=== PATIENT | female | born 1955 | race Caucasian/White ===

== ENCOUNTER → 2020-01-13 11:12 | Outpatient (BNVA) | payer SELFPAY | PROVIDERS: Visit Provider Nurse Practitioner Family | DX: R10.2 Pelvic and perineal pain (principal); N39.0 Urinary tract infection, site not specified | CPT/HCPCS: 80053; 81000; 87077; 87086; 87186 ==

== ENCOUNTER 2020-02-21 13:56 | Outpatient (CLI) | payer SELFPAY ==
--- NOTE | 2020-02-21 14:03 | XR_ITS ---
WS: [id number] CERVICAL SPINE 3 VIEWS HISTORY: neck pain COMPARISON: None available. Straightening and reversal the normal cervical lordosis. C5 retrolisthesis by 2 mm. Small osteophytes extend anterior and posterior from C4, C5 and C6. Lateral masses of C1 and C2 are aligned odontoid i s intact. Disc spaces and vertebral body heights are well-maintained. Soft tissues are normal. XR/XR cervical spine 3V* [id number] IMPRESSION: 1. Reversal the normal cervical lordosis at C5-6. 2. C5 retrolisthesis by 2 mm.
== END 2020-02-21 13:57 | disposition home or self-care (01) ==
LOC: RAD 14:02
PROVIDERS: PCP Registered Nurse; Visit Provider Nurse Practitioner Family
DX: M54.2 Cervicalgia (principal)
CPT/HCPCS: 72040

== ENCOUNTER 2020-03-05 15:45 | Outpatient (CLI) | payer SELFPAY ==
--- NOTE | 2020-03-05 15:52 | MR_ITS ---
WS: [id number] MRI CERVICAL SPINE NONCONTRAST TECHNIQUE: Sagittal T1, T2 and STIR imaging. Axial T2, gradient, and fiesta imaging. CLINICAL INFORMATION: neck pain FINDINGS: Straightening of the normal cervical lordosis. Slight retrolisthesis C5 on C6 and C6 on C7 with mild disc osteophyte complexes. Mild to moderate central canal stenosis at these levels. Cord signal appears normal. C2-C3: Normal. C3-C4: Mild disc bulging with slight effacement of ventral thecal sac. Slight contact of the cervical cord. Mild facet arthropathy. Tiny annular fissure. Mild left and no significant right foraminal terry rowing. Mild facet arthropathy. C4-C5: Mild disc bulging and osteophytic ridging. Tiny central protrusion with slight contact of the ventral thecal sac. Mild left greater than right foraminal narrowing. Mild facet arthropathy. C5-C6: Disc osteophyte complex with endplate ridging. Slight retrolisthesis. Moderate central canal s tenosis and slight indentation on cervical cord. Severe left and moderate right bony foraminal narrow ing. Mild facet arthropathy. C6-C7: Disc osteophyte complex with a central disc osteophyte protrusion. Slight contact of the cervi darío cord with mild to moderate central canal stenosis. Moderate to severe left bony foraminal narrowi ng. Mild facet arthropathy. C7-T1: Moderate right and no significant left bony foraminal narrowing. Spinal canal is patent. Visualized brain stem structures: Normal. Prevertebral soft tissues: Normal. MR/MR cervical spin wo con* [id number] IMPRESSION: 1. Straightening of the normal cervical lordosis with slight retrolisthesis C5 on C6 and C6 on C7. 2. Moderate central canal stenosis C5-C6 and mild to moderate central canal st enosis C6-7 due to central disc osteophyte protrusion with slight contact of th e cervical cord. Slight retrolisthesis C5 on C6 and C6 on C7. 3. Severe left C5-C6 and moderate to severe left C6-C7 bony foraminal narrowin g. 4. Moderate right C7-T1 bony foraminal narrowing.
== END 2020-03-05 15:46 | disposition home or self-care (01) ==
LOC: RADWPI 15:50
PROVIDERS: PCP Registered Nurse; Visit Provider Nurse Practitioner Family
DX: M54.2 Cervicalgia (principal); M48.02 Spinal stenosis, cervical region
CPT/HCPCS: 72141

== ENCOUNTER 2020-05-02 06:00 | Outpatient (RCR) | payer SELFPAY | END 2020-05-25 23:59 | disposition home or self-care (01) | LOC: APT 06:00 | PROVIDERS: PCP Registered Nurse; Referring Provider Nurse Practitioner Family; Visit Provider Nurse Practitioner Family | DX: M48.02 Spinal stenosis, cervical region (principal) | CPT/HCPCS: 97110; 97140; 97162 ==

== ENCOUNTER → 2020-09-03 10:59 | Outpatient (BNVA) | payer SELFPAY | PROVIDERS: PCP Registered Nurse; Visit Provider Registered Nurse | DX: R10.9 Unspecified abdominal pain (principal); Z12.11 Encounter for screening for malignant neoplasm of colon; Z01.419 Encounter for gynecological examination (general) (routine) without abnormal findings; Z78.0 Asymptomatic menopausal state | CPT/HCPCS: 81000; 87070; 87205; 88175 ==

== ENCOUNTER 2020-10-31 12:22 | Outpatient (CLI) | payer SELFPAY ==
[2020-10-31 13:40] LABS: Blood Urea Nitrogen 10 mg/dL (8-23); Glomerular Filtration Rate 55.8 mL/min (90-130)
[2020-10-31] MEDS: iohexol 300 mg/mL 50 mL Btl IV (13:53)
--- NOTE | 2020-10-31 14:00 | CT_ITS ---
WS: [id number] CT ABDOMEN AND PELVIS WITH CONTRAST HISTORY: R10.9 - Unspecified abdominal pain TECHNIQUE: Imaging performed of the abdomen and pelvis with IV contrast. Single phase imaging of the abdomen. Coronal and sagittal reformats are submitted. All CT scans at [facility] use at least one of these dose optimization techniques: automated exposure control; mA and/or kV adjustment per patient size (includes targeted exams where dose is matched to clinical indication); or iterativ e reconstruction. IV CONTRAST: Visipaque 320; 95 mL IV. Oral contrast: Yes. DLP: 1253.62 mGy.cm COMPARISON: None available. Lower thorax: Lung bases are clear. Heart is normal size. Small hiatal hernia. Liver/biliary system: Normal size liver. There are several low-attenuation masses which are most cons istent with cysts. The largest in the RIGHT lobe measures 2.1 cm. Gallbladder: Cholelithiasis without acute cholecystitis. Pancreas: Normal. Spleen: Normal. Adrenal glands: Normal RIGHT adrenal gland. 6 mm nodule with associated calcification in the LEFT adr enal gland is too small to characterize. Right kidney: Normal. Left kidney: Cortical cyst measures 5 mm Aorta: Normal. Lymphadenopathy: None. Free fluid: None. GI tract: The appendix is normal. There are numerous diverticula throughout the colon. No acute infla mmation. No free fluid or adenopathy. Abdominal wall: Ventral abdominal wall hernia contains fat only. Pelvis: Well-distended urinary bladder. No free fluid in the pelvis. Uterus is anteverted and contain s calcified fibroids. Bones: No osteoblastic or osteolytic bone disease. CT/CT abdomen pelvis w con* [id number] IMPRESSION: 1. Extensive diverticular disease throughout the colon. No evidence for acute diverticulitis. No free fluid or abscess. 2. Cholelithiasis without acute cholecystitis. 3. Normal appendix. 4. Hepatic and LEFT renal cysts. 5. Fibroid uterus.
[2020-10-31] MEDS: iodixanol 320 mg/mL 100mL Btl IV (14:34)
== END 2020-10-31 12:23 | disposition home or self-care (01) ==
PROVIDERS: PCP Registered Nurse; Visit Provider Surgery
DX: R10.9 Unspecified abdominal pain (principal); D25.9 Leiomyoma of uterus, unspecified; Q61.02 Congenital multiple renal cysts; K76.89 Other specified diseases of liver; K80.20 Calculus of gallbladder without cholecystitis without obstruction
CPT/HCPCS: 36415; 74177; 82565; 84520

== ENCOUNTER → 2020-11-23 09:12 | Outpatient (BNVA) | payer OTHER, SELFPAY | PROVIDERS: PCP Registered Nurse; Visit Provider Surgery | DX: Z20.822 Contact with and (suspected) exposure to COVID-19 (principal) | CPT/HCPCS: 87635 ==

== ENCOUNTER 2020-11-28 06:33 | Day surgery (SDC) | payer SELFPAY ==
[2020-11-28 06:54] VITALS: BP 121/72; PULSE 68; RESP 18; TEMP 36.8; O2SAT 97
[2020-11-28 06:56] VITALS: BMI 30.7
[2020-11-28] MEDS: sodium chloride 0.9% 1,000 ML 30 ML IV (07:05)
--- NOTE | 2020-11-28 07:10 | ANES.PREANE2 ---
Pre-Anesthetic Assessment Pre-Anesthetic Assessment: Height/Weight: Height 1.68 m Weight 86.183 kg Temp Pulse Resp BP Pulse Ox 98.2 F 68 18 121/72 97 11/28/20 06:54 11/28/20 06:54 11/28/20 06:54 11/28/20 06:54 11/28/20 06:54 Preop Diagnosis: History of diverticulitis Proposed Procedure: Operation Date: 11/28/20 07:45 Proposed Procedures p Colonoscopy 33812 R10.9(Not Applicable) - John Wren MD Familial anesthetic complications: None Was Beta Murphy taken within 24 hours: N/A Last intake: Intake Last Liquid Date 11/27/20 Last Liquid Time 23:00 Last Solid Date 11/26/20 Last Solid Time 20:00 Social: Social History: No alcohol and No tobacco Exam: Pre-Anes Outpt Exam: alert, oriented x 3, clear to auscultation bilaterally and regular rate & rhythm Airway: Cervical ROM: WNL MP: 3 Dentition: Other (missing teeth) CV/HEM: CV/HEM: DVT Comments: on rivaroxaban (thrombophlebitis) Anesthetic Plan: ASA status: 2 Anesthesia: MAC Risk of > 500 ml blood loss (7ml/kg in children): No Meds/Allergies Current Medications: Current Medications Generic Name Dose Route Start Last Admin Trade Name Freq PRN Reason Stop Dose Admin Sodium Chloride 1,000 mls @ 30 ml s/hr 11/28/20 06:45 11/28/20 07:05 Sodium Chloride 0.9% IV 11/29/20 06:44 30 mls/hr .Q24H NATALIA Administration PFSH Anesthesia PFSH: Medical History Diverticulitis Endometriosis Spinal stenosis of cervical region Family History Denies family history of Anesthesia complication Bleeding disorder Social History Smoking and tobacco status: former smoker Data Anesthesia Cardiac Studies: No Data to Display
--- NOTE | 2020-11-28 07:21 | W.PM.OPSUD ---
Surgery/Procedure H&P Update DATE OF PROCEDURE: November 28, 2020 DATE H&P PERFORMED: 11/07/20 H&P UPDATE INFORMATION: I have reviewed H&P completed within last 30 days, I have examined patient prior to procedure and No changes to prior documentation PREOP DIAGNOSIS: History of diverticulitis PRIMARY INDICATION FOR PROCEDURE: The same PLANNED PROCEDURE: Operation Date: 11/28/20 07:45 Proposed Procedures p Colonoscopy 52210 R10.9(Not Applicable) - John Wren MD
[2020-11-28 08:02] VITALS: BP 97/66; PULSE 58; RESP 16; TEMP 36.6; O2SAT 95
--- NOTE | 2020-11-28 08:08 | ANE.PACU2 ---
Inpatient post-anesthesia follow up: Airway intact: Yes Vital signs: Temperature 97.9 F Pulse Rate 58 Respiratory Rate 16 Blood Pressure 97/66 Pulse Oximetry 95 Oxygen Delivery Me thod Room Air Oxygen Flow Rate Fraction of Inspir ed Oxygen Hydration adequate: Yes Nausea and vomiting: No Pain level: 1 Mental status: Baseline
[2020-11-28 08:15] VITALS: BP 120/74; PULSE 52; RESP 16; O2SAT 99
== END 2020-11-28 08:25 | disposition home or self-care (01) ==
PROVIDERS: PCP Registered Nurse; Visit Provider Surgery
PROC: 0DJD8ZZ Inspection of Lower Intestinal Tract, Via Natural or Artificial Opening Endoscopic (ICD-10-PCS; CPT 45378; principal; 2020-11-28 07:45)
DX: Z87.19 Personal history of other diseases of the digestive system (principal); K57.30 Diverticulosis of large intestine without perforation or abscess without bleeding; Z86.718 Personal history of other venous thrombosis and embolism; Z87.891 Personal history of nicotine dependence
CPT/HCPCS: 12345; 45378; J2704; J7030

== ENCOUNTER 2021-01-23 06:00 | Outpatient (RCR) | payer SELFPAY | END 2021-01-23 23:59 | disposition home or self-care (01) | LOC: APT 06:00 | PROVIDERS: PCP Registered Nurse; Referring Provider Registered Nurse; Visit Provider Registered Nurse | DX: M67.912 Unspecified disorder of synovium and tendon, left shoulder (principal) | CPT/HCPCS: 97110; 97161 ==

== ENCOUNTER 2021-01-24 06:00 | Outpatient (RCR) | payer SELFPAY | END 2021-02-22 23:59 | disposition home or self-care (01) | LOC: APT 06:00 | PROVIDERS: PCP Registered Nurse; Referring Provider Registered Nurse; Visit Provider Registered Nurse | DX: M67.912 Unspecified disorder of synovium and tendon, left shoulder (principal) | CPT/HCPCS: 97110; 97112; 97140 ==

== ENCOUNTER 2021-02-23 06:00 | Outpatient (RCR) | payer MEDICAID, SELFPAY | END 2021-03-25 23:59 | disposition home or self-care (01) | LOC: APT 06:00 | PROVIDERS: PCP Registered Nurse; Referring Provider Registered Nurse; Visit Provider Registered Nurse | DX: M67.912 Unspecified disorder of synovium and tendon, left shoulder (principal) | CPT/HCPCS: 97110; 97112 ==

== ENCOUNTER → 2021-05-10 16:12 | Outpatient (BNVA) | payer OTHER, SELFPAY | PROVIDERS: PCP Registered Nurse; Visit Provider Emergency Medicine | DX: Z20.822 Contact with and (suspected) exposure to COVID-19 (principal) | CPT/HCPCS: 87635 ==

== ENCOUNTER 2021-05-18 13:48 | Inpatient (IN) | payer MEDICAID, SELFPAY ==
[2021-05-18] VITALS (7 sets, daily range): BP systolic 97–117; BP diastolic 65–77; PULSE 73–94; RESP 18–24; TEMP 36.4–37.4; O2SAT 82–97; BMI 28.2
--- NOTE | 2021-05-18 14:29 | ECG_ITS ---
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 Measurements Intervals [place] Rate: 83 P: 44 IA: 155 QRS: -29 QRSD: 76 T: -12 QT: 331 QTc: 390 Interpretive Statements SINUS RHYTHM BORDERLINE LEFT AXIS DEVIATION [QRS AXIS < -20] VOLTAGE CRITERIA FOR LVH [MEETS CRITERIA IN ONE OF: R(aVL), S(V1), R(V5), R(V5/V6)+S(V1)] MODERATE T-WAVE ABNORMALITY, CONSIDER ANTERIOR ISCHEMIA [-0.1+ mV T WAVE IN V3/V4] No previous ECG available for comparison Electronically Signed On 05-19-2021 18:22:14 CDT by Eloisa Villatoro M.D. [email or web address]
--- NOTE | 2021-05-18 14:29 | XRR_ITS ---
PROCEDURE INFORMATION: Exam: XR Chest Exam date and time: 05/18/2021 2:29 PM Age: 65 years old Clinical indication: Cough and dyspnea; Additional info: Dyspnea/cough TECHNIQUE: Imaging protocol: XR of the chest. Views: 1 view. COMPARISON: CT abdomen pelvis w con* [id number] 10/31/2020 2:15 PM FINDINGS: Lungs: There is bilateral airspace opacities, consistent with multifocal pneumonia. Pleural spaces: Unremarkable. No pleural effusion. No pneumothorax. Heart/Mediastinum: Unremarkable. No cardiomegaly. Bones/joints: Unremarkable. XR/XR chest 1V portable [id number] IMPRESSION: Multifocal pneumonia.
--- NOTE | 2021-05-18 14:47 | ED_ITS ---
HPI - COVID General: Chief Complaint: COVID symptoms Stated Complaint: LAST DAY QUARANTINE:SOB, FATIGUE, WEAK Time Seen by Provider: 05/18/21 14:29 Triage information: Has fever, cough or shortness of breath . No known COVID + exposure last 14 days History of Present Illness: HPI Narrative: 65 old female who is at day 10 since onset of symptoms and day 8 since she tested positive for COVID-19 virus. She seemed to have been doing pretty well and then yesterday she began getting increasing shortness of breath. Somewhat alarmed her daughter so her daughter came in to see her this this afternoon and found her to be profoundly short of breath. On arrival here she has a low-grade fever and an oxygen sat of 82% on room air. It corrects to the mid 90s with 15 L by nonrebreather. She has had a nonproductive cough with severe myalgias. Early on she had diarrhea but that has resolved. She denies any chest pain. complaint: known COVID positive Prior testing date: 05/10/21 COVID 19 common symptoms: positive fever(s), chills, cough, non-productive cough, dyspnea, fatigue, body aches, headache(s), loss of sense of smell and/or taste, throat pain, nasal congestion, nausea and diarrhea (Mostly resolved) COVID 19 other sytmptoms: positive requiring oxygen; negative chest pain Onset (ago): hour(s) Severity: severe Treatment prior to arrival: none COVID Results: SARS-CoV-2 RNA (RT-PCR) Detected (NOT DETECTED) A 05/10/21 16:12 05/10/21 Nasal/Oral Coronavirus 2019 PCR Not detected 11/23/20 09:12 11/23/20 Review of Systems Const: Reports: fever(s), chills, body aches and fatigue ENMT: Reports: throat pain and nasal congestion Card: Denies: chest pain, edema, dyspnea on exertion or orthopnea Resp: Reports: dyspnea and non-productive cough GI: Reports: nausea and diarrhea (Mostly resolved) : Denies: flank pain, difficulty voiding, dysuria, urinary frequency or urinary urgency Skin/Breast: Denies: rash or pruritus Neuro: Reports: headache(s) PFSH ED PFSH: Medical History Abdominal pain Benign mole Diverticulitis Diverticulosis Endometriosis History of blood clots Seborrheic keratosis Spinal stenosis of cervical region Tendinopathy of left shoulder Surgical History History of colonoscopy Family History Denies family history of Anesthesia complication Bleeding disorder Social History (Updated 05/18/21 @ 16:54 by Cheo Marquez MD) Smoking and tobacco status: former smoker Alcohol intake: never Substance/Drug Use: never Household members: spouse Housing: House History of recent travel: No Physical Exam Const: COMMON NORMALS: no acute distress GENERAL APPEARANCE: cooperative and comfortable ORIENTATION/CONSCIOUSNESS: Yes awake, Yes oriented to person, Yes oriented to place and Yes oriented to time HENMT: COMMON NORMALS: normocephalic, atraumatic and hearing grossly normal bilaterally HEAD & SCALP: normocephalic and atraumatic Neck/C-Spine: COMMON NORMALS: no JVD Resp: EFFORT & INSPECTION: Yes abnormal respiratory pattern, Yes tachypneic, Yes respiratory distress, Yes labored and Yes uses accessory muscles AUSCULTATION: crackles, wheezes and diminished lung sounds Cardio: COMMON NORMALS: no JVD, regular rate, regular rhythm and No murmurs present (Cardio) RATE: regular rate RHYTHM: regular rhythm GI: COMMON NORMALS: Soft to palpation and No hepatosplenomegaly present AUSCULTATION: Yes normoactive bowel sounds PALPATION: Yes Soft to palpation, No Tenderness to palpation present (GI), No Guarding due to palpation present (GI) and Yes No hepatosplenomegaly present Extremity: COMMON NORMALS: normal to inspection, capillary refill normal, no clubbing, cyanosis or edema, no calf tenderness and no pedal edema Neuro: SENSORIUM/ORIENTATION: Yes oriented to person, Yes oriented to place and Yes oriented to time Skin: COMMON NORMALS: no rashes or lesions noted GENERAL SKIN EXAM: no rashes or lesions noted Course Vital Signs: Vital signs: Vital Signs Temperature 98.3 F 05/20/21 00:00 Pulse Rate 63 05/20/21 00:00 Respiratory Rate 21 H 05/20/21 00:00 Blood Pressure 108/71 05/20/21 00:00 Pulse Oximetry 91 05/20/21 00:00 MDM - COVID MDM Narrative: Medical decision making narrative: Clinically patient has C OVID-19 although the antigen is negative rest of strongly suspect in the PCR will be positive will admit for pneumonia and suspected COVID-19 discussed with hospitalist orders written Lab Data: Labs: Lab Results 05/18/21 05/18/21 05/18/21 Range/Units 14:45 14:45 14:45 WBC 6.8 (4.0-10.0) 10^3/ uL RBC 4.87 (4.1-5.3) 10^6/u L Hgb 14.3 (11.5-15.3) g/dL Hct 42.9 (37.0-47.0) % MCV 88.1 (81-99) fL MCH 29.4 (28.0-34.0) pg MCHC 33.3 (30.0-36.0) g/dL RDW 13.3 (12.1-15.1) % Plt Count 274 (130-400) 10^3/c mm MPV 8.9 (7.4-10.4) fL Neut % (Auto) 74.0 % Lymph % (Auto) 15.8 % [place] % (Auto) 9.7 % Eos % (Auto) 0.0 % Baso % (Auto) 0.1 % Neut # (Auto) 5.02 (1.8-7.7) 10^3/u L Lymph # (Auto) 1.1 (0.8-4.8) 10^3/u L [place] # (Auto) 0.7 (0.2-0.9) 10^3/u L Eos # (Auto) 0.0 (0.0-0.8) 10^3/u L Baso # (Auto) 0.0 (0.0-0.1) 10^3/u L Nucleated RBC % (a uto) 0 % Nucleated RBCs # 0.0 /100WBC D-Dimer 2.73 H (0-0.59) ug/mIFE U Specimen Type Sample Site ABG pH (7.35-7.45) ABG pCO2 (35-45) mmHg ABG pO2 (80.0-100.0) mmH g ABG HCO3 (22-26) mmol/L ABG O2 Saturation ABG Base Excess (-2.0-2.0) mmol/ L Glen Test A-a O2 Gradient (5-10) mmHg Hematocrit (37-47) % Hgb O2 Saturation (95-100) % Carboxyhemoglobin (0.4-20.1) %THgb Methemoglobin (0.4-1.5) % Total Hemoglobin (12-16) g/dL Ionized Calcium (1.1-1.4) mmol/L O2 Delivery Device FiO2 % Gas [employer] Oil Servicer ID Sodium 134 L (136-145) mmol/L Potassium 4.1 (3.5-5.1) mmol/L Chloride 99 (98-107) mmol/L Carbon Dioxide 21 L (22-29) mmol/L Anion Gap 18.1 (5-19) BUN 24 H (8-23) mg/dL Creatinine 0.9 (0.5-0.9) mg/dL GFR Calculation 63.0 L (90-130) mL/min Glucose 119 H (65-115) mg/dL Calculated Osmolal ity 283 L (285-295) mOsm/k g Calcium 8.1 L (8.5-10.5) mg/dL Total Bilirubin 0.4 (0.15-1.2) mg/dL AST 51 H (0-32) U/L ALT 38 H (0-33) U/L Alkaline Phosphata se 61 (35-105) IU/L C-Reactive Protein 42.7 H (0.0-4.9) mg/L Total Protein 6.5 L (6.6-8.7) g/dL Albumin 3.7 (3.5-5.2) g/dL Globulin 2.8 (1.3-4.6) g/dL Procalcitonin (0-0.5) ng/mL Urine Color (Yellow) Urine Appearance (CLEAR) Urine pH (5-7) Ur Specific Gravit y (1.005-1.030) Urine Protein (Negative) Urine Glucose (UA) (Normal) Urine Ketones (Negative) Urine Blood (Negative) Urine Nitrate (Negative) Urine Bilirubin (Negative) Urine Urobilinogen (Negative) mg/dL Ur Leukocyte Darlene ase (Negative) Urine RBC (0-2) /hpf Urine WBC (0-5) /hpf Ur Squamous Epith Cells (0-5) /hpf Amorphous Sediment /hpf Urine Bacteria (NONE) /hpf Coarse Granular Ca sts /lpf 05/18/21 05/18/21 05/18/21 Range/Units 14:45 15:41 16:52 WBC (4.0-10.0) 10^3/ uL RBC (4.1-5.3) 10^6/u L Hgb (11.5-15.3) g/dL Hct (37.0-47.0) % MCV (81-99) fL MCH (28.0-34.0) pg MCHC (30.0-36.0) g/dL RDW (12.1-15.1) % Plt Count (130-400) 10^3/c mm MPV (7.4-10.4) fL Neut % (Auto) % Lymph % (Auto) % [place] % (Auto) % Eos % (Auto) % Baso % (Auto) % Neut # (Auto) (1.8-7.7) 10^3/u L Lymph # (Auto) (0.8-4.8) 10^3/u L [place] # (Auto) (0.2-0.9) 10^3/u L Eos # (Auto) (0.0-0.8) 10^3/u L Baso # (Auto) (0.0-0.1) 10^3/u L Nucleated RBC % (a uto) % Nucleated RBCs # /100WBC D-Dimer (0-0.59) ug/mIFE U Specimen Type Arterial Sample Site Brachial, left ABG pH 7.43 (7.35-7.45) ABG pCO2 36.9 (35-45) mmHg ABG pO2 73.9 L (80.0-100.0) mmH g ABG HCO3 24.2 (22-26) mmol/L ABG O2 Saturation 95.4 ABG Base Excess 0.1 (-2.0-2.0) mmol/ L Glen Test N/a A-a O2 Gradient 76.7 H (5-10) mmHg Hematocrit 44.7 (37-47) % Hgb O2 Saturation 94.4 L (95-100) % Carboxyhemoglobin 0.5 (0.4-20.1) %THgb Methemoglobin 0.6 (0.4-1.5) % Total Hemoglobin 14.6 (12-16) g/dL Ionized Calcium 1.2 (1.1-1.4) mmol/L O2 Delivery Device Nrb FiO2 100.0 % Gas And Oil Servicer ID Amh Sodium 134.0 (136-145) mmol/L Potassium 3.9 (3.5-5.1) mmol/L Chloride (98-107) mmol/L Carbon Dioxide (22-29) mmol/L Anion Gap (5-19) BUN (8-23) mg/dL Creatinine (0.5-0.9) mg/dL GFR Calculation (90-130) mL/min Glucose 117.0 H (65-115) mg/dL Calculated Osmolal ity (285-295) mOsm/k g Calcium (8.5-10.5) mg/dL Total Bilirubin (0.15-1.2) mg/dL AST (0-32) U/L ALT (0-33) U/L Alkaline Phosphata se (35-105) IU/L C-Reactive Protein (0.0-4.9) mg/L Total Protein (6.6-8.7) g/dL Albumin (3.5-5.2) g/dL Globulin (1.3-4.6) g/dL Procalcitonin 0.15 (0-0.5) ng/mL Urine Color Yellow (Yellow) Urine Appearance Clear (CLEAR) Urine pH 5 (5-7) Ur Specific Gravit y 1.020 (1.005-1.030) Urine Protein Trace (Negative) Urine Glucose (UA) Norm (Normal) Urine Ketones 1+ H (Negative) Urine Blood 2+ H (Negative) Urine Nitrate Negative (Negative) Urine Bilirubin 1+ H (Negative) Urine Urobilinogen 1 H (Negative) mg/dL Ur Leukocyte Darlene ase Negative (Negative) Urine RBC 0-4 H (0-2) /hpf Urine WBC 5-10 H (0-5) /hpf Ur Squamous Epith Cells 5-10 H (0-5) /hpf Amorphous Sediment 1+ /hpf Urine Bacteria 1+ H (NONE) /hpf Coarse Granular Ca sts 15-25 H /lpf COVID Results: SARS-CoV-2 RNA (RT-PCR) Detected (NOT DETECTED) A 05/10/21 16:12 05/10/21 Nasal/Oral Coronavirus 2019 PCR Not detected 11/23/20 09:12 11/23/20 Discharge Plan Discharge Patient Disposition: Admitted As Inpatient Admit Provider: Cheo Marquez Clinical Impression: COVID-19 determined by clinical diagnostic criteria, Hypoxia, Pneumonia Condition: Stable Coding Level of Care Code ED Clerical Support Specialist for Chg Fwd Exam Comprehensive
[2021-05-18 14:58] LABS: Basophils % 0.1 %; Hematocrit 42.9 % (37.0-47.0); Hemoglobin 14.3 g/dL (11.5-15.3); Lymphocytes # 1.1 10^3/uL (0.8-4.8); Lymphocytes % 15.8 %; Mean Corpuscular HGB Conc 33.3 g/dL (30.0-36.0); Mean Corpuscular Hemoglobin 29.4 pg (28.0-34.0); Mean Corpuscular Volume 88.1 fL (81-99); Mean Platelet Volume 8.9 fL (7.4-10.4); Monocytes # 0.7 10^3/uL (0.2-0.9); Monocytes % 9.7 %; Neutrophils # 5.02 10^3/uL (1.8-7.7); Nucleated Red Blood Cells % 0 %; Platelet Count 274 10^3/cmm (130-400); Red Blood Count 4.87 10^6/uL (4.1-5.3); Red Cell Distribution Width 13.3 % (12.1-15.1); White Blood Count 6.8 10^3/uL (4.0-10.0)
[2021-05-18 15:33] LABS: Alanine Aminotransferase 38 U/L (0-33); Albumin Level 3.7 g/dL (3.5-5.2); Alkaline Phosphatase 61 IU/L (35-105); Anion Gap 18.1 (5-19); Aspartate Amino Transferase 51 U/L (0-32); Blood Urea Nitrogen 24 mg/dL (8-23); C Reactive Protein 42.7 mg/L (0.0-4.9); Calcium 8.1 mg/dL (8.5-10.5); Carbon Dioxide 21 mmol/L (22-29); Chloride 99 mmol/L (98-107); Globulin 2.8 g/dL (1.3-4.6); Glucose 119 mg/dL (65-115); Osmolality Calculated 283 mOsm/kg (285-295); Potassium 4.1 mmol/L (3.5-5.1); Sodium 134 mmol/L (136-145); Total Bilirubin 0.4 mg/dL (0.15-1.2); Total Protein 6.5 g/dL (6.6-8.7)
[2021-05-18 15:38] LABS: D Dimer 2.73 ug/mIFEU (0-0.59)
[2021-05-18 15:57] LABS: Add Urine Microscopic? YES; Bilirubin Urine 1+ (Negative); Blood Urine 2+ (Negative); Glucose Urine UA Norm (Normal); Ketones Urine 1+ (Negative); Leukocyte Esterase Urine Negative (Negative); Nitrate Urine Negative (Negative); Protein Urine Trace (Negative); Urine Appearance Clear (CLEAR); Urine Color Yellow (Yellow); Urobilinogen Urine 1 mg/dL (Negative); pH Urine 5 (5-7)
[2021-05-18 15:59] LABS: Amorphous Sediment Urine 1+ /hpf; Bacteria Urine 1+ /hpf; Coarse Granular Casts Urine 15-25 /lpf; RBC Urine 0-4 /hpf (0-2)
[2021-05-18 16:00] LABS: Add Urine Culture? No
--- NOTE | 2021-05-18 16:12 | CTR_ITS ---
PROCEDURE INFORMATION: Exam: CTA Chest With Contrast Exam date and time: 05/18/2021 4:12 PM Age: 65 years old Clinical indication: Shortness of breath; Additional info: Covdi TECHNIQUE: Imaging protocol: Computed tomographic angiography of the chest with contrast. 3D rendering (Not supervised by radiologist): MIP and/or 3D reconstructed images were created by the technologist. Radiation optimization: All CT scans at this facility use at least one of these dose optimization techniques: automated exposure control; mA and/or kV adjustment per patient size (includes targeted exams where dose is matched to clinical indication); or iterative reconstruction. Contrast material: VISI 320; Contrast volume: 79 ml; Contrast route: INTRAVENOUS (IV); COMPARISON: CR (CHEST, ) 05/18/2021 2:39 PM RADIATION DOSE METRICS: Total DLP (mGy-cm): 478.47 FINDINGS: Pulmonary arteries: Normal. No pulmonary emboli. Aorta: Unremarkable. No aortic aneurysm. No aortic dissection. Lungs: There is patchy ground-glass opacities scattered throughout both lungs, in a predominantly peripheral distribution. Pleural spaces: Unremarkable. No pneumothorax. No pleural effusion. Heart: Unremarkable. No cardiomegaly. No pericardial effusion. Mediastinal space: A small hiatal hernia is present. Lymph nodes: Unremarkable. No enlarged lymph nodes. Liver: Small hepatic cysts noted, the largest measuring 2.1 cm in the right hepatic lobe. Liver is otherwise unremarkable. Stomach and bowel: There is diverticulosis without evidence of diverticulitis. Bones/joints: Unremarkable. No acute fracture. Soft tissues: Unremarkable. CT/CT angio chest PE protcl [id number] IMPRESSION: 1. No pulmonary embolus. 2. Commonly reported imaging features of (COVID-19) pneumonia are present. Other processes such as influenza pneumonia and organizing pneumonia, as can be seen with drug toxicity and connective tissue disease, can cause a similar imaging pattern. Radiation Dose CTDIVOL = (mGy): DLP = 478.47 (mGy-cm)
--- NOTE | 2021-05-18 16:28 | PM.HP ---
Providers/Chief Complaint Primary Care Provider: RASTA Cutler Chief Complaint: LAST DAY QUARANTINE:SOB, FATIGUE, WEAK History of Present Illness Vandana Villalobos is a 65 year old female who presented with COVID-19 symptoms. Patient is stating that her symptoms started about 10 days ago when her got sick. She was tested positive on 05/10, she has been doing well until yesterday when started experiencing worsening of shortness of breath. Today when daughter checked on her she called ambulance because of her worsening respiratory distress. She was saturating 80% on room air when EMS arrived she was put on 15 L nonrebreather mask which seemed to improve her saturation. She is also endorsing diarrhea fatigue lethargy and fever of 103. Nonproductive cough. Diagnostics in the ER revealed normal CBC, BMP revealed mildly abnormal transaminases CRP 42 I have requested procalcitonin level ABG is pending chest x-ray showed bilateral lower lobe groundglass opacities she is requiring 10 L nonrebreather mask Review of Systems Const: Reports: fever(s), chills, body aches and fatigue Eyes: Denies: change in vision ENMT: Denies: throat pain Card: Denies: chest pain Resp: Reports: dyspnea and non-productive cough GI: Reports: diarrhea : Denies: flank pain Musc: Denies: neck pain Skin/Breast: Reports: lesions Neuro: Denies: headache(s) Psych: Denies: anxiety Endo: Denies: polyuria William/Lymph: Denies: easy bruising All/Imm: Denies: urticaria Medications/Allergies Home Medications Medication Instructions Recorded Confirmed Last Taken Type rivaroxaban [Xarelto] 20 mg PO DAILY 05/18/21 05/18/21 05/17/21 History Allergies Allergy/AdvReac Type Severity Reaction Status Date / Time iodine Allergy ALGY-Hives Verified 05/18/21 14:30 povidone-iodine Allergy Unknown Verified 05/18/21 14:30 [From Betadine] shellfish derived Allergy ALGY-Hives Verified 05/18/21 14:30 soap [From Betadine] Allergy Unknown Verified 05/18/21 14:30 PFSH Acute PFSH: Medical History Abdominal pain Benign mole Diverticulitis Diverticulosis Endometriosis History of blood clots Seborrheic keratosis Spinal stenosis of cervical region Tendinopathy of left shoulder Surgical History History of colonoscopy Family History Denies family history of Anesthesia complication Bleeding disorder Social History (Updated 05/18/21 @ 16:54 by Cheo Marquez MD) Smoking and tobacco status: former smoker Alcohol intake: never Substance/Drug Use: never Household members: spouse Housing: House History of recent travel: No Vitals/I&O/Wt Last Vital Signs Temp 99.3 F 05/18/21 14:30 Pulse 73 05/18/21 16:09 Resp 20 H 05/18/21 14:50 BP 107/73 05/18/21 16:09 Pulse Ox 93 05/18/21 16:09 Weight last 48 hrs Weight 79.379 kg Physical Exam Narrative: EXAM NARRATIVE: Middle-age female who is currently saturating well on 10 L nonrebreather mask No active chest pain, S1, S2 no murmur appreciated Awake alert oriented x3 GCS 15 Signs of CHF Bilateral breath sounds with rhonchi at the bases bilaterally Abdomen soft nontender bowel sounds present No extremity no edema Multiple skin rashes noted actinic keratosis, EOMI, PERRLA No joint swelling Appropriate mood and affect Hoarseness of voice Data : 05/18/21 14:45 05/18/21 14:45 A&P Assessment and plan (1) Hypoxia: Status: Acute (2) COVID-19 determined by clinical diagnostic criteria: Status: Acute Additional A&P Information Acute hypoxic respiratory failure secondary to COVID-19 Currently requiring 10 L nonrebreather mask High D-dimer, will request CTA rule out PE Start Decadron and remdesivir CRP less than 75 hold off on interleukin-6 inhibitor We will place her with her who is admitted with COVID-19 symptoms as well Cardiac diet DVT prophylaxis continue rivaroxaban Full code Check inflammatory markers every 48 hours Judicious use of fluids Tessalon and Robitussin for cough Attestations Medical Necessity Statement*: Anticipating stay in the hospital because more than 2 midnights for COVID-19 hypoxia Time Spent in Patient Care: 30mins Coding Level of Care Code Acute Thermal Cutting Tracer Machine Operator for [facility] Fwd Diagnoses Hypoxia R09.02 COVID-19 determined by clinical diagnostic criteria U07.1
[2021-05-18 17:04] LABS: ABG PCO2 36.9 mmHg (35-45); ABG PH Result 7.43 (7.35-7.45); Alveolar-Arterial Oxygen Gradi 76.7 mmHg (5-10); Arterial Blood Gas Hematocrit 44.7 % (37-47); Base Excess ABG 0.1 mmol/L (-2.0-2.0); Blood Gas Operator Identificat AMH; Blood Gas Sample Site Brachial, left; Blood Gas Sample Type Arterial; Carboxyhemoglobin 0.5 %THgb (0.4-20.1); HCO3 ABG 24.2 mmol/L (22-26); HGB O2 Sat 94.4 % (95-100); Ionized Calcium Level - ABG 1.2 mmol/L (1.1-1.4); Methemoglobin 0.6 % (0.4-1.5); Oxygen Device NRB; Oxygen Saturation ABG 95.4; PO2 ABG 73.9 mmHg (80.0-100.0); Potassium Level - ABG 3.9 mmol/L (3.5-5.0); Total Hemoglobin 14.6 g/dL (12-16)
[2021-05-18 17:09] LABS: Procalcitonin 0.15 ng/mL (0-0.5)
[2021-05-18] MEDS: iodixanol 320 mg/mL 100mL Btl IV (17:13)
[2021-05-18] MEDS: remdesivir 200 MG in sodium chloride 0.9% (100 ml) 100 ML 100 MG IV (18:36)
[2021-05-18 18:45] LABS: Glucose Point of Care 121 mg/dL (70-110)
--- NOTE | 2021-05-18 18:53 | ECG_ITS ---
[facility] Test Date: 2021-05-18 Pat Name: Vandana Villalobos Department: Room: 276 Gender: Female Media Sales Consultant: : [id number] Requested By: Joseph Pichardo Order Number: [id number] Adriana MD: Eloisa Villatoro M.D. Measurements Intervals [place] Rate: 83 P: 44 ND: 155 QRS: -29 QRSD: 76 T: -12 QT: 331 QTc: 390 Interpretive Statements SINUS RHYTHM BORDERLINE LEFT AXIS DEVIATION [QRS AXIS < -20] VOLTAGE CRITERIA FOR LVH [MEETS CRITERIA IN ONE OF: R(aVL), S(V1), R(V5), R(V5/V6)+S(V1)] MODERATE T-WAVE ABNORMALITY, CONSIDER ANTERIOR ISCHEMIA [-0.1+ mV T WAVE IN V3/V4] No previous ECG available for comparison Electronically Signed On 05-19-2021 18:39:07 CDT by Eloisa Villatoro M.D. [id number]
[2021-05-18 21:06] LABS: Glucose Point of Care 166 mg/dL (70-110)
[2021-05-19] VITALS (11 sets, daily range): BP systolic 95–129; BP diastolic 55–76; PULSE 64–91; RESP 17–26; TEMP 36.7–37.7; O2SAT 90–96
[2021-05-19 06:18] LABS: Basophils % 0.1 %; Hematocrit 40.5 % (37.0-47.0); Hemoglobin 13.6 g/dL (11.5-15.3); Lymphocytes # 1.2 10^3/uL (0.8-4.8); Mean Corpuscular HGB Conc 33.6 g/dL (30.0-36.0); Mean Corpuscular Hemoglobin 29.9 pg (28.0-34.0); Mean Platelet Volume 9.1 fL (7.4-10.4); Monocytes # 0.6 10^3/uL (0.2-0.9); Monocytes % 7.2 %; Neutrophils # 6.36 10^3/uL (1.8-7.7); Neutrophils % 77.1 %; Nucleated Red Blood Cells % 0 %; Platelet Count 267 10^3/cmm (130-400); Red Blood Count 4.55 10^6/uL (4.1-5.3); Red Cell Distribution Width 13.5 % (12.1-15.1); White Blood Count 8.3 10^3/uL (4.0-10.0)
[2021-05-19 06:45] LABS: Lactate Dehydrogenase 569 U/L (135-214)
[2021-05-19 06:49] LABS: Anion Gap 14.7 (5-19); Blood Urea Nitrogen 27 mg/dL (8-23); C Reactive Protein 50.3 mg/L (0.0-4.9); Calcium 8.2 mg/dL (8.5-10.5); Carbon Dioxide 24 mmol/L (22-29); Chloride 99 mmol/L (98-107); Glucose 108 mg/dL (65-115); Osmolality Calculated 284 mOsm/kg (285-295); Potassium 3.7 mmol/L (3.5-5.1); Sodium 134 mmol/L (136-145)
[2021-05-19 06:52] LABS: Glucose Point of Care 104 mg/dL (70-110)
[2021-05-19 07:14] LABS: Ferritin 1999 ng/mL (15-150)
[2021-05-19] MEDS: dexamethasone 4 mg Tablet 6 MG PO (10:02)
[2021-05-19] MEDS: rivaroxaban 10 mg Tablet 20 MG PO (10:03)
[2021-05-19 10:45] LABS: Glucose Point of Care 123 mg/dL (70-110)
--- NOTE | 2021-05-19 14:23 | PM.PN ---
Subjective Subjective: Interval history: Patient was seen and examined this morning at bedside during Yang humidified high flow 70% 30 L Feeling very lethargic complaining of anorexia No active chest pain or shortness of breath Vitals/I&O/Wt Last Vital Signs Temp 98.3 F 05/19/21 11:49 Pulse 81 05/19/21 12:52 Resp 20 H 05/19/21 12:52 BP 111/75 05/19/21 11:49 Pulse Ox 90 05/19/21 12:52 05/18/21 05/19/21 05/19/21 22:59 06:59 14:59 Intake Total 460 / 460 120 / 580 Output Total 400 / 400 200 / 600 Balance 60 / 60 -80 / -20 Weight last 48 hrs Weight 79.379 kg Physical Exam Narrative: EXAM NARRATIVE: She was laying in right lateral position bradycardic Saturating well on humidified high flow 30 L 70% S1, S2 Bilateral breath sounds are adventitious rhonchi or crackles No new neurological deficits No leg edema Abdomen soft EOMI, PERRLA Data : 05/19/21 05:26 05/19/21 05:26 A&P Assessment and plan (1) Hypoxia: Status: Acute (2) COVID-19 determined by clinical diagnostic criteria: Status: Acute Additional A&P Information Acute hypoxia secondary to COVID-19 pneumonia Continue remdesivir and Decadron regimen CRP 50 if her oxygen equipment keeps increasing I may add interleukin-6 inhibitor dosage currently on 30 L 70% pain no active chest pain or shortness of breath She does endorse anorexia and fatigue Procalcitonin unremarkable She has stayed afebrile Complaining of 1 extremely loose stool Cardiac diet Full code DVT prophylaxis continue Xarelto 20 mg patient does have history of multiple venous clots in the past Attestations Medical Necessity Statement*: Continue medical management for hypoxia for COVID-19 currently on humidified high flow Time Spent in Patient Care: 16 - 35 minutes Coding Level of Care Code Acute Demographic Analyst for Kathrin Carreon Diagnoses Hypoxia R09.02 COVID-19 determined by clinical diagnostic criteria U07.1
[2021-05-19 17:04] LABS: Glucose Point of Care 166 mg/dL (70-110)
[2021-05-19] MEDS: remdesivir 100 MG in sodium chloride 0.9% (100 ml) 100 ML IV (17:45)
[2021-05-19 20:55] LABS: Glucose Point of Care 156 mg/dL (70-110)
[2021-05-20] VITALS (13 sets, daily range): BP systolic 108–122; BP diastolic 61–79; PULSE 63–77; RESP 16–22; TEMP 36.6–37.3; O2SAT 89–94
[2021-05-20 02:38] LABS: Hematocrit 38.7 % (37.0-47.0); Hemoglobin 12.8 g/dL (11.5-15.3); Lymphocytes % 19.5 %; Mean Corpuscular HGB Conc 33.1 g/dL (30.0-36.0); Mean Corpuscular Hemoglobin 29.3 pg (28.0-34.0); Mean Corpuscular Volume 88.6 fL (81-99); Mean Platelet Volume 9.3 fL (7.4-10.4); Monocytes # 0.4 10^3/uL (0.2-0.9); Monocytes % 8.1 %; Neutrophils # 3.73 10^3/uL (1.8-7.7); Neutrophils % 71.8 %; Nucleated Red Blood Cells % 0 %; Platelet Count 242 10^3/cmm (130-400); Red Blood Count 4.37 10^6/uL (4.1-5.3); Red Cell Distribution Width 13.4 % (12.1-15.1); White Blood Count 5.2 10^3/uL (4.0-10.0)
[2021-05-20 03:18] LABS: Blood Urea Nitrogen 28 mg/dL (8-23); C Reactive Protein 53.7 mg/L (0.0-4.9); Calcium 8.4 mg/dL (8.5-10.5); Carbon Dioxide 24 mmol/L (22-29); Chloride 101 mmol/L (98-107); Glucose 133 mg/dL (65-115); Osmolality Calculated 291 mOsm/kg (285-295); Sodium 137 mmol/L (136-145)
[2021-05-20 06:40] LABS: Glucose Point of Care 125 mg/dL (70-110)
[2021-05-20] MEDS: rivaroxaban 10 mg Tablet 20 MG PO (08:56)
[2021-05-20] MEDS: dexamethasone 4 mg Tablet 6 MG PO (08:56)
--- NOTE | 2021-05-20 09:39 | PC.NUTR ---
Nutrition assessment triggered d/t MST score of 2. Will add Glucerna BID for additional kcal/protein. Recommend to encourage po intakes of meals and provide preferences as appropriate. Recommend to monitor weight given questionable admit weight and report of wt loss. See full RD assessment for further details.
[2021-05-20 11:27] LABS: Glucose Point of Care 153 mg/dL (70-110)
--- NOTE | 2021-05-20 16:14 | PM.PN ---
Subjective Subjective: Interval history: Patient seen and examined this morning, patient was requiring 30 L on 65% FiO2, ask physical therapy to work with her, she has not been able to get out of her bed, endorsing anorexia, poor appetite with change of her oral taste Vitals/I&O/Wt Last Vital Signs Temp 98.2 F 05/20/21 11:59 Pulse 75 05/20/21 15:11 Resp 17 05/20/21 15:11 BP 116/74 05/20/21 11:59 Pulse Ox 90 05/20/21 15:11 05/20/21 05/20/21 05/20/21 06:59 14:59 22:59 Intake Total 0 / 570 240 / 240 Output Total 550 / 950 450 / 450 Balance -550 / -380 -210 / -210 Physical Exam Narrative: EXAM NARRATIVE: Patient was laying in left lateral position saturating well on 30 L 65% FiO2 humidified S1-S2 no murmur or abdominal rhythm Abdomen soft bowel sounds present Lower symmetry no edema Appears very lethargic and fatigued EOMI, PERRLA No neurological deficit Data : 05/20/21 02:08 05/20/21 02:08 A&P Assessment and plan (1) Pneumonia: Status: Acute (2) Hypoxia: Status: Acute Additional A&P Information Hypoxia respiratory failure with COVID-19 Wean off FiO2, work with physical therapy Finished remdesivir Decadron regimen Ventolin Incentive spirometry Encourage proning Patient endorsing anorexia weakness and lethargic, Cardiac diet DVT prophylaxis Xarelto because of history of previous venous thrombophlebitis Diarrhea improved Full code Attestations Medical Necessity Statement*: Continue medical management for acute hypoxia secondary to COVID-19 Time Spent in Patient Care: 16 - 35 minutes Coding Level of Care Code Acute 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
[2021-05-20 17:11] LABS: Glucose Point of Care 145 mg/dL (70-110)
[2021-05-20] MEDS: remdesivir 100 MG in sodium chloride 0.9% (100 ml) 100 ML IV (17:26)
[2021-05-20 21:48] LABS: Glucose Point of Care 215 mg/dL (70-110)
[2021-05-21] VITALS (12 sets, daily range): BP systolic 109–122; BP diastolic 70–77; PULSE 60–88; RESP 16–20; TEMP 36.4–37; O2SAT 88–95
[2021-05-21 06:15] LABS: Glucose Point of Care 130 mg/dL (70-110)
[2021-05-21 06:28] LABS: Lactate Dehydrogenase 508 U/L (135-214)
[2021-05-21] MEDS: rivaroxaban 10 mg Tablet 20 MG PO (08:08)
[2021-05-21] MEDS: dexamethasone 4 mg Tablet 6 MG PO (08:09)
[2021-05-21 12:05] LABS: Glucose Point of Care 128 mg/dL (70-110)
--- NOTE | 2021-05-21 16:42 | P.PN_ITS ---
Subjective Subjective: Interval history: Patient examined, no overnight events diarrhea resolved patient energy slightly better than yesterday, she has not gotten out of bed, requested PT evaluation Her O2 saturation would drop below 89 when I turned her oxygen below 55% Vitals/I&O/Wt Last Vital Signs Temp 98.3 F 05/21/21 15:22 Pulse 75 05/21/21 16:10 Resp 18 05/21/21 16:10 BP 113/70 05/21/21 15:22 Pulse Ox 93 05/21/21 16:10 05/21/21 05/21/21 05/21/21 06:59 14:59 22:59 Intake Total 360 / 360 Output Total 350 / 1200 Balance -350 / -740 360 / 360 Physical Exam Narrative: EXAM NARRATIVE: Patient was saturating 89 to 90% on humidified high flow 65% 45L Endorsing feeling better however has diminished bilateral airflow S1, S2 sinus rhythm Abdomen soft Lower symmetry no edema EOMI, PERRLA Patient was laying supine in her bed Was endorsing anorexia Data : 05/20/21 02:08 05/20/21 02:08 A&P Assessment and plan (1) Pneumonia: Status: Acute (2) Hypoxia: Status: Acute (3) COVID-19 determined by clinical diagnostic criteria: Status: Acute Additional A&P Information Acute hypoxic restaurant failure secondary to COVID-19 Wean off oxygen requirement currently requiring humidified high flow 45 L, 65% Her O2 requirement increases on ambulation, however CRP is trending down, she has stayed afebrile To work with physical therapy I would not add mirtazapine for her anorexia encouraged her to ambulate that would also increase her appetite Discussed proning Cardiac diet DVT prophylaxis continue Xarelto Full code Attestations Medical Necessity Statement*: Need hospitalization for hypoxia currently hu midified high flow Time Spent in Patient Care: less than 15 minutes Coding Level of Care Code Acute It Architecture Consultant for g Fwd Diagnoses Pneumonia J18.9 Hypoxia R09.02 COVID-19 determined by clinical diagnostic criteria U07.1
[2021-05-21 17:37] LABS: Glucose Point of Care 167 mg/dL (70-110)
[2021-05-21] MEDS: remdesivir 100 MG in sodium chloride 0.9% (100 ml) 100 ML IV (17:48)
[2021-05-21 21:43] LABS: Glucose Point of Care 168 mg/dL (70-110)
[2021-05-22] VITALS (11 sets, daily range): BP systolic 108–140; BP diastolic 64–79; PULSE 61–93; RESP 15–22; TEMP 36.4–37.1; O2SAT 88–95
[2021-05-22 06:42] LABS: Glucose Point of Care 104 mg/dL (70-110)
[2021-05-22] MEDS: rivaroxaban 10 mg Tablet 20 MG PO (10:34)
[2021-05-22] MEDS: dexamethasone 4 mg Tablet 6 MG PO (10:34)
[2021-05-22 10:57] LABS: Glucose Point of Care 123 mg/dL (70-110)
--- NOTE | 2021-05-22 14:07 | PM.PN ---
Subjective Subjective: Interval history: Patient was seen and examined, she has not gotten out of bed, has not worked with physical therapy yet, Encourage proning, today she saturating well on 45 L 60% Vitals/I&O/Wt Last Vital Signs Temp 98.7 F 05/22/21 11:59 Pulse 84 05/22/21 11:59 Resp 16 05/22/21 11:59 BP 124/79 05/22/21 11:59 Pulse Ox 90 05/22/21 11:59 05/21/21 05/22/21 05/22/21 22:59 06:59 14:59 Intake Total 340 / 700 470 / 470 Output Total 0 / 0 400 / 400 300 / 300 Balance 340 / 700 -400 / 300 170 / 170 Physical Exam Narrative: EXAM NARRATIVE: Was laying supine without any active discomfort Humidified high flow 45 L 60% Her O2 saturation drops with ambulation, S1, S2 Clinically dehydrated Abdomen soft Lower extremity no edema No acute respiratory distress Awake alert oriented x3 Data : 05/20/21 02:08 05/20/21 02:08 A&P Assessment and plan (1) Pneumonia: Status: Acute (2) Hypoxia: Status: Acute Additional A&P Information COVID-19 hypoxic respiratory failure Currently requiring humidified high flow 45 L, 60%, she has not been able to get out of the bed for last 3 days, I have reinforced proning and physical therapy today, Afebrile We will request CRP tomorrow Once she starts working with physical therapy plan is to send her home with home health service For anorexia added mirtazapine Afebrile Diarrhea improved Full code Cardiac diet Attestations Medical Necessity Statement*: Encourage proning and PT evaluation continue medical management needing hospitalization for humidified high flow for hypoxia Time Spent in Patient Care: less than 15 minutes Coding Level of Care Code Acute Telecom Engineer for [facility] Fwd Diagnoses Pneumonia J18.9 Hypoxia R09.02
[2021-05-22] MEDS: remdesivir 100 MG in sodium chloride 0.9% (100 ml) 100 ML IV (18:46)
[2021-05-23] VITALS (13 sets, daily range): BP systolic 112–136; BP diastolic 72–81; PULSE 65–91; RESP 16–22; TEMP 36.6–37.1; O2SAT 88–97
[2021-05-23 07:29] LABS: Basophils # 0.1 10^3/uL (0.0-0.1); Basophils % 0.4 %; Eosinophils # 0.1 10^3/uL (0.0-0.8); Eosinophils % 0.4 %; Hematocrit 40.7 % (37.0-47.0); Hemoglobin 13.5 g/dL (11.5-15.3); Lymphocytes # 1.6 10^3/uL (0.8-4.8); Lymphocytes % 13.4 %; Mean Corpuscular HGB Conc 33.2 g/dL (30.0-36.0); Mean Corpuscular Hemoglobin 29.5 pg (28.0-34.0); Mean Corpuscular Volume 88.9 fL (81-99); Mean Platelet Volume 9.1 fL (7.4-10.4); Monocytes # 0.7 10^3/uL (0.2-0.9); Monocytes % 6.1 %; Neutrophils # 8.68 10^3/uL (1.8-7.7); Neutrophils % 75.2 %; Nucleated Red Blood Cells % 0 %; Platelet Count 221 10^3/cmm (130-400); Red Blood Count 4.58 10^6/uL (4.1-5.3); Red Cell Distribution Width 13.2 % (12.1-15.1); White Blood Count 11.6 10^3/uL (4.0-10.0)
[2021-05-23 07:58] LABS: Anion Gap 14.3 (5-19); Blood Urea Nitrogen 25 mg/dL (8-23); C Reactive Protein 25.3 mg/L (0.0-4.9); Calcium 8.5 mg/dL (8.5-10.5); Carbon Dioxide 27 mmol/L (22-29); Chloride 104 mmol/L (98-107); Glomerular Filtration Rate 100.6 mL/min (90-130); Glucose 95 mg/dL (65-115); Osmolality Calculated 296 mOsm/kg (285-295); Potassium 4.3 mmol/L (3.5-5.1); Sodium 141 mmol/L (136-145)
[2021-05-23 08:00] LABS: Glucose Point of Care 103 mg/dL (70-110)
[2021-05-23 08:00] LABS: Glucose Point of Care 156 mg/dL (70-110)
[2021-05-23 08:00] LABS: Glucose Point of Care 251 mg/dL (70-110)
[2021-05-23] MEDS: rivaroxaban 10 mg Tablet 20 MG PO (10:28)
[2021-05-23] MEDS: dexamethasone 4 mg Tablet 6 MG PO (10:28)
[2021-05-23 11:41] LABS: Glucose Point of Care 134 mg/dL (70-110)
--- NOTE | 2021-05-23 14:17 | P.PN_ITS ---
Subjective Subjective: Interval history: Patient did not do well with physical therapy today,Still requiring 45% 30 L of heated high flow, patient endorsing slight improvement in anorexia Able to pass flatus No diarrhea or chest pain or headache Vitals/I&O/Wt Last Vital Signs Temp 98.1 F 05/23/21 11:49 Pulse 87 05/23/21 11:59 Resp 18 05/23/21 11:59 BP 112/72 05/23/21 11:49 Pulse Ox 90 05/23/21 11:59 05/22/21 05/23/21 05/23/21 22:59 06:59 14:59 Intake Total 100 / 570 50 / 620 360 / 360 Balance 100 / 270 50 / 320 360 / 360 Physical Exam Narrative: EXAM NARRATIVE: Home was saturating well on heated high flow Does get hypoxic on change in position and feel dizzy No active signs of stroke Appears dehydrated Skin flushed S1, S2 sinus rhythm Abdomen soft Lower extremity no edema No joint swelling Lethargic and fatigued Data : 05/23/21 06:30 05/23/21 06:30 A&P Assessment and plan (1) Pneumonia: Status: Acute (2) Hypoxia: Status: Acute (3) COVID-19 determined by clinical diagnostic criteria: Status: Acute Additional A&P Information Hypoxia related to COVID-19 pneumonia Patient has not been able to work with physical therapy because of her fatigue and lethargy Her anorexia has slightly improved We will request ABG and inflammatory markers tomorrow Mirtazapine for anorexia Full code Cardiac diet, able to eat small portion of meals DVT prophylaxis: Xarelto Attestations Medical Necessity Statement*: Hypoxia related to COVID-19 continue medical management Time Spent in Patient Care: less than 15 minutes Coding Level of Care Code Acute Telephone Information Clerk for [facility] Fwd Diagnoses Pneumonia J18.9 Hypoxia R09.02 COVID-19 determined by clinical diagnostic criteria U07.1
[2021-05-23 17:03] LABS: Glucose Point of Care 177 mg/dL (70-110)
--- NOTE | 2021-05-23 17:22 | PC.NUTR ---
Nutrition reassessment: PO intakes improved since initial assessment, averaging 56% X 8 recent meals. If po intakes not improved over 75% within 1-2 days, recommend liberalizing diet to Regular to further promote po intakes. Also noted remeron mentioned in MD notes r/t anorexia, but not ordered. Clarified with nurse who stated not noted in MAR either. See full RD assessment for further details.
[2021-05-23 21:12] LABS: Glucose Point of Care 163 mg/dL (70-110)
--- NOTE | 2021-05-23 23:00 | PC.NURSE ---
Patient O2 stats started dropping. Respiratory notified and put patient back on Heated High Flow @ 30 L.
--- NOTE | 2021-05-23 23:50 | PC.NURSE ---
Shift report received from Renata ECHEVERRIA. Patient is resting in bed watching TV, A & O, voices no C/O of pain or other needs at this time.
[2021-05-24] VITALS (8 sets, daily range): BP systolic 124–163; BP diastolic 62–80; PULSE 64–96; RESP 16–26; TEMP 32.3–36.8; O2SAT 87–97
[2021-05-24 06:37] LABS: Glucose Point of Care 98 mg/dL (70-110)
[2021-05-24 08:41] LABS: Basophils % 0.3 %; Eosinophils % 0.3 %; Hematocrit 38.7 % (37.0-47.0); Hemoglobin 12.8 g/dL (11.5-15.3); Lymphocytes # 1.6 10^3/uL (0.8-4.8); Lymphocytes % 12.5 %; Mean Corpuscular HGB Conc 33.1 g/dL (30.0-36.0); Mean Corpuscular Hemoglobin 29.4 pg (28.0-34.0); Mean Corpuscular Volume 88.8 fL (81-99); Mean Platelet Volume 9.3 fL (7.4-10.4); Monocytes # 0.7 10^3/uL (0.2-0.9); Monocytes % 5.6 %; Neutrophils # 9.81 10^3/uL (1.8-7.7); Neutrophils % 76.7 %; Nucleated Red Blood Cells % 0 %; Platelet Count 228 10^3/cmm (130-400); Red Blood Count 4.36 10^6/uL (4.1-5.3); Red Cell Distribution Width 13.2 % (12.1-15.1); White Blood Count 12.8 10^3/uL (4.0-10.0)
[2021-05-24 09:04] LABS: C Reactive Protein 16.3 mg/L (0.0-4.9)
[2021-05-24] MEDS: dexamethasone 4 mg Tablet 6 MG PO (11:00)
[2021-05-24] MEDS: rivaroxaban 10 mg Tablet 20 MG PO (11:00)
--- NOTE | 2021-05-24 12:34 | P.PN_ITS ---
Subjective Subjective: Interval history: Patient was seen in the Covid unit last night she was put on 8 L but became hypoxic and was put on 30 L humidified high flow treatment She is complaining of nasal congestion for which I prescribed Flonase and Mucinex, aspiratory therapist to wean her oxygen down, while I was present in the room we tried 15 L nonrebreather mask which kept her O2 saturation between 88 to 89% Vitals/I&O/Wt Last Vital Signs Temp 98.2 F 05/24/21 11:33 Pulse 96 05/24/21 11:33 Resp 16 05/24/21 11:33 BP 126/80 05/24/21 11:33 Pulse Ox 91 05/24/21 11:33 05/23/21 05/24/21 05/24/21 22:59 06:59 14:59 Intake Total 300 / 300 Output Total 500 / 500 150 / 650 Balance -500 / -140 -150 / -290 300 / 300 Physical Exam Narrative: EXAM NARRATIVE: Patient was in her bed on 15 L nonrebreather mask saturating 89% She was feeling better today her mood and energy improved She had 1 bowel movement today able to initiate meals S1, S2 No acute respite distress No strokelike symptoms Known focal exam No signs of peritonitis Data : 05/24/21 06:12 05/23/21 06:30 A&P Assessment and plan (1) Pneumonia: Status: Acute (2) Hypoxia: Status: Acute (3) COVID-19 determined by clinical diagnostic criteria: Status: Acute Additional A&P Information Hypoxia secondary to COVID-19 pneumonia Clinically she is making slight improvement, her persistent hypoxia oxygen requirement is decreasing, I have asked respiratory therapist to put her on 15 L humidified high flow we will try nonrebreather mask and have her walk in the room and engage more physical activity Patient had 1 bowel movement today her appetite is getting better She has stayed afebrile Inflammatory markers trending down, CRP 16 Inhaled nitric oxide for flow waning would be a temporary improvement in her oxygenation but would not be a long-term reliable treatment which I would avoid for now DVT prophylaxis Xarelto Full code Cardiac diet Attestations Medical Necessity Statement*: Wean off O2 and work more with PT continue medical manage in Covid unit Time Spent in Patient Care: 16 - 35 minutes Coding Level of Care Code Acute 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
[2021-05-24 13:17] LABS: Glucose Point of Care 145 mg/dL (70-110)
[2021-05-24 17:19] LABS: Glucose Point of Care 146 mg/dL (70-110)
[2021-05-24] MEDS: fluticasone nasal spray 16gm Btl 1 SPRAY NASAL (17:45)
[2021-05-24] MEDS: guaiFENesin 600 mg Tablet PO (17:45)
[2021-05-25] VITALS (22 sets, daily range): BP systolic 110–136; BP diastolic 67–76; PULSE 56–100; RESP 13–31; TEMP 36.4–37.2; O2SAT 82–97
[2021-05-25] MEDS: guaiFENesin 600 mg Tablet PO ×2 (09:35→17:13)
[2021-05-25] MEDS: fluticasone nasal spray 16gm Btl 1 SPRAY NASAL ×2 (09:35→17:22)
[2021-05-25] MEDS: dexamethasone 4 mg Tablet 6 MG PO (09:35)
[2021-05-25] MEDS: rivaroxaban 10 mg Tablet 20 MG PO (09:36)
--- NOTE | 2021-05-25 12:23 | PM.PN ---
Subjective Subjective: Interval history: Patient was seen and examined this morning, she is feeling much better, she was saturating well on 12 L nasal cannula able to walk and maintain her O2 sats above 90% has been off heated high flow since yesterday She is concerned about her who is not doing well, I have talked with the provider who is taking care of her to include her in discussion as well today. Vitals/I&O/Wt Last Vital Signs Temp 98.4 F 05/25/21 08:00 Pulse 98 05/25/21 08:14 Resp 18 05/25/21 08:14 BP 122/67 05/25/21 08:00 Pulse Ox 90 05/25/21 08:14 05/24/21 05/25/21 05/25/21 22:59 06:59 14:59 Intake Total 450 / 750 200 / 950 240 / 240 Output Total 375 / 375 350 / 725 Balance 75 / 375 -150 / 225 240 / 240 Physical Exam Narrative: EXAM NARRATIVE: Patient was laying comfortably in her bed Saturating well on 12 L humidified high flow nasal cannula No active chest pain No acute respiratory distress No signs of cellulitis Patient endorsing feeling better No signs of neurological deficits EOMI, PERRLA Awake alert oriented x3 No joint swelling Data : 05/24/21 06:12 05/23/21 06:30 A&P Assessment and plan (1) Pneumonia: Status: Acute (2) Hypoxia: Status: Acute (3) COVID-19 determined by clinical diagnostic criteria: Status: Acute Additional A&P Information Hypoxia related to COVID-19 pneumonia O2 requirement has been weaned down to 12 L humidified high flow nasal cannula she is able to maintain her saturation 89 to 90%, Further titrate down her O2 and plan her discharge home if she is on 4 to 5 L, will get home O2 evaluation on the day of discharge Her appetite has improved No active diarrhea She has stayed afebrile Very concerned and emotional because of her who is not doing well with COVID-19 infection, today palliative care/comfort care has been recommended by the provider taking care of her DVT prophylaxis Xarelto Regular diet Full code Attestations Medical Necessity Statement*: Wean off oxygen continue medical management for Time Spent in Patient Care: less than 15 minutes Coding Level of Care Code Acute Pari Mutual Ticket Checker for g Fwd Diagnoses Pneumonia J18.9 Hypoxia R09.02 COVID-19 determined by clinical diagnostic criteria U07.1
[2021-05-26] VITALS (7 sets, daily range): BP systolic 103–137; BP diastolic 62–79; PULSE 67–105; RESP 14–23; TEMP 36.4–37.3; O2SAT 88–94
[2021-05-26 07:02] LABS: Hematocrit 41.5 % (37.0-47.0); Hemoglobin 13.4 g/dL (11.5-15.3); Mean Corpuscular HGB Conc 32.3 g/dL (30.0-36.0); Mean Corpuscular Hemoglobin 29.8 pg (28.0-34.0); Mean Corpuscular Volume 92.4 fL (81-99); Mean Platelet Volume 8.9 fL (7.4-10.4); Platelet Count 326 10^3/cmm (130-400); Red Blood Count 4.49 10^6/uL (4.1-5.3); Red Cell Distribution Width 13.2 % (12.1-15.1)
[2021-05-26 07:35] LABS: Anion Gap 12.7 (5-19); Blood Urea Nitrogen 21 mg/dL (8-23); C Reactive Protein 5.3 mg/L (0.0-4.9); Calcium 8.7 mg/dL (8.5-10.5); Carbon Dioxide 27 mmol/L (22-29); Chloride 99 mmol/L (98-107); Glomerular Filtration Rate 100.6 mL/min (90-130); Glucose 78 mg/dL (65-115); Osmolality Calculated 280 mOsm/kg (285-295); Potassium 4.7 mmol/L (3.5-5.1); Sodium 134 mmol/L (136-145)
--- NOTE | 2021-05-26 09:58 | PM.PN ---
Subjective Subjective: Interval history: Patient was seen and examined this morning, patient was endorsing feeling better, her anorexia has improved she is able to eat properly, she has had 2 bowel movements in the last 12 hours, her O2 requirement has been weaned down from 12 L to 10 L nasal cannula high flow she has been off heated high flow for last 48 hours and able to maintain her O2 saturation above 89 on ambulation as well Her in her room as well currently on palliative care Vitals/I&O/Wt Last Vital Signs Temp 97.6 F 05/26/21 08:00 Pulse 84 05/26/21 08:45 Resp 18 05/26/21 08:45 BP 108/72 05/26/21 08:00 Pulse Ox 91 05/26/21 08:45 05/25/21 05/26/21 05/26/21 22:59 06:59 14:59 Intake Total 340 / 700 Output Total 200 / 200 Balance 140 / 500 Physical Exam Narrative: EXAM NARRATIVE: Patient was laying in recumbent position was saturating well on 10 L nasal cannula high flow humidified No active complaints No chest pain, S1, S2 Abdomen soft no signs of peritonitis Lower extremity no edema No neurological deficit No joint swelling or signs of cellulitis Clinically looks euvolemic Appropriate mood and affect Data : 05/24/21 06:12 05/26/21 05:45 A&P Assessment and plan (1) Pneumonia: Status: Acute (2) Hypoxia: Status: Acute (3) COVID-19 determined by clinical diagnostic criteria: Status: Acute Additional A&P Information Ms. Villalobos is a 65-year female who has history of DVT chronic anticoagulation with Xarelto presented to the hospital with worsening symptoms of COVID-19 pneumonia, since day 1 she was put on heated high flow her O2 requirement was pretty high which has been gradually weaned down to 10 L on 05/26, she is status post remdesivir, Decadron, her CRP has been trending down, her appetite has improved and she is able to work with physical therapy and eager to go home once her O2 requirement is between 4-5 L with nasal cannula, of note, her who is in her room as well is currently on palliative/comfort care secondary to debilitating hypoxia with COVID-19 Hypoxic respiratory failure with COVID-19 pneumonia Inflammatory markers trending down, her O2 requirement has been weaned down to 10 L with high flow nasal cannula Her appetite has improved she is able to finish her meals, 2 bowel movements in last 12 hours Able to maintain her O2 sats on ambulation as well Goal to discharge her home once her O2 requirement is between 4 to 5 L nasal cannula Home O2 evaluation at the time of discharge Status post remdesivir and Decadron regimen Gradual but remarkable recovery Cardiac diet Xarelto DVT prophylaxis Full code Attestations Medical Necessity Statement*: Anticipating discharge once her O2 requirement is between 4-5 nasal cannula liters Time Spent in Patient Care: less than 15 minutes Coding Level of Care Code Acute Software Licensing Analyst for g Fwd Diagnoses Pneumonia J18.9 Hypoxia R09.02 COVID-19 determined by clinical diagnostic criteria U07.1
[2021-05-26 10:01] LABS: Slide Review Slide Review Perform
[2021-05-26 10:05] LABS: Absolute Eosinophils 0.1 10^3/cmm (0.0-0.7); Absolute Segmented Neutrophil 12.2 10/cmm (1.6-7.1); Band Neutrophils Absolute 0.2 10^3/cmm (0.0-1.2); Eosinophils 1 %; Lymphocytes 10 %; Monocytes Absolute 0.6 10^3/cmm (0.1-0.6); Segmented Neutrophils 81 %; Total Cells Counted 100 (0-100)
[2021-05-26 10:06] LABS: Absolute Neutrophil 12.3 10^3/cmm (1.4-6.5); Lymphocytes Absolute 1.5 10^3/cmm (1.2-3.4); Platelet Estimate Normal (Normal); Smudge Cells 2+
[2021-05-26] MEDS: rivaroxaban 10 mg Tablet 20 MG PO (11:23)
[2021-05-26] MEDS: guaiFENesin 600 mg Tablet PO ×2 (11:23→17:53)
[2021-05-26] MEDS: LORazepam 0.5 mg Tablet PO (11:24)
[2021-05-26 15:23] LABS: Glucose Point of Care 166 mg/dL (70-110)
[2021-05-26 15:23] LABS: Glucose Point of Care 261 mg/dL (70-110)
[2021-05-26 15:23] LABS: Glucose Point of Care 87 mg/dL (70-110)
[2021-05-26 15:23] LABS: Glucose Point of Care 92 mg/dL (70-110)
[2021-05-26 16:26] LABS: Glucose Point of Care 102 mg/dL (70-110)
[2021-05-26] MEDS: fluticasone nasal spray 16gm Btl 1 SPRAY NASAL (17:53)
[2021-05-27] VITALS (57 sets, daily range): BP systolic 102–121; BP diastolic 62–80; PULSE 78–124; RESP 19–37; TEMP 36.7–37.2; O2SAT 85–97
[2021-05-27 06:16] LABS: Basophils # 0.1 10^3/uL (0.0-0.1); Basophils % 0.4 %; Eosinophils # 0.2 10^3/uL (0.0-0.8); Hematocrit 41.3 % (37.0-47.0); Hemoglobin 13.3 g/dL (11.5-15.3); Lymphocytes # 1.7 10^3/uL (0.8-4.8); Lymphocytes % 10.6 %; Mean Corpuscular HGB Conc 32.2 g/dL (30.0-36.0); Mean Corpuscular Hemoglobin 29.5 pg (28.0-34.0); Mean Corpuscular Volume 91.6 fL (81-99); Mean Platelet Volume 8.9 fL (7.4-10.4); Monocytes # 0.8 10^3/uL (0.2-0.9); Neutrophils # 12.75 10^3/uL (1.8-7.7); Nucleated Red Blood Cells % 0 %; Platelet Count 270 10^3/cmm (130-400); Red Blood Count 4.51 10^6/uL (4.1-5.3); Red Cell Distribution Width 13.5 % (12.1-15.1); White Blood Count 16.4 10^3/uL (4.0-10.0)
[2021-05-27 06:46] LABS: C Reactive Protein 29.2 mg/L (0.0-4.9)
[2021-05-27] MEDS: guaiFENesin 600 mg Tablet PO ×2 (09:25→17:57)
[2021-05-27] MEDS: rivaroxaban 10 mg Tablet 20 MG PO (09:25)
[2021-05-27] MEDS: fluticasone nasal spray 16gm Btl 1 SPRAY NASAL ×2 (09:26→17:57)
[2021-05-27 09:29] LABS: Glucose Point of Care 80 mg/dL (70-110)
[2021-05-27 09:29] LABS: Glucose Point of Care 114 mg/dL (70-110)
[2021-05-27 09:29] LABS: Glucose Point of Care 136 mg/dL (70-110)
[2021-05-27 09:29] LABS: Glucose Point of Care 153 mg/dL (70-110)
[2021-05-27 09:29] LABS: Glucose Point of Care 91 mg/dL (70-110)
[2021-05-27 12:28] LABS: Glucose Point of Care 93 mg/dL (70-110)
--- NOTE | 2021-05-27 12:32 | P.PN_ITS ---
Subjective Subjective: Interval history: Patient was seen and examined this morning, overall she has improved , currently she is requiring 10 Ls - 15Ls supplemental oxygen, appetite is improving. Vitals/I&O/Wt Last Vital Signs Temp 98.3 F 05/27/21 08:00 Pulse 105 H 05/27/21 08:23 Resp 20 H 05/27/21 08:23 BP 116/71 05/27/21 08:00 Pulse Ox 87 L 05/27/21 08:23 05/26/21 05/27/21 05/27/21 22:59 06:59 14:59 Intake Total 120 / 120 Output Total 1100 / 1100 Balance -1100 / -620 120 / 120 Physical Exam Const: COMMON NORMALS: patient oriented x3 HENMT: COMMON NORMALS: normocephalic and atraumatic HEAD & SCALP: normocephalic and atraumatic Resp: COMMON NORMALS: clear to auscultation bilaterally AUSCULTATION: clear to auscultation bilaterally Cardio: COMMON NORMALS: regular rate, regular rhythm, S1 normal heart sound present, S2 normal heart sound present, No gallops present (Cardio), No murmurs present (Cardio), No rub (Cardio) and Peripheral pulses 2+ throughout RATE: regular rate RHYTHM: regular rhythm HEART SOUNDS: S1 normal heart sound present and S2 normal heart sound present PERIPHERAL PULSES: Peripheral pulses 2+ throughout GI: COMMON NORMALS: Normal to inspection, nondistended, normoactive bowel sounds present, Soft to palpation, non-tender, No hepatosplenomegaly present and no masses AUSCULTATION: Yes normoactive bowel sounds PALPATION: Yes Soft to palpation and Yes No hepatosplenomegaly present RECTAL EXAM: deferred Extremity: COMMON NORMALS: no clubbing, cyanosis or edema and no pedal edema Neuro: COMMON NORMALS: patient oriented x3 Data : 05/27/21 04:35 05/26/21 05:45 A&P Assessment and plan (1) Pneumonia: Status: Acute (2) Hypoxia: Status: Acute (3) COVID-19 determined by clinical diagnostic criteria: Status: Acute Additional A&P Information Ms. Villalobos is a 65-year female who has history of DVT chronic anticoagulation with Xarelto presented to the hospital with worsening symptoms of COVID-19 pneumonia, since day 1 she was put on heated high flow her O2 requirement was pretty high which has been gradually weaned down to 10 L on 05/26, she is status post remdesivir, Decadron, her CRP has been trending down, her appetite has improved and she is able to work with physical therapy and eager to go home once her O2 requirement is between 4-5 L with nasal cannula, of note, her who is in her room as well recently . Hypoxic respiratory failure with COVID-19 pneumonia Inflammatory markers trending down, her O2 requirement has been weaned down to 10 L with high flow nasal cannula Her appetite has improved she is able to finish her meals, 2 bowel movements in last 12 hours Able to maintain her O2 sats on ambulation as well Goal to discharge her home once her O2 requirement is between 4 to 5 L nasal cannula Home O2 evaluation at the time of discharge Status post remdesivir and Decadron regimen Gradual but remarkable recovery Cardiac diet Xarelto DVT prophylaxis Full code Attestations Medical Necessity Statement*: Patient needs to be in the hospital for the management of COVID PNA. Coding Level of Care Code Acute Photocomposition Keyboard Operator for Kathrin Carreon Diagnoses Pneumonia J18.9 Hypoxia R09.02 COVID-19 determined by clinical diagnostic criteria U07.1
[2021-05-27 18:06] LABS: Glucose Point of Care 141 mg/dL (70-110)
[2021-05-28] VITALS (94 sets, daily range): BP systolic 98–126; BP diastolic 62–77; PULSE 76–112; RESP 19–42; TEMP 36.4–37.1; O2SAT 85–99
[2021-05-28 07:16] LABS: Basophils # 0.1 10^3/uL (0.0-0.1); Basophils % 0.3 %; Eosinophils # 0.1 10^3/uL (0.0-0.8); Eosinophils % 0.6 %; Hematocrit 39.8 % (37.0-47.0); Hemoglobin 12.9 g/dL (11.5-15.3); Lymphocytes # 1.6 10^3/uL (0.8-4.8); Lymphocytes % 8.9 %; Mean Corpuscular HGB Conc 32.4 g/dL (30.0-36.0); Mean Corpuscular Hemoglobin 30.1 pg (28.0-34.0); Mean Platelet Volume 8.9 fL (7.4-10.4); Monocytes % 5.5 %; Neutrophils # 14.73 10^3/uL (1.8-7.7); Neutrophils % 81.3 %; Nucleated Red Blood Cells % 0 %; Platelet Count 233 10^3/cmm (130-400); Red Blood Count 4.28 10^6/uL (4.1-5.3); Red Cell Distribution Width 13.5 % (12.1-15.1); White Blood Count 18.1 10^3/uL (4.0-10.0)
[2021-05-28 07:38] LABS: Alanine Aminotransferase 16 U/L (0-33); Albumin Level 2.6 g/dL (3.5-5.2); Alkaline Phosphatase 65 IU/L (35-105); Anion Gap 13.3 (5-19); Aspartate Amino Transferase 20 U/L (0-32); Blood Urea Nitrogen 16 mg/dL (8-23); Calcium 8.4 mg/dL (8.5-10.5); Carbon Dioxide 26 mmol/L (22-29); Chloride 104 mmol/L (98-107); Globulin 3.3 g/dL (1.3-4.6); Glomerular Filtration Rate 84.2 mL/min (90-130); Glucose 78 mg/dL (65-115); Osmolality Calculated 288 mOsm/kg (285-295); Potassium 4.3 mmol/L (3.5-5.1); Sodium 139 mmol/L (136-145); Total Bilirubin 0.5 mg/dL (0.15-1.2); Total Protein 5.9 g/dL (6.6-8.7)
[2021-05-28 08:00] LABS: Glucose Point of Care 110 mg/dL (70-110)
[2021-05-28 08:00] LABS: Glucose Point of Care 107 mg/dL (70-110)
[2021-05-28 08:00] LABS: Glucose Point of Care 92 mg/dL (70-110)
[2021-05-28] MEDS: guaiFENesin 600 mg Tablet PO ×2 (08:44→17:37)
[2021-05-28] MEDS: rivaroxaban 10 mg Tablet 20 MG PO (08:44)
[2021-05-28] MEDS: fluticasone nasal spray 16gm Btl 1 SPRAY NASAL ×2 (08:45→17:37)
--- NOTE | 2021-05-28 09:06 | XR_ITS ---
WS: [id number] Portable AP upright chest, 05/28/2021 Clinical Data: PNA Comparison: Portable chest, 05/18/2021 Findings: The bilateral patchy opacities have increased slightly throughout both lungs. The heart is at the upper limits of normal. Monitor leads are on the chest wall. XR/XR chest 1V portable [id number] Impression: 1. Slight increase in bilateral pulmonary opacities. 2. Cardiomegaly.
--- NOTE | 2021-05-28 09:40 | PM.PN ---
Subjective Subjective: Interval history: Patient was seen and examined this morning, overall she has improved. Supplemental oxygen requirement is slowly going down. Medications: Reviewed: Yes Vitals/I&O/Wt Last Vital Signs Temp 98.7 F 05/28/21 03:34 Pulse 100 05/28/21 09:00 Resp 27 H 05/28/21 09:00 BP 114/73 05/28/21 09:00 Pulse Ox 95 05/28/21 09:00 05/27/21 05/28/21 05/28/21 22:59 06:59 14:59 Intake Total 240 / 600 100 / 700 240 / 240 Output Total 300 / 800 Balance -60 / -200 100 / -100 240 / 240 Physical Exam Const: COMMON NORMALS: patient oriented x3 HENMT: COMMON NORMALS: normocephalic and atraumatic HEAD & SCALP: normocephalic and atraumatic Resp: COMMON NORMALS: clear to auscultation bilaterally AUSCULTATION: clear to auscultation bilaterally Cardio: COMMON NORMALS: regular rate, regular rhythm, S1 normal heart sound present, S2 normal heart sound present, No gallops present (Cardio), No murmurs present (Cardio), No rub (Cardio) and Peripheral pulses 2+ throughout RATE: regular rate RHYTHM: regular rhythm HEART SOUNDS: S1 normal heart sound present and S2 normal heart sound present PERIPHERAL PULSES: Peripheral pulses 2+ throughout GI: COMMON NORMALS: Normal to inspection, nondistended, normoactive bowel sounds present, Soft to palpation, non-tender, No hepatosplenomegaly present and no masses AUSCULTATION: Yes normoactive bowel sounds PALPATION: Yes Soft to palpation and Yes No hepatosplenomegaly present RECTAL EXAM: deferred Extremity: COMMON NORMALS: no clubbing, cyanosis or edema and no pedal edema Neuro: COMMON NORMALS: patient oriented x3 Data : 05/28/21 06:07 05/28/21 06:07 A&P Assessment and plan (1) Pneumonia: Status: Acute (2) Hypoxia: Status: Acute (3) COVID-19 determined by clinical diagnostic criteria: Status: Acute Additional A&P Information Ms. Villalobos is a 65-year female who has history of DVT chronic anticoagulation with Xarelto presented to the hospital with worsening symptoms of COVID-19 pneumonia, since day 1 she was put on heated high flow her O2 requirement was pretty high which has been gradually weaned down to 10 L on 05/26, she is status post remdesivir, Decadron, her CRP has been trending down, her appetite has improved and she is able to work with physical therapy and eager to go home once her O2 requirement is between 4-5 L with nasal cannula, of note, her who is in her room as well recently . Hypoxic respiratory failure with COVID-19 pneumonia Inflammatory markers trending down, her O2 requirement has been weaned down to 10 L with high flow nasal cannula Her appetite has improved she is able to finish her meals, 2 bowel movements in last 12 hours Able to maintain her O2 sats on ambulation as well Goal to discharge her home once her O2 requirement is between 4 to 5 L nasal cannula Home O2 evaluation at the time of discharge Status post remdesivir and Decadron regimen Gradual but remarkable recovery Cardiac diet Xarelto DVT prophylaxis Full code Attestations Medical Necessity Statement*: Patient needs to be in the hospital for management of Covid pneumonia. Coding Level of Care Code Acute Injection Molding Machine Operator for Kathrin Carreon Diagnoses Pneumonia J18.9 Hypoxia R09.02 COVID-19 determined by clinical diagnostic criteria U07.1
--- NOTE | 2021-05-28 09:46 | PC.CHAP ---
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 epidemiology internship visit [] Patient/Family/Request visit [] Outpatient visit [] Follow-up visit [] Physician referral [] Code/Alert [x] Routine visit [] Staff referral [] Actively dying [] Patient sleeping [] Family support [] [] Out of room [] Palliative care [] [] Receiving care in room [] Pre-surgical visit [] Trauma [] Long length of stay [] ICU visit [x] Other: covid Relational/Emotional Strength [] Patient feels connected with others/family/visitors/staff [] Distress [] Loneliness/isolation [] Abandonment Spirituality of Patient [] Person of Caro [] Attends Yazidism of their Caro [] Believes in Prayer [] Reads Bible or Spiritism materials [] There are Spiritual issues to be addressed Fiber Optics Technician Interventions [x] Prayer [] Active listening [] Non-anxious presence [] Spiritual/emotional support [] Crisis/trauma care [] Spiritual counseling [] Bereavement support [] Provided bereavement packet [] Provided Bible/devotional materials [] Provided toy/stuffed animal, coloring book to patient or family member [] Provided Communion [] Anointing/[place] [] Salvation [x] Completed spiritual assessment [] Other: Impact on Illness or Injury [] Angry [] Fearful [] Anxious [] Often cries [] Exhaustion [] Unable to work [] Unable to attend scientologist [] Unable to walk/stand [] Unable to read [] Unable to drive [] Unable to eat/drink [] Unable to sleep [] Unable to be with family [] Patient intubated [] Other: Summary Time spent with patient
[2021-05-28 10:41] LABS: C Reactive Protein 58.1 mg/L (0.0-4.9)
[2021-05-28 10:49] LABS: Procalcitonin 0.09 ng/mL (0-0.5)
[2021-05-28] MEDS: azithromycin 500 MG in sodium chloride 0.9% 250 ML 250 MG IV (10:53)
[2021-05-28] MEDS: FUROsemide 10 mg/mL SDV 4mL 40 MG IVP (10:53)
[2021-05-28] MEDS: cefTRIAXone 1,000 MG in sodium chloride 0.9% (plus) 50 ML 100 MG IV (12:08)
[2021-05-28 12:22] LABS: Erythrocyte Sedimentation Rate 36 mm/hr (0-15)
[2021-05-28 13:47] LABS: Glucose Point of Care 97 mg/dL (70-110)
--- NOTE | 2021-05-28 17:02 | PC.NUTR ---
Nutrition reassessment: PO intakes have declined, averaging 32% X past 13 meals. Recommend liberalizing to Regular diet and changing supplement to Ensure Plus to promote kcal/protein intakes. Recommend monitor glucose given increase in CHO with these changes--no DM dx noted, however glucose previously elevated. See full RD assessments for further details.
[2021-05-28 17:30] LABS: Glucose Point of Care 111 mg/dL (70-110)
--- NOTE | 2021-05-28 21:11 | PC.NURSE ---
Patient was recieved in bed semi fowlers position on 6LPM O2 via Nasal cannula, SPO2 89-94%. Nil distress noted. DON to Rt. hand saline locked. Call jay in close reach. Comode at bedside. BS@ 2100 153mg/dL. Observation ongoing.
[2021-05-28 21:45] LABS: Glucose Point of Care 153 mg/dL (70-110)
[2021-05-29] VITALS (20 sets, daily range): BP systolic 91–120; BP diastolic 64–75; PULSE 83–113; RESP 20–33; TEMP 36.4–37.2; O2SAT 89–97
[2021-05-29 07:13] LABS: Glucose Point of Care 103 mg/dL (70-110)
--- NOTE | 2021-05-29 07:19 | PC.NURSE ---
Patient remains on 6L Oxygen via nasal cannula. Desats with activity. V/S stable. Up adlib to comode. Remains stable. Observation ongoing.
[2021-05-29 07:40] LABS: Basophils # 0.1 10^3/uL (0.0-0.1); Basophils % 0.4 %; Eosinophils # 0.1 10^3/uL (0.0-0.8); Eosinophils % 0.7 %; Hematocrit 40.8 % (37.0-47.0); Hemoglobin 13.2 g/dL (11.5-15.3); Lymphocytes # 1.7 10^3/uL (0.8-4.8); Lymphocytes % 9.9 %; Mean Corpuscular HGB Conc 32.4 g/dL (30.0-36.0); Mean Corpuscular Hemoglobin 29.7 pg (28.0-34.0); Mean Corpuscular Volume 91.7 fL (81-99); Monocytes % 5.8 %; Neutrophils # 13.69 10^3/uL (1.8-7.7); Neutrophils % 80.7 %; Nucleated Red Blood Cells % 0 %; Platelet Count 257 10^3/cmm (130-400); Red Blood Count 4.45 10^6/uL (4.1-5.3); Red Cell Distribution Width 13.3 % (12.1-15.1)
[2021-05-29 08:22] LABS: Alanine Aminotransferase 21 U/L (0-33); Albumin Level 2.7 g/dL (3.5-5.2); Alkaline Phosphatase 72 IU/L (35-105); Anion Gap 12.9 (5-19); Aspartate Amino Transferase 21 U/L (0-32); Blood Urea Nitrogen 19 mg/dL (8-23); Calcium 8.6 mg/dL (8.5-10.5); Carbon Dioxide 27 mmol/L (22-29); Chloride 101 mmol/L (98-107); Globulin 3.6 g/dL (1.3-4.6); Glomerular Filtration Rate 100.6 mL/min (90-130); Glucose 95 mg/dL (65-115); NT Pro B Type Natriuretic Pept 178 pg/mL (0-125); Osmolality Calculated 286 mOsm/kg (285-295); Potassium 3.9 mmol/L (3.5-5.1); Sodium 137 mmol/L (136-145); Total Bilirubin 0.5 mg/dL (0.15-1.2); Total Protein 6.3 g/dL (6.6-8.7)
[2021-05-29] MEDS: fluticasone nasal spray 16gm Btl 1 SPRAY NASAL ×2 (08:52→17:42)
[2021-05-29] MEDS: rivaroxaban 10 mg Tablet 20 MG PO (08:52)
[2021-05-29] MEDS: guaiFENesin 600 mg Tablet PO ×2 (08:52→17:42)
--- NOTE | 2021-05-29 09:56 | PC.CHAP ---
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 switchboard clerk visit [] Patient/Family/Request visit [] Outpatient visit [] Follow-up visit [] Physician referral [] Code/Alert [x] Routine visit [] Staff referral [] Actively dying [] Patient sleeping [] Family support [] [] Out of room [] Palliative care [] [] Receiving care in room [] Pre-surgical visit [] Trauma [] Long length of stay [] ICU visit [x] Other:covid Relational/Emotional Strength [] Patient feels connected with others/family/visitors/staff [] Distress [] Loneliness/isolation [] Abandonment Spirituality of Patient [] Person of Caro [] Attends Uatsdin of their Caro [] Believes in Prayer [] Reads Bible or Christianity materials [] There are Spiritual issues to be addressed Railroad Yard Worker Interventions [x] Prayer [] Active listening [] Non-anxious presence [] Spiritual/emotional support [] Crisis/trauma care [] Spiritual counseling [] Bereavement support [] Provided bereavement packet [] Provided Bible/devotional materials [] Provided toy/stuffed animal, coloring book to patient or family member [] Provided Communion [] Anointing/[place] [] Salvation [x] Completed spiritual assessment [] Other: Impact on Illness or Injury [] Angry [] Fearful [] Anxious [] Often cries [] Exhaustion [] Unable to work [] Unable to attend christianity [] Unable to walk/stand [] Unable to read [] Unable to drive [] Unable to eat/drink [] Unable to sleep [] Unable to be with family [] Patient intubated [] Other: Summary Time spent with patient
[2021-05-29] MEDS: azithromycin 500 MG in sodium chloride 0.9% 250 ML 250 MG IV (10:48)
[2021-05-29 12:08] LABS: Glucose Point of Care 101 mg/dL (70-110)
--- NOTE | 2021-05-29 12:25 | PM.PN ---
Subjective Subjective: Interval history: Patient was seen and examined this morning, overall she has improved. Supplemental oxygen requirement is slowly going down. Medications: Reviewed: Yes Vitals/I&O/Wt Last Vital Signs Temp 98.2 F 05/29/21 08:00 Pulse 113 H 05/29/21 08:00 Resp 24 H 05/29/21 08:00 BP 106/73 05/29/21 08:00 Pulse Ox 89 L 05/29/21 08:00 05/28/21 05/29/21 05/29/21 22:59 06:59 14:59 Intake Total 360 / 900 250 / 1150 250 / 250 Output Total 480 / 480 Balance 360 / 900 -230 / 670 250 / 250 Physical Exam Const: COMMON NORMALS: patient oriented x3 HENMT: COMMON NORMALS: normocephalic and atraumatic HEAD & SCALP: normocephalic and atraumatic Resp: COMMON NORMALS: clear to auscultation bilaterally AUSCULTATION: clear to auscultation bilaterally Cardio: COMMON NORMALS: regular rate, regular rhythm, S1 normal heart sound present, S2 normal heart sound present, No gallops present (Cardio), No murmurs present (Cardio), No rub (Cardio) and Peripheral pulses 2+ throughout RATE: regular rate RHYTHM: regular rhythm HEART SOUNDS: S1 normal heart sound present and S2 normal heart sound present PERIPHERAL PULSES: Peripheral pulses 2+ throughout GI: COMMON NORMALS: Normal to inspection, nondistended, normoactive bowel sounds present, Soft to palpation, non-tender, No hepatosplenomegaly present and no masses AUSCULTATION: Yes normoactive bowel sounds PALPATION: Yes Soft to palpation and Yes No hepatosplenomegaly present RECTAL EXAM: deferred Extremity: COMMON NORMALS: no clubbing, cyanosis or edema and no pedal edema Neuro: COMMON NORMALS: patient oriented x3 Data : 05/29/21 07:10 05/29/21 07:10 Micro: Microbiology 05/28/21 11:10 Blood Culture - Preliminary Blood NEGATIVE TO DATE 05/28/21 11:07 Blood Culture - Preliminary Blood NEGATIVE TO DATE A&P Assessment and plan (1) Pneumonia: Status: Acute (2) Hypoxia: Status: Acute (3) COVID-19 determined by clinical diagnostic criteria: Status: Acute Additional A&P Information Ms. Villalobos is a 65-year female who has history of DVT chronic anticoagulation with Xarelto presented to the hospital with worsening symptoms of COVID-19 pneumonia, since day 1 she was put on heated high flow her O2 requirement was pretty high which has been gradually weaned down to 10 L on 05/26, she is status post remdesivir, Decadron, her CRP has been trending down, her appetite has improved and she is able to work with physical therapy and eager to go home once her O2 requirement is between 4-5 L with nasal cannula, of note, her who is in her room as well recently . Hypoxic respiratory failure with COVID-19 pneumonia Inflammatory markers trending down, her O2 requirement has been weaned down to 10 L with high flow nasal cannula Her appetite has improved she is able to finish her meals, 2 bowel movements in last 12 hours Able to maintain her O2 sats on ambulation as well Goal to discharge her home once her O2 requirement is between 4 to 5 L nasal cannula Home O2 evaluation at the time of discharge Status post remdesivir and Decadron regimen Gradual but remarkable recovery Cardiac diet Xarelto DVT prophylaxis Full code Attestations Medical Necessity Statement*: Patient needs to be in hospital for the management of COVID PNA Coding Level of Care Code Acute Patient Support Specialist for [facility] Fwd Exam Detailed Diagnoses Pneumonia J18.9 Hypoxia R09.02 COVID-19 determined by clinical diagnostic criteria U07.1
[2021-05-29] MEDS: cefTRIAXone 1,000 MG in sodium chloride 0.9% (plus) 50 ML 100 MG IV (12:32)
[2021-05-29 17:24] LABS: Glucose Point of Care 101 mg/dL (70-110)
--- NOTE | 2021-05-29 18:46 | PC.NURSE ---
Pt saturating well on 3 L NC. Pt has been transferring self to BSC and tolerating well.
[2021-05-29 20:35] LABS: Glucose Point of Care 146 mg/dL (70-110)
[2021-05-30] VITALS (12 sets, daily range): BP systolic 100–119; BP diastolic 57–77; PULSE 96–113; RESP 17–33; TEMP 36.5–37.1; O2SAT 88–92
[2021-05-30 07:19] LABS: Basophils # 0.1 10^3/uL (0.0-0.1); Basophils % 0.3 %; Eosinophils # 0.1 10^3/uL (0.0-0.8); Eosinophils % 0.4 %; Hematocrit 38.3 % (37.0-47.0); Hemoglobin 12.2 g/dL (11.5-15.3); Lymphocytes # 1.2 10^3/uL (0.8-4.8); Lymphocytes % 6.1 %; Mean Corpuscular HGB Conc 31.9 g/dL (30.0-36.0); Mean Corpuscular Hemoglobin 29.5 pg (28.0-34.0); Mean Corpuscular Volume 92.7 fL (81-99); Mean Platelet Volume 8.9 fL (7.4-10.4); Monocytes % 5.5 %; Neutrophils # 16.39 10^3/uL (1.8-7.7); Neutrophils % 86.6 %; Nucleated Red Blood Cells % 0 %; Platelet Count 269 10^3/cmm (130-400); Red Blood Count 4.13 10^6/uL (4.1-5.3); Red Cell Distribution Width 13.4 % (12.1-15.1); White Blood Count 18.9 10^3/uL (4.0-10.0)
[2021-05-30 07:54] LABS: Alanine Aminotransferase 22 U/L (0-33); Albumin Level 2.6 g/dL (3.5-5.2); Alkaline Phosphatase 64 IU/L (35-105); Aspartate Amino Transferase 21 U/L (0-32); Blood Urea Nitrogen 16 mg/dL (8-23); Calcium 8.1 mg/dL (8.5-10.5); Carbon Dioxide 28 mmol/L (22-29); Chloride 99 mmol/L (98-107); Globulin 3.5 g/dL (1.3-4.6); Glomerular Filtration Rate 84.2 mL/min (90-130); Glucose 85 mg/dL (65-115); Osmolality Calculated 280 mOsm/kg (285-295); Sodium 135 mmol/L (136-145); Total Bilirubin 0.5 mg/dL (0.15-1.2); Total Protein 6.1 g/dL (6.6-8.7)
[2021-05-30] MEDS: rivaroxaban 10 mg Tablet 20 MG PO (08:25)
[2021-05-30] MEDS: guaiFENesin 600 mg Tablet PO ×2 (08:25→18:32)
[2021-05-30] MEDS: fluticasone nasal spray 16gm Btl 1 SPRAY NASAL ×2 (08:25→18:32)
--- NOTE | 2021-05-30 09:51 | PC.CHAP ---
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 guideman visit [] Patient/Family/Request visit [] Outpatient visit [] Follow-up visit [] Physician referral [] Code/Alert [x] Routine visit [] Staff referral [] Actively dying [] Patient sleeping [] Family support [] [] Out of room [] Palliative care [] [] Receiving care in room [] Pre-surgical visit [] Trauma [] Long length of stay [] ICU visit [x] Other: covid Relational/Emotional Strength [] Patient feels connected with others/family/visitors/staff [] Distress [] Loneliness/isolation [] Abandonment Spirituality of Patient [] Person of Caro [] Attends Jainism of their Caro [] Believes in Prayer [] Reads Bible or Adventist materials [] There are Spiritual issues to be addressed Bid Analyst Interventions [x] Prayer [] Active listening [] Non-anxious presence [] Spiritual/emotional support [] Crisis/trauma care [] Spiritual counseling [] Bereavement support [] Provided bereavement packet [] Provided Bible/devotional materials [] Provided toy/stuffed animal, coloring book to patient or family member [] Provided Communion [] Anointing/[place] [] Salvation [x] Completed spiritual assessment [] Other: Impact on Illness or Injury [] Angry [] Fearful [] Anxious [] Often cries [] Exhaustion [] Unable to work [] Unable to attend congregational [] Unable to walk/stand [] Unable to read [] Unable to drive [] Unable to eat/drink [] Unable to sleep [] Unable to be with family [] Patient intubated [] Other: Summary Time spent with patient
[2021-05-30] MEDS: azithromycin 500 MG in sodium chloride 0.9% 250 ML 250 MG IV (10:25)
[2021-05-30 11:00] LABS: Glucose Point of Care 109 mg/dL (70-110)
[2021-05-30] MEDS: cefTRIAXone 1,000 MG in sodium chloride 0.9% (plus) 50 ML 100 MG IV (11:43)
[2021-05-30] MEDS: albuterol 8 gm MDI 1 PUFF INHALATION ×2 (15:15→20:18)
[2021-05-30] MEDS: dexamethasone 10 mg/mL INJ 6 MG IVP (16:03)
[2021-05-30] MEDS: FUROsemide 20 mg Tablet PO (16:04)
--- NOTE | 2021-05-30 19:38 | P.PN_ITS ---
Subjective Subjective: Interval history: Patient was seen and examined this morning, overall she has improved.Supplemental oxygen requirement is slowly going down.She still has significant desaturation with exertion. Medications: Reviewed: Yes Vitals/I&O/Wt Last Vital Signs Temp 98.2 F 05/30/21 16:00 Pulse 108 H 05/30/21 16:00 Resp 33 H 05/30/21 16:00 BP 113/75 05/30/21 16:00 Pulse Ox 89 L 05/30/21 16:00 05/30/21 05/30/21 05/30/21 06:59 14:59 22:59 Intake Total 120 / 660 420 / 420 120 / 540 Output Total 675 / 675 Balance -555 / -15 420 / 420 120 / 540 Physical Exam Const: COMMON NORMALS: patient oriented x3 HENMT: COMMON NORMALS: normocephalic and atraumatic HEAD & SCALP: normocephalic and atraumatic Resp: COMMON NORMALS: clear to auscultation bilaterally AUSCULTATION: clear to auscultation bilaterally Cardio: COMMON NORMALS: regular rate, regular rhythm, S1 normal heart sound present, S2 normal heart sound present, No gallops present (Cardio), No murmurs present (Cardio), No rub (Cardio) and Peripheral pulses 2+ throughout RATE: r egular rate RHYTHM: regular rhythm HEART SOUNDS: S1 normal heart sound present and S2 normal heart sound present PERIPHERAL PULSES: Peripheral pulses 2+ throughout GI: COMMON NORMALS: Normal to inspection, nondistended, normoactive bowel sounds present, Soft to palpation, non-tender, No hepatosplenomegaly present and no masses AUSCULTATION: Yes normoactive bowel sounds PALPATION: Yes Soft to palpation and Yes No hepatosplenomegaly present RECTAL EXAM: deferred Extremity: COMMON NORMALS: no clubbing, cyanosis or edema and no pedal edema Neuro: COMMON NORMALS: patient oriented x3 Data : 05/30/21 06:15 05/30/21 06:15 Micro: Microbiology 05/28/21 11:07 Blood Culture - Preliminary Blood Coagulase negativ staphylococc 05/30/21 09:05 Legionella Urinary Antigen - Final Urine,Clean Catch Bacterial Antigens - Final A&P Assessment and plan (1) Pneumonia: Status: Acute (2) Hypoxia: Status: Acute (3) COVID-19 determined by clinical diagnostic criteria: Status: Acute Additional A&P Information Ms. Villalobos is a 65-year female who has history of DVT chronic anticoagulation with Xarelto presented to the hospital with worsening symptoms of COVID-19 pneumonia, since day 1 she was put on heated high flow her O2 requirement was pretty high which has been gradually weaned down to 10 L on 05/26, she is status post remdesivir, Decadron, her CRP has been trending down, her appetite has improved and she is able to work with physical therapy and eager to go home once her O2 requirement is between 4-5 L with nasal cannula, of note, her who is in her room as well recently . Hypoxic respiratory failure with COVID-19 pneumonia Inflammatory markers trending down, her O2 requirement has been weaned down to 10 L with high flow nasal cannula Her appetite has improved she is able to finish her meals, 2 bowel movements in last 12 hours Able to maintain her O2 sats on ambulation as well Goal to discharge her home once her O2 requirement is between 4 to 5 L nasal cannula Home O2 evaluation at the time of discharge Status post remdesivir and Decadron regimen Gradual but remarkable recovery Cardiac diet Xarelto DVT prophylaxis Full code Attestations Medical Necessity Statement*: Patient needs to be in hospital for management of Covid pneumonia. Coding Level of Care Code Acute Cytotechnologist/Histotechnologist for Kathrin Carreon Diagnoses Pneumonia J18.9 Hypoxia R09.02 COVID-19 determined by clinical diagnostic criteria U07.1
[2021-05-31] VITALS (62 sets, daily range): BP systolic 106–138; BP diastolic 65–78; PULSE 79–117; RESP 17–54; TEMP 36.6–36.8; O2SAT 76–99
[2021-05-31] MEDS: albuterol 8 gm MDI 1 PUFF INHALATION ×5 (03:28→20:57)
--- NOTE | 2021-05-31 06:00 | XRR_ITS ---
PROCEDURE INFORMATION: Exam: XR Chest Exam date and time: 05/31/2021 6:00 AM Age: 65 years old Clinical indication: Condition or disease; Lung condition and disease; Pneumonia; Patient HX: Covid follow up; Additional info: Pna TECHNIQUE: Imaging protocol: XR of the chest. Views: 1 view. COMPARISON: CR XR chest 1V portable [id number] 05/28/2021 9:19 AM FINDINGS: Lungs: Low lung volumes. Persistent bilateral airspace opacities. No large pleural effusion or pneumothorax. Pleural spaces: See Lungs finding. Heart/Mediastinum: Stable cardiomediastinal silhouette. Bones/joints: No acute osseous injury identified. XR/XR chest 1V portable [id number] IMPRESSION: Persistent bilateral airspace opacities.
[2021-05-31 06:28] LABS: Basophils % 0.1 %; Eosinophils % 0.1 %; Hematocrit 38.4 % (37.0-47.0); Hemoglobin 12.1 g/dL (11.5-15.3); Lymphocytes # 0.9 10^3/uL (0.8-4.8); Lymphocytes % 5.7 %; Mean Corpuscular HGB Conc 31.5 g/dL (30.0-36.0); Mean Corpuscular Hemoglobin 29.5 pg (28.0-34.0); Mean Corpuscular Volume 93.7 fL (81-99); Mean Platelet Volume 9.3 fL (7.4-10.4); Monocytes # 0.6 10^3/uL (0.2-0.9); Monocytes % 3.4 %; Neutrophils # 14.37 10^3/uL (1.8-7.7); Neutrophils % 89.6 %; Nucleated Red Blood Cells % 0 %; Platelet Count 278 10^3/cmm (130-400); Red Cell Distribution Width 13.3 % (12.1-15.1)
[2021-05-31 06:52] LABS: Glucose Point of Care 155 mg/dL (70-110)
--- NOTE | 2021-05-31 06:57 | PC.NURSE ---
Shift Summary Patient has rested well throughout the shift. No complaints of pain. Patient is taking self to bedside commode, does desaturate into the low 80s with transfer but recovers quickly. Patient desaturated during sleep, RT has turned O2 up to 10L/NC. No other complaints this shift.
[2021-05-31 06:59] LABS: Alanine Aminotransferase 21 U/L (0-33); Albumin Level 2.7 g/dL (3.5-5.2); Alkaline Phosphatase 93 IU/L (35-105); Anion Gap 14.3 (5-19); Aspartate Amino Transferase 20 U/L (0-32); Blood Urea Nitrogen 14 mg/dL (8-23); C Reactive Protein 40.6 mg/L (0.0-4.9); Calcium 8.5 mg/dL (8.5-10.5); Carbon Dioxide 26 mmol/L (22-29); Chloride 102 mmol/L (98-107); Globulin 3.6 g/dL (1.3-4.6); Glomerular Filtration Rate 84.2 mL/min (90-130); Glucose 116 mg/dL (65-115); Osmolality Calculated 287 mOsm/kg (285-295); Potassium 4.3 mmol/L (3.5-5.1); Sodium 138 mmol/L (136-145); Total Bilirubin 0.4 mg/dL (0.15-1.2); Total Protein 6.3 g/dL (6.6-8.7)
[2021-05-31 07:02] LABS: D Dimer 9.92 ug/mIFEU (0-0.59)
[2021-05-31 07:54] LABS: Erythrocyte Sedimentation Rate 88 mm/hr (0-15)
[2021-05-31 08:07] LABS: Ferritin 1528 ng/mL (15-150)
[2021-05-31] MEDS: azithromycin 500 MG in sodium chloride 0.9% 250 ML 250 MG IV (09:24)
[2021-05-31] MEDS: guaiFENesin 600 mg Tablet PO ×2 (09:24→18:01)
[2021-05-31] MEDS: rivaroxaban 10 mg Tablet 20 MG PO (09:25)
[2021-05-31] MEDS: FUROsemide 20 mg Tablet PO ×2 (09:26→17:12)
[2021-05-31] MEDS: fluticasone nasal spray 16gm Btl 1 SPRAY NASAL ×2 (12:13→18:00)
[2021-05-31] MEDS: cefTRIAXone 1,000 MG in sodium chloride 0.9% (plus) 50 ML 100 MG IV (12:47)
--- NOTE | 2021-05-31 14:15 | ECG_ITS ---
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 Measurements Intervals [place] Rate: 101 P: 50 AR: 155 QRS: -39 QRSD: 91 T: 11 QT: 333 QTc: 432 Interpretive Statements SINUS TACHYCARDIA LEFT AXIS DEVIATION [QRS AXIS < -30] PATTERN CONSISTENT WITH PULMONARY DISEASE VOLTAGE CRITERIA FOR LVH [MEETS CRITERIA IN ONE OF: R(aVL), S(V1), R(V5), R(V5/V6)+S(V1)] MODERATE T-WAVE ABNORMALITY, CONSIDER ANTERIOR ISCHEMIA [-0.1+ mV T WAVE IN V3/V4] Compared to ECG 05/18/2021 14:44:36 Sinus rhythm no longer present T-wave abnormality still present Possible ischemia still present Electronically Signed On 05-31-2021 16:44:58 CDT by Eloisa Villatoro M.D. [email or web address]
--- NOTE | 2021-05-31 14:38 | P.PN_ITS ---
Subjective Subjective: Interval history: Patient was seen and examined this morning,unfortunately her hospital course has been protracted due to slow improvement, she continue to desaturate with minimal exertion, supplemental oxygen requirement is fluctuating, still requiring close to 10Ls. Xray chest done in am has shown worsening of PNA. Medications: Reviewed: Yes Vitals/I&O/Wt Last Vital Signs Temp 98.0 F 05/31/21 12:00 Pulse 102 H 05/31/21 12:00 Resp 18 05/31/21 12:00 BP 119/69 05/31/21 12:00 Pulse Ox 94 05/31/21 12:00 05/30/21 05/31/21 05/31/21 22:59 06:59 14:59 Intake Total 120 / 540 240 / 780 300 / 300 Output Total 500 / 500 Balance 120 / 540 -260 / 280 300 / 300 Physical Exam Const: COMMON NORMALS: patient oriented x3 HENMT: COMMON NORMALS: normocephalic and atraumatic HEAD & SCALP: norm ocephalic and atraumatic Resp: OTHER: B/L Crackles Present in both lungs reyes. Cardio: COMMON NORMALS: regular rate, regular rhythm, S1 normal heart sound present, S2 normal heart sound present, No gallops present (Cardio), No murmurs present (Cardio), No rub (Cardio) and Peripheral pulses 2+ throughout RATE: regular rate RHYTHM: regular rhythm HEART SOUNDS: S1 normal heart sound present and S2 normal heart sound present PERIPHERAL PULSES: Peripheral puls es 2+ throughout GI: COMMON NORMALS: Normal to inspection, nondistended, normoactive bowel sounds present, Soft to palpation, non-tender, No hepatosplenomegaly present and no masses AUSCULTATION: Yes normoactive bowel sounds PALPATION: Yes Soft to palpation and Yes No hepatosplenomegaly present RECTAL EXAM: deferred Extremity: COMMON NORMALS: no clubbing, cyanosis or edema and no pedal edema Neuro: COMMON NORMALS: patient oriented x3 Data : 05/31/21 04:38 05/31/21 04:38 Micro: Microbiology 05/28/21 11:07 Blood Culture - Preliminary Blood Coagulase negativ staphylococc 05/30/21 09:05 Legionella Urinary Antigen - Final Urine,Clean Catch Bacterial Antigens - Final A&P Assessment and plan (1) Pneumonia: Status: Acute (2) Hypoxia: Status: Acute (3) COVID-19 determined by clinical diagnostic criteria: Status: Acute Additional A&P Information Ms. Villalobos is a 65-year female who has history of DVT chronic anticoagulation with Xarelto presented to the hospital with worsening symptoms of COVID-19 pneumonia, since day 1 she was put on heated high flow her O2 requirement was pretty high which has been gradually weaned down to 10 L on 05/26, she is status post remdesivir, Decadron, her CRP has been trending down, her appetite has improved and she is able to work with physical therapy and eager to go home once her O2 requirement is between 4-5 L with nasal cannula, of note, her who is in her room as well recently . Hypoxic respiratory failure with COVID-19 pneumonia Inflammatory markers trending down, her O2 requirement has been weaned down to 10 L with high flow nasal cannula Her appetite has improved she is able to finish her meals, 2 bowel movements in last 12 hours Able to maintain her O2 sats on ambulation as well Goal to discharge her home once her O2 requirement is between 4 to 5 L nasal cannula Home O2 evaluation at the time of discharge Status post remdesivir and Decadron regimen Gradual but remarkable recovery Cardiac diet Xarelto DVT prophylaxis Full code Attestations Medical Necessity Statement*: Patient needs to be in hospital for the manage ment of PNA Coding Level of Care Code Acute Tourist Information Officer for [facility] Diagnoses Pneumonia J18.9 Hypoxia R09.02 COVID-19 determined by clinical diagnostic criteria U07.1
--- NOTE | 2021-05-31 15:17 | PC.NUTR ---
Addendum entered by Juan Chan 05/31/21 15:18: 63% average X 4 meals Original Note: Nutrition follow up: PO intakes unclear at this time--62% average X 4 recorded meals, but 4 other meals missing from EMR. Pt reports the Ensure Plus is too sweet for her--noted 6 or more bottles sitting near window which pt states she plans to give to her mother. Discussed changing supplement to Glucerna which is lower in carb, pt willing to try. Will decrease to BID at this time. No strawberry per pt preference. Also requested nurse to let dietary know if pt does not drink the Glucerna either and will discontinue if appropriate. See full RD assessment for further details.
--- NOTE | 2021-05-31 15:23 | PC.RESP ---
RT Shift Note Frequent safety and respiratory rounds continue. Orders completed as indicated. Patient monitored pre and post treatments throughout shift. Patient [Did.] tolerate treatments appropriately. Condition [DidNotChange]. Patient and/or in home sales representative educated on respiratory treatment and medications. Patient and/or in home sales representative [ResponseToTeaching]. Will continue to monitor patient progress.
[2021-05-31] MEDS: dexamethasone 10 mg/mL INJ 6 MG IVP (17:11)
[2021-05-31 21:17] LABS: Glucose Point of Care 101 mg/dL (70-110)
[2021-05-31 21:17] LABS: Glucose Point of Care 163 mg/dL (70-110)
[2021-05-31 21:17] LABS: Glucose Point of Care 113 mg/dL (70-110)
[2021-05-31 21:17] LABS: Glucose Point of Care 105 mg/dL (70-110)
[2021-05-31 21:17] LABS: Glucose Point of Care 88 mg/dL (70-110)
[2021-05-31 22:02] LABS: Glucose Point of Care 249 mg/dL (70-110)
[2021-06-01] VITALS (12 sets, daily range): BP systolic 106–133; BP diastolic 64–79; PULSE 94–111; RESP 20–33; TEMP 36.5–36.9; O2SAT 87–92
--- NOTE | 2021-06-01 02:38 | PC.RESP ---
RT Shift Note Frequent safety and respiratory rounds continue. Orders completed as indicated. Patient monitored pre and post treatments throughout shift. Patient [Did] tolerate treatments appropriately. Patient and/or retail customer service representative educated on respiratory treatment and medications. Patient and/or retail customer service representative [ResponseToTeaching]. Will continue to monitor patient progress.
--- NOTE | 2021-06-01 06:39 | PC.NURSE ---
Shift Summary Patient has rested well this shift, no complaints of pain. Patient did desaturate into the mid 70s after getting up to commode and was unable to recover sat to 88% or greater. Patient O2 was increased to 14L high flow with sats coming up to 93%. Patient still desaturates quickly with exertion.
[2021-06-01] MEDS: FUROsemide 10 mg/mL SDV 4mL 40 MG IVP (06:47)
[2021-06-01 06:54] LABS: Glucose Point of Care 116 mg/dL (70-110)
[2021-06-01 07:34] LABS: Basophils % 0.1 %; Hematocrit 37.5 % (37.0-47.0); Hemoglobin 11.8 g/dL (11.5-15.3); Lymphocytes # 1.1 10^3/uL (0.8-4.8); Lymphocytes % 5.8 %; Mean Corpuscular HGB Conc 31.5 g/dL (30.0-36.0); Mean Corpuscular Hemoglobin 29.3 pg (28.0-34.0); Mean Corpuscular Volume 93.1 fL (81-99); Mean Platelet Volume 9.2 fL (7.4-10.4); Monocytes # 0.9 10^3/uL (0.2-0.9); Neutrophils # 16.17 10^3/uL (1.8-7.7); Neutrophils % 88.3 %; Nucleated Red Blood Cells % 0 %; Platelet Count 297 10^3/cmm (130-400); Red Blood Count 4.03 10^6/uL (4.1-5.3); Red Cell Distribution Width 13.3 % (12.1-15.1); White Blood Count 18.3 10^3/uL (4.0-10.0)
[2021-06-01 08:06] LABS: D Dimer 6.48 ug/mIFEU (0-0.59)
[2021-06-01 08:13] LABS: Alanine Aminotransferase 25 U/L (0-33); Albumin Level 2.9 g/dL (3.5-5.2); Alkaline Phosphatase 77 IU/L (35-105); Anion Gap 16.2 (5-19); Aspartate Amino Transferase 21 U/L (0-32); Blood Urea Nitrogen 15 mg/dL (8-23); C Reactive Protein 36.3 mg/L (0.0-4.9); Calcium 8.8 mg/dL (8.5-10.5); Carbon Dioxide 28 mmol/L (22-29); Chloride 101 mmol/L (98-107); Globulin 3.6 g/dL (1.3-4.6); Glomerular Filtration Rate 100.6 mL/min (90-130); Glucose 92 mg/dL (65-115); NT Pro B Type Natriuretic Pept 322 pg/mL (0-125); Osmolality Calculated 292 mOsm/kg (285-295); Potassium 4.2 mmol/L (3.5-5.1); Sodium 141 mmol/L (136-145); Total Bilirubin 0.4 mg/dL (0.15-1.2); Total Protein 6.5 g/dL (6.6-8.7)
[2021-06-01] MEDS: albuterol 8 gm MDI 1 PUFF INHALATION ×4 (08:18→20:04)
[2021-06-01 08:27] LABS: Ferritin 1426 ng/mL (15-150)
[2021-06-01 08:30] LABS: Erythrocyte Sedimentation Rate 97 mm/hr (0-15)
[2021-06-01] MEDS: fluticasone nasal spray 16gm Btl 1 SPRAY NASAL ×2 (08:49→17:01)
[2021-06-01] MEDS: rivaroxaban 10 mg Tablet 20 MG PO (08:50)
[2021-06-01] MEDS: azithromycin 500 MG in sodium chloride 0.9% 250 ML 250 MG IV (08:50)
[2021-06-01] MEDS: guaiFENesin 600 mg Tablet PO ×2 (08:50→17:01)
[2021-06-01 11:30] LABS: Glucose Point of Care 103 mg/dL (70-110)
[2021-06-01] MEDS: dexamethasone 10 mg/mL INJ 6 MG IVP (14:53)
[2021-06-01] MEDS: cefTRIAXone 1,000 MG in sodium chloride 0.9% (plus) 50 ML 100 MG IV (14:53)
[2021-06-01 17:22] LABS: Glucose Point of Care 132 mg/dL (70-110)
--- NOTE | 2021-06-01 20:07 | PM.PN ---
Subjective Subjective: Interval history: Patient was seen and examined this morning,supplemental oxygen requirement is fluctuating, still requiring close to 10Ls. Medications: Reviewed: Yes Vitals/I&O/Wt Last Vital Signs Temp 98.4 F 06/01/21 15:44 Pulse 101 H 06/01/21 15:59 Resp 28 H 06/01/21 15:59 BP 132/71 06/01/21 15:44 Pulse Ox 88 L 06/01/21 15:59 06/01/21 06/01/21 06/01/21 06:59 14:59 22:59 Intake Total 360 / 660 250 / 250 410 / 660 Output Total 1800 / 1800 650 / 650 350 / 1000 Balance -1440 / -1140 -400 / -400 60 / -340 Physical Exam Const: COMMON NORMALS: patient oriented x3 HENMT: COMMON NORMALS: normocephalic and atraumatic HEAD & SCALP: normocephalic and atraumatic Resp: COMMON NORMALS: clear to auscultation bilaterally AUSCULTATION: clear to auscultation bilaterally OTHER: B/L Crackles Present in both lungs reyes. Cardio: COMMON NORMALS: regular rate, regular rhythm, S1 normal heart sound present, S2 normal heart sound present, No gallops present (Cardio), No murmurs present (Cardio), No rub (Cardio) and Peripheral pulses 2+ throughout RATE: regular rate RHYTHM: regular rhythm HEART SOUNDS: S1 normal heart sound present and S2 normal heart sound present PERIPHERAL PULSES: Peripheral pulses 2+ throughout GI: COMMON NORMALS: Normal to inspection, nondistended, normoactive bowel sounds present, Soft to palpation, non-tender, No hepatosplenomegaly present and no masses AUSCULTATION: Yes normoactive bowel sounds PALPATION: Yes Soft to palpation and Yes No hepatosplenomegaly present RECTAL EXAM: deferred Extremity: COMMON NORMALS: no clubbing, cyanosis or edema and no pedal edema Neuro: COMMON NORMALS: patient oriented x3 Data : 06/01/21 05:36 06/01/21 05:36 A&P Assessment and plan (1) Pneumonia: Status: Acute (2) Hypoxia: Status: Acute (3) COVID-19 determined by clinical diagnostic criteria: Status: Acute Additional A&P Information Ms. Villalobos is a 65-year female who has history of DVT chronic anticoagulation with Xarelto presented to the hospital with worsening symptoms of COVID-19 pneumonia, since day 1 she was put on heated high flow her O2 requirement was pretty high which has been gradually weaned down to 10 L on 05/26, she is status post remdesivir, Decadron, her CRP has been trending down, her appetite has improved and she is able to work with physical therapy and eager to go home once her O2 requirement is between 4-5 L with nasal cannula, of note, her who is in her room as well recently . Hypoxic respiratory failure with COVID-19 pneumonia Inflammatory markers trending down, her O2 requirement has been weaned down to 10 L with high flow nasal cannula Her appetite has improved she is able to finish her meals, 2 bowel movements in last 12 hours Able to maintain her O2 sats on ambulation as well Goal to discharge her home once her O2 requirement is between 4 to 5 L nasal cannula Home O2 evaluation at the time of discharge Status post remdesivir and Decadron regimen Gradual but remarkable recovery Cardiac diet Xarelto DVT prophylaxis Full code Attestations Medical Necessity Statement*: Patient needs to be in hospital for the management of PNA Coding Level of Care Code Acute Patent Attorney for [facility] Fwd Diagnoses Pneumonia J18.9 Hypoxia R09.02 COVID-19 determined by clinical diagnostic criteria U07.1
[2021-06-01] MEDS: piperacillin-tazobactam 3.375 GM in sodium chloride 0.9% (plus) 50 ML IV (21:04)
[2021-06-01 22:51] LABS: Glucose Point of Care 159 mg/dL (70-110)
[2021-06-02] VITALS (15 sets, daily range): BP systolic 96–142; BP diastolic 62–74; PULSE 90–114; RESP 8–58; TEMP 36.4–37.2; O2SAT 81–96
[2021-06-02] MEDS: albuterol 8 gm MDI 1 PUFF INHALATION ×3 (00:50→08:42)
[2021-06-02] MEDS: piperacillin-tazobactam 3.375 GM in sodium chloride 0.9% (plus) 50 ML IV ×3 (06:46→22:00)
[2021-06-02] MEDS: fluticasone nasal spray 16gm Btl 1 SPRAY NASAL ×2 (06:49→17:31)
[2021-06-02 06:52] LABS: Glucose Point of Care 89 mg/dL (70-110)
[2021-06-02 08:06] LABS: Basophils % 0.1 %; Eosinophils % 0.1 %; Hematocrit 37.9 % (37.0-47.0); Hemoglobin 11.9 g/dL (11.5-15.3); Lymphocytes # 1.6 10^3/uL (0.8-4.8); Lymphocytes % 7.2 %; Mean Corpuscular HGB Conc 31.4 g/dL (30.0-36.0); Mean Corpuscular Hemoglobin 29.3 pg (28.0-34.0); Mean Corpuscular Volume 93.3 fL (81-99); Mean Platelet Volume 9.3 fL (7.4-10.4); Monocytes # 1.3 10^3/uL (0.2-0.9); Neutrophils # 18.99 10^3/uL (1.8-7.7); Neutrophils % 85.8 %; Nucleated Red Blood Cells % 0 %; Platelet Count 313 10^3/cmm (130-400); Red Blood Count 4.06 10^6/uL (4.1-5.3); Red Cell Distribution Width 13.6 % (12.1-15.1); White Blood Count 22.1 10^3/uL (4.0-10.0)
[2021-06-02 08:28] LABS: D Dimer 7.28 ug/mIFEU (0-0.59)
[2021-06-02 08:29] LABS: Alanine Aminotransferase 27 U/L (0-33); Albumin Level 3.1 g/dL (3.5-5.2); Alkaline Phosphatase 80 IU/L (35-105); Anion Gap 14.8 (5-19); Aspartate Amino Transferase 19 U/L (0-32); Blood Urea Nitrogen 18 mg/dL (8-23); C Reactive Protein 38.8 mg/L (0.0-4.9); Carbon Dioxide 28 mmol/L (22-29); Chloride 100 mmol/L (98-107); Globulin 3.7 g/dL (1.3-4.6); Glomerular Filtration Rate 100.6 mL/min (90-130); Glucose 81 mg/dL (65-115); Osmolality Calculated 289 mOsm/kg (285-295); Potassium 3.8 mmol/L (3.5-5.1); Sodium 139 mmol/L (136-145); Total Bilirubin 0.4 mg/dL (0.15-1.2); Total Protein 6.8 g/dL (6.6-8.7)
[2021-06-02] MEDS: budesonide 0.5 mg/2 mL Neb INHALATION ×2 (08:42→19:58)
[2021-06-02 08:49] LABS: Ferritin 1388 ng/mL (15-150)
--- NOTE | 2021-06-02 10:03 | PC.NURSE ---
Patient noted to have O2 sats in the 30s. Dr. Vumood here at this time with new orders to place patient on Bipap. Dr. Kramer notified at this time via telephone of new orders. Verbalized understanding.
[2021-06-02] MEDS: LORazepam 2 mg/mL INJ 1 mL 0.5 MG IVP (10:10)
[2021-06-02 10:21] LABS: Erythrocyte Sedimentation Rate 48 mm/hr (0-15)
[2021-06-02] MEDS: guaiFENesin 600 mg Tablet PO (10:23)
[2021-06-02] MEDS: rivaroxaban 10 mg Tablet 20 MG PO (10:23)
[2021-06-02 10:26] LABS: ABG PCO2 40.9 mmHg (35-45); ABG PH Result 7.47 (7.35-7.45); Alveolar-Arterial Oxygen Gradi 79.9 mmHg (5-10); Arterial Blood Gas Hematocrit 38.6 % (37-47); Base Excess ABG 5.8 mmol/L (-2.0-2.0); Blood Gas Allen Test Pos; Blood Gas Operator Identificat MONRO; Blood Gas Sample Site Brachial, left; Blood Gas Sample Type Arterial; Carboxyhemoglobin 1.1 %THgb (0.4-20.1); HGB O2 Sat 81.9 % (95-100); Ionized Calcium Level - ABG 1.2 mmol/L (1.1-1.4); Oxygen Device NC; Oxygen Saturation ABG 83.7; PO2 ABG 46.7 mmHg (80.0-100.0); Potassium Level - ABG 3.4 mmol/L (3.5-5.0); Total Hemoglobin 12.6 g/dL (12-16)
--- NOTE | 2021-06-02 11:21 | P.PN_ITS ---
Subjective Subjective: Interval history: Patient was seen and examined this morning supplemental oxygen requirement has gone up.She has been placed on HHFONC and is currently requiring 100 % oxygen at 40ls. Unfortunately she decompensated today in the morning when she dropped her nasal canula while using her bedside commode and was not on oxygen for a short time. Post placement of HHFONC she has covered and is currently saturating well. Medications: Reviewed: Yes Vitals/I&O/Wt Last Vital Signs Temp 98.0 F 06/02/21 07:35 Pulse 111 H 06/02/21 10:34 Resp 38 H 06/02/21 10:34 BP 142/63 06/02/21 07:35 Pulse Ox 88 L 06/02/21 10:34 06/01/21 06/02/21 06/02/21 22:59 06:59 14:59 Intake Total 410 / 660 50 / 710 Output Total 350 / 1000 1200 / 2200 400 / 400 Balance 60 / -340 -1150 / -1490 -400 / -400 Physical Exam Const: COMMON NORMALS: patient oriented x3 HENMT: COMMON NORMALS: normocephalic and atraumatic HEAD & SCALP: normocephalic and atraumatic Resp: COMMON NORMALS: clear to auscultation bilaterally AUSCULTATION: clear to auscultation bilaterally OTHER: B/L Crackles Present in both lungs reyes. Cardio: COMMON NORMALS: regular rate, regular rhythm, S1 normal heart sound present, S2 normal heart sound present, No gallops present (Cardio), No murmurs present (Cardio), No rub (Cardio) and Peripheral pulses 2+ throughout RATE: regular rate RHYTHM: regular rhythm HEART SOUNDS: S1 normal heart sound present and S2 normal heart sound present PERIPHERAL PULSES: Peripheral pulses 2+ throughout GI: COMMON NORMALS: Normal to inspection, nondistended, normoactive bowel sounds present, Soft to palpation, non-tender, No hepatosplenomegaly present and no masses AUSCULTATION: Yes normoactive bowel sounds PALPATION: Yes Soft to palpation and Yes No hepatosplenomegaly present RECTAL EXAM: deferred Extremity: COMMON NORMALS: no clubbing, cyanosis or edema and no pedal edema Neuro: COMMON NORMALS: patient oriented x3 Data : 06/02/21 04:52 06/02/21 04:52 A&P Assessment and plan (1) Pneumonia: Status: Acute (2) Hypoxia: Status: Acute (3) COVID-19 determined by clinical diagnostic criteria: Status: Acute (4) Pneumonia due to COVID-19 virus: Status: Acute Additional A&P Information Acute hypoxic respiratory failure 2/2 COVID PNA. ESR: 48 CRP : 38.8 D DIMER :7.28 Ferritin : 1388 Procalcitonin: 0.09 ABG : Xray chest : Diffuse patulous consolidations throughout both lungs. Pleural spaces. Blood cultures: Coagulase negative staph 10/28 Completed Remdisivir 5 day course. Dexamethasone 6mg IVP daily for 10 days. duoneb q6h, budesonide q12h Intialy was empirically on Cef and azithromycin.Currently switched to zosyn. On Xaralto for her h/o DVT Attestations Medical Necessity Statement*: Patient needs to be in hospital for the management of COVID PNA Coding Level of Care Code Acute Accounting Director for [facility] Fwd Exam Detailed Diagnoses Pneumonia J18.9 Hypoxia R09.02 COVID-19 determined by clinical diagnostic criteria U07.1 Pneumonia due to COVID-19 virus U07.1; J12.82
[2021-06-02] MEDS: ipratropium-albuterol 3 mL Neb INHALATION ×4 (11:56→23:55)
--- NOTE | 2021-06-02 12:41 | XRR_ITS ---
PROCEDURE INFORMATION: Exam: XR Chest Exam date and time: 06/02/2021 12:41 PM Age: 65 years old Clinical indication: Condition or disease; Lung condition and disease; Other: Covid; Additional info: Pna TECHNIQUE: Imaging protocol: XR of the chest. Views: 1 view. COMPARISON: CR XR chest 1V portable [id number] 05/31/2021 6:37 AM FINDINGS: Lungs: Diffuse patulous consolidations throughout both lungs. Pleural spaces: Unremarkable. No pleural effusion. No pneumothorax. Heart/Mediastinum: Unremarkable. No cardiomegaly. Bones/joints: Unremarkable. XR/XR chest 1V portable [id number] IMPRESSION: Patulous consolidations throughout both lungs suggestive of multifocal pneumonia. No significant interval change.
[2021-06-02] MEDS: FUROsemide 10 mg/mL SDV 2mL 20 MG IVP (12:53)
[2021-06-02] MEDS: azithromycin 500 MG in sodium chloride 0.9% 250 ML 250 MG IV (13:10)
[2021-06-02] MEDS: dexamethasone 10 mg/mL INJ 6 MG IVP (17:31)
[2021-06-02 17:33] LABS: Glucose Point of Care 92 mg/dL (70-110)
[2021-06-02 21:14] LABS: Glucose Point of Care 86 mg/dL (70-110)
[2021-06-02 21:48] LABS: Glucose Point of Care 125 mg/dL (70-110)
[2021-06-03] VITALS (15 sets, daily range): BP systolic 110–125; BP diastolic 61–89; PULSE 83–127; RESP 16–32; TEMP 36.3–37; O2SAT 88–98
[2021-06-03] MEDS: ipratropium-albuterol 3 mL Neb INHALATION ×5 (03:50→20:06)
[2021-06-03 05:08] LABS: Basophils % 0.1 %; Eosinophils % 0.1 %; Hematocrit 36.6 % (37.0-47.0); Hemoglobin 11.5 g/dL (11.5-15.3); Lymphocytes # 1.4 10^3/uL (0.8-4.8); Lymphocytes % 7.1 %; Mean Corpuscular HGB Conc 31.4 g/dL (30.0-36.0); Mean Corpuscular Hemoglobin 29.4 pg (28.0-34.0); Mean Corpuscular Volume 93.6 fL (81-99); Monocytes # 0.8 10^3/uL (0.2-0.9); Monocytes % 4.2 %; Neutrophils # 17.01 10^3/uL (1.8-7.7); Neutrophils % 87.6 %; Nucleated Red Blood Cells % 0 %; Platelet Count 299 10^3/cmm (130-400); Red Blood Count 3.91 10^6/uL (4.1-5.3); Red Cell Distribution Width 13.8 % (12.1-15.1); White Blood Count 19.4 10^3/uL (4.0-10.0)
[2021-06-03 05:37] LABS: Blood Urea Nitrogen 20 mg/dL (8-23); Calcium 8.8 mg/dL (8.5-10.5); Carbon Dioxide 28 mmol/L (22-29); Chloride 100 mmol/L (98-107); Glomerular Filtration Rate 84.2 mL/min (90-130); Glucose 101 mg/dL (65-115); Magnesium 2.1 mg/dL (1.7-2.3); Osmolality Calculated 293 mOsm/kg (285-295); Sodium 140 mmol/L (136-145)
[2021-06-03] MEDS: piperacillin-tazobactam 3.375 GM in sodium chloride 0.9% (plus) 50 ML IV (05:49)
[2021-06-03 06:46] LABS: Glucose Point of Care 91 mg/dL (70-110)
[2021-06-03] MEDS: budesonide 0.5 mg/2 mL Neb INHALATION ×2 (08:10→20:06)
[2021-06-03] MEDS: guaiFENesin 600 mg Tablet PO ×2 (09:11→17:28)
[2021-06-03] MEDS: rivaroxaban 10 mg Tablet 20 MG PO (09:11)
[2021-06-03] MEDS: azithromycin 500 MG in sodium chloride 0.9% 250 ML 250 MG IV (09:17)
[2021-06-03] MEDS: fluticasone nasal spray 16gm Btl 1 SPRAY NASAL ×2 (09:43→17:27)
--- NOTE | 2021-06-03 09:46 | PC.CHAP ---
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 sign installer visit [] Patient/Family/Request visit [] Outpatient visit [] Follow-up visit [] Physician referral [] Code/Alert [x] Routine visit [] Staff referral [] Actively dying [] Patient sleeping [] Family support [] [] Out of room [] Palliative care [] [] Receiving care in room [] Pre-surgical visit [] Trauma [] Long length of stay [] ICU visit [x] Other:covid Relational/Emotional Strength [] Patient feels connected with others/family/visitors/staff [] Distress [] Loneliness/isolation [] Abandonment Spirituality of Patient [] Person of Caro [] Attends Advent of their Caro [] Believes in Prayer [] Reads Bible or Druze materials [] There are Spiritual issues to be addressed Chief Of Pediatric Urology Interventions [x] Prayer [] Active listening [] Non-anxious presence [] Spiritual/emotional support [] Crisis/trauma care [] Spiritual counseling [] Bereavement support [] Provided bereavement packet [] Provided Bible/devotional materials [] Provided toy/stuffed animal, coloring book to patient or family member [] Provided Communion [] Anointing/[place] [] Salvation [x] Completed spiritual assessment [] Other: Impact on Illness or Injury [] Angry [] Fearful [] Anxious [] Often cries [] Exhaustion [] Unable to work [] Unable to attend rastafari [] Unable to walk/stand [] Unable to read [] Unable to drive [] Unable to eat/drink [] Unable to sleep [] Unable to be with family [] Patient intubated [] Other: Summary Time spent with patient
--- NOTE | 2021-06-03 11:34 | PC.NURSE ---
PT STATED SHE DID NOT WANT TO BE INTUBATED, BUT SHE IS OKAY WITH CHEST COMPRESSIONS AT THIS TIME. SHE WANTED TO DISCUSS IT WITH HER KIDS.
[2021-06-03 11:47] LABS: Glucose Point of Care 113 mg/dL (70-110)
--- NOTE | 2021-06-03 12:38 | PC.NURSE ---
updated pts daughter, Alaina Sahu, on patient condition.
--- NOTE | 2021-06-03 13:19 | PM.PN ---
Subjective Subjective: Interval history: Patient was seen and examined this morning, she is requiring 100% 40 L heated high flow, yesterday patient is stating that she was not able liter nasal cannula when she started feeling better and try to get out of bed and use the commode but forgot to keep her nasal cannula with her, she quickly desaturated and felt lightheaded No overnight events, she is able to eat her breakfast to some extent, still feels lethargic Vitals/I&O/Wt Last Vital Signs Temp 98.4 F 06/03/21 12:00 Pulse 127 H 06/03/21 12:00 Resp 18 06/03/21 12:00 BP 122/89 06/03/21 12:00 Pulse Ox 98 06/03/21 12:00 06/02/21 06/03/21 06/03/21 22:59 06:59 14:59 Intake Total 50 / 350 50 / 400 300 / 300 Output Total 325 / 725 Balance 50 / -50 -275 / -325 300 / 300 Physical Exam Narrative: EXAM NARRATIVE: Patient was sitting in her bed saturating 88 to 89% on 100% heated high flow 40 L Zosyn running at the bedside Awake alert oriented x3 however appears lethargic and fatigued S1, S2 Sinus tachycardia Facial flushing noted No signs of fluid overload Abdomen soft Bilateral breath sounds, rhonchi, diffuse Urinary Catheter Management^: [place]: Cath Placed During This Visit: yes Reason for Continuing Indwelling Catheter: Accurate Measurement of Urinary Output in Critically Ill Patients Urinary Catheter Date of Insertion: 06/02/21 Data : 06/03/21 04:15 06/03/21 04:15 Micro: Microbiology 05/28/21 11:07 Blood Culture - Final Blood Coagulase negativ staphylococc 05/28/21 11:10 Blood Culture - Final Blood NO GROWTH AFTER 5 DAYS A&P Assessment and plan (1) Pneumonia due to COVID-19 virus: Status: Acute (2) Hypoxia: Status: Acute Additional A&P Information Acute hypoxic restaurant failure secondary to COVID-19 pneumonia Patient is status post remdesivir and Decadron regimen Would avoid continue steroids to avoid superimposed infection She has finished antibiotic regimen and currently getting Zosyn because of diffuse consolidations throughout both lungs Continue inhaled steroids along DuoNeb She is getting Xarelto for her history of DVT Not a candidate of interleukin-6 inhibitor dose CRP 38 Previous CTA rule out PE Procalcitonin unremarkable Plan to discontinue antibiotics by tomorrow PT eval, encourage proning, incentive spirometer Guarded prognosis Goals of care discussed with the patient, she only wants chest compressions but does not want to get intubated, she would like to discuss further with her family and updated, nurse was present by the bedside during this discussion Attestations Medical Necessity Statement*: Continue medical management for acute hypoxia Time Spent in Patient Care: 16 - 35 minutes Coding Level of Care Code Acute 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
[2021-06-03 17:17] LABS: Glucose Point of Care 171 mg/dL (70-110)
--- NOTE | 2021-06-03 17:46 | PC.RESP ---
RT Shift Note Frequent safety and respiratory rounds continue. Orders completed as indicated. Patient monitored pre and post treatments throughout shift. Patient Did tolerate treatments appropriately. Condition Did Not Change. Patient and/or premium service representative educated on respiratory treatment and medications. Patient and/or premium service representative verbalized understanding. Will continue to monitor patient progress.
[2021-06-03 19:52] LABS: Glucose Point of Care 134 mg/dL (70-110)
[2021-06-04] VITALS (17 sets, daily range): BP systolic 114–127; BP diastolic 72–97; PULSE 106–125; RESP 18–38; TEMP 36.6–37.2; O2SAT 84–92
[2021-06-04] MEDS: ipratropium-albuterol 3 mL Neb INHALATION ×6 (00:43→20:16)
--- NOTE | 2021-06-04 05:37 | PC.RESP ---
RT Shift Note Frequent safety and respiratory rounds continue. Orders completed as indicated. Patient monitored pre and post treatments throughout shift. Patient did tolerate treatments appropriately. Condition did not change. Patient educated on respiratory treatment and medications. Patient demonstrated learning. Will continue to monitor patient progress.
[2021-06-04 06:40] LABS: Glucose Point of Care 101 mg/dL (70-110)
[2021-06-04 07:19] LABS: Basophils % 0.2 %; Eosinophils # 0.2 10^3/uL (0.0-0.8); Eosinophils % 0.9 %; Hemoglobin 11.8 g/dL (11.5-15.3); Lymphocytes # 1.2 10^3/uL (0.8-4.8); Lymphocytes % 6.2 %; Mean Corpuscular HGB Conc 31.1 g/dL (30.0-36.0); Mean Corpuscular Hemoglobin 29.8 pg (28.0-34.0); Monocytes # 1.1 10^3/uL (0.2-0.9); Monocytes % 5.5 %; Neutrophils # 16.76 10^3/uL (1.8-7.7); Neutrophils % 86.4 %; Nucleated Red Blood Cells % 0 %; Platelet Count 290 10^3/cmm (130-400); Red Blood Count 3.96 10^6/uL (4.1-5.3); Red Cell Distribution Width 13.9 % (12.1-15.1); White Blood Count 19.4 10^3/uL (4.0-10.0)
[2021-06-04 07:56] LABS: C Reactive Protein 88.9 mg/L (0.0-4.9)
[2021-06-04 08:00] LABS: Procalcitonin 0.15 ng/mL (0-0.5)
[2021-06-04] MEDS: guaiFENesin 600 mg Tablet PO ×2 (08:13→16:58)
[2021-06-04] MEDS: rivaroxaban 10 mg Tablet 20 MG PO (08:13)
[2021-06-04] MEDS: fluticasone nasal spray 16gm Btl 1 SPRAY NASAL ×2 (08:21→17:52)
[2021-06-04] MEDS: budesonide 0.5 mg/2 mL Neb INHALATION ×2 (08:23→20:16)
--- NOTE | 2021-06-04 11:10 | P.PN_ITS ---
Subjective Subjective: Interval history: Patient is feeling tired and lethargic, still on 90%, 45 L heated high flow Has been trying to get out of bed and use bedside commode Asked respiratory therapist to wean down her oxygen She was getting breathing treatment when I evaluated her Afebrile, no improvement in leukocytosis noted Vitals/I&O/Wt Last Vital Signs Temp 97.9 F 06/04/21 08:00 Pulse 122 H 06/04/21 08:27 Resp 24 H 06/04/21 08:27 BP 115/97 06/04/21 08:00 Pulse Ox 87 L 06/04/21 08:27 06/03/21 06/04/21 06/04/21 22:59 06:59 14:59 Intake Total 0 / 300 240 / 240 Output Total 400 / 400 350 / 750 Balance -400 / -100 -350 / -450 240 / 240 Physical Exam Narrative: EXAM NARRATIVE: Patient was saturating well on 90% 45 L heated high flow Was laying supine in her bed Crepitation crackles noted in her lungs bilaterally S1, S2 no murmur appreciated Abdomen soft Lower symmetry no edema EOMI, PERRLA Lethargic and fatigued Urinary Catheter Management^: [place]: Cath Placed During This Visit: yes Reason for Continuing Indwelling Catheter: Acute Urinary Retention or Obstruction Urinary Catheter Date of Insertion: 06/02/21 Data : 06/04/21 06:11 06/03/21 04:15 Micro: Microbiology 06/03/21 09:39 Enteric Pathogens (PCR) - Final Stool Routine Collection Parasite Antigen Panel - Final C.difficile Toxin B Gene (PCR) - Final A&P Assessment and plan (1) Pneumonia due to COVID-19 virus: Status: Acute (2) Hypoxia: Status: Acute Additional A&P Information COVID-19 related hypoxia PE ruled out 90% 45 L heated high flow Status post remdesivir and Decadron regimen Antibiotics were discontinued yesterday Continue inhaled steroids Afebrile, leukocytosis no improvement Tachycardia noted while she was getting DuoNeb treatment, as respirate therapist to use Xopenex, no recent joint swelling or leg arm pain To work with PT Proning incentive spirometry Wean down her oxygen Guarded prognosis Limited resuscitation, only wants chest compressions does not want any intubation Xarelto for DVT Cardiac diet Plan to discharge home with home health services, patient does not want to go to any snf Attestations Medical Necessity Statement*: Anticipating discharge once her O2 requirement is less than 5 L on nasal cannula Time Spent in Patient Care: less than 15 minutes Coding Level of Care Code Acute Laborer [facility] Fwd Diagnoses Pneumonia due to COVID-19 virus U07.1; J12.82 Hypoxia R09.02
[2021-06-04 11:33] LABS: Glucose Point of Care 95 mg/dL (70-110)
--- NOTE | 2021-06-04 14:20 | PC.NURSE ---
updated pts daughter, Alaina, on patients plan of care and progress.
[2021-06-04 16:42] LABS: Glucose Point of Care 104 mg/dL (70-110)
--- NOTE | 2021-06-04 18:11 | PC.RESP ---
RT Shift Note Frequent safety and respiratory rounds continue. Orders completed as indicated. Patient monitored pre and post treatments throughout shift. Patient tolerated treatments appropriately. Condition did not change. Patient and/or correspondence representative educated on respiratory treatment and medications. Patient and/or correspondence representative verbalized understanding. Will continue to monitor patient progress.
--- NOTE | 2021-06-04 19:51 | PC.NURSE ---
pt rounded on at this time. pt tilted on left side to relieve some pressure from her bottom.
[2021-06-04 21:35] LABS: Glucose Point of Care 104 mg/dL (70-110)
[2021-06-05] VITALS (15 sets, daily range): BP systolic 105–134; BP diastolic 68–79; PULSE 109–138; RESP 18–41; TEMP 36.7–37.1; O2SAT 81–94
[2021-06-05] MEDS: ipratropium-albuterol 3 mL Neb INHALATION ×3 (00:01→11:39)
--- NOTE | 2021-06-05 05:30 | PC.RESP ---
RT Shift Note Frequent safety and respiratory rounds continue. Orders completed as indicated. Patient monitored pre and post treatments throughout shift. Patient did tolerate treatments appropriately. Condition did not change. Patient and/or area representative educated on respiratory treatment and medications. Patient and/or area representative verbalized understanding. Will continue to monitor patient progress.
[2021-06-05 07:04] LABS: Glucose Point of Care 162 mg/dL (70-110)
[2021-06-05 07:20] LABS: Basophils % 0.2 %; Eosinophils # 0.2 10^3/uL (0.0-0.8); Eosinophils % 1.1 %; Hematocrit 37.8 % (37.0-47.0); Lymphocytes # 1.4 10^3/uL (0.8-4.8); Lymphocytes % 7.4 %; Mean Corpuscular HGB Conc 31.7 g/dL (30.0-36.0); Mean Corpuscular Hemoglobin 29.6 pg (28.0-34.0); Mean Corpuscular Volume 93.3 fL (81-99); Mean Platelet Volume 9.3 fL (7.4-10.4); Monocytes # 0.8 10^3/uL (0.2-0.9); Monocytes % 4.3 %; Neutrophils # 16.73 10^3/uL (1.8-7.7); Neutrophils % 86.2 %; Nucleated Red Blood Cells % 0 %; Platelet Count 299 10^3/cmm (130-400); Red Blood Count 4.05 10^6/uL (4.1-5.3); Red Cell Distribution Width 13.9 % (12.1-15.1); White Blood Count 19.4 10^3/uL (4.0-10.0)
[2021-06-05] MEDS: guaiFENesin 600 mg Tablet PO ×2 (08:28→17:35)
[2021-06-05] MEDS: rivaroxaban 10 mg Tablet 20 MG PO (08:28)
[2021-06-05] MEDS: sodium chloride 0.9% 1,000 ML 999 ML IV (08:28)
[2021-06-05] MEDS: fluticasone nasal spray 16gm Btl 1 SPRAY NASAL (08:55)
--- NOTE | 2021-06-05 10:53 | PC.CHAP ---
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 manager bilingual visit [] Patient/Family/Request visit [] Outpatient visit [] Follow-up visit [] Physician referral [] Code/Alert [x] Routine visit [] Staff referral [] Actively dying [] Patient sleeping [] Family support [] [] Out of room [] Palliative care [] [] Receiving care in room [] Pre-surgical visit [] Trauma [] Long length of stay [] ICU visit [x] Other: 2A Relational/Emotional Strength [] Patient feels connected with others/family/visitors/staff [] Distress [] Loneliness/isolation [] Abandonment Spirituality of Patient [] Person of Caro [] Attends Faith of their Caro [] Believes in Prayer [] Reads Bible or Baptism materials [] There are Spiritual issues to be addressed Skilled Nursing Case Manager Interventions [x] Prayer [] Active listening [] Non-anxious presence [] Spiritual/emotional support [] Crisis/trauma care [] Spiritual counseling [] Bereavement support [] Provided bereavement packet [] Provided Bible/devotional materials [] Provided toy/stuffed animal, coloring book to patient or family member [] Provided Communion [] Anointing/[place] [] Salvation [x] Completed spiritual assessment [] Other: Impact on Illness or Injury [] Angry [] Fearful [] Anxious [] Often cries [] Exhaustion [] Unable to work [] Unable to attend sikh [] Unable to walk/stand [] Unable to read [] Unable to drive [] Unable to eat/drink [] Unable to sleep [] Unable to be with family [] Patient intubated [] Other: Summary Time spent with patient
--- NOTE | 2021-06-05 11:19 | P.PN_ITS ---
Subjective Subjective: Interval history: Patient was seen and examined this morning she is requiring heated high flow 80% 45 L, she has been able to get up use bedside commode, quickly desaturates on ambulation Goals of care we discussed this morning, patient would like to discuss with her family 1 more time Patient is stating that she has had 6 semisolid stools in last 12 hours, no abdominal pain nausea or vomit Vitals/I&O/Wt Last Vital Signs Temp 98.1 F 06/05/21 08:00 Pulse 126 H 06/05/21 08:00 Resp 21 H 06/05/21 08:00 BP 105/78 06/05/21 08:00 Pulse Ox 91 06/05/21 08:00 06/04/21 06/05/21 06/05/21 22:59 06:59 14:59 Intake Total 120 / 600 1000 / 1000 Output Total 200 / 700 150 / 850 Balance -80 / -100 -150 / -250 1000 / 1000 Physical Exam Narrative: EXAM NARRATIVE: Awake and alert laying supine in her bed Heated high flow 45 L 80% EOMI, PERRLA Fatigued and lethargic S1, S2 sinus tachycardia Clinically looks dehydrated Abdomen soft Lower extremity no edema Urinary Catheter Management^: Piedra: Cath Placed During This Visit: yes Reason for Continuing Indwelling Catheter: Acute Urinary Retention or Obstruction Urinary Catheter Date of Insertion: 06/02/21 Data : 06/05/21 06:06 06/03/21 04:15 A&P Assessment and plan (1) Pneumonia due to COVID-19 virus: Status: Acute (2) Diarrhea: Status: Acute (3) Sinus tachycardia: Status: Acute (4) Hypoxia: Status: Acute Additional A&P Information Acute hypoxic restaurant failure secondary to COVID-19 Currently on heated high flow 45 L 80% Oxygen weaning trials on daily basis Encourage proning and ambulation Discontinued antibiotics status post remdesivir and Decadron regimen, broad-spec trum antibiotics discontinued Sinus tachycardia related to dehydration Would give her fluid bolus Check C. difficile if her stools are loose patient is stating that she has had semisolid stool High risk for C. difficile as she received broad-spectrum antibiotics in hospitalization Change DuoNeb to Xopenex Leukocytosis around 19, she has stayed afebrile Limited resuscitation, Patient does not wish to be intubated in case of cardiac arrest or respiratory failure however would like to rediscuss with her family members Carries guarded prognosis Regular diet DVT prophylaxis Xarelto Attestations Medical Necessity Statement*: Continue medical management for hypoxia Time Spent in Patient Care: less than 15 minutes Coding Level of Care Code Acute Academic Support Coordinator for [facility] Fwd Diagnoses Pneumonia due to COVID-19 virus U07.1; J12.82 Diarrhea R19.7 Sinus tachycardia R00.0 Hypoxia R09.02
[2021-06-05 11:36] LABS: Glucose Point of Care 86 mg/dL (70-110)
[2021-06-05] MEDS: sodium chloride 0.9% 1,000 ML 30 ML IV (11:49)
[2021-06-05 17:17] LABS: Glucose Point of Care 97 mg/dL (70-110)
--- NOTE | 2021-06-05 17:37 | PC.RESP ---
RT Shift Note Frequent safety and respiratory rounds continue. Orders completed as indicated. Patient monitored pre and post treatments throughout shift. Patient tolerated treatments appropriately. Condition did not change. Patient and/or technical services representative educated on respiratory treatment and medications. Patient and/or technical services representative verbalized understanding. Will continue to monitor patient progress.
--- NOTE | 2021-06-05 17:56 | PC.NURSE ---
Shift Note Patients oxygen has been in the low 80's most of this shift, dropping down to the high 70's patient is on 45L at 100% and refuses to go on bipap. Patient is alert and orientated. Frequent safety and comfort rounds continue. Orders and/or nursing care completed as indicated. Patient monitored for response to intervention and treatment(s). Education provided include deep breathing, high flow oxygen, and conserving oxygen. Patient and/or visitor services representative states verbal understanding. Will continue to monitor.
[2021-06-05 20:27] LABS: Glucose Point of Care 120 mg/dL (70-110)
--- NOTE | 2021-06-05 20:46 | PC.RESP ---
also using nrb mask at 100%
[2021-06-05] MEDS: LORazepam 2 mg/mL INJ 1 mL 0.5 MG IVP (23:38)
[2021-06-06] VITALS (22 sets, daily range): BP systolic 116–142; BP diastolic 85–106; PULSE 110–144; RESP 30–50; TEMP 35.8–37.2; O2SAT 86–93
[2021-06-06] MEDS: morphine 4 mg/mL SDV 1 mL 2 MG IVP ×3 (00:08→15:36)
--- NOTE | 2021-06-06 01:29 | PC.NURSE ---
The high probability of a clinically significant, sudden or life threatening deterioration of the patient's [Respiratoru] system(s) required my full and direct attention, intervention and personal management. The critical care time is as shown. This time is in addition to time spent performing any reported procedures but includes the followin sats in the upper 70's and low 80's on HHFNC. PT c/o SOB and breathing at 45-[address] Richardson and received orders for bipap and morphine IVP-see chart for details. Pt currently on Bipap/settings per RT/02 sat = 100%. Resting quietly with eyes closed. Denies pain or discomfort at this time. Will continue to monitor.
[2021-06-06 06:48] LABS: Glucose Point of Care 83 mg/dL (70-110)
[2021-06-06] MEDS: LORazepam 2 mg/mL INJ 1 mL 0.5 MG IVP (07:48)
[2021-06-06] MEDS: guaiFENesin 600 mg Tablet PO ×2 (08:04→18:21)
[2021-06-06] MEDS: rivaroxaban 10 mg Tablet 20 MG PO (08:04)
[2021-06-06] MEDS: sodium chloride 0.9% 1,000 ML 999 ML IV (09:15)
[2021-06-06] MEDS: fluticasone nasal spray 16gm Btl 1 SPRAY NASAL (10:31)
[2021-06-06] MEDS: sodium chloride 0.9% 1,000 ML 30 ML IV (10:35)
--- NOTE | 2021-06-06 11:02 | XR_ITS ---
WS: [id number] Portable AP upright chest, 06/06/2021 Clinical Data: HYpoxia Comparison: Portable chest, 06/02/2021. Findings: Diffuse patchy bilateral pulmonary opacities remain the same. No nodules, masses or effusio ns are seen. The heart is at the upper limits of normal. Monitor leads are on the chest wall. XR/XR chest 1V portable [id number] Impression: No change in diffuse patchy bilateral pulmonary opacities consistent with pneum onia.
--- NOTE | 2021-06-06 11:08 | PM.PN ---
Subjective Subjective: Interval history: Patient was examined and seen in the Covid unit. Overnight her O2 requirement increased, she was transitioned to BiPAP At the time of my evaluation her heart rate was in 130s sinus tachycardia, patient is stating that her loose stools stopped She is not complaining of active chest pain however respiratory rate is in 30s She is currently on BiPAP settings 16/10 FiO2 100% Seems lethargic Today she updated me that after discussion with her family she would like to keep her CODE STATUS as DNR/DNI I updated family regarding today's change in her status Son Yinka was also notified who lives in [place], his phone number is [phone], he is already upset about losing his dad to COVID-19, Vitals/I&O/Wt Last Vital Signs Temp 99.0 F 06/06/21 07:36 Pulse 144 H 06/06/21 08:15 Resp 33 H 06/06/21 08:15 BP 129/85 06/06/21 07:36 Pulse Ox 91 06/06/21 08:15 06/05/21 06/06/21 06/06/21 22:59 06:59 14:59 Intake Total 360 / 2080 120 / 2200 1683 / 1683 Output Total 600 / 600 650 / 1250 Balance -240 / 1480 -530 / 950 1683 / 1683 Physical Exam Narrative: EXAM NARRATIVE: Patient was seen in Covid unit She was on BiPAP 16/10 FiO2 100% Lethargic however awake and able to answer my questions appropriately She was able to tell me that she had discussion with the family and what the final decision regarding goals of care And she asked me to call her son Yinka and gave me his phone number No neurological deficits noted Clinically looks dehydrated Concentrated urine in Piedra catheter Abdomen is soft no signs of peritonitis bowel sounds present Bilateral breath sounds with rhonchi and crepitations, S1, S2 sinus tachycardia I do not appreciate any murmur No joint swelling or cellulitis of lower extremities Urinary Catheter Management^: Piedra: Cath Placed During This Visit: yes Reason for Continuing Indwelling Catheter: Accurate Measurement of Urinary Output in Critically Ill Patients Urinary Catheter Date of Insertion: 06/02/21 Data : 06/05/21 06:06 06/03/21 04:15 A&P Assessment and plan (1) Sinus tachycardia: Status: Acute (2) Diarrhea: Status: Acute (3) Pneumonia due to COVID-19 virus: Status: Acute (4) Pneumonia: Status: Acute (5) Hypoxia: Status: Acute Additional A&P Information Worsening hypoxic respiratory failure secondary to COVID-19 pneumonia Severe ARDS Patient currently requiring BiPAP Initially she showed signs of gradual recovery however we have not been able to wean her off below 80% FiO2 and today she is requiring 100% on BiPAP, she is tachypneic and tachycardic Interleukin-6 inhibitor was given consideration, it is mainly indicated for COVID-19 infection in the earlier phases of inflammation with high CRP and oxygen requirement. At the time of admission she required high oxygen however CRP was not above 75 and her O2 requirement was gradually weaned off. After communicating with Dr. Porter, unfortunately she does not meet criteria to be administered interleukin-6 inhibitor dose now For now I will keep her on IV steroids she has already finished Decadron and remdesivir regimen. She has stayed afebrile, will repeat chest x-ray, ABG, keep her on Levaquin however previous procalcitonin not high Continue vitamin C and vitamin D3 Ivermectin not available Diarrhea: No loose stool since last 24 hours, no signs of peritonitis on clinical exam, will send C. difficile panel in case of recurrence of loose stools, previous stool consistency was semisolid She has received broad-spectrum antibiotics during this hospitalization, will monitor for now Sinus tachycardia with clinical signs of dehydration 1 L normal saline bolus and keep her on normal saline at 30 cc/h She has been on rivaroxaban throughout her hospitalization CTA on admission rule out PE Repeat D-dimer Patient is DNR/DNI Family updated Regular diet Guarded prognosis Attestations Medical Necessity Statement*: Patient is DNR/DNI would not transfer to ICU continue management with BiPAP and supportive care Time Spent in Patient Care: 16 - 35 minutes Coding Level of Care Code Acute Certification Engineer for g Fwd Diagnoses Sinus tachycardia R00.0 Diarrhea R19.7 Pneumonia due to COVID-19 virus U07.1; J12.82 Pneumonia J18.9 Hypoxia R09.02
[2021-06-06 11:36] LABS: Glucose Point of Care 83 mg/dL (70-110)
[2021-06-06] MEDS: dexamethasone 10 mg/mL INJ 6 MG IVP (12:29)
[2021-06-06] MEDS: levofloxacin-dextrose 5 % 750 MG/150 ML PREMIX 100 MG IV (12:29)
[2021-06-06 13:16] LABS: Basophils % 0.2 %; Eosinophils # 0.1 10^3/uL (0.0-0.8); Eosinophils % 0.5 %; Hematocrit 34.7 % (37.0-47.0); Hemoglobin 10.6 g/dL (11.5-15.3); Lymphocytes # 1.2 10^3/uL (0.8-4.8); Lymphocytes % 5.5 %; Mean Corpuscular HGB Conc 30.5 g/dL (30.0-36.0); Mean Corpuscular Hemoglobin 29.6 pg (28.0-34.0); Mean Corpuscular Volume 96.9 fL (81-99); Mean Platelet Volume 9.2 fL (7.4-10.4); Monocytes % 4.3 %; Neutrophils # 19.86 10^3/uL (1.8-7.7); Neutrophils % 88.8 %; Nucleated Red Blood Cells % 0 %; Platelet Count 231 10^3/cmm (130-400); Red Blood Count 3.58 10^6/uL (4.1-5.3); Red Cell Distribution Width 14.1 % (12.1-15.1); White Blood Count 22.3 10^3/uL (4.0-10.0)
[2021-06-06 13:47] LABS: D Dimer >= 20.00 ug/mIFEU (0-0.59)
[2021-06-06 13:58] LABS: Anion Gap 10.9 (5-19); Blood Urea Nitrogen 12 mg/dL (8-23); C Reactive Protein 175.7 mg/L (0.0-4.9); Calcium 8.2 mg/dL (8.5-10.5); Carbon Dioxide 26 mmol/L (22-29); Chloride 103 mmol/L (98-107); Glomerular Filtration Rate 160.7 mL/min (90-130); Glucose 80 mg/dL (65-115); Osmolality Calculated 281 mOsm/kg (285-295); Potassium 3.9 mmol/L (3.5-5.1); Sodium 136 mmol/L (136-145)
[2021-06-06 14:02] LABS: Creatinine Clr Calc Pharmacy 151.0285
[2021-06-06 17:06] LABS: Glucose Point of Care 96 mg/dL (70-110)
[2021-06-06] MEDS: ascorbic acid 500 mg Tablet 1000 MG PO (18:21)
[2021-06-06 21:25] LABS: Glucose Point of Care 212 mg/dL (70-110)
--- NOTE | 2021-06-06 23:53 | PC.NURSE ---
Addendum entered by Mekhi Kay LPN 06/07/21 00:07: TO RELAY THIS TO HER. THE PATIENT CALLED HER SISTER AND EXPRESSED SHE DOES NOT WANT ANY MEASURES TAKEN IF SHE WERE TO EXPERIENCE CARDIAC OR RESPIRATORY DISTRESS, OTHER THAN TO BE MADE AND MAINTAINED COMFORTABLE. THE SISTER STATED SHE WOULD RESPECT THE PATIENT'S WISHES. SHE ALSO STATED SHE WOULD TRANSFER THE PATIENT IF SHE WISHED, TO PATIENT SAID NO. THE CASE MAKER WAS NOTIFIED OF THIS. Original Note: DPOA NOTE: AT APPROXIMATELY 2200 THE PATIENT'S SISTER APPROACHED THE NURSE'S STATION CONCERNING THE DPOA FORM. SHE STATED THAT THE PATIENT EXPRESSED TO HER THAT SHE WANTED EVERY MEASURE POSSIBLE TAKEN TO MAINTAIN LIFE. I READ THE PROGRESS NOTE FROM TODAY TO THE SISTER, TO WHICH IT STATED SHE HAD DECIDED TO BE A DNR/DNI. THIS DECISION WAS CALLED AND RELAYED TO THE PATIENT'S SON STEPHANE BY DR. POST. THIS NURSE READ ALL THIS TO THE SISTER. SHE STATED THAT IS NOT WHAT SHE SAID TO HER. THIS NURSE THEN TOOK THE SISTER TO THE ED TO HAVE THE DPOA FORMS NOTARIZED. UPON RETURNING TO THE FLOOR I ASKED JACKI PERDOMO TO BE PRESENT IN THE ROOM WITH ME TO CONFIRM THE PATIENT'S WISHES. THE PATIENT WAS ASKED IS SHE WAS TO STOP BREATHING ON HER OWN IF SHE WANTED TO BE INTUBATED, SHE ANSWERED NO. I THEN ASKED IF HER HEART WERE TO STOP BEATING IF SHE WANTED CPR PERFORMED, SHE REPLIED NO. I THEN CALLED THE CASE MAKER TO SEE WHAT THE NEXT STEP WOULD BE. I WAS THEN INSTRUCTED TO HAVE THE PATIENT CALLED HER SISTER OT
[2021-06-07] VITALS (17 sets, daily range): BP systolic 90–140; BP diastolic 64–120; PULSE 97–131; RESP 18–60; TEMP 35.6–36.2; O2SAT 89–94
--- NOTE | 2021-06-07 01:07 | PC.NURSE ---
DPOA PAPERWORK PATIENT'S SISTER CAME TO NURSES STATION AT [facility] 2200 CONCERNING DPOA FORM. SHE STATED DURING HER VISIT THE PATIENT HAD VOICED TO HER SHE WANTED EVERY MEASURE TAKEN TO MAINTAIN HER LIFE. UPON LOOKING AT TODAYS PROGRESS NOTE PATIENT HAD DECIDED TO BE AN AND, WHICH SMITH PUENTES LET SISTER KNOW AT THIS TIME. NOTE SHOWS DR. POST CALLED AND RELAYED THIS DECISION TO PATIENTS SON STEPHANE. SISTER PROCEEDED TO VOICE THAT THIS IS NOT WHAT THE PATIENT HAD TOLD HER. AT THIS TIME SMITH RESENDEZ TOOK SISTER TO ED TO HAVE DPOA PAPERWORK NOTARIZED. MAL ASKED THIS NURSE UPON HER RETURN TO BE PRESENT IN PATIENTS ROOM TO CONFIRM PATIENTS WISHES. WHEN ROSIE WAS ASKED IF SHE WERE TO STOP BREATHING ON HER OWN IF SHE WOULD WANT TO BE INTUBATED, SHE SAID NO. WHEN ASKED IF HER HEART WERE TO STOP BEATING WOULD SHE WANT CPR PERFORMED, SHE SAID NO. THIS NURSE WAS ALSO PRESENT WHEN PATIENT CALLED HER SISTER AND EXPRESSED SHE DOES NOT WANT ANY MEASURES TAKEN IF SHE WERE TO EXPERIENCE ANY RESPIRATORY OR CARDIAC DISTRESS, SHE TOLD SISTER SHE WANTS TO BE IN NO PAIN AND KEPT COMFORTABLE. THE SISTER STATED SHE RESPECTS THE PATIENTS WISHES. THE SISTER ALSO STATED THAT SHE WOULD TRANSFER PATINET IF SHE WANTED, TO WHICH THE PATIENT SAID NO. SMITH RESENDEZ NOTIFIED IT PROGRAM MANAGER OF THIS.
[2021-06-07] MEDS: dexmedetomidine 400 MCG in sodium chloride 0.9% (100 ml) 100 ML IV (01:49)
[2021-06-07] MEDS: lanolin oint 7 gm 1 APPLIC TOPICAL (06:24)
[2021-06-07 06:35] LABS: Basophils % 0.2 %; Eosinophils % 0.1 %; Hematocrit 35.4 % (37.0-47.0); Hemoglobin 11.1 g/dL (11.5-15.3); Lymphocytes # 1.1 10^3/uL (0.8-4.8); Lymphocytes % 6.2 %; Mean Corpuscular HGB Conc 31.4 g/dL (30.0-36.0); Mean Corpuscular Hemoglobin 29.8 pg (28.0-34.0); Mean Corpuscular Volume 94.9 fL (81-99); Mean Platelet Volume 9.3 fL (7.4-10.4); Monocytes # 0.7 10^3/uL (0.2-0.9); Monocytes % 3.9 %; Neutrophils # 15.43 10^3/uL (1.8-7.7); Neutrophils % 88.6 %; Nucleated Red Blood Cells % 0 %; Platelet Count 263 10^3/cmm (130-400); Red Blood Count 3.73 10^6/uL (4.1-5.3); Red Cell Distribution Width 13.8 % (12.1-15.1); White Blood Count 17.4 10^3/uL (4.0-10.0)
[2021-06-07 06:39] LABS: Glucose Point of Care 106 mg/dL (70-110)
--- NOTE | 2021-06-07 06:50 | PC.NURSE ---
Shift Note Frequent safety and comfort rounds continue. Orders and/or nursing care completed as indicated. Patient monitored for response to intervention and treatment(s). Education provided includes medications. Patient and/or wire rope sales representative responded well to teaching. Will continue to monitor.
[2021-06-07 06:59] LABS: Blood Urea Nitrogen 16 mg/dL (8-23); C Reactive Protein 166.6 mg/L (0.0-4.9); Calcium 8.7 mg/dL (8.5-10.5); Carbon Dioxide 29 mmol/L (22-29); Chloride 99 mmol/L (98-107); Creatinine Clr Calc Pharmacy 151.0285; Glomerular Filtration Rate 160.7 mL/min (90-130); Glucose 105 mg/dL (65-115); Osmolality Calculated 286 mOsm/kg (285-295); Sodium 137 mmol/L (136-145)
--- NOTE | 2021-06-07 07:26 | CT_ITS ---
WS: [id number] CT CHEST ANGIOGRAPHY WITH REFORMATS HISTORY: hypoxia TECHNIQUE: Contiguous axial images are obtained through the chest during arterial injection of intrav enous contrast. Images are reconstructed to evaluate the pulmonary arteries. MIP imaging also reviewe d. All CT scans at [facility] use at least one of these dose optimization techniques: aut omated exposure control; mA and/or kV adjustment per patient size (includes targeted exams where dose is matched to clinical indication); or iterative reconstruction. CONTRAST: Omnipaque 350; 95 mL IV. DLP: 505.64 mGy.cm COMPARISON: 05/18/2021 Excellent opacification of the pulmonary arteries. No filling defects or pulmonary embolism. Pulmonar y artery is enlarged. Artery has increased in diameter since the prior examination from 2.3 to 2.8 cm . Increasing RIGHT heart strain. Mild enlargement of the heart. No pericardial or pleural effusions. Progressive bilateral groundglass and areas of increasing consolidation throughout all lobes. No pneu mothorax. No pneumomediastinum or pneumopericardium. Normal-sized thoracic aorta. IVC is dilated. Hepatic cysts. No destructive bone lesions. CT/CT angio chest PE protcl [id number] IMPRESSION: 1. No pulmonary embolism. 2. Progressive bilateral groundglass consolidations throughout both lungs. 3. New RIGHT heart strain and dilated pulmonary artery since 05/18/2021.
--- NOTE | 2021-06-07 09:01 | PC.NURSE ---
call house sup regarding orders for a picc line insertion.
[2021-06-07] MEDS: iohexol 350 mg/mL 100 mL Btl IV (10:22)
[2021-06-07] MEDS: guaiFENesin 600 mg Tablet PO (10:29)
[2021-06-07] MEDS: zinc gluconate 50 mg Tablet 100 MG PO (10:29)
[2021-06-07] MEDS: ascorbic acid 500 mg Tablet 1000 MG PO (10:29)
[2021-06-07] MEDS: cholecalciferol (vitamin D3) 5,000 unit Tablet 5000 UNIT PO (10:29)
[2021-06-07] MEDS: rivaroxaban 10 mg Tablet 20 MG PO (10:30)
[2021-06-07 11:15] LABS: Glucose Point of Care 125 mg/dL (70-110)
--- NOTE | 2021-06-07 11:34 | XR_ITS ---
WS: [id number] PORTABLE CHEST HISTORY: picc placement COMPARISON: 06/06/2021 RIGHT PICC line has been inserted. Tip terminates just proximal to the innominate in the RIGHT subcla vian vein. No complications. Lung biopsy decreased with diffuse bilateral interstitial thickening. No pleural effusion or pneumoth orax. Cardiac size: Normal. Mediastinum/Aorta: Normal mediastinum. No osseous abnormality seen. XR/XR chest 1V portable [id number] IMPRESSION: 1. RIGHT PICC line terminates in the RIGHT subclavian vein just proximal to th e innominate vein. 2. Bilateral pulmonary opacifications.
--- NOTE | 2021-06-07 12:03 | PC.NURSE ---
received a call from sister that they want to transfer pt to [facility]. Dr. Marquez and pt notified.
--- NOTE | 2021-06-07 12:10 | USR_ITS ---
PROCEDURE INFORMATION: Exam: US Duplex Lower Extremity Veins, Bilateral Exam date and time: 06/07/2021 12:10 PM Age: 65 years old Clinical indication: Swelling (edema) of limb; Lower extremity, bilateral; Additional info: Dvt TECHNIQUE: Imaging protocol: Real-time duplex ultrasound of the extremities with 2-D laura scale, color Doppler flow and spectral waveform analysis with image documentation. Complete exam focused on the bilateral lower extremity veins. COMPARISON: CT abdomen pelvis w con* [id number] 10/31/2020 2:15 PM FINDINGS: Right deep veins: Partial thrombus in the right common femoral vein. Occlusive thrombus in the right femoral vein. Partial thrombus in the right popliteal vein. Right superficial veins: Saphenofemoral junction is patent without thrombus. Left deep veins: Partial thrombus in the left common femoral vein. Partial thrombus in the left femoral vein. Occlusive thrombus in the left popliteal vein. Left superficial veins: Saphenofemoral junction is patent without thrombus. Soft tissues: Unremarkable. US/CV venous duplex [facility] [id number] IMPRESSION: 1. Bilateral lower extremity deep vein thrombosis.
[2021-06-07 12:15] LABS: ABG PCO2 57.4 mmHg (35-45); ABG PH Result 7.36 (7.35-7.45); Alveolar-Arterial Oxygen Gradi 75.4 mmHg (5-10); Arterial Blood Gas Hematocrit 38.7 % (37-47); Base Excess ABG 5.7 mmol/L (-2.0-2.0); Blood Gas Allen Test Pos; Blood Gas Operator Identificat glc; Blood Gas Sample Site Radial, left; Blood Gas Sample Type Arterial; Carboxyhemoglobin 0.9 %THgb (0.4-20.1); HCO3 ABG 32.6 mmol/L (22-26); HGB O2 Sat 92.5 % (95-100); Ionized Calcium Level - ABG 1.3 mmol/L (1.1-1.4); Methemoglobin 0.3 % (0.4-1.5); Oxygen Device BIPAP; Oxygen Saturation ABG 93.6; PO2 ABG 67.8 mmHg (80.0-100.0); Total Hemoglobin 12.6 g/dL (12-16)
--- NOTE | 2021-06-07 12:19 | PC.NURSE ---
PICC RIGHT arm placed. Primary nurse notified.
[2021-06-07] MEDS: FUROsemide 10 mg/mL SDV 2mL 20 MG IVP (12:25)
[2021-06-07] MEDS: dexamethasone 10 mg/mL INJ 6 MG IVP (12:25)
[2021-06-07] MEDS: levofloxacin-dextrose 5 % 750 MG/150 ML PREMIX 100 MG IV (12:26)
--- NOTE | 2021-06-07 12:42 | PC.NUTR ---
TPN consult: Recommend Clinimix 5/20, starting at 10 ml/hr, increasing by 10 ml/hr q 12 hrs to goal rate of 50 ml/hr. TPN at goal to provide 1056 kcal, 60 g protein, 240 g dextrose. Recommend avoid lipid provision for first 5-7 days. TPN order form completed, signed by MD, and provided to pharmacy. Recommend monitor Na, K, glucose, Phos, Mg, and renal labs. Noted levaquin-D5 also running--if continues as TPN increases, may provide excess CHO. See full RD assessment for further details.
[2021-06-07] MEDS: AA-Dex 5%-20% w/Lytes 1,000 ML with multivitamin inj 10 ML IV (16:02)
[2021-06-07 17:07] LABS: Glucose Point of Care 133 mg/dL (70-110)
--- NOTE | 2021-06-07 17:21 | PM.PN ---
Subjective Subjective: Interval history: Did family meeting twice today In the morning I had a chance to talk with Ms. Villalobos's sister Overnight she made her DPOA, documentation saved in our system Family wanted me to talk with [facility] if she could be transferred for higher level of care I did talk with roving sizer at [facility] who did not accept the transfer because of her BiPAP dependency FiO2 100% and impending respiratory failure with her DNR DNI status, she did not meet criteria for ECMO This morning CTA was requested that did not show PE however showing right heart strain, I have started therapeutic dose of Lovenox, PICC line was placed this morning, TPN initiated at lower rate Diuretics were added Second family meeting took place around 3 PM In this meeting both sons, a sister, her mother and a relative were present, in this meeting we had a detailed discussion regarding her hospitalization, clinical course, current status, medical management, trial medications, role of vitamins, ivermectin etc. prognostication and further plan of care we also went over frontline [employer] protocols. Considering declining status of Ms. Villalobos, family finally agreed that role of vitamins and ivermectin at this point is probably would not be a yanez decision especially with the fact that her urine output may decrease because of her poor nutritional status being unable to eat and hefty doses of these medications might cause more damage than benefit. We would continue her current management with steroids, antibiotics, diuretics, multivitamins lower dosages, therapeutic dose of anticoagulating agent, BiPAP, TPN for now. Depending on her progress in next 24 hours further decision will be made regarding comfort measures. Ms. Villalobos would desaturate quickly as soon as we remove her BiPAP mask even for a sip of water, she is communicating via texting using her phone At this point Ms. Villalobos does not want chest compressions or intubation at all. Family is in agreement. A great deal of time was spent in answering questions of the family. Medical members present in this meeting. Attending physician, Rosalina Wyman Dr. Frase. Vitals/I&O/Wt Last Vital Signs Temp 96.4 F L 06/07/21 16:00 Pulse 112 H 06/07/21 16:00 Resp 23 H 06/07/21 16:00 BP 90/64 06/07/21 16:00 Pulse Ox 92 06/07/21 16:00 06/07/21 06/07/21 06/07/21 06:59 14:59 22:59 Intake Total 172.454 / 172.454 Output Total 1200 / 1600 900 / 900 Balance -1200 / 433 172.454 / 172.454 -900 / -727.546 Physical Exam Narrative: EXAM NARRATIVE: female who is BiPAP dependent saturating 89 to 90% on 100% FiO2 on BiPAP Would quickly desaturate as soon as mass is taken off Bedridden Malnourished Poor urine output Soft abdomen Assisted bilateral diminished breath sounds with crepitations Awake alert oriented x3 GCS 15 No neurological deficit Urinary Catheter Management^: Piedra: Cath Placed During This Visit: yes Reason for Continuing Indwelling Catheter: Accurate Measurement of Urinary Output in Critically Ill Patients Urinary Catheter Date of Insertion: 06/02/21 Data : 06/07/21 05:39 06/07/21 05:39 A&P Assessment and plan (1) Sinus tachycardia: Status: Acute (2) Pneumonia due to COVID-19 virus: Status: Acute (3) Hypoxia: Status: Acute (4) On total parenteral nutrition (TPN): Status: Acute (5) BiPAP (biphasic positive airway pressure) dependence: Status: Acute Additional A&P Information Severe ARDS Secondary to COVID-19 Status post remdesivir and Decadron Currently on steroids, Levaquin, therapeutic dose of Lovenox, multivitamins, zinc CTA did not show PE however showing right heart strain ABG showing persistent hypoxia Family agreed not to pursue administration of ivermectin Goals of care discussed with the patient, family, she does not want chest compressions or intubation Procalcitonin unremarkable, Added diuretics as a trial to see if that would decrease her oxygen requirement at this point I would stop diuretics in case of worsening of creatinine, her heart rate has not improved to fluid boluses, no PE detected Currently getting morphine and Precedex for her tachypnea and anxiety Guarded prognosis Detailed multiple family meetings today Depending on her clinical progress in next 24 hours further decision will be made regarding comfort care TPN She has not eaten in the last 72 hours properly, PICC line placed on 06/06, TPN started at lower rate Diarrhea: Resolved DNR/DNI Family at the bedside with appropriate PPE Guarded prognosis Attestations Medical Necessity Statement*: Continue medical management for worsening hypoxia Time Spent in Patient Care: (>than 50% of time spent in counselling and/or direct pt care on unit). ,90mins Including 2 family meetings, calling [facility] arranging TPN, PICC line, coordination of care Coding Level of Care Code Acute Performance Improvement Consultant for [facility] Fwd Diagnoses Sinus tachycardia R00.0 Pneumonia due to COVID-19 virus U07.1; J12.82 Hypoxia R09.02 On total parenteral nutrition (TPN) Z78.9 BiPAP (biphasic positive airway pressure) dependence Z99.89
[2021-06-07] MEDS: ipratropium-albuterol 3 mL Neb INHALATION ×2 (20:06→23:43)
--- NOTE | 2021-06-07 20:18 | PC.NURSE ---
Shift Note Frequent safety and comfort rounds continue. Orders and/or nursing care completed as indicated. Patient monitored for response to intervention and treatment(s). Family conference was done in the presence of Dr. Marquez, Dr. Porter, Case mgt Rosalina and RN Ciara and multiple family and relatives. Education provided includes BIPAP dependent use, importance of comfort care measures. Patient and/or inbound call center representative verbalizes understanding. Will continue to monitor.
[2021-06-07 21:31] LABS: Glucose Point of Care 152 mg/dL (70-110)
[2021-06-07] MEDS: enoxaparin 80 mg/0.8 mL Syringe SUBCUT (23:30)
[2021-06-08] VITALS (18 sets, daily range): BP systolic 94–120; BP diastolic 60–79; PULSE 74–124; RESP 20–42; TEMP 36.4–36.9; O2SAT 90–98
[2021-06-08] MEDS: ipratropium-albuterol 3 mL Neb INHALATION (04:29)
[2021-06-08 06:31] LABS: Basophils % 0.1 %; Hemoglobin 10.4 g/dL (11.5-15.3); Lymphocytes % 6.4 %; Mean Corpuscular HGB Conc 31.5 g/dL (30.0-36.0); Mean Corpuscular Hemoglobin 29.6 pg (28.0-34.0); Mean Platelet Volume 9.9 fL (7.4-10.4); Monocytes # 0.7 10^3/uL (0.2-0.9); Monocytes % 4.5 %; Neutrophils # 13.43 10^3/uL (1.8-7.7); Neutrophils % 88.1 %; Nucleated Red Blood Cells % 0 %; Platelet Count 290 10^3/cmm (130-400); Red Blood Count 3.51 10^6/uL (4.1-5.3); Red Cell Distribution Width 13.9 % (12.1-15.1); White Blood Count 15.2 10^3/uL (4.0-10.0)
[2021-06-08 06:55] LABS: Glucose Point of Care 137 mg/dL (70-110)
[2021-06-08 06:57] LABS: Blood Urea Nitrogen 20 mg/dL (8-23); Calcium 8.9 mg/dL (8.5-10.5); Carbon Dioxide 33 mmol/L (22-29); Chloride 98 mmol/L (98-107); Creatinine Clr Calc Pharmacy 151.0285; Glomerular Filtration Rate 160.7 mL/min (90-130); Glucose 109 mg/dL (65-115); Osmolality Calculated 289 mOsm/kg (285-295); Sodium 138 mmol/L (136-145)
[2021-06-08] MEDS: levalbuterol 0.63 mg/3 mL Neb INHALATION ×3 (08:05→21:37)
[2021-06-08] MEDS: dexmedetomidine 400 MCG in sodium chloride 0.9% (100 ml) 100 ML IV (08:15)
[2021-06-08] MEDS: fluticasone nasal spray 16gm Btl 1 SPRAY NASAL (08:18)
--- NOTE | 2021-06-08 10:19 | P.PN_ITS ---
Subjective Subjective: Interval history: Ms. Villalobos was in good spirits today, she was able to put amanda vera on her lips to ease her dryness, she is on 08/06 FiO2 100% saturating 92% Precedex at 0.2 TPN running at 10ml/h White count 15.2 Lower extremity bilateral DVTs, anticoagulation started yesterday Hemoglobin stable Creatinine 1.4 Glucose 109 Adequate urine output, negative fluid balance with diuretics Vitals/I&O/Wt Last Vital Signs Temp 97.9 F 06/08/21 04:00 Pulse 108 H 06/08/21 08:17 Resp 40 H 06/08/21 08:15 BP 94/74 06/08/21 04:00 Pulse Ox 92 06/08/21 08:16 06/07/21 06/08/21 06/08/21 22:59 06:59 14:59 Intake Total 69.315 / 241.769 12.231 / 12.231 Output Total 900 / 900 350 / 1250 Balance -900 / -727.546 -280.685 / -1008.231 12.231 / 12.231 Physical Exam Narrative: EXAM NARRATIVE: Seems comfortable with BiPAP at 35% She was able to communicate via typing on her phone TPN and Precedex at bedside Respiratory rate 30s Bilateral assisted breath sounds with rhonchi &crepitations Abdomen soft bowel sounds sluggish Lower extremity without any hyperemia or tenderness, no significant swelling Alert oriented x3 GCS 15 No neurological deficit Clinically looks dry Urinary Catheter Management^: [place]: Cath Placed During This Visit: yes Reason for Continuing Indwelling Catheter: Accurate Measurement of Urinary Output in Critically Ill Patients Urinary Catheter Date of Insertion: 06/02/21 Data : 06/08/21 04:20 06/08/21 04:20 A&P Assessment and plan (1) BiPAP (biphasic positive airway pressure) dependence: Status: Acute (2) On total parenteral nutrition (TPN): Status: Acute (3) Sinus tachycardia: Status: Acute (4) Diarrhea: Status: Acute (5) Pneumonia due to COVID-19 virus: Status: Acute (6) Pneumonia: Status: Acute (7) Hypoxia: Status: Acute (8) COVID-19 determined by clinical diagnostic criteria: Status: Acute Additional A&P Information Severe ARDS related 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 dependent Currently on FiO2 100% saturating 90 to 92% She quickly desaturates as soon as we removed the mask Currently on Precedex at 1.2 TPN running at 10 mL/h Negative fluid balance Creatinine normal Continue diuretics, multivitamins, steroids, Levaquin, supportive management TPN started yesterday, currently at 10 mL/h I am not trying to achieve goal of more than 50 mL/h Target is to keep negative fluid balance while providing artificial nutrition Sinus tachycardia related to DVT Therapeutic dose of Lovenox started yesterday No PE however right heart strain detected No active chest pain, Her blood pressure is ranging between 94 to 110 m mercury No saddle embolism, pulmonary dilation, Does not meet criteria for TPA Diarrhea: Resolved DNR/DNI(continue supportive management, she does not want chest compressions or intubation, concern for impending respiratory failure considering tachypnea and BiPAP dependency, patient is well aware of her current clinical status, guarded prognosis, she had spent a good amount of time with her family yesterday, she is at peace with the decision of DNR/DNI. She might pursue comfort measures if she declines from this point now onwards but for now we will continue her current supportive management) Attestations Medical Necessity Statement*: BiPAP dependent Time Spent in Patient Care: less than 15 minutes Coding Level of Care Code Acute Electric Powerline Examiner for g Fwd Diagnoses BiPAP (biphasic positive airway pressure) dependence Z99.89 On total parenteral nutrition (TPN) Z78.9 Sinus tachycardia R00.0 Diarrhea R19.7 Pneumonia due to COVID-19 virus U07.1; J12.82 Pneumonia J18.9 Hypoxia R09.02 COVID-19 determined by clinical diagnostic criteria U07.1
[2021-06-08] MEDS: dexamethasone 10 mg/mL INJ 6 MG IVP (11:29)
[2021-06-08] MEDS: FUROsemide 10 mg/mL SDV 2mL 20 MG IVP (11:29)
[2021-06-08] MEDS: enoxaparin 80 mg/0.8 mL Syringe SUBCUT (12:44)
[2021-06-08] MEDS: levofloxacin-dextrose 5 % 750 MG/150 ML PREMIX 100 MG IV (12:44)
[2021-06-08 15:32] LABS: Glucose Point of Care 128 mg/dL (70-110)
[2021-06-08 21:44] LABS: Glucose Point of Care 137 mg/dL (70-110)
[2021-06-09] VITALS (17 sets, daily range): BP systolic 102–128; BP diastolic 66–86; PULSE 75–99; RESP 24–38; TEMP 35.9–36.8; O2SAT 82–96
[2021-06-09] MEDS: dexmedetomidine 400 MCG in sodium chloride 0.9% (100 ml) 100 ML IV (02:41)
[2021-06-09] MEDS: enoxaparin 80 mg/0.8 mL Syringe SUBCUT ×3 (02:43→23:47)
[2021-06-09 06:46] LABS: Glucose Point of Care 107 mg/dL (70-110)
--- NOTE | 2021-06-09 07:24 | PC.NURSE ---
PHYSICIAN NOTIFICATION: PATIENT CALLED THIS NURSE TO HER ROOM TO INFORM ME THAT SHE WAS FEELING DIZZY. PHYSICIAN CALLED AND NOTIFIED AND VERBAL ORDER GIVEN TO OBTAIN BLOOD GAS. RT CALLED AND NOTIFIED.
[2021-06-09] MEDS: levalbuterol 0.63 mg/3 mL Neb INHALATION ×2 (08:33→19:58)
[2021-06-09 10:31] LABS: Blood Urea Nitrogen 25 mg/dL (8-23); Carbon Dioxide 34 mmol/L (22-29); Chloride 97 mmol/L (98-107); Creatinine Clr Calc Pharmacy 151.0285; Glomerular Filtration Rate 160.7 mL/min (90-130); Glucose 99 mg/dL (65-115); Osmolality Calculated 292 mOsm/kg (285-295); Sodium 139 mmol/L (136-145)
[2021-06-09] MEDS: dexamethasone 10 mg/mL INJ 6 MG IVP (11:40)
[2021-06-09] MEDS: levofloxacin-dextrose 5 % 750 MG/150 ML PREMIX 100 MG IV (11:41)
[2021-06-09] MEDS: FUROsemide 10 mg/mL SDV 2mL 20 MG IVP (11:41)
[2021-06-09] MEDS: fluticasone nasal spray 16gm Btl 1 SPRAY NASAL (11:42)
--- NOTE | 2021-06-09 12:23 | PM.PN ---
Subjective Subjective: Interval history: Patient is using texting to communicate that she is feeling same as yesterday, she is happy with her decisions and family meetings, she quickly desaturated today when mass was removed to give her medications, TPN running at 10 mL/h Negative fluid balance Good urine output Creatinine 0.4 She does have padding on her nose to prevent pressure ulcers BiPAP settings 18/8 FiO2 100% heart rate fluctuating between 95-100, afebrile Vitals/I&O/Wt Last Vital Signs Temp 97.4 F L 06/09/21 11:47 Pulse 95 06/09/21 12:04 Resp 29 H 06/09/21 11:47 BP 118/81 06/09/21 11:47 Pulse Ox 93 06/09/21 12:04 06/08/21 06/09/21 06/09/21 22:59 06:59 14:59 Intake Total 150 / 162.231 76.13 / 238.361 Output Total 1000 / 1000 200 / 1200 Balance -850 / -837.769 -123.87 / -961.639 Physical Exam Narrative: EXAM NARRATIVE: BiPAP dependent 18/4 FiO2 100% Has nasal padding to prevent pressure ulcers from BiPAP mask TPN running at 10 mL/h Clinically looks euvolemic to dry Precedex at 0.2 She looks calm however tachypneic in 30s S1, S2 no murmur Abdomen soft Bilateral diminished assisted breath sounds with crepitations Lower extremity no sign of cellulitis, mild calf swelling Urinary Catheter Management^: [place]: Cath Placed During This Visit: yes Reason for Continuing Indwelling Catheter: Accurate Measurement of Urinary Output in Critically Ill Patients Urinary Catheter Date of Insertion: 06/02/21 Data : 06/08/21 04:20 06/09/21 09:38 A&P Assessment and plan (1) BiPAP (biphasic positive airway pressure) dependence: Status: Acute (2) On total parenteral nutrition (TPN): Status: Acute (3) Sinus tachycardia: Status: Acute (4) Diarrhea: Status: Acute (5) Pneumonia due to COVID-19 virus: Status: Acute (6) Pneumonia: Status: Acute (7) Hypoxia: Status: Acute (8) COVID-19 determined by clinical diagnostic criteria: Status: Acute Additional A&P Information Severe ARDS hypoxic respiratory failure secondary 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 dependent Currently on setting 18/8 FiO2 100%, she quickly desaturates Her FiO2 requirement has not improved She is tachypneic, chest x-ray showing persistent bilateral groundglass opacities She is making good amount of urine with diuretic regimen she is in negative balance however creatinine is normal For now continuing antibiotics, steroids, multivitamins and diuretic regimen I would like to keep TPN at 10 mL hour per hour for now Bilateral DVTs currently on therapeutic dose of anticoagulating agent no signs of PE, hemodynamically stable Today she typed on her phone that she is okay with her current medical management but at the same time knows in case of worsening or decline in her condition she would pursue comfort measures, status DNR/DNI Attestations Medical Necessity Statement*: Continue medical management for BiPAP dependent hypoxic respiratory failure Time Spent in Patient Care: less than 15 minutes Coding Level of Care Code Acute Metal Wire Technician for [facility] Fwd Diagnoses BiPAP (biphasic positive airway pressure) dependence Z99.89 On total parenteral nutrition (TPN) Z78.9 Sinus tachycardia R00.0 Diarrhea R19.7 Pneumonia due to COVID-19 virus U07.1; J12.82 Pneumonia J18.9 Hypoxia R09.02 COVID-19 determined by clinical diagnostic criteria U07.1
[2021-06-09 13:17] LABS: Glucose Point of Care 100 mg/dL (70-110)
[2021-06-09 17:32] LABS: Glucose Point of Care 136 mg/dL (70-110)
[2021-06-09 20:16] LABS: Glucose Point of Care 149 mg/dL (70-110)
--- NOTE | 2021-06-09 20:21 | PC.RESP ---
RT Shift Note Frequent safety and respiratory rounds continue. Orders completed as indicated. Patient monitored pre and post treatments throughout shift. Patient [Did.] tolerate treatments appropriately. Condition [I.DidNotChange]. Patient and/or sales representative business courses educated on respiratory treatment and medications. Patient and/or sales representative business courses [verbalized understanding]. Will continue to monitor patient progress.
[2021-06-10] VITALS (15 sets, daily range): BP systolic 111–129; BP diastolic 71–80; PULSE 78–106; RESP 17–32; TEMP 36.5–36.8; O2SAT 90–100
[2021-06-10] MEDS: dexmedetomidine 400 MCG in sodium chloride 0.9% (100 ml) 100 ML IV (04:38)
[2021-06-10 07:03] LABS: Basophils % 0.2 %; Eosinophils % 0.2 %; Hematocrit 39.1 % (37.0-47.0); Lymphocytes # 1.2 10^3/uL (0.8-4.8); Lymphocytes % 9.6 %; Mean Corpuscular HGB Conc 30.7 g/dL (30.0-36.0); Mean Corpuscular Hemoglobin 29.3 pg (28.0-34.0); Mean Corpuscular Volume 95.6 fl (81-99); Mean Platelet Volume 9.5 fL (7.4-10.4); Monocytes # 0.8 10^3/uL (0.2-0.9); Monocytes % 6.2 %; Neutrophils # 10.57 10^3/uL (1.8-7.7); Neutrophils % 82.2 %; Nucleated Red Blood Cells % 0 %; Platelet Count 379 10^3/cmm (130-400); Red Blood Count 4.09 10^6/uL (4.1-5.3); White Blood Count 12.9 10^3/uL (4.0-10.0)
[2021-06-10 07:15] LABS: Glucose Point of Care 101 mg/dL (70-110)
[2021-06-10 07:41] LABS: Anion Gap 13.1 (5-19); Blood Urea Nitrogen 30 mg/dL (8-23); Calcium 9.3 mg/dL (8.5-10.5); Carbon Dioxide 35 mmol/L (22-29); Chloride 100 mmol/L (98-107); Glomerular Filtration Rate 160.7 mL/min (90-130); Glucose 102 mg/dL (65-115); Osmolality Calculated 304 mOsm/kg (285-295); Potassium 4.1 mmol/L (3.5-5.1); Sodium 144 mmol/L (136-145)
[2021-06-10 07:44] LABS: Creatinine Clr Calc Pharmacy 151.0285
--- NOTE | 2021-06-10 09:09 | PC.CHAP ---
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 protection mgr visit [] Patient/Family/Request visit [] Outpatient visit [] Follow-up visit [] Physician referral [] Code/Alert [x] Routine visit [] Staff referral [] Actively dying [] Patient sleeping [] Family support [] [] Out of room [] Palliative care [] [] Receiving care in room [] Pre-surgical visit [] Trauma [] Long length of stay [] ICU visit [x] Other: 2a Relational/Emotional Strength [] Patient feels connected with others/family/visitors/staff [] Distress [] Loneliness/isolation [] Abandonment Spirituality of Patient [x] Person of Caro [] Attends Yazdanism of their Caro [] Believes in Prayer [] Reads Bible or Moravian materials [] There are Spiritual issues to be addressed Cloud Physicist Interventions [x] Prayer [] Active listening [] Non-anxious presence [] Spiritual/emotional support [] Crisis/trauma care [] Spiritual counseling [] Bereavement support [] Provided bereavement packet [] Provided Bible/devotional materials [] Provided toy/stuffed animal, coloring book to patient or family member [] Provided Communion [] Anointing/[place] [] Salvation [x] Completed spiritual assessment [] Other: Impact on Illness or Injury [] Angry [] Fearful [] Anxious [] Often cries [] Exhaustion [] Unable to work [] Unable to attend taoist [] Unable to walk/stand [] Unable to read [] Unable to drive [] Unable to eat/drink [] Unable to sleep [] Unable to be with family [] Patient intubated [] Other: Summary patient on vent... have met with her and prayed with her for the past three days.. Time spent with patient 5 min
[2021-06-10] MEDS: ketorolac 30 mg/mL INJ 15 MG IVP (09:10)
[2021-06-10] MEDS: sodium chloride 0.9% 1,000 ML 30 ML IV (10:50)
[2021-06-10] MEDS: levofloxacin-dextrose 5 % 750 MG/150 ML PREMIX 100 MG IV (10:50)
[2021-06-10] MEDS: dexamethasone 10 mg/mL INJ 6 MG IVP (10:51)
[2021-06-10 11:44] LABS: Glucose Point of Care 116 mg/dL (70-110)
--- NOTE | 2021-06-10 12:59 | P.PN_ITS ---
Subjective Subjective: Interval history: Patient was seen and examined in the Covid unit, both sons were present at the bedside No overnight events, patient stated that she started experiencing pleuritic left-sided pain which especially gets worse with deep breathing, it is reproducible, she is denying nausea, vomiting, she is not describing it as pressure-like sensation We will request troponin today Another set of EKG Requested 1 dose of ketorolac 50 mg IV push I am holding her diuretics today and will cover fluids she has been in negative balance for last 72 hours She has been experiencing productive cough but was not able to clear her secretions Patient is stating that she would like to see how she does in the next 72 hours and then decide whether she will opt for comfort measures Vitals/I&O/Wt Last Vital Signs Temp 98.2 F 06/10/21 10:56 Pulse 95 06/10/21 11:43 Resp 27 H 06/10/21 10:56 BP 118/71 06/10/21 10:56 Pulse Ox 98 06/10/21 11:43 06/09/21 06/10/21 06/10/21 22:59 06:59 14:59 Intake Total 164 / 314 150 / 150 Output Total 800 / 800 350 / 1150 Balance -800 / -650 -186 / -836 150 / 150 Physical Exam Narrative: EXAM NARRATIVE: Was laying supine in bed with BiPAP 100% FiO2 BiPAP settings 14/8 Mean arterial pressure 65 Heart rate 100 on telemetry sinus S1, S2 sinus tachycardia Clinically looks dry today Dry mucous membranes Productive cough not able to bring up her sputum Crepitations with crackles bilaterally, assisted bilateral breath sounds Abdomen soft Bilateral lower extremity trace edema Awake alert oriented x3 GCS 15 TPN running at 10 mL/h Precedex at 0.2 Urinary Catheter Management^: [place]: Cath Placed During This Visit: yes Reason for Continuing Indwelling Catheter: Accurate Measurement of Urinary Output in Critically Ill Patients Urinary Catheter Date of Insertion: 06/02/21 Data : 06/10/21 06:33 06/10/21 06:33 A&P Assessment and plan (1) BiPAP (biphasic positive airway pressure) dependence: Status: Acute (2) On total parenteral nutrition (TPN): Status: Acute (3) Sinus tachycardia: Status: Acute (4) Diarrhea: Status: Acute (5) Pneumonia due to COVID-19 virus: Status: Acute (6) Pneumonia: Status: Acute (7) Hypoxia: Status: Acute (8) COVID-19 determined by clinical diagnostic criteria: Status: Acute Additional A&P Information Sepsis related to COVID-19 pneumonia ARDS BiPAP dependent Patient clinically looks dry today we will discontinue diuretics we will keep her on low-dose maintenance IV fluids for next 48 hours Monitor on daily basis correlate with creatinine and urine output Patient does not want to try a full face BiPAP mask Afebrile, leukocytosis improving Continue antibiotics, steroids, multivitamins TPN running at 10 mL/h Precedex to be reduced to 0.1 secondary to mean arterial pressure of 65 mmHg, anticipating slight improvement with fluid maintenance Urine looks concentrated I would continue her Levaquin and multivitamins For left-sided pleuritic chest pain I would give ketorolac one-time dose another dose tomorrow morning and reevaluate we will get another troponin and EKG Procalcitonin unremarkable Patient would like to make her final decision regarding comfort care after 72 hours, both sons were present in the room who are in agreement and at peace with this decision DNR/DNI Continue TPN diet advance her to 15 mL/h tomorrow Bilateral DVT currently on therapeutic Lovenox dose Continue supportive care Attestations Medical Necessity Statement*: BiPAP dependent continue current medical management Time Spent in Patient Care: Greater than 35 minutes Coding Level of Care Code Acute Geophysics Professor for g Fwd Diagnoses BiPAP (biphasic positive airway pressure) dependence Z99.89 On total parenteral nutrition (TPN) Z78.9 Sinus tachycardia R00.0 Diarrhea R19.7 Pneumonia due to COVID-19 virus U07.1; J12.82 Pneumonia J18.9 Hypoxia R09.02 COVID-19 determined by clinical diagnostic criteria U07.1
--- NOTE | 2021-06-10 13:08 | ECG_ITS ---
[facility] Test Date: 2021-06-10 Pat Name: Vandana Villalobos Department: Room: 213 Gender: Female Construction Person: : 1955 Requested By: Cheo Marquez Order Number: [id number] Adriana MD: Olu Cotton M.D. Measurements Intervals [place] Rate: 87 P: 42 [place]: 144 QRS: -26 QRSD: 92 T: -14 QT: 374 QTc: 451 Interpretive Statements SINUS RHYTHM WITH OCCASIONAL SUPRAVENTRICULAR PREMATURE COMPLEXES BORDERLINE LEFT AXIS DEVIATION [QRS AXIS < -20] VOLTAGE CRITERIA FOR LVH [MEETS CRITERIA IN ONE OF: R(aVL), S(V1), R(V5), R(V5/V6)+S(V1)] ST DEVIATION AND MODERATE T-WAVE ABNORMALITY, CONSIDER ANTEROLATERAL ISCHEMIA [-0.1+ mV T WAVE IN V3-V6] Compared to ECG 05/31/2021 15:15:31 Sinus tachycardia no longer present T-wave abnormality still present Possible ischemia still present Electronically Signed On 06-10-2021 23:58:45 CDT by Olu Cotton M.D. [id number]
[2021-06-10] MEDS: enoxaparin 80 mg/0.8 mL Syringe SUBCUT (13:15)
[2021-06-10] MEDS: levalbuterol 0.63 mg/3 mL Neb INHALATION (13:50)
[2021-06-10 14:33] LABS: Troponin T (5th) Once 33 ng/L (0-10)
[2021-06-10 17:24] LABS: Glucose Point of Care 117 mg/dL (70-110)
--- NOTE | 2021-06-10 17:33 | PC.NUTR ---
TPN follow up: Noted TPN running at 10 ml/hr since 06/07/21, providing 211 kcal and 12 g protein per day. Recommend increase TPN provision to goal rate of 50 ml/hr to better meet nutritional needs, if consistent with goals of care. Recommend monitor Na, K, glucose, Phos, Mg, and renal labs. Noted levaquin-D5W also running--if continues as TPN increases, may provide excess CHO. NS at 30 ml/hr running as well, could lead to excess fluid provision as TPN increases. See full RD assessment for further details.
[2021-06-10] MEDS: fluticasone nasal spray 16gm Btl 1 SPRAY NASAL (17:56)
--- NOTE | 2021-06-10 18:53 | PC.PHAR ---
TPN: DOSE DISPENSED 06/07, NO DOSE ADMINISTERED OR RATE CHANGE AFTER 1ST ADMIN. PROVIDER WISHES IT TO CONTINUE AT 15ML/HR. ATTEMPTED TO CHANGE RATE FROM PHA MODULE, ADJUSTED RATE TO BEGINNING OF ORDER.
[2021-06-10] MEDS: AA-Dex 5%-20% w/Lytes 1,000 ML with multivitamin inj 10 ML 15 ML IV (19:38)
[2021-06-10 21:17] LABS: Glucose Point of Care 147 mg/dL (70-110)
[2021-06-11] VITALS (17 sets, daily range): BP systolic 114–130; BP diastolic 66–81; PULSE 79–114; RESP 16–30; TEMP 36.1–37.1; O2SAT 86–98
[2021-06-11] MEDS: enoxaparin 80 mg/0.8 mL Syringe SUBCUT ×3 (00:05→23:39)
[2021-06-11 06:01] LABS: Basophils % 0.3 %; Eosinophils # 0.1 10^3/uL (0.0-0.8); Eosinophils % 0.6 %; Hematocrit 37.5 % (37.0-47.0); Hemoglobin 11.4 g/dL (11.5-15.3); Lymphocytes # 1.1 10^3/uL (0.8-4.8); Lymphocytes % 8.1 %; Mean Corpuscular HGB Conc 30.4 g/dL (30.0-36.0); Mean Corpuscular Hemoglobin 29.1 pg (28.0-34.0); Mean Corpuscular Volume 95.7 fl (81-99); Mean Platelet Volume 9.3 fL (7.4-10.4); Monocytes # 0.8 10^3/uL (0.2-0.9); Monocytes % 5.8 %; Neutrophils # 11.07 10^3/uL (1.8-7.7); Neutrophils % 83.3 %; Nucleated Red Blood Cells % 0 %; Platelet Count 369 10^3/cmm (130-400); Red Blood Count 3.92 10^6/uL (4.1-5.3); Red Cell Distribution Width 13.9 % (12.1-15.1); White Blood Count 13.3 10^3/uL (4.0-10.0)
[2021-06-11 06:34] LABS: Anion Gap 11.3 (5-19); Blood Urea Nitrogen 30 mg/dL (8-23); C Reactive Protein 11.9 mg/L (0.0-4.9); Calcium 9.2 mg/dL (8.5-10.5); Carbon Dioxide 35 mmol/L (22-29); Chloride 99 mmol/L (98-107); Glomerular Filtration Rate 160.7 mL/min (90-130); Glucose 101 mg/dL (65-115); Osmolality Calculated 298 mOsm/kg (285-295); Potassium 4.3 mmol/L (3.5-5.1); Sodium 141 mmol/L (136-145)
[2021-06-11 06:38] LABS: Creatinine Clr Calc Pharmacy 151.0285
[2021-06-11] MEDS: ketorolac 30 mg/mL INJ 15 MG IVP (06:42)
[2021-06-11 07:52] LABS: Glucose Point of Care 104 mg/dL (70-110)
[2021-06-11] MEDS: levalbuterol 0.63 mg/3 mL Neb INHALATION (08:10)
[2021-06-11 08:24] LABS: Magnesium 2.3 mg/dL (1.7-2.3); Phosphorus 2.8 mg/dL (2.5-4.5); Triglycerides 190 mg/dL (0-150)
[2021-06-11] MEDS: zinc gluconate 50 mg Tablet 100 MG PO (09:17)
[2021-06-11] MEDS: guaiFENesin 600 mg Tablet PO (09:17)
[2021-06-11] MEDS: ascorbic acid 500 mg Tablet 1000 MG PO ×2 (09:17→18:17)
[2021-06-11] MEDS: cholecalciferol (vitamin D3) 5,000 unit Tablet 5000 UNIT PO (09:17)
[2021-06-11] MEDS: fluticasone nasal spray 16gm Btl 1 SPRAY NASAL ×2 (09:17→18:21)
--- NOTE | 2021-06-11 09:30 | PC.CHAP ---
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 bin tripper operator visit [] Patient/Family/Request visit [] Outpatient visit [] Follow-up visit [] Physician referral [] Code/Alert [x] Routine visit [] Staff referral [] Actively dying [] Patient sleeping [] Family support [] [] Out of room [] Palliative care [] [] Receiving care in room [] Pre-surgical visit [] Trauma [] Long length of stay [] ICU visit [x] Other: 2a Relational/Emotional Strength [] Patient feels connected with others/family/visitors/staff [] Distress [] Loneliness/isolation [] Abandonment Spirituality of Patient [] Person of Caro [] Attends Catholic of their Caro [] Believes in Prayer [] Reads Bible or Congregation materials [] There are Spiritual issues to be addressed [place] Balance Interventions [x] Prayer [] Active listening [] Non-anxious presence [] Spiritual/emotional support [] Crisis/trauma care [] Spiritual counseling [] Bereavement support [] Provided bereavement packet [] Provided Bible/devotional materials [] Provided toy/stuffed animal, coloring book to patient or family member [] Provided Communion [] Anointing/[place] [] Salvation [x] Completed spiritual assessment [] Other: Impact on Illness or Injury [] Angry [] Fearful [] Anxious [] Often cries [] Exhaustion [] Unable to work [] Unable to attend cheondoism [] Unable to walk/stand [] Unable to read [] Unable to drive [] Unable to eat/drink [] Unable to sleep [] Unable to be with family [] Patient intubated [] Other: Summary Time spent with patient
[2021-06-11 10:58] LABS: Glucose Point of Care 100 mg/dL (70-110)
[2021-06-11] MEDS: dexamethasone 10 mg/mL INJ 6 MG IVP (11:50)
[2021-06-11] MEDS: levofloxacin-dextrose 5 % 750 MG/150 ML PREMIX 100 MG IV (11:50)
--- NOTE | 2021-06-11 12:48 | P.PN_ITS ---
Subjective Subjective: Interval history: Patient was seen and examined this morning, multiple times today Sister, mother and a cousin present in the room Afebrile, leukocytosis 13,000 CRP trending down Troponin from yesterday 33 No active chest pain EKG does show T wave inversion however in comparison to previous EKG on 05/18, T wave change not new Mag phosphorus within normal range, high triglyceride noted This morning she was saturating 94% on 90% FiO2 on BiPAP She was transitioned to heated high flow 45 L 85% she was saturating 90 to 91%, She was very happy with her progress, She does have pressure ulcer on her nose from the BiPAP mask She does not want to try chest physiotherapy for now with concern for aspiration and choking on her food however I explained her this might help relieving her chest congestion and ease her respiratory secretions She is endorsing passing flatus, she had 1 bowel movement 2 days ago Fluids at the bedside discontinued today, TPN to be increased to 20 mL/h Vitals/I&O/Wt Last Vital Signs Temp 98.4 F 06/11/21 12:00 Pulse 79 06/11/21 12:00 Resp 20 H 06/11/21 12:00 BP 121/75 06/11/21 12:00 Pulse Ox 88 L 06/11/21 12:00 06/10/21 06/11/21 06/11/21 22:59 06:59 14:59 Intake Total 240 / 390 209.75 / 209.75 Output Total 200 / 200 450 / 650 Balance -200 / -50 -210 / -260 209.75 / 209.75 Physical Exam Narrative: EXAM NARRATIVE: Transitioned from BiPAP to heated high flow 45L, 85% saturating 89 to 91% Dry mucous membranes, Taking sips of water No acute neurological deficit No lower extremity edema S1, S2 sinus tachycardia Abdomen soft Pressure ulcer of nasal bridge secondary to BiPAP mask use No active signs of cellulitis Urinary Catheter Management^: [place]: Cath Placed During This Visit: yes Reason for Continuing Indwelling Catheter: Accurate Measurement of Urinary Output in Critically Ill Patients Urinary Catheter Date of Insertion: 06/02/21 Data : 06/11/21 05:30 06/11/21 05:30 A&P Assessment and plan (1) Pneumonia due to COVID-19 virus: Status: Acute (2) BiPAP (biphasic positive airway pressure) dependence: Status: Acute (3) On total parenteral nutrition (TPN): Status: Acute (4) Sinus tachycardia: Status: Acute (5) Diarrhea: Status: Acute (6) Pneumonia: Status: Acute (7) Hypoxia: Status: Acute (8) COVID-19 determined by clinical diagnostic criteria: Status: Acute (9) T wave inversion in EKG: Status: Acute (10) DVT (deep venous thrombosis): Status: Acute Additional A&P Information Severe ARDS Hypoxic respiratory failure related to COVID-19, HHF 45 L, 85% she is saturating 89 to 91%, this is her first day in last 10 to 12 days when she has been taken off BiPAP successfully without significant desaturation Patient is happy with her progress, now she is able to take sips of water she also has pressure ulcer of nasal bridge, I have counseled family not to put any moisturizing ointment that would contain petroleum Respiratory therapist present in the room She has been to 24 days in the hospital no need to quarantine at this point she can be transitioned to cardiac stepdown unit Continue steroids, Levaquin(empirical coverage) multivitamins Discontinue fluids today Increase TPN rate to 20 mL/h I would add diuretic low-dose regimen to keep her net fluids in negative balance High risk for deterioration , I did discuss goals of care again with the patient in front of her sister/DPOA, she is stating DNR/DNI adamant with her decision,, she is not interesting in chest physiotherapy however I did try to reiterate importance of chest physiotherapy with productive cough, patient stated that she will think a bout it, TPN: Increased rate to 20 mL/h discontinued fluids today I would slowly increase her TPN to target of 50 mL/h in next few days with goal of net negative fluid balance Magnesium, phosphorus, sodium and potassium within normal rangeNotice moderately abnormal triglyceride Turned off Precedex today as she is on heated high flow and not using BiPAP Bilateral lower extremity DVT currently on therapeutic dose of Lovenox T wave inversions evident on EKG, patient does have reproducible chest pain, troponin 33 I would like to cycle her troponins for today and continue her therapeutic dose of Lovenox Requested echo today I will keep clear liquids on board if she is able to swallow enteral nutrition is superior to TPN, since she is BiPAP dependent I would not transition her to full liquid for now DNR/DNI TPN and encourage clear liquid diet with heated high flow Family at the bedside, updated, respiratory therapist and nurse updated Plan to transfer out of Covid unit to CSU Attestations Medical Necessity Statement*: Medical management for COVID-19 hypoxic respiratory failure Time Spent in Patient Care: Greater than 35 minutes Coding Level of Care Code Acute Battery Charger Tester for [facility] Fwd Diagnoses Pneumonia due to COVID-19 virus U07.1; J12.82 BiPAP (biphasic positive airway pressure) dependence Z99.89 On total parenteral nutrition (TPN) Z78.9 Sinus tachycardia R00.0 Diarrhea R19.7 Pneumonia J18.9 Hypoxia R09.02 COVID-19 determined by clinical diagnostic criteria U07.1 T wave inversion in EKG R94.31 DVT (deep venous thrombosis) I82.409
--- NOTE | 2021-06-11 12:53 | PC.NURSE ---
Attempt to call report to CSU at this time.
--- NOTE | 2021-06-11 12:55 | ECG_ITS ---
[facility] Test Date: 2021-06-11 Pat Name: Vandana Villalobos Department: Room: 213 Gender: Female Emergency Doctor: : 1955 Requested By: Cheo Marquez Order Number: [id number] Adriana MD: Eloisa Villatoro M.D. Measurements Intervals [place] Rate: 116 P: 50 DC: 147 QRS: -37 QRSD: 85 T: -5 QT: 307 QTc: 427 Interpretive Statements SINUS TACHYCARDIA WITH OCCASIONAL SUPRAVENTRICULAR PREMATURE COMPLEXES LEFT AXIS DEVIATION [QRS AXIS < -30] PATTERN CONSISTENT WITH PULMONARY DISEASE VOLTAGE CRITERIA FOR LVH [MEETS CRITERIA IN ONE OF: R(aVL), S(V1), R(V5), R(V5/V6)+S(V1)] MODERATE T-WAVE ABNORMALITY, CONSIDER ANTERIOR ISCHEMIA [-0.1+ mV T WAVE IN V3/V4] Compared to ECG 06/10/2021 14:51:53 Sinus rhythm no longer present T-wave abnormality still present Possible ischemia still present Electronically Signed On 06-11-2021 16:10:35 CDT by Eloisa Villatoro M.D. [id number]
--- NOTE | 2021-06-11 13:51 | PC.NURSE ---
Report to Ted RN at this time.
--- NOTE | 2021-06-11 14:55 | ECG_ITS ---
[facility] Test Date: 2021-06-11 Pat Name: Vandana Villalobos Department: Room: 104 Gender: Female Assistant Director Of Residence Life: : 1955 Requested By: Cheo Marquez Order Number: [id number] Adriana MD: Eloisa Villatoro M.D. Measurements Intervals [place] Rate: 115 P: 48 CT: 146 QRS: -33 QRSD: 88 T: -4 QT: 303 QTc: 420 Interpretive Statements SINUS TACHYCARDIA WITH OCCASIONAL ECTOPIC PREMATURE COMPLEXES LEFT AXIS DEVIATION [QRS AXIS < -30] VOLTAGE CRITERIA FOR LVH [MEETS CRITERIA IN ONE OF: R(aVL), S(V1), R(V5), R(V5/V6)+S(V1)] MODERATE T-WAVE ABNORMALITY, CONSIDER ANTERIOR ISCHEMIA [-0.1+ mV T-WAVE IN V3/V4] Compared to ECG 06/11/2021 13:12:30 No significant changes Electronically Signed On 06-11-2021 16:40:37 CDT by Eloisa Villatoro M.D. [id number]
[2021-06-11 15:04] LABS: Troponin(5th) Baseline 24 ng/L (0-10)
[2021-06-11] MEDS: dexamethasone 4 mg/mL INJ 3 MG IVP (16:18)
[2021-06-11 18:32] LABS: Troponin 5 2HR 23.16 ng/L (0-10)
[2021-06-11 18:33] LABS: Troponin 5 2HR Delta -0.84 ABS# (0-10)
--- NOTE | 2021-06-11 18:55 | ECG_ITS ---
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 Measurements Intervals [place] Rate: 102 P: 41 VT: 146 QRS: -34 QRSD: 89 T: -5 QT: 331 QTc: 431 Interpretive Statements SINUS TACHYCARDIA WITH OCCASIONAL ECTOPIC PREMATURE COMPLEXES LEFT AXIS DEVIATION [QRS AXIS < -30] VOLTAGE CRITERIA FOR LVH MODERATE T-WAVE ABNORMALITY, CONSIDER ANTERIOR ISCHEMIA Compared to ECG 06/11/2021 15:43:05 No significant changes Electronically Signed On 06-12-2021 12:49:48 CDT by Eloisa Villatoro M.D. [id number]
--- NOTE | 2021-06-11 19:37 | PC.NURSE ---
Shift Note Frequent safety and comfort rounds continue. Orders and/or nursing care completed as indicated. Patient monitored for response to intervention and treatment(s). Education provided includes call light use. Patient and/or market survey representative verbalizes understanding. Will continue to monitor.
[2021-06-11 20:53] LABS: Troponin 5 6HR 19.37 ng/L (0-10)
[2021-06-11] MEDS: AA-Dex 5%-20% w/Lytes 1,000 ML with multivitamin inj 10 ML 30 ML IV (20:54)
[2021-06-11 21:00] LABS: Troponin 5 6HR Delta -4.63 ng/L (0-12)
[2021-06-11 21:30] LABS: Glucose Point of Care 176 mg/dL (70-110)
[2021-06-12] VITALS (18 sets, daily range): BP systolic 109–128; BP diastolic 73–93; PULSE 84–116; RESP 21–39; TEMP 36.3–36.9; O2SAT 84–98
--- NOTE | 2021-06-12 04:00 | XR_ITS ---
WS: [id number] Portable AP upright chest, 06/12/2021 Clinical Data: covid Comparison: Portable chest, 06/07/2021. Findings: The right PICC line now enters the superior vena cava. There are bilateral patchy pulmonary opacities unchanged. Monitor leads on the chest wall. The heart size is slightly increased. XR/XR chest 1V portable [id number] Impression: No change in bilateral patchy pulmonary opacities.
[2021-06-12 04:56] LABS: Basophils # 0.1 10^3/uL (0.0-0.1); Basophils % 0.3 %; Eosinophils % 0.3 %; Hemoglobin 11.5 g/dL (11.5-15.3); Lymphocytes # 1.2 10^3/uL (0.8-4.8); Lymphocytes % 7.8 %; Mean Corpuscular HGB Conc 31.1 g/dL (30.0-36.0); Mean Corpuscular Hemoglobin 29.5 pg (28.0-34.0); Mean Corpuscular Volume 94.9 fl (81-99); Mean Platelet Volume 9.2 fL (7.4-10.4); Monocytes # 0.8 10^3/uL (0.2-0.9); Monocytes % 5.4 %; Neutrophils # 12.96 10^3/uL (1.8-7.7); Neutrophils % 84.1 %; Nucleated Red Blood Cells % 0 %; Platelet Count 437 10^3/cmm (130-400); Red Cell Distribution Width 14.1 % (12.1-15.1); White Blood Count 15.4 10^3/uL (4.0-10.0)
--- NOTE | 2021-06-12 05:08 | PC.NURSE ---
Precedex has not been during my shift. Order is on hold.
[2021-06-12 05:27] LABS: Alanine Aminotransferase 20 U/L (0-33); Albumin Level 2.8 g/dL (3.5-5.2); Alkaline Phosphatase 79 IU/L (35-105); Anion Gap 9.7 (5-19); Aspartate Amino Transferase 17 U/L (0-32); Blood Urea Nitrogen 25 mg/dL (8-23); Carbon Dioxide 34 mmol/L (22-29); Chloride 100 mmol/L (98-107); Globulin 3.6 g/dL (1.3-4.6); Glucose 135 mg/dL (65-115); Magnesium 2.2 mg/dL (1.7-2.3); Osmolality Calculated 296 mOsm/kg (285-295); Phosphorus 2.5 mg/dL (2.5-4.5); Potassium 3.7 mmol/L (3.5-5.1); Sodium 140 mmol/L (136-145); Total Bilirubin 0.3 mg/dL (0.15-1.2); Total Protein 6.4 g/dL (6.6-8.7)
--- NOTE | 2021-06-12 06:00 | USCV_ITS ---
Vandana Villalobos Age: 65 Gender: F : 1955 Exam Date: 06/12/2021 09:15 Ordering Phys: Cheo Marquez MD Technologist: [place] [facility] [place]: RT HEART STRAIN BP: 119 / 81 HR: 97 Rhythm: Sinus Technical Quality: Adequate MEASUREMENTS (Male / Female) Normal Values 2D ECHO LV Diastolic Diameter PLAX 3.2 cm 4.2 - 5.9 / 3.9 - 5.3 cm LV Systolic Diameter PLAX 2.6 cm IVS Diastolic Thickness 1.2 cm 0.6 - 1.0 / 0.6 - 0.9 cm IVS Systolic Thickness 1.2 cm LVPW Diastolic Thickness 0.9 cm 0.6 - 1.0 / 0.6 - 0.9 cm LVPW Systolic Thickness 1.1 cm LVOT Diameter 2.0 cm LV Ejection Fraction 2D Teich 28.8 % LV Ejection Fraction MOD 2C 68.5 % LV Ejection Fraction 2C AL 70.0 % LA Diameter 3.8 cm LA Width 3.5 cm LA Height 5.0 cm RA Width 3.9 cm RA Height 5.7 cm Aorta at Sinotubular Diameter 3.3 cm M-MODE Aortic Annulus Diameter 3.7 cm LA Ao Ratio MM 1.1 DOPPLER AV Peak Velocity 105.0 cm/s LVOT Peak Velocity 89.0 cm/s AV Area Cont Eq vti 2.6 cm squared AV Area Cont Eq pk 2.7 cm squared MV Area PHT 5.0 cm squared Mitral E to A Ratio 0.6 MV E' Velocity 55.0 cm/s Mitral E to LV E' Septal Ratio 8.7 TR Peak Velocity 118.3 cm/s TR Peak Gradient 5.6 mmHg TV Peak E Velocity 53.0 cm/s Right Atrial Pressure 3.0 mmHg Pulmonary Artery Systolic Pressu 8.6 mmHg PV Peak Velocity 89.0 cm/s FINDINGS Left Ventricle Normal left ventricular size, systolic function and upper normal wall thickness, with no regional wall motion abnormalities. Left ventricular ejection fraction is estimated at 70 %. Grade I diastolic dysfunction (abnormal relaxation filling pattern), normal to mildly elevated filling pressures. Right Ventricle Normal right ventricular size and systolic function. Right ventricular systolic pressure 8.6 mmHg. Right Atrium Right atrium not well visualized. Left Atrium Mildly increased left atrial size. Mitral Valve Mildly thickened mitral valve. No mitral valve stenosis. Trace mitral valve regurgitation. Aortic Valve Structurally normal trileaflet aortic valve. No aortic valve stenosis. Tricuspid Valve Structurally normal tricuspid valve. Mild tricuspid valve regurgitation. Pulmonic Valve Structurally normal pulmonic valve. No pulmonary valve regurgitation. Pericardium No pericardial effusion. Aorta Normal size aortic root and proximal ascending aorta. CONCLUSIONS 1. Normal left ventricular size, systolic function and upper normal wall thickness, with no regional wall motion abnormalities. Left ventricular ejection fraction is estimated at 70 %. Grade I diastolic dysfunction (abnormal relaxation filling pattern), normal to mildly elevated filling pressures. 2. Normal pulmonary artery pressure. 3. No significant valvular abnormality. 4. Normal right ventricle size and systolic function. 5. No prior similar studies to compare. Eloisa Villatoro MD (Electronically Signed) Final Date: 12 June 2021 17:37 S
--- NOTE | 2021-06-12 06:27 | PC.NURSE ---
RT called me into room, stating that the patient has a nose bleed. When I walked into patient's room, there was a very small amount of dried blood below patient's nose. There was no active bleeding. RT took patient off high flow cannula and put patient on nonrebreather. Will monitor.
--- NOTE | 2021-06-12 06:28 | PC.NURSE ---
Shift Note Frequent safety and comfort rounds continue. Orders and/or nursing care completed as indicated. Patient monitored for response to intervention and treatment(s). Education provided includes oxygen safety. Patient and/or customer account representative verbalized understanding. Will continue to monitor.
[2021-06-12 06:44] LABS: Glucose Point of Care 123 mg/dL (70-110)
[2021-06-12] MEDS: levalbuterol 0.63 mg/3 mL Neb INHALATION ×2 (07:36→23:08)
--- NOTE | 2021-06-12 07:41 | PC.RESP ---
Therapist entered room. sats were low 80s with Heated high flow set on 45L and 100% and a NRB at 15L on top. Patient was asked if she would be willing to wear bipap, patient refused bipap. Treatment of 0.63 xopenex was given. Mucomyst and chest vest was held due to low sats and patient not being up for it. Therapist will talk with and continue to monitor.
[2021-06-12] MEDS: cholecalciferol (vitamin D3) 5,000 unit Tablet 5000 UNIT PO (08:31)
[2021-06-12] MEDS: zinc gluconate 50 mg Tablet 100 MG PO (08:31)
[2021-06-12] MEDS: guaiFENesin 600 mg Tablet PO (08:31)
[2021-06-12] MEDS: ascorbic acid 500 mg Tablet 1000 MG PO (08:31)
[2021-06-12] MEDS: fluticasone nasal spray 16gm Btl 1 SPRAY NASAL (08:32)
--- NOTE | 2021-06-12 10:59 | PC.RESP ---
Dr. Marquez came in room with RT and asked patient if she wanted bipap! Patient stated only for emergency. Pt will wear Bipap for emergency purpose.
[2021-06-12 11:34] LABS: Glucose Point of Care 132 mg/dL (70-110)
[2021-06-12] MEDS: enoxaparin 80 mg/0.8 mL Syringe SUBCUT (11:42)
[2021-06-12] MEDS: levofloxacin-dextrose 5 % 750 MG/150 ML PREMIX 100 MG IV (11:42)
--- NOTE | 2021-06-12 11:59 | P.PN_ITS ---
Subjective Subjective: Interval history: Patient was seen in cardiac stepdown unit, she was saturating 86 to 87% on 15 L nonrebreather mask and 99%. High flow 45 L She is very happy with the progress because she is able to tolerate her clear liquid diet and would like to advance her to full liquid to try milk products She would like to try Glucerna Motivated to get out of bed to chair Does not want to try proning Overnight serial troponin and EKG completed, EKG showing diffuse T wave inver [place] however no active chest pain, echo is pending Hemodynamically stable She has been able to talk with her family members and swallow food which are great victories for her Overnight she told respirate therapist that she is not looking forward to get back on BiPAP however this morning after discussing with her she is agreeable to use BiPAP in case of emergency as last resort and if she gets worse and on heated high flow nonrebreather oxygen supplementation Around 170ml positive net fluid balance, contraction alkalosis, will discontinue diuretics for now Afebrile Leukocytosis around 15,000 Magnesium and phosphorus within normal range TPN increased to 30 mL/h this morning She had 1 bowel movement today after a long time because she was able to initiate enteral nutrition yesterday, clear liquid diet Vitals/I&O/Wt Last Vital Signs Temp 98 F 06/12/21 03:59 Pulse 102 H 06/12/21 10:52 Resp 27 H 06/12/21 10:52 BP 119/81 06/12/21 03:59 Pulse Ox 89 L 06/12/21 10:52 06/11/21 06/12/21 06/12/21 22:59 06:59 14:59 Intake Total 821.667 / 1181.417 100 / 1281.417 Output Total 400 / 400 500 / 900 Balance 421.667 / 781.417 -400 / 381.417 Physical Exam Narrative: EXAM NARRATIVE: female who was saturating 86 to 87% on heated high flow 45 L 99% Hemodynamically stable Her heart rate does stay on the higher side sinus tach but ranges between 95-1 02 S1, S2 Bilateral crepitations noted with rhonchi Facial flushing noticed Clinically looks dry Lower extremity no edema Abdomen is soft bowel sounds present Nontender abdomen Awake alert oriented x3 GCS 15 No joint swelling Urinary Catheter Management^: [place]: Cath Placed During This Visit: yes Reason for Continuing Indwelling Catheter: Other Urinary Catheter Date of Insertion: 06/02/21 Data : 06/12/21 04:32 06/12/21 04:32 A&P Assessment and plan (1) COVID-19 determined by clinical diagnostic criteria: Status: Acute (2) Hypoxia: Status: Acute (3) Pneumonia: Status: Acute (4) Pneumonia due to COVID-19 virus: Status: Acute (5) Diarrhea: Status: Acute (6) Sinus tachycardia: Status: Acute (7) On total parenteral nutrition (TPN): Status: Acute (8) T wave inversion in EKG: Status: Acute (9) BiPAP (biphasic positive airway pressure) dependence: Status: Acute (10) DVT (deep venous thrombosis): Status: Acute (11) Alkalosis, metabolic: Status: Acute Additional A&P Information 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 Currently on heated high flow 45 L 98% with 15 L nonrebreather mask saturating 86 to 87% No bacterial infection She is getting empirical Levaquin antibiotic regimen Started tapering off steroids reduced dexamethasone to 3 mg she has spent 3 weeks on 6 mg of Decadron, will need maintenance therapy of steroids to avoid adrenal crisis Discontinue diuretics due to alkalosis(my goal was to keep her in negative balance with ARDS however due to alkalosis I would discontinue diuretics for now) Continue multivitamins Status post remdesivir regimen Had a lengthy discussion with the family that we are not able to use ivermectin at this point, it was also discussed with medical at the committee and Dr. Porter spoke with the family as well Patient does not want to use chest physiotherapy however I have encouraged her to reconsider it I have changed her Mucomyst to as needed TPN rate increased to 30 mL/h Advance her diet to full liquid today She is happy with the progress and is reluctant to go back on BiPAP however I did clarify that she is agreeable to go back on BiPAP if her respiratory status worsens because her respiratory rate stays between 25-29 there is always a risk of muscle fatigue and worsening of hypoxia She wishes to stay DNR/DNI(she might opt for comfort care if her symptoms worsen, sister her DPOA is respecting her wishes, son Yinka who was involved in family meetings , kept him updated, he has been very emotional and has been struggling to accept guarded prognosis, of note, Ms. Villalobos lost her few weeks ago to COVID-[address] Toure was taking care of him. Family is heartbroken) TPN increased rate to 30 mL/h Advancing her diet to full liquid today patient wants to try milk products especially Glucerna She does not like the taste of Ensure Precedex has been turned off, her respiratory rate is ranging between 25-29, her anxiety is within control I would hold off on adding Precedex for now DVT: Bilateral lower extremity Considering involvement of common femoral veins I do have concerns regarding traveling of clot to iliac and then inferior vena cava CTA did reveal right heart strain however echo is pending EKG showing diffuse T wave inversions Might need to talk with cardiology after echo if it shows significant right heart strain for placement of IVC filter to prevent PE/saddle embolism which can be detrimental in her case, EKG and CT scan does show right heart strain findings Continue therapeutic Lovenox T wave inversion consistent with right heart strain however no PE detected on CTA troponin without significant delta, no active chest pain, echo pending Contraction alkalosis Positive net balance today, discontinue diuretics Advance diet to full liquid DNR/DNI Respiratory therapist updated Attestations Medical Necessity Statement*: Continue medical management for hypoxic respiratory failure related to COVID-19 Time Spent in Patient Care: 16 - 35 minutes Coding Level of Care Code Acute Alteration Workroom Supervisor for [facility] Diagnoses COVID-19 determined by clinical diagnostic criteria U07.1 Hypoxia R09.02 Pneumonia J18.9 Pneumonia due to COVID-19 virus U07.1; J12.82 Diarrhea R19.7 Sinus tachycardia R00.0 On total parenteral nutrition (TPN) Z78.9 T wave inversion in EKG R94.31 BiPAP (biphasic positive airway pressure) dependence Z99.89 DVT (deep venous thrombosis) I82.409 Alkalosis, metabolic E87.3
[2021-06-12] MEDS: FUROsemide 10 mg/mL SDV 2mL 20 MG IVP (12:16)
--- NOTE | 2021-06-12 12:27 | P.CONIM_ITS ---
Providers/Reason For Consult Consulting Physician/Specialty*: Franklin Jim MD/Pulmonary Critical Care Reason for Consult*: Acute hypoxic respiratory failure secondary to ARDS due to COVID-19 Requesting Physician: Navneet Post MD Attending Physician: Navneet Post MD Primary Care Provider: RASTA Cutler History of Present Illness History of Present Illness Vandana Villalobos is a 65 year old female admitted on 05/18/2000 symptoms started 10 days ago when her got sick. She was tested positive on 05/10/2021. She also complained of diarrhea, fatigue, lethargy and fever 103 and was doing well until 05/17/2021 and started experiencing worsening shortness of breath, so called ambulance and came to ER. On arrival she was on 15 L nonrebreather mask which seemed to improve her saturations. During this hospitalization, initially patient has gradually improved with the standard Covid regimen treatments remdesivir, dexamethasone but eventually on day 16 of hospital stay she was placed on high flow nasal cannula requiring 100% FiO2.Patient has been diagnosed with Covid as well and is being treated at some of the hospital and came to know that he is comfort care now-Recently . Family had questions regarding multivitamins and ivermectin and were answered earlier. Also had ethics committee meeting regarding goals of care discussion. Ms. Villalobos does not want chest compressions or intubation at all and family agreed.Patient is also started on Precedex drip for anxiety and intermittent morphine for air hunger. Initial consult was requested on 06/06/2021, As patient was refusing intubation and resuscitation and she was already receiving standard treatment for COVID-19 pneumonia and the primary issue at that point was ethics committee meeting to establish goals of care regarding CODE STATUS and comfort measures, and as there were several critical patients in ICU, I reviewed the chart with the hospitalist and recommended to do bilateral lower extremity Doppler and agreed increase to full dose anticoagulation. Decision was made to cancel the consult at that point of time and reconsult after goals of care have been established. Today patient was seen at bedside Currently on 70 L 100% FiO2 and additional 15 L nonrebreather mask saturating 90% She reported subjective improvement in her dyspnea compared to yesterday She reiterated DO NOT RESUSCITATE and DO NOT INTUBATE if her clinical condition deteriorates Labs and other imaging reviewed Review of Systems General: Reports: 10 or more systems reviewed and unremarkable except in HPI and below Meds/Allergies Home Medications and Allergies Home Medications Medication Instructions Recorded Confirmed Last Taken Type rivaroxaban [Xarelto] 20 mg PO DAILY 05/18/21 05/18/21 05/17/21 History Allergies Allergy/AdvReac Type Severity Reaction Status Date / Time iodine Allergy ALGY-Hives Verified 05/18/21 14:30 povidone-iodine Allergy Unknown Verified 05/18/21 14:30 [From Betadine] shellfish derived Allergy ALGY-Hives Verified 05/18/21 14:30 soap [From Betadine] Allergy Unknown Verified 05/18/21 14:30 Current Medications Current Medications Generic Name Dose Route Start Last Admin Trade Name Freq PRN Reason Stop Dose Admin Acetylcysteine 100 mg 06/10/21 18:00 06/11/21 20:56 Acetylcysteine 200 Mg/Ml Sdv 4 Ml INHALATION Not Given BID NATALIA Ascorbic Acid 1,000 mg 06/06/21 18:00 06/12/21 08:31 Ascorbic Acid 500 Mg Tablet PO 1,000 mg BID NATALIA Administration Dexamethasone 3 mg 06/11/21 15:00 06/11/21 16:18 Dexamethasone 4 Mg/Ml Inj IVP 3 mg Q24H NATALIA Administration Enoxaparin Sodium 80 mg 06/07/21 12:30 06/12/21 11:42 Enoxaparin 80 Mg/0.8 Ml Syringe SUBCUT 80 mg Q12H NATALIA Administration Fluticasone Propionate 1 spray 05/24/21 18:00 06/12/21 08:32 Fluticasone Nasal [place] 16gm Btl NASAL 1 spray BID NATALIA Administration Guaifenesin 600 mg 05/24/21 18:00 06/12/21 08:31 Guaifenesin 600 Mg Tablet PO 600 mg BID NATALIA Administration Levofloxacin/Dextrose 750 mg in 150 mls @ 100 mls/hr 06/06/21 11:15 06/12/21 11:42 Levaquin-D5w IV 100 mls/hr Q24H NATALIA Administration Protocol Dexmedetomidine HCl 400 mcg/ 104 mls @ 0 mls/hr 06/06/21 12:00 06/10/21 04:38 Sodium Chloride IV 0.2 mcg/kg/hr .Q0M NATALIA 4.13 mls/hr Administration Protocol Per Protocol Multivitamins 10 ml/ Amino 1,010 mls @ 15 mls/hr 06/10/21 20:00 06/11/21 20:54 Acids/Electrolytes IV 30 mls/hr .Q24H NATALIA Administration Lanolin 1 applic 06/07/21 05:56 06/07/21 06:24 Lanolin Oint 7 Gm TOPICAL 1 applic PRN PRN Administration DRYNESS Levalbuterol HCl 0.63 mg 06/08/21 08:01 06/12/21 07:36 Levalbuterol 0.63 Mg/3 Ml Neb INHALATION 0.63 mg Q4H.RESPIRATORY PRN Administration SHORTNESS OF BREATH Thiamine HCl 100 mg 06/08/21 09:00 06/12/21 08:45 Thiamine 100 Mg/Ml Sdv IVP 100 mg DAILY NATALIA Administration Vitamin D 5,000 unit 06/07/21 09:00 06/12/21 08:31 Cholecalciferol (Vitamin D3) 5,000 Unit Tablet PO 5,000 unit DAILY NATALIA Administration Zinc Gluconate 100 mg 06/07/21 09:00 06/12/21 08:31 Zinc Gluconate 50 Mg Tablet PO 100 mg DAILY NATALIA Administration PFSH Acute PFSH: Medical History Abdominal pain Benign mole Diverticulitis Diverticulosis Endometriosis History of blood clots Seborrheic keratosis Spinal stenosis of cervical region Tendinopathy of left shoulder Surgical History History of colonoscopy Family History Denies family history of Anesthesia complication Bleeding disorder Social History Smoking and tobacco status: former smoker Alcohol intake: never Substance/Drug Use: never Household members: spouse Housing: House History of recent travel: No Vitals/I&O/Wt Last Vital Signs Temp 98 F 06/12/21 10:00 Pulse 102 H 06/12/21 10:52 Resp 27 H 06/12/21 10:52 BP 119/81 06/12/21 07:00 Pulse Ox 89 L 06/12/21 10:52 06/11/21 06/12/21 06/12/21 22:59 06:59 14:59 Intake Total 821.667 / 1181.417 100 / 1281.417 Output Total 400 / 400 500 / 900 Balance 421.667 / 781.417 -400 / 381.417 Physical Exam Narrative: EXAM NARRATIVE: General: alert, in significant respiratory distress on high flow 70 L 100% and 15 L nonrebreather mask HEENT: conj clear, EOMI, PERRL, mmm, Neck: supple, no meningismus Heme: no cervical LAP Pulmonary: Bilateral diffuse coarse crackles Cardiovascular: rrr, nl s1s2, no mrg Abdomen: soft, nt, nd, no r/g, bs+ Extremities: pulses +, no edema, no c/c : no CVA tenderness Skin: intact, no rash MSK: no back or neck pain Neurologic: grossly intact Urinary Catheter Management^: [place]: Cath Placed During This Visit: yes Reason for Continuing Indwelling Catheter: Other Urinary Catheter Date of Insertion: 06/02/21 Data Labs: Other Labs: Laboratory Results WBC 15.4 10^3/uL (4.0 -10.0) H 06/12/21 04:32 RBC 3.90 10^6/uL (4.1 -5.3) L 06/12/21 04:32 Hgb 11.5 g/dL (11.5-1 5.3) 06/12/21 04:32 Hct 37.0 % (37.0-47.0 ) 06/12/21 04:32 MCV 94.9 fl (81-99) 06/12/21 04:32 MCH 29.5 pg (28.0-34. 0) 06/12/21 04:32 MCHC 31.1 g/dL (30.0-3 6.0) 06/12/21 04:32 RDW 14.1 % (12.1-15.1 ) 06/12/21 04:32 Plt Count 437 10^3/cmm (130 -400) H 06/12/21 04:32 MPV 9.2 fL (7.4-10.4) 06/12/21 04:32 Neut % (Auto) 84.1 % 06/12/21 04:32 Lymph % (Auto) 7.8 % 06/12/21 04:32 [place] % (Auto) 5.4 % 06/12/21 04:32 Eos % (Auto) 0.3 % 06/12/21 04:32 Baso % (Auto) 0.3 % 06/12/21 04:32 Neut # (Auto) 12.96 10^3/uL (1. 8-7.7) H 06/12/21 04:32 Lymph # (Auto) 1.2 10^3/uL (0.8- 4.8) 06/12/21 04:32 [place] # (Auto) 0.8 10^3/uL (0.2- 0.9) 06/12/21 04:32 Eos # (Auto) 0.0 10^3/uL (0.0- 0.8) 06/12/21 04:32 Baso # (Auto) 0.1 10^3/uL (0.0- 0.1) 06/12/21 04:32 Nucleated RBC % (a uto) 0 % 06/12/21 04:32 Total Counted 100 (0-100) 05/26/21 05:45 Atypical Lymphs % 0.0 % (0-5) 05/26/21 05:45 Absolute Neutrophi ls 12.3 10^3/cmm (1. 4-6.5) H 05/26/21 05:45 Segmented Neutroph ils 81 % 05/26/21 05:45 Abs Segm Neuts (Ma n) 12.2 10/cmm (1.6- 7.1) H 05/26/21 05:45 Band Neutrophils 1.0 % 05/26/21 05:45 Abs Band Neuts (Ma n) 0.2 10^3/cmm (0.0 -1.2) 05/26/21 05:45 Absolute Lymphocyt es 1.5 10^3/cmm (1.2 -3.4) 05/26/21 05:45 Lymphocytes (Manua l) 10 % 05/26/21 05:45 Monocytes (Manual) 4.0 % 05/26/21 05:45 Absolute Monocytes 0.6 10^3/cmm (0.1 -0.6) 05/26/21 05:45 Eosinophils (Manua l) 1 % 05/26/21 05:45 Absolute Eosinophi ls 0.1 10^3/cmm (0.0 -0.7) 05/26/21 05:45 Basophils (Manual) 0.0 % 05/26/21 05:45 Absolute Basophils 0.0 10^3/cmm (0.0 -0.2) 05/26/21 05:45 Metamyelocytes 2.0 % 05/26/21 05:45 Myelocytes 1.0 % 05/26/21 05:45 Nucleated RBCs # 0.0 /100WBC 06/12/21 04:32 Smudge Cells 2+ H 05/26/21 05:45 Platelet Estimate Normal (Normal) 05/26/21 05:45 ESR 48 mm/hr (0-15) H 06/02/21 04:52 D-Dimer >= 20.00 ug/mIFEU (0-0.59) H 06/06/21 12:43 Specimen Type Arterial 06/07/21 12:00 Sample Site Radial, left 06/07/21 12:00 ABG pH 7.36 (7.35-7.45) 06/07/21 12:00 ABG pCO2 57.4 mmHg (35-45) H 06/07/21 12:00 ABG pO2 67.8 mmHg (80.0-1 00.0) L 06/07/21 12:00 ABG HCO3 32.6 mmol/L (22-2 6) H 06/07/21 12:00 ABG O2 Saturation 93.6 06/07/21 12:00 ABG Base Excess 5.7 mmol/L (-2.0- 2.0) H 06/07/21 12:00 Glen Test Pos 06/07/21 12:00 A-a O2 Gradient 75.4 mmHg (5-10) H 06/07/21 12:00 Hematocrit 38.7 % (37-47) 06/07/21 12:00 Hgb O2 Saturation 92.5 % (95-100) L 06/07/21 12:00 Carboxyhemoglobin 0.9 %THgb (0.4-20 .1) 06/07/21 12:00 Methemoglobin 0.3 % (0.4-1.5) L 06/07/21 12:00 Total Hemoglobin 12.6 g/dL (12-16) 06/07/21 12:00 Sodium 137.0 mmol/L (131 -143) 06/07/21 12:00 Potassium 4.0 mmol/L (3.5-5 .0) 06/07/21 12:00 Glucose 119.0 mg/dL (70-1 15) H 06/07/21 12:00 Ionized Calcium 1.3 mmol/L (1.1-1 .4) 06/07/21 12:00 O2 Delivery Device Bipap 06/07/21 12:00 O2 Liters/Min 40.0 % 06/02/21 10:16 FiO2 100.0 % 06/07/21 12:00 Improvement Analyst ID glc 06/07/21 12:00 Sodium 140 mmol/L (136-1 45) 06/12/21 04:32 Potassium 3.7 mmol/L (3.5-5 .1) 06/12/21 04:32 Chloride 100 mmol/L (98-10 7) 06/12/21 04:32 Carbon Dioxide 34 mmol/L (22-29) H 06/12/21 04:32 Anion Gap 9.7 (5-19) 06/12/21 04:32 BUN 25 mg/dL (8-23) H 06/12/21 04:32 Creatinine 0.3 mg/dL (0.5-0. 9) L 06/12/21 04:32 GFR Calculation 224.0 mL/min (90- 130) H 06/12/21 04:32 Glucose 135 mg/dL (65-115 ) H 06/12/21 04:32 POC Glucose 134 mg/dL (70-110 ) H 06/12/21 17:14 Calculated Osmolal ity 296 mOsm/kg (285- 295) H 06/12/21 04:32 Calcium 9.0 mg/dL (8.5-10 .5) 06/12/21 04:32 Phosphorus 2.5 mg/dL (2.5-4. 5) 06/12/21 04:32 Magnesium 2.2 mg/dL (1.7-2. 3) 06/12/21 04:32 Ferritin 1388 ng/mL (15-15 0) H 06/02/21 04:52 Total Bilirubin 0.3 mg/dL (0.15-1 .2) 06/12/21 04:32 AST 17 U/L (0-32) 06/12/21 04:32 ALT 20 U/L (0-33) 06/12/21 04:32 Alkaline Phosphata se 79 IU/L (35-105) 06/12/21 04:32 Lactate Dehydrogen ase 508 U/L (135-214) H 05/21/21 05:43 Troponin T Gen 5 n g/L 33 ng/L (0-10) H 06/10/21 13:54 Troponin T Baselin e 24 ng/L (0-10) H 06/11/21 14:17 Troponin T 120 Min ak chin 23.16 ng/L (0-10) H 06/11/21 16:16 Delta Troponin T -0.84 ABS# (0-10) L 06/11/21 16:16 Troponin T Hi Sens 6Hr 19.37 ng/L (0-10) H 06/11/21 20:25 Troponin T Hi Sens 6Hr Delta -4.63 ng/L (0-12) L 06/11/21 20:25 C-Reactive Protein 11.9 mg/L (0.0-4. 9) H 06/11/21 05:30 NT-Pro-B Natriuret Pep 322 pg/mL (0-125) H 06/01/21 05:36 Total Protein 6.4 g/dL (6.6-8.7 ) L 06/12/21 04:32 Albumin 2.8 g/dL (3.5-5.2 ) L 06/12/21 04:32 Globulin 3.6 g/dL (1.3-4.6 ) 06/12/21 04:32 Triglycerides 190 mg/dL (0-150) H 06/11/21 05:30 Procalcitonin 0.15 ng/mL (0-0.5 ) 06/04/21 06:11 Urine Color Yellow (Yellow) 05/18/21 15:41 Urine Appearance Clear (CLEAR) 05/18/21 15:41 Urine pH 5 (5-7) 05/18/21 15:41 Ur Specific Gravit y 1.020 (1.005-1.0 30) 05/18/21 15:41 Urine Protein Trace (Negative) 05/18/21 15:41 Urine Glucose (UA) Norm (Normal) 05/18/21 15:41 Urine Ketones 1+ (Negative) H 05/18/21 15:41 Urine Blood 2+ (Negative) H 05/18/21 15:41 Urine Nitrate Negative (Negati ve) 05/18/21 15:41 Urine Bilirubin 1+ (Negative) H 05/18/21 15:41 Urine Urobilinogen 1 mg/dL (Negative ) H 05/18/21 15:41 Ur Leukocyte Darlene ase Negative (Negati ve) 05/18/21 15:41 Urine RBC 0-4 /hpf (0-2) H 05/18/21 15:41 Urine WBC 5-10 /hpf (0-5) H 05/18/21 15:41 Ur Squamous Epith Cells 5-10 /hpf (0-5) H 05/18/21 15:41 Amorphous Sediment 1+ /hpf 05/18/21 15:41 Urine Bacteria 1+ /hpf (NONE) H 05/18/21 15:41 Coarse Granular Ca sts 15-25 /lpf H 05/18/21 15:41 Impressions Chest CTA 06/07/21 07:26 IMPRESSION: 1. No pulmonary embolism. 2. Progressive bilateral groundglass consolidations throughout both lungs. 3. New RIGHT heart strain and dilated pulmonary artery since 05/18/2021. Venous Duplex 06/07/21 12:10 IMPRESSION: 1. Bilateral lower extremity deep vein thrombosis. ADDENDUM: 06/07/21 182 THIS REPORT CONTAINS FINDINGS THAT MAY BE CRITICAL TO PATIENT CARE. The findings were verbally communicated via telephone conference with NAVNEET POST at 6:24 PM CDT on 06/07/2021. The findings were acknowledged and understood. Chest X-Ray 06/12/21 04:00 Impression: No change in bilateral patchy pulmonary opacities. A&P Assessment and plan (1) Acute respiratory distress syndrome (ARDS) due to 2019 novel coronavirus: Status: Acute (2) Acute respiratory failure with hypoxia: Status: Acute (3) Pneumonia due to COVID-19 virus: Status: Acute (4) DVT (deep venous thrombosis): Status: Acute Qualifiers: DVT location: lower extremity Affected thrombotic vein of extremity: femoral Chronicity: unspecified Laterality: bilateral Qualified Code(s): I82.413 - Acute embolism and thrombosis of femoral vein, bilateral (5) COVID-19 determined by clinical diagnostic criteria: Status: Acute (6) On total parenteral nutrition (TPN): Status: Acute #Acute hypoxic respiratory failure secondary to ARDS due to COVID-19 pneumonia complicated by coexisting bilateral lower extremity DVT -Requiring high flow 70 L 100% and 15 L nonrebreather mask-saturating 90% -Completed 5-day protocol of remdesivir -Received dexamethasone 6 mg for 3 weeks-currently tapered off to dexamethasone 3 mg -Patient refusing intubation, resuscitation, BiPAP, chest physiotherapy -Chest CTA 06/07/21:No pulmonary embolism.Progressive bilateral groundglass consolidations throughout both lungs.ew RIGHT heart strain and dilated pulmonary artery since 05/18/2021.- -Venous Duplex 06/07/21:Bilateral lower extremity deep vein thrombosis. -Currently on therapeutic Lovenox -Afebrile since admission, persistent leukocytosis ranging from 10 K to 15 K, bacterial antigens, Legionella urine antigen - 05/30/2021 -Currently on Levaquin for empiric antibiotic coverage started 06/06/2021 -Precedex drip for anxiety -Currently on TPN 30 mL/h as patient cannot take oral feeds due to continuous high O2 requirements --1 L last 24 hours/-5.9 L since admission-receiving Lasix 20 mg since 06/06/2021-discontinued today; will monitor her input output and keep her net negative to even - #Overall extremely poor prognosis-on maximal supplemental oxygen and if deteriorates patient wishes DO NOT INTUBATE and resuscitate. Of note recently her due to Covid and family are undergoing through immense emotional stress. As per my understanding sister is DPOA and she respects patient's wishes. They had some questions about ivermectin which were cleared through ethics committee meeting previously. Recommendations conveyed to hospitalist taking care of the patient Consult Attestations Medical Necessity Statement: Acute hypoxic respiratory failure secondary to ARDS due to COVID-19 pneumonia and bilateral DVT Time Spent in Patient Care: Greater than 35 minutes (>than 50% of time spent in counselling and/or direct pt care on unit) . Critical Care Time: The high probability of a clinically significant, sudden or life threatening deterioration of the patient's [respiratory, vascular] system(s) required my full and direct attention, intervention and personal management. The critical care time is as shown. This time is in addition to time spent performing any reported procedures but includes the following: [x] Data and vital sign review and interpretation [x] Patient assessment, examination and intervention [x] Documentation [x] Medication orders and management Critical Care Time (min): 45 Coding Level of Care Code New Pt Acute Title Clerk [employer] for Chg Fwd Patient Type New History Comprehensive Exam Comprehensive Medical Decision Making High Complexity Diagnoses Acute respiratory distress syndrome (ARDS) due to 2019 novel coronavirus U07.1; J80 Acute respiratory failure with hypoxia J96.01 Pneumonia due to COVID-19 virus U07.1; J12.82 DVT (deep venous thrombosis) I82.413 DVT location: lower extremity Affected thrombotic vein of extremity: femoral Chronicity: unspecified Laterality: bilateral COVID-19 determined by clinical diagnostic criteria U07.1 On total parenteral nutrition (TPN) Z78.9 Time Spent (min) 45
[2021-06-12] MEDS: dexamethasone 4 mg/mL INJ 3 MG IVP (14:27)
[2021-06-12 17:26] LABS: Glucose Point of Care 134 mg/dL (70-110)
--- NOTE | 2021-06-12 19:59 | PC.NURSE ---
Shift Note Frequent safety and comfort rounds continue. Orders and/or nursing care completed as indicated. Patient monitored for response to intervention and treatment(s). Education provided includes oxygen safety, medications, treatment plan and use of callbell for needs. Patient and/or senior account representative verbalizes understanding. Will continue to monitor. Pt has done well today. Patient was able to maintain oxygen saturation above 90% with heated high flow on today, however, when family came to visit patient had to put non-rebreather mask back over heated high flow due to exertion with speaking.
[2021-06-12] MEDS: AA-Dex 5%-20% w/Lytes 1,000 ML with multivitamin inj 10 ML 40 ML IV (22:38)
[2021-06-13] VITALS (19 sets, daily range): BP systolic 113–131; BP diastolic 68–97; PULSE 87–124; RESP 17–24; TEMP 36.6–37.1; O2SAT 85–94
[2021-06-13 00:42] LABS: Glucose Point of Care 156 mg/dL (70-110)
[2021-06-13] MEDS: enoxaparin 80 mg/0.8 mL Syringe SUBCUT ×2 (00:55→12:10)
[2021-06-13 05:24] LABS: Basophils % 0.2 %; Eosinophils # 0.2 10^3/uL (0.0-0.8); Eosinophils % 1.1 %; Hemoglobin 11.8 g/dL (11.5-15.3); Lymphocytes # 1.5 10^3/uL (0.8-4.8); Lymphocytes % 9.1 %; Mean Corpuscular HGB Conc 31.1 g/dL (30.0-36.0); Mean Corpuscular Hemoglobin 29.4 pg (28.0-34.0); Mean Corpuscular Volume 94.5 fl (81-99); Mean Platelet Volume 9.1 fL (7.4-10.4); Monocytes # 1.1 10^3/uL (0.2-0.9); Monocytes % 6.8 %; Neutrophils # 13.16 10^3/uL (1.8-7.7); Neutrophils % 80.6 %; Nucleated Red Blood Cells % 0 %; Platelet Count 475 10^3/cmm (130-400); Red Blood Count 4.02 10^6/uL (4.1-5.3); Red Cell Distribution Width 14.2 % (12.1-15.1); White Blood Count 16.3 10^3/uL (4.0-10.0)
[2021-06-13 05:42] LABS: Alanine Aminotransferase 28 U/L (0-33); Albumin Level 2.8 g/dL (3.5-5.2); Alkaline Phosphatase 77 IU/L (35-105); Anion Gap 8.8 (5-19); Aspartate Amino Transferase 25 U/L (0-32); Blood Urea Nitrogen 24 mg/dL (8-23); C Reactive Protein 3.9 mg/L (0.0-4.9); Calcium 8.7 mg/dL (8.5-10.5); Carbon Dioxide 35 mmol/L (22-29); Chloride 99 mmol/L (98-107); Globulin 3.3 g/dL (1.3-4.6); Glomerular Filtration Rate 160.7 mL/min (90-130); Glucose 127 mg/dL (65-115); Lactate Dehydrogenase 402 U/L (135-214); Magnesium 2.1 mg/dL (1.7-2.3); Osmolality Calculated 294 mOsm/kg (285-295); Phosphorus 2.7 mg/dL (2.5-4.5); Potassium 3.8 mmol/L (3.5-5.1); Sodium 139 mmol/L (136-145); Total Bilirubin 0.3 mg/dL (0.15-1.2); Total Protein 6.1 g/dL (6.6-8.7)
[2021-06-13 05:46] LABS: Creatinine Clr Calc Pharmacy 151.0285
--- NOTE | 2021-06-13 06:43 | PC.NURSE ---
Shift Note Frequent safety and comfort rounds continue. Orders and/or nursing care completed as indicated. Patient monitored for response to intervention and treatments. Education provided includes activity assist, reportable signs and symptoms, prescribed medications. Patient and/or hr representative verbalized understanding of all teaching.
[2021-06-13 06:49] LABS: Glucose Point of Care 131 mg/dL (70-110)
[2021-06-13] MEDS: levalbuterol 0.63 mg/3 mL Neb INHALATION (07:37)
[2021-06-13] MEDS: nystatin 100,000 unit/mL UDC 5 mL 100000 UNIT PO ×4 (09:17→20:17)
[2021-06-13 11:23] LABS: Glucose Point of Care 144 mg/dL (70-110)
[2021-06-13] MEDS: levofloxacin-dextrose 5 % 750 MG/150 ML PREMIX 100 MG IV (12:11)
--- NOTE | 2021-06-13 14:11 | P.PN_ITS ---
Subjective Subjective: Interval history: Patient was seen this morning, she is on heated high flow, denies any fevers, no chills, has a cough, continues to have a poor appetite, but tells me that she is improving a little, she tells me that she has sores in her mouth that hurt whenever she eats, Vitals/I&O/Wt Last Vital Signs Temp 98.4 F 06/13/21 11:26 Pulse 90 06/13/21 12:10 Resp 20 H 06/13/21 12:10 BP 120/81 06/13/21 11:26 Pulse Ox 92 06/13/21 12:10 06/12/21 06/13/21 06/13/21 22:59 06:59 14:59 Intake Total 772.833 / 922.833 Output Total 1999 250 / 2250 Balance -1227.167 / -1077.167 -250 / -1327.167 Physical Exam Const: COMMON NORMALS: no acute distress and patient oriented x3 GENERAL APPEARANCE: frail appearing Resp: COMMON NORMALS: normal respiratory effort, No retractions and No use of accessory muscles AUSCULTATION: diminished lung sounds diffuse Cardio: COMMON NORMALS: regular rate, regular rhythm, S1 normal heart sound present and S2 normal heart sound present RATE: regular rate RHYTHM: regular rhythm HEART SOUNDS: S1 normal heart sound present and S2 normal heart sound present GI: COMMON NORMALS: Normal to inspection, nondistended, normoactive bowel sounds present, Soft to palpation, non-tender and No hepatosplenomegaly present PALPATION: Yes Soft to palpation and Yes No hepatosplenomegaly present Extremity: COMMON NORMALS: no pedal edema Neuro: COMMON NORMALS: patient oriented x3 Psych: COMMON NORMALS: mental status grossly normal Urinary Catheter Management^: P[place]: Cath Placed During This Visit: yes Reason for Continuing Indwelling Catheter: Acute Urinary Retention or Obstruction Urinary Catheter Date of Insertion: 06/02/21 Data : 06/13/21 04:40 06/13/21 04:40 A&P Assessment and plan (1) COVID-19 determined by clinical diagnostic criteria: Status: Acute (2) Hypoxia: Status: Acute (3) Pneumonia: Status: Acute (4) Pneumonia due to COVID-19 virus: Status: Acute (5) Diarrhea: Status: Acute (6) Sinus tachycardia: Status: Acute (7) On total parenteral nutrition (TPN): Status: Acute (8) T wave inversion in EKG: Status: Acute (9) BiPAP (biphasic positive airway pressure) dependence: Status: Acute (10) DVT (deep venous thrombosis): Status: Acute Qualifiers: DVT location: lower extremity Affected thrombotic vein of extremity: femoral Chronicity: unspecified Laterality: bilateral Qualified Code(s): I82.413 - Acute embolism and thrombosis of femoral vein, bilateral (11) Alkalosis, metabolic: Status: Acute Additional A&P Information 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 Currently on heated high flow 44 L, 100% FiO2, oxygen saturations are greater than 90, when speaking, oxygen saturations do drop into the low 80s Given her evidence of bilateral lower extremity DVT, cardiac echo normal EF and normal right ventricular size and function, recent CTA did show radiographic evidence of right heart strain recent, given earlier worsening of respiratory status.given findings, high clinical suspicion for new pulmonary emboli and/or micropulmonary emboli, with hypercoagulable state of COVID-19, nonetheless is on therapeutic Lovenox No clinical signs of active bacterial infection She is getting empirical Levaquin antibiotic regimen -6 L Started tapering off steroids reduced dexamethasone to 3 mg she has spent 3 weeks on 6 mg of Decadron, will need maintenance therapy of steroids to avoid adrenal crisis Discontinue diuretics due to alkalosis(my goal was to keep her in negative bal ance with ARDS however due to alkalosis I would discontinue diuretics for now) Continue multivitamins Status post remdesivir regimen Had a lengthy discussion with the family that we are not able to use ivermectin at this point, it was also discussed with medical at the committee and Dr. Porter spoke with the family as well Patient does not want to use chest physiotherapy however I have encouraged her to reconsider it I have changed her Mucomyst to as needed TPN rate increased to 30 mL/h, consult dietary Currently on full liquid diet She is happy with the progress and is reluctant to go back on BiPAP however I did clarify that she is agreeable to go back on BiPAP if her respiratory status worsens because her respiratory rate stays between 25-29 there is always a risk of muscle fatigue and worsening of hypoxia She wishes to stay DNR/DNI(she might opt for comfort care if her symptoms worsen, sister her DPOA is respecting her wishes, son Yinka who was involved in family meetings , kept him updated, he has been very emotional and has been struggling to accept guarded prognosis, of note, Ms. Villalobos lost her few weeks ago to COVID-[address] Toure was taking care of him. Pulmonary team has been consulted TPN increased rate to 30 mL/h on full liquid today patient wants to try milk products especially Glucerna She does not like the taste of Ensure Monitor blood sugars, monitor liver function, monitor for bloodstream infection order A1c Precedex has been turned off, her respiratory rate is ranging between 25-29, her anxiety is within control I would hold off on adding Precedex for now DVT: Bilateral lower extremity Considering involvement of common femoral veins I do have concerns regarding traveling of clot to iliac and then inferior vena cava CTA on 06/07/2020 did not show any pulmonary emboli but did show increasing right heart rate EKG showing diffuse T wave inversions Cardiac echocardiogram showed normal left ventricular size, systolic function, upper normal wall thickness, no regional wall motion abnormalities, ejection fraction 70%, diastolic dysfunction grade 1,, normal right ventricle size and function, left atrium mildly increased left atrial size Continue therapeutic Lovenox T wave inversion consistent with right heart strain however no PE detected on CTA troponin without significant delta, no active chest pain, however given worsening respiratory status, highly suspicious of pulmonary emboli, possible micropulmonary emboli Contraction alkalosis -6 L, hold diuretics for now Currently on clears, TPN DNR/DNI Respiratory therapist updated Plan for today, continue antibiotics, continue steroids, continue Lovenox, monitor respiratory status, continue TPN, encourage oral intake Attestations Medical Necessity Statement*: Patient requires hospitalization, for acute respiratory failure, acute respiratory distress secondary to COVID-19 infection Coding Level of Care Code 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
--- NOTE | 2021-06-13 14:31 | PC.NUTR ---
TPN follow up: TPN at 50 ml/hr providing 1056 kcal, 60 g protein, 240 g dextrose. Additional 408 kcal, 120 g dextrose from levaquin-D5W. Will add no milk to diet information per pt request, as well as no strawberry for Glucerna flavors. Prefers chocolate. 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 Limited PO intakes documented since diet advanced. When pt able to consistently consume oral diet, suggest begin to taper down TPN rate. Finally, recommend obtain current wt as most recent weight in chart is from 05/18/21. See full RD assessment for further details.
[2021-06-13] MEDS: dexamethasone 4 mg/mL INJ 3 MG IVP (15:37)
[2021-06-13 17:23] LABS: Glucose Point of Care 144 mg/dL (70-110)
--- NOTE | 2021-06-13 19:00 | PC.NURSE ---
Bedside report received from Evy ECHEVERRIA. Patient is resting in bed watching TV. A & O, no C/O of pain or other needs at this time. Nurse to continue to monitor.
[2021-06-13] MEDS: AA-Dex 5%-20% w/Lytes 1,000 ML with multivitamin inj 10 ML 50 ML IV (20:17)
[2021-06-13] MEDS: acetylcysteine 200 mg/mL SDV 4 mL 100 MG INHALATION (21:01)
[2021-06-13 21:05] LABS: Glucose Point of Care 153 mg/dL (70-110)
[2021-06-13 22:05] LABS: Estmated Average Glucose 117; Hemoglobin A1C 5.7 % (4.0-6.0)
[2021-06-14] VITALS (17 sets, daily range): BP systolic 107–125; BP diastolic 57–87; PULSE 77–124; RESP 18–28; TEMP 36.9–37.3; O2SAT 86–92
[2021-06-14] MEDS: enoxaparin 80 mg/0.8 mL Syringe SUBCUT ×3 (01:18→23:12)
[2021-06-14 06:18] LABS: Basophils # 0.1 10^3/uL (0.0-0.1); Basophils % 0.3 %; Eosinophils # 0.2 10^3/uL (0.0-0.8); Eosinophils % 1.4 %; Hematocrit 36.8 % (37.0-47.0); Hemoglobin 11.3 g/dL (11.5-15.3); Lymphocytes # 1.5 10^3/uL (0.8-4.8); Lymphocytes % 8.9 %; Mean Corpuscular HGB Conc 30.7 g/dL (30.0-36.0); Mean Corpuscular Volume 94.6 fl (81-99); Mean Platelet Volume 8.9 fL (7.4-10.4); Monocytes % 5.7 %; Neutrophils # 13.71 10^3/uL (1.8-7.7); Neutrophils % 81.5 %; Nucleated Red Blood Cells % 0 %; Platelet Count 411 10^3/cmm (130-400); Red Blood Count 3.89 10^6/uL (4.1-5.3); Red Cell Distribution Width 14.5 % (12.1-15.1); White Blood Count 16.8 10^3/uL (4.0-10.0)
[2021-06-14 06:48] LABS: Alanine Aminotransferase 34 U/L (0-33); Albumin Level 2.9 g/dL (3.5-5.2); Alkaline Phosphatase 80 IU/L (35-105); Anion Gap 8.9 (5-19); Aspartate Amino Transferase 24 U/L (0-32); Blood Urea Nitrogen 22 mg/dL (8-23); Carbon Dioxide 34 mmol/L (22-29); Chloride 100 mmol/L (98-107); Creatinine Clr Calc Pharmacy 151.0285; Globulin 3.4 g/dL (1.3-4.6); Glomerular Filtration Rate 160.7 mL/min (90-130); Glucose 125 mg/dL (65-115); Magnesium 2.1 mg/dL (1.7-2.3); Osmolality Calculated 293 mOsm/kg (285-295); Phosphorus 2.7 mg/dL (2.5-4.5); Potassium 3.9 mmol/L (3.5-5.1); Sodium 139 mmol/L (136-145); Total Bilirubin 0.3 mg/dL (0.15-1.2); Total Protein 6.3 g/dL (6.6-8.7)
--- NOTE | 2021-06-14 07:15 | PC.NURSE ---
Shift Rounds: Patient awake and alert. Requested bedpan. Patient currently on high flow oxygen.
[2021-06-14] MEDS: levalbuterol 0.63 mg/3 mL Neb INHALATION (07:32)
[2021-06-14 07:37] LABS: Glucose Point of Care 127 mg/dL (70-110)
[2021-06-14] MEDS: nystatin 100,000 unit/mL UDC 5 mL 100000 UNIT PO ×3 (10:01→20:05)
--- NOTE | 2021-06-14 10:47 | PC.OT ---
OT TREATMENT ATTEMPTED THIS A.M. PATIENT REPORTS THAT SHE HAS BEEN DOING HER ARM AND LEG EXERCISES; EVEN DURING THE NIGHT WHEN SHE COULDN'T SLEEP. STATES SHE IS TOO TIRED NOW TO PERFORM O.T. TREATMENT. AGREEABLE TO P.M. ATTEMPT.
[2021-06-14] MEDS: levofloxacin-dextrose 5 % 750 MG/150 ML PREMIX 100 MG IV (11:09)
--- NOTE | 2021-06-14 11:20 | PM.PN ---
Subjective Subjective: Interval history: Patient was seen this morning, she is on high flow, 100% FiO2, 45 L, she tells me that her appetite is slightly better compared to yesterday, no nausea, no vomiting, no abdominal pain, she was able to sit in to a chair yesterday for a significant portion of the day, Vitals/I&O/Wt Last Vital Signs Temp 98.4 F 06/14/21 08:00 Pulse 84 06/14/21 08:00 Resp 26 H 06/14/21 08:00 BP 107/87 06/14/21 08:00 Pulse Ox 91 06/14/21 08:00 06/13/21 06/14/21 06/14/21 22:59 06:59 14:59 Intake Total 866 / 1016 50 / 1066 Output Total 450 / 450 Balance 866 / 1016 -400 / 616 Physical Exam Const: COMMON NORMALS: no acute distress GENERAL APPEARANCE: frail appearing Resp: COMMON NORMALS: normal respiratory effort, No retractions and No use of accessory muscles AUSCULTATION: diminished lung sounds diffuse Cardio: COMMON NORMALS: regular rate, regular rhythm, S1 normal heart sound present and S2 normal heart sound present RATE: regular rate RHYTHM: regular rhythm HEART SOUNDS: S1 normal heart sound present and S2 normal heart sound present GI: COMMON NORMALS: Normal to inspection, nondistended, normoactive bowel sounds present, Soft to palpation and non-tender PALPATION: Yes Soft to palpation Extremity: COMMON NORMALS: no pedal edema Psych: COMMON NORMALS: mental status grossly normal Urinary Catheter Management^: [place]: Cath Placed During This Visit: yes Reason for Continuing Indwelling Catheter: Acute Urinary Retention or Obstruction Urinary Catheter Date of Insertion: 06/02/21 Data : 06/14/21 05:55 06/14/21 05:55 A&P Assessment and plan (1) COVID-19 determined by clinical diagnostic criteria: Status: Acute (2) Hypoxia: Status: Acute (3) Pneumonia: Status: Acute (4) Pneumonia due to COVID-19 virus: Status: Acute (5) Diarrhea: Status: Acute (6) Sinus tachycardia: Status: Acute (7) On total parenteral nutrition (TPN): Status: Acute (8) T wave inversion in EKG: Status: Acute (9) BiPAP (biphasic positive airway pressure) dependence: Status: Acute (10) DVT (deep venous thrombosis): Status: Acute Qualifiers: DVT location: lower extremity Affected thrombotic vein of extremity: femoral Chronicity: unspecified Laterality: bilateral Qualified Code(s): I82.413 - Acute embolism and thrombosis of femoral vein, bilateral (11) Alkalosis, metabolic: Status: Acute Additional A&P Information 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 Currently on heated high flow 44 L, 100% FiO2, oxygen saturations are greater than 90, when speaking, oxygen saturations do drop into the low 80s White blood cell count 16.8, neutrophilic, afebrile overnight Given her evidence of bilateral lower extremity DVT, failed anticoagulation on Xarelto, cardiac echo normal EF and normal right ventricular size and function, recent CTA did show radiographic evidence of right heart strain recent, given earlier worsening of respiratory status.given findings, high clinical suspicion for new pulmonary emboli and/or micropulmonary emboli, with hypercoagulable state of COVID-19, nonetheless is on therapeutic Lovenox No clinical signs of active bacterial infection She is getting empirical Levaquin antibiotic regimen -5.5 L Started tapering off steroids reduced dexamethasone to 3 mg she has spent 3 weeks on 6 mg of Decadron, will need maintenance therapy of steroids to avoid adrenal crisis Discontinue diuretics due to alkalosis(my goal was to keep her in negative balance with ARDS however due to alkalosis I would discontinue diuretics for now) Continue multivitamins Status post remdesivir regimen Had a lengthy discussion with the family that we are not able to use ivermectin at this point, it was also discussed with medical at the committee and Dr. Porter spoke with the family as well Patient does not want to use chest physiotherapy however I have encouraged her to reconsider it I have changed her Mucomyst to as needed TPN rate increased to 50 mL/h, A1c 5.7, monitor blood sugars, consult dietary Currently on full liquid diet She is happy with the progress and is reluctant to go back on BiPAP however I did clarify that she is agreeable to go back on BiPAP if her respiratory status worsens because her respiratory rate stays between 25-29 there is always a risk of muscle fatigue and worsening of hypoxia She wishes to stay DNR/DNI(she might opt for comfort care if her symptoms worsen, sister her DPOA is respecting her wishes, son Yinka who was involved in family meetings , kept him updated, he has been very emotional and has been struggling to accept guarded prognosis, of note, Ms. Villalobos lost her few weeks ago to COVID-[address] Toure was taking care of him. Pulmonary team has been consulted TPN increased rate to 50 mL/h on full liquid today patient wants to try milk products especially Glucerna She does not like the taste of Ensure Monitor blood sugars, monitor liver function, monitor for bloodstream infection Precedex has been turned off, her anxiety is within control I would hold off on adding Precedex for now DVT: Bilateral lower extremity Developed bilateral extremity DVTs on Xarelto currently on therapeutic Lovenox Considering involvement of common femoral veins I do have concerns regarding traveling of clot to iliac and then inferior vena cava CTA on 06/07/2020 did not show any pulmonary emboli but did show increasing right heart rate EKG showing diffuse T wave inversions Cardiac echocardiogram showed normal left ventricular size, systolic function, upper normal wall thickness, no regional wall motion abnormalities, ejection fraction 70%, diastolic dysfunction grade 1,, normal right ventricle size and function, left atrium mildly increased left atrial size Continue therapeutic Lovenox T wave inversion consistent with right heart strain however no PE detected on CTA troponin without significant delta, no active chest pain, however given worsening respiratory status, highly suspicious of pulmonary emboli, possible micropulmonary emboli Contraction alkalosis -5.5 L, hold diuretics for now Currently on clears, TPN DNR/DNI Respiratory therapist updated Plan for today, continue antibiotics, continue steroids, continue Lovenox, monitor respiratory status, continue TPN, encourage oral intake, PT OT, WARP TESTER select is not a reasonable option Attestations Medical Necessity Statement*: Patient requires hospitalization for acute respiratory distress secondary to COVID-19, acute hypoxic respiratory failure, TPN dependent Coding Level of Care Code 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 Diagnoses COVID-19 determined by clinical diagnostic criteria U07.1 Hypoxia R09.02 Pneumonia J18.9 Pneumonia due to COVID-19 virus U07.1; J12.82 Diarrhea R19.7 Sinus tachycardia R00.0 On total parenteral nutrition (TPN) Z78.9 T wave inversion in EKG R94.31 BiPAP (biphasic positive airway pressure) dependence Z99.89 DVT (deep venous thrombosis) I82.413 DVT location: lower extremity Affected thrombotic vein of extremity: femoral Chronicity: unspecified Laterality: bilateral Alkalosis, metabolic E87.3
[2021-06-14] MEDS: CLONazepam 0.5 mg Tablet 0.25 MG PO ×2 (12:50→21:01)
--- NOTE | 2021-06-14 15:26 | PC.OT ---
OT TREATMENT ATTEMPTED AGAIN THIS P.M. PATIENT DECLINES TREATMENT AT THIS TIME. STATES, I'M NOT GIVING UP BUT I JUST CAN'T TODAY. WILL ATTEMPT AGAIN IN A.M.
[2021-06-14] MEDS: dexamethasone 4 mg/mL INJ 3 MG IVP (16:55)
[2021-06-14 17:02] LABS: Glucose Point of Care 127 mg/dL (70-110)
[2021-06-14] MEDS: AA-Dex 5%-20% w/Lytes 1,000 ML with multivitamin inj 10 ML 50 ML IV (18:05)
[2021-06-14] MEDS: acetylcysteine 200 mg/mL SDV 4 mL 100 MG INHALATION (19:23)
[2021-06-14 20:48] LABS: Glucose Point of Care 160 mg/dL (70-110)
[2021-06-15] VITALS (11 sets, daily range): BP systolic 109–135; BP diastolic 71–94; PULSE 85–117; RESP 18–28; TEMP 36.6–37.1; O2SAT 81–95
--- NOTE | 2021-06-15 05:49 | PC.NURSE ---
Shift Note Frequent safety and comfort rounds continue. Orders and/or nursing care completed as indicated. Patient monitored for response to intervention and treatment(s). Education provided includes oxygen. Patient and/or business development representative verbalized understanding. Will continue to monitor.
[2021-06-15 07:21] LABS: Glucose Point of Care 127 mg/dL (70-110)
[2021-06-15 08:01] LABS: Basophils # 0.1 10^3/uL (0.0-0.1); Basophils % 0.4 %; Eosinophils # 0.2 10^3/uL (0.0-0.8); Eosinophils % 1.7 %; Hematocrit 38.9 % (37.0-47.0); Hemoglobin 11.8 g/dL (11.5-15.3); Lymphocytes # 1.4 10^3/uL (0.8-4.8); Lymphocytes % 10.4 %; Mean Corpuscular HGB Conc 30.3 g/dL (30.0-36.0); Mean Corpuscular Hemoglobin 29.4 pg (28.0-34.0); Monocytes # 0.9 10^3/uL (0.2-0.9); Monocytes % 6.2 %; Neutrophils # 10.88 10^3/uL (1.8-7.7); Neutrophils % 78.5 %; Nucleated Red Blood Cells % 0 %; Platelet Count 400 10^3/cmm (130-400); Red Blood Count 4.01 10^6/uL (4.1-5.3); Red Cell Distribution Width 14.6 % (12.1-15.1); White Blood Count 13.9 10^3/uL (4.0-10.0)
[2021-06-15] MEDS: nystatin 100,000 unit/mL UDC 5 mL 100000 UNIT PO ×4 (08:18→19:25)
[2021-06-15 08:43] LABS: Alanine Aminotransferase 50 U/L (0-33); Albumin Level 2.8 g/dL (3.5-5.2); Alkaline Phosphatase 83 IU/L (35-105); Blood Urea Nitrogen 17 mg/dL (8-23); Calcium 8.9 mg/dL (8.5-10.5); Carbon Dioxide 32 mmol/L (22-29); Chloride 99 mmol/L (98-107); Globulin 3.6 g/dL (1.3-4.6); Glucose 113 mg/dL (65-115); Magnesium 2.1 mg/dL (1.7-2.3); Osmolality Calculated 288 mOsm/kg (285-295); Phosphorus 2.9 mg/dL (2.5-4.5); Sodium 138 mmol/L (136-145); Total Bilirubin 0.3 mg/dL (0.15-1.2); Total Protein 6.4 g/dL (6.6-8.7)
[2021-06-15] MEDS: CLONazepam 0.5 mg Tablet PO (08:43)
[2021-06-15 08:51] LABS: Anion Gap 11.3 (5-19); Aspartate Amino Transferase 34 U/L (0-32); Potassium 4.3 mmol/L (3.5-5.1)
[2021-06-15 10:38] LABS: Glucose Point of Care 140 mg/dL (70-110)
[2021-06-15] MEDS: enoxaparin 80 mg/0.8 mL Syringe SUBCUT ×2 (11:36→23:30)
--- NOTE | 2021-06-15 13:02 | PM.PN ---
Subjective Subjective: Interval history: Patient was seen this morning, she remains 100% FiO2, her only complaint is is that she continues to have these ulcers in her mouth, specifically on the tongue, that are precluding her from trying any solid foods, denies any difficulty swallowing, but does has lesions on her tongue that are bothering her and are quite sore. She is just frustrated yesterday that she could not get her heart rate down, she was a bit short of breath, they could not get her oxygen levels down Vitals/I&O/Wt Last Vital Signs Temp 98.1 F 06/15/21 11:54 Pulse 117 H 06/15/21 11:54 Resp 25 H 06/15/21 11:54 BP 114/79 06/15/21 11:54 Pulse Ox 91 06/15/21 11:54 06/14/21 06/15/21 06/15/21 22:59 06:59 14:59 Intake Total 1010 / 1160 300 / 1460 120 / 120 Output Total 640 / 640 500 / 1140 Balance 370 / 520 -200 / 320 120 / 120 Physical Exam Const: COMMON NORMALS: no acute distress GENERAL APPEARANCE: frail appearing ORIENTATION/CONSCIOUSNESS: Yes awake, Yes oriented to person, Yes oriented to place and Yes oriented to time Chest: COMMONS NORMALS: normal inspection of the chest Resp: COMMON NORMALS: normal respiratory effort, No retractions and No use of accessory muscles AUSCULTATION: crackles Cardio: COMMON NORMALS: regular rate, regular rhythm, S1 normal heart sound present and S2 normal heart sound present RATE: regular rate RHYTHM: regular rhythm HEART SOUNDS: S1 normal heart sound present and S2 normal heart sound present GI: COMMON NORMALS: Normal to inspection, nondistended, normoactive bowel sounds present, Soft to palpation and non-tender PALPATION: Yes Soft to palpation : COMMON NORMALS: Yes no CVA tenderness BLADDER/KIDNEY EXAM: Yes no CVA tenderness Back/Pelvis: COMMON NORMALS: no CVA tenderness Extremity: COMMON NORMALS: normal to inspection Neuro: SENSORIUM/ORIENTATION: Yes oriented to person, Yes oriented to place and Yes oriented to time Urinary Catheter Management^: [place]: Cath Placed During This Visit: yes Reason for Continuing Indwelling Catheter: Accurate Measurement of Urinary Output in Critically Ill Patients Urinary Catheter Date of Insertion: 06/02/21 Data : 06/15/21 06:45 06/15/21 06:45 A&P Assessment and plan (1) COVID-19 determined by clinical diagnostic criteria: Status: Acute (2) Hypoxia: Status: Acute (3) Pneumonia: Status: Acute (4) Pneumonia due to COVID-19 virus: Status: Acute (5) Diarrhea: Status: Acute (6) Sinus tachycardia: Status: Acute (7) On total parenteral nutrition (TPN): Status: Acute (8) T wave inversion in EKG: Status: Acute (9) BiPAP (biphasic positive airway pressure) dependence: Status: Acute (10) DVT (deep venous thrombosis): Status: Acute Qualifiers: DVT location: lower extremity Affected thrombotic vein of extremity: femoral Chronicity: unspecified Laterality: bilateral Qualified Code(s): I82.413 - Acute embolism and thrombosis of femoral vein, bilateral (11) Alkalosis, metabolic: Status: Acute Additional A&P Information 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 Currently on heated high flow 44 L, 100% FiO2, oxygen saturations are greater than 90, when speaking, oxygen saturations do drop into the low 80s White blood cell count 13.9, neutrophilic, afebrile overnight Given her evidence of bilateral lower extremity DVT, failed anticoagulation on Xarelto, cardiac echo normal EF and normal right ventricular size and function, recent CTA did show radiographic evidence of right heart strain recent, given earlier worsening of respiratory status.given findings, high clinical suspicion for new pulmonary emboli and/or micropulmonary emboli, with hypercoagulable state of COVID-19, nonetheless is on therapeutic Lovenox No clinical signs of active bacterial infection Stop Levaquin -5.0 L Started tapering off steroids reduced dexamethasone to 3 mg she has spent 3 weeks on 6 mg of Decadron, will need maintenance therapy of steroids to avoid adrenal crisis Discontinue diuretics due to alkalosis(my goal was to keep her in negative balance with ARDS however due to alkalosis I would discontinue diuretics for now) Continue multivitamins Status post remdesivir regimen Had a lengthy discussion with the family that we are not able to use ivermectin at this point, it was also discussed with medical at the committee and Dr. Porter spoke with the family as well Patient does not want to use chest physiotherapy however I have encouraged her to reconsider it I have changed her Mucomyst to as needed TPN rate increased to 50 mL/h, A1c 5.7, monitor blood sugars, consult dietary Currently on full liquid diet Cool ice cream pops, for soothing of tongue lesions She is happy with the progress and is reluctant to go back on BiPAP however I did clarify that she is agreeable to go back on BiPAP if her respiratory status worsens because her respiratory rate stays between 25-29 there is always a risk of muscle fatigue and worsening of hypoxia She wishes to stay DNR/DNI(she might opt for comfort care if her symptoms worsen, sister her DPOA is respecting her wishes, son Yinka who was involved in family meetings , kept him updated, he has been very emotional and has been struggling to accept guarded prognosis, of note, Ms. Villalobos lost her few weeks ago to COVID-[address] Toure was taking care of him. Pulmonary team has been consulted Aphthous ulcers, try oral Decadron swish and swallow Anxiety, increase alprazolam 2.5 twice daily TPN increased rate to 50 mL/h on full liquid today patient wants to try milk products especially Glucerna Try cool ice cream pops She does not like the taste of Ensure Monitor blood sugars, monitor liver function, monitor for bloodstream infection DVT: Bilateral lower extremity Developed bilateral extremity DVTs on Xarelto currently on therapeutic Lovenox Considering involvement of common femoral veins I do have concerns regarding traveling of clot to iliac and then inferior vena cava CTA on 06/07/2020 did not show any pulmonary emboli but did show increasing right heart rate EKG showing diffuse T wave inversions Cardiac echocardiogram showed normal left ventricular size, systolic function, upper normal wall thickness, no regional wall motion abnormalities, ejection fraction 70%, diastolic dysfunction grade 1,, normal right ventricle size and function, left atrium mildly increased left atrial size Continue therapeutic Lovenox T wave inversion consistent with right heart strain however no PE detected on CTA troponin without significant delta, no active chest pain, however given worsening respiratory status, highly suspicious of pulmonary emboli, possible micropulmonary emboli Contraction alkalosis -5.0 L, hold diuretics for now Currently on clears, TPN DNR/DNI Respiratory therapist updated Plan for today, try oral steroids for oral lesions, continue Lovenox, monitor respiratory status, continue TPN Attestations Medical Necessity Statement*: Patient requires hospitalization for acute respiratory failure secondary COVID-19 Coding Level of Care Code 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
[2021-06-15] MEDS: dexamethasone 4 mg/mL INJ 3 MG IVP (14:17)
[2021-06-15] MEDS: lanolin oint 7 gm 1 APPLIC TOPICAL (14:34)
[2021-06-15] MEDS: AA-Dex 5%-20% w/Lytes 1,000 ML with multivitamin inj 10 ML 50 ML IV (14:46)
[2021-06-15 16:34] LABS: Glucose Point of Care 148 mg/dL (70-110)
--- NOTE | 2021-06-15 17:19 | PC.NUTR ---
TPN follow up: Pt has only consumed 25% X 1 full liquid meal since last review. Per nurse, pt unable to eat or drink anything other than popsicles at this time d/t mouth pain. Oral decadron swish & swallow ordered, anticipate improvement in po. If po not improving within 1-3 days, recommend increase in TPN rate to 83 ml/hr, to provide 1760 kcal, 100 g protein, 400 g dextrose. However, po intake preferred, with gradual decrease in TPN as po improves. Also continue to recommend obtaining current weight. See full RD assessment for further details.
--- NOTE | 2021-06-15 19:42 | PC.NURSE ---
Patient had optifoam below nose and above upper lip due to skin breakdown. This was replaced. Patient has no complaints at this time and says that she feels better today than she did yesterday
[2021-06-15 20:36] LABS: Glucose Point of Care 165 mg/dL (70-110)
[2021-06-16] VITALS (12 sets, daily range): BP systolic 101–126; BP diastolic 63–77; PULSE 98–113; RESP 18–30; TEMP 36.6–37; O2SAT 89–96
--- NOTE | 2021-06-16 04:09 | PC.NURSE ---
Shift Note Frequent safety and comfort rounds continue. Orders and/or nursing care completed as indicated. Patient monitored for response to intervention and treatment(s). Education provided includes oxygen safety and shelter monitor. Patient and/or sales representative consultant verbalized understanding. Will continue to monitor.
[2021-06-16 05:23] LABS: Basophils # 0.1 10^3/uL (0.0-0.1); Basophils % 0.4 %; Eosinophils # 0.1 10^3/uL (0.0-0.8); Hematocrit 37.6 % (37.0-47.0); Hemoglobin 11.5 g/dL (11.5-15.3); Lymphocytes # 1.6 10^3/uL (0.8-4.8); Mean Corpuscular HGB Conc 30.6 g/dL (30.0-36.0); Mean Corpuscular Hemoglobin 29.3 pg (28.0-34.0); Mean Corpuscular Volume 95.7 fl (81-99); Mean Platelet Volume 8.8 fL (7.4-10.4); Monocytes # 0.9 10^3/uL (0.2-0.9); Monocytes % 6.7 %; Neutrophils # 10.48 10^3/uL (1.8-7.7); Neutrophils % 76.8 %; Nucleated Red Blood Cells % 0 %; Platelet Count 384 10^3/cmm (130-400); Red Blood Count 3.93 10^6/uL (4.1-5.3); Red Cell Distribution Width 14.6 % (12.1-15.1); White Blood Count 13.6 10^3/uL (4.0-10.0)
[2021-06-16 05:41] LABS: Alanine Aminotransferase 58 U/L (0-33); Albumin Level 2.8 g/dL (3.5-5.2); Alkaline Phosphatase 73 IU/L (35-105); Anion Gap 8.2 (5-19); Aspartate Amino Transferase 33 U/L (0-32); Blood Urea Nitrogen 17 mg/dL (8-23); Calcium 8.5 mg/dL (8.5-10.5); Carbon Dioxide 38 mmol/L (22-29); Chloride 98 mmol/L (98-107); Globulin 3.2 g/dL (1.3-4.6); Glucose 109 mg/dL (65-115); Magnesium 2.2 mg/dL (1.7-2.3); Osmolality Calculated 292 mOsm/kg (285-295); Phosphorus 2.9 mg/dL (2.5-4.5); Potassium 4.2 mmol/L (3.5-5.1); Sodium 140 mmol/L (136-145); Total Bilirubin 0.2 mg/dL (0.15-1.2)
[2021-06-16 06:43] LABS: Glucose Point of Care 116 mg/dL (70-110)
[2021-06-16] MEDS: nystatin 100,000 unit/mL UDC 5 mL 100000 UNIT PO ×4 (10:00→19:54)
[2021-06-16] MEDS: levalbuterol 0.63 mg/3 mL Neb INHALATION ×2 (10:04→20:11)
--- NOTE | 2021-06-16 10:59 | PC.CHAP ---
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 cloth grader visit [] Patient/Family/Request visit [] Outpatient visit [] Follow-up visit [] Physician referral [] Code/Alert [x] Routine visit [] Staff referral [] Actively dying [] Patient sleeping [] Family support [] [] Out of room [] Palliative care [] [] Receiving care in room [] Pre-surgical visit [] Trauma [] Long length of stay [] ICU visit [] Other: Relational/Emotional Strength [] Patient feels connected with others/family/visitors/staff [] Distress [] Loneliness/isolation [] Abandonment Spirituality of Patient [x] Person of Caro [] Attends Yazidi of their Caro [x] Believes in Prayer [] Reads Bible or Orthodox materials [] There are Spiritual issues to be addressed Office Equipment Mechanic Interventions [x] Prayer [x] Active listening [x] Non-anxious presence [] Spiritual/emotional support [] Crisis/trauma care [] Spiritual counseling [] Bereavement support [] Provided bereavement packet [] Provided Bible/devotional materials [] Provided toy/stuffed animal, coloring book to patient or family member [] Provided Communion [] Anointing/[place] [] Salvation [x] Completed spiritual assessment [] Other: Impact on Illness or Injury [] Angry [] Fearful [] Anxious [] Often cries [] Exhaustion [] Unable to work [] Unable to attend orthodoxy [] Unable to walk/stand [] Unable to read [] Unable to drive [] Unable to eat/drink [] Unable to sleep [] Unable to be with family [] Patient intubated [] Other: Summary Office Equipment Mechanic prayed with patient. Time spent with patient 10 minutes.
--- NOTE | 2021-06-16 11:30 | P.PN_ITS ---
Subjective Subjective: Interval history: Patient was seen this morning, she tells me that her oral lesions with the steroids have improved, she is able to swallow more, she feels that her breathing has also improved, afebrile overnight, no chest pain, was able to sit in a chair yesterday Vitals/I&O/Wt Last Vital Signs Temp 97.8 F 06/16/21 03:49 Pulse 110 H 06/16/21 10:05 Resp 24 H 06/16/21 10:05 BP 101/77 06/16/21 03:49 Pulse Ox 91 06/16/21 10:05 06/15/21 06/16/21 06/16/21 22:59 06:59 14:59 Intake Total 100 / 1330 300 / 1630 Output Total 400 / 400 Balance 100 / 1330 -100 / 1230 Physical Exam Const: COMMON NORMALS: no acute distress GENERAL APPEARANCE: ill appearing ORIENTATION/CONSCIOUSNESS: Yes awake, Yes oriented to person, Yes oriented to place and Yes oriented to time Resp: COMMON NORMALS: normal respiratory effort and No retractions AUSCULTATION: diminished lung sounds diffuse Cardio: COMMON NORMALS: regular rate, regular rhythm, S1 normal heart sound present and S2 normal heart sound present RATE: regular rate RHYTHM: regular rhythm HEART SOUNDS: S1 normal heart sound present and S2 normal heart sound present GI: COMMON NORMALS: Normal to inspection, nondistended, normoactive bowel sounds present, Soft to palpation and non-tender PALPATION: Yes Soft to palpation Extremity: COMMON NORMALS: no pedal edema Neuro: SENSORIUM/ORIENTATION: Yes oriented to person, Yes oriented to place and Yes oriented to time Urinary Catheter Management^: [place]: Cath Placed During This Visit: yes Reason for Continuing Indwelling Catheter: Accurate Measurement of Urinary Output in Critically Ill Patients Urinary Catheter Date of Insertion: 06/02/21 Data : 06/16/21 04:50 06/16/21 04:50 A&P Assessment and plan (1) COVID-19 determined by clinical diagnostic criteria: Status: Acute (2) Hypoxia: Status: Acute (3) Pneumonia: Status: Acute (4) Pneumonia due to COVID-19 virus: Status: Acute (5) Diarrhea: Status: Acute (6) Sinus tachycardia: Status: Acute (7) On total parenteral nutrition (TPN): Status: Acute (8) T wave inversion in EKG: Status: Acute (9) BiPAP (biphasic positive airway pressure) dependence: Status: Acute (10) DVT (deep venous thrombosis): Status: Acute Qualifiers: DVT location: lower extremity Affected thrombotic vein of extremity: femoral Chronicity: unspecified Laterality: bilateral Qualified Code(s): I82.413 - Acute embolism and thrombosis of femoral vein, bilateral (11) Alkalosis, metabolic: Status: Acute Additional A&P Information 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 Currently on heated high flow 45 L, 90% FiO2, oxygen saturations are greater than 90, when speaking, oxygen saturations do drop into the low 80s White blood cell count 13.6, neutrophilic, afebrile overnight Given her evidence of bilateral lower extremity DVT, failed anticoagulation on Xarelto, cardiac echo normal EF and normal right ventricular size and function, recent CTA did show radiographic evidence of right heart strain recent, given earlier worsening of respiratory status.given findings, high clinical suspicion for new pulmonary emboli and/or micropulmonary emboli, with hypercoagulable state of COVID-19, nonetheless is on therapeutic Lovenox No clinical signs of active bacterial infection -2.8 L Started tapering off steroids reduced dexamethasone to 3 mg she has spent 3 weeks on 6 mg of Decadron, will need maintenance therapy of steroids to avoid adrenal crisis Discontinue diuretics due to alkalosis(my goal was to keep her in negative balance with ARDS however due to alkalosis I would discontinue diuretics for now) Continue multivitamins Status post remdesivir regimen Had a lengthy discussion with the family that we are not able to use ivermectin at this point, it was also discussed with medical at the committee and Dr. Porter spoke with the family as well Patient does not want to use chest physiotherapy however I have encouraged her to reconsider it I have changed her Mucomyst to as needed TPN rate increased to 50 mL/h, A1c 5.7, monitor blood sugars, consult dietary Currently on full liquid diet Cool ice cream pops, for soothing of tongue lesions She is happy with the progress and is reluctant to go back on BiPAP however I did clarify that she is agreeable to go back on BiPAP if her respiratory status worsens because her respiratory rate stays between 25-29 there is always a risk of muscle fatigue and worsening of hypoxia She wishes to stay DNR/DNI(she might opt for comfort care if her symptoms worsen, sister her DPOA is respecting her wishes, son Yinka who was involved in family meetings , kept him updated, he has been very emotional and has been struggling to accept guarded prognosis, of note, Ms. Villalobos lost her few weeks ago to COVID-[address] Toure was taking care of him. Pulmonary team has been consulted Aphthous ulcers, try oral Decadron swish and swallow Anxiety, increase alprazolam 0.5 twice daily TPN increased rate to 50 mL/h on full liquid today patient wants to try milk products especially Glucerna Try cool ice cream pops She does not like the taste of Ensure Monitor blood sugars, monitor liver function, monitor for bloodstream infection DVT: Bilateral lower extremity Developed bilateral extremity DVTs on Xarelto currently on therapeutic Lovenox Considering involvement of common femoral veins I do have concerns regarding tr aveling of clot to iliac and then inferior vena cava CTA on 06/07/2020 did not show any pulmonary emboli but did show increasing right heart rate EKG showing diffuse T wave inversions Cardiac echocardiogram showed normal left ventricular size, systolic function, upper normal wall thickness, no regional wall motion abnormalities, ejection fraction 70%, diastolic dysfunction grade 1,, normal right ventricle size and function, left atrium mildly increased left atrial size Continue therapeutic Lovenox T wave inversion consistent with right heart strain however no PE detected on CTA troponin without significant delta, no active chest pain, however given worsening respiratory status, highly suspicious of pulmonary emboli, possible micropulmonary emboli Contraction alkalosis -2.8 L, hold diuretics for now Currently on clears, TPN DNR/DNI Respiratory therapist updated Plan for today, continue to encourage oral intake, wean oxygen as tolerated, plan on weaning TPN in the next 24 hours if her oral intake continues to improve Attestations Medical Necessity Statement*: Requires hospitalization and due to acute respiratory failure sec to COVID-19 Coding Level of Care Code Acute Food And Beverage Associate for [facility] Diagnoses COVID-19 determined by clinical diagnostic criteria U07.1 Hypoxia R09.02 Pneumonia J18.9 Pneumonia due to COVID-19 virus U07.1; J12.82 Diarrhea R19.7 Sinus tachycardia R00.0 On total parenteral nutrition (TPN) Z78.9 T wave inversion in EKG R94.31 BiPAP (biphasic positive airway pressure) dependence Z99.89 DVT (deep venous thrombosis) I82.413 DVT location: lower extremity Affected thrombotic vein of extremity: femoral Chronicity: unspecified Laterality: bilateral Alkalosis, metabolic E87.3
[2021-06-16 11:59] LABS: Glucose Point of Care 144 mg/dL (70-110)
[2021-06-16] MEDS: AA-Dex 5%-20% w/Lytes 1,000 ML with multivitamin inj 10 ML 50 ML IV (13:29)
[2021-06-16] MEDS: enoxaparin 80 mg/0.8 mL Syringe SUBCUT ×2 (13:38→23:29)
[2021-06-16] MEDS: dexamethasone 4 mg/mL INJ 3 MG IVP (15:53)
--- NOTE | 2021-06-16 19:39 | PC.NURSE ---
Shift Note Frequent safety and comfort rounds continue. Orders and/or nursing care completed as indicated. Patient monitored for response to intervention and treatment(s). Education provided includes treatment plan, medications. Patient and/or medical device sales representative verbalizes and demonstrates understanding. Will continue to monitor.
--- NOTE | 2021-06-16 20:42 | PC.NURSE ---
Patient was given sponge bath and turned onto her left side with pillows placed. Patient's sacrum and buttocks had non-blanchable redness. Patient's oxygen saturation drops with turning. Patient quickly recovers to normal oxygen saturation. Will turn patient as/when patient is able to tolerate it.
[2021-06-16 22:42] LABS: Glucose Point of Care 158 mg/dL (70-110)
[2021-06-17] VITALS (18 sets, daily range): BP systolic 117–136; BP diastolic 65–84; PULSE 91–126; RESP 18–34; TEMP 36.5–37.1; O2SAT 85–98
--- NOTE | 2021-06-17 03:14 | PC.NURSE ---
Shift Note Frequent safety and comfort rounds continue. Orders and/or nursing care completed as indicated. Patient monitored for response to intervention and treatment(s). Education provided includes turn and reposition schedule. Patient and/or field marketing representative verbalized understanding. Will continue to monitor.
[2021-06-17] MEDS: levalbuterol 0.63 mg/3 mL Neb INHALATION ×3 (04:32→13:40)
[2021-06-17 06:30] LABS: Glucose Point of Care 122 mg/dL (70-110)
[2021-06-17 07:19] LABS: Basophils # 0.1 10^3/uL (0.0-0.1); Basophils % 0.3 %; Eosinophils # 0.2 10^3/uL (0.0-0.8); Eosinophils % 1.4 %; Hematocrit 38.1 % (37.0-47.0); Hemoglobin 11.7 g/dL (11.5-15.3); Lymphocytes # 1.5 10^3/uL (0.8-4.8); Lymphocytes % 10.4 %; Mean Corpuscular HGB Conc 30.7 g/dL (30.0-36.0); Mean Corpuscular Hemoglobin 29.8 pg (28.0-34.0); Mean Corpuscular Volume 96.9 fl (81-99); Monocytes # 1.1 10^3/uL (0.2-0.9); Monocytes % 7.5 %; Neutrophils # 11.17 10^3/uL (1.8-7.7); Neutrophils % 77.9 %; Nucleated Red Blood Cells % 0 %; Platelet Count 387 10^3/cmm (130-400); Red Blood Count 3.93 10^6/uL (4.1-5.3); Red Cell Distribution Width 14.6 % (12.1-15.1); White Blood Count 14.4 10^3/uL (4.0-10.0)
[2021-06-17 07:47] LABS: Alanine Aminotransferase 84 U/L (0-33); Alkaline Phosphatase 80 IU/L (35-105); Anion Gap 9.1 (5-19); Aspartate Amino Transferase 45 U/L (0-32); Blood Urea Nitrogen 18 mg/dL (8-23); Calcium 8.8 mg/dL (8.5-10.5); Carbon Dioxide 38 mmol/L (22-29); Chloride 98 mmol/L (98-107); Globulin 3.3 g/dL (1.3-4.6); Glucose 117 mg/dL (65-115); Magnesium 2.2 mg/dL (1.7-2.3); Osmolality Calculated 295 mOsm/kg (285-295); Phosphorus 2.7 mg/dL (2.5-4.5); Potassium 4.1 mmol/L (3.5-5.1); Sodium 141 mmol/L (136-145); Total Bilirubin 0.3 mg/dL (0.15-1.2); Total Protein 6.3 g/dL (6.6-8.7)
--- NOTE | 2021-06-17 08:57 | PC.CHAP ---
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 biomass technician visit [] Patient/Family/Request visit [] Outpatient visit [] Follow-up visit [] Physician referral [] Code/Alert [x] Routine visit [] Staff referral [] Actively dying [] Patient sleeping [] Family support [] [] Out of room [] Palliative care [] [] Receiving care in room [] Pre-surgical visit [] Trauma [] Long length of stay [] ICU visit [] Other: Relational/Emotional Strength [] Patient feels connected with others/family/visitors/staff [] Distress [] Loneliness/isolation [] Abandonment Spirituality of Patient [x] Person of Caro [] Attends Voodoo of their Caro [] Believes in Prayer [] Reads Bible or Spiritism materials [] There are Spiritual issues to be addressed Circular [employer] Interventions [x] Prayer [x] Active listening [x] Non-anxious presence [x] Spiritual/emotional support [] Crisis/trauma care [] Spiritual counseling [] Bereavement support [] Provided bereavement packet [] Provided Bible/devotional materials [] Provided toy/stuffed animal, coloring book to patient or family member [] Provided Communion [] Anointing/[place] [] Salvation [x] Completed spiritual assessment [] Other: Impact on Illness or Injury [] Angry [] Fearful [] Anxious [] Often cries [] Exhaustion [] Unable to work [] Unable to attend mosque [] Unable to walk/stand [] Unable to read [] Unable to drive [] Unable to eat/drink [] Unable to sleep [] Unable to be with family [] Patient intubated [] Other: Summary transfer from ... patient continues to improve... oxygen needed but has begun to eat.. praying so hard for healing of her breathing Time spent with patient
[2021-06-17] MEDS: nystatin 100,000 unit/mL UDC 5 mL 100000 UNIT PO ×4 (09:31→21:21)
[2021-06-17] MEDS: AA-Dex 5%-20% w/Lytes 1,000 ML with multivitamin inj 10 ML 50 ML IV (11:22)
[2021-06-17 11:27] LABS: Glucose Point of Care 146 mg/dL (70-110)
[2021-06-17] MEDS: enoxaparin 80 mg/0.8 mL Syringe SUBCUT ×2 (13:08→23:52)
--- NOTE | 2021-06-17 14:22 | PC.OT ---
OT TREATMENT ATTEMPTED. PATIENT STATES THAT SHE HAS WORKED WITH P.T. AND S.T. ALREADY TODAY AND IS TIRED. IS AGREEABLE TO ATTEMPT AGAIN AT A LATER TIME.
[2021-06-17] MEDS: dexamethasone 4 mg/mL INJ 3 MG IVP (15:17)
--- NOTE | 2021-06-17 16:40 | P.PN_ITS ---
Subjective Subjective: Interval history: Patient was seen this morning, she tells me that her appetite has improved, no fevers overnight, no cough, she is down to 85 L, 45% Vitals/I&O/Wt Last Vital Signs Temp 98.4 F 06/17/21 12:00 Pulse 126 H 06/17/21 14:00 Resp 24 H 06/17/21 13:43 BP 122/65 06/17/21 12:00 Pulse Ox 95 06/17/21 13:43 06/17/21 06/17/21 06/17/21 06:59 14:59 22:59 Intake Total 300 / 1546 1015 / 1015 Output Total 275 / 925 Balance 25 / 621 1015 / 1015 Physical Exam Const: COMMON NORMALS: no acute distress GENERAL APPEARANCE: ill appearing and frail appearing Resp: COMMON NORMALS: normal respiratory effort, No retractions, No use of accessory muscles and clear to auscultation bilaterally AUSCULTATION: clear to auscultation bilaterally Cardio: COMMON NORMALS: regular rate, regular rhythm, S1 normal heart sound present and S2 normal heart sound present RATE: regular rate RHYTHM: regular rhythm HEART SOUNDS: S1 normal heart sound present and S2 normal heart sound present GI: COMMON NORMALS: Normal to inspection, nondistended, normoactive bowel sounds present, Soft to palpation and non-tender PALPATION: Yes Soft to palpation Extremity: COMMON NORMALS: no pedal edema Urinary Catheter Management^: [place]: Cath Placed During This Visit: yes Reason for Continuing Indwelling Catheter: Other Urinary Catheter Date of Insertion: 06/02/21 Data : 06/17/21 06:40 06/17/21 06:40 A&P Assessment and plan (1) COVID-19 determined by clinical diagnostic criteria: Status: Acute (2) Hypoxia: Status: Acute (3) Pneumonia: Status: Acute (4) Pneumonia due to COVID-19 virus: Status: Acute (5) Diarrhea: Status: Acute (6) Sinus tachycardia: Status: Acute (7) On total parenteral nutrition (TPN): Status: Acute (8) T wave inversion in EKG: Status: Acute (9) BiPAP (biphasic positive airway pressure) dependence: Status: Acute (10) DVT (deep venous thrombosis): Status: Acute Qualifiers: DVT location: lower extremity Affected thrombotic vein of extremity: femoral Chronicity: unspecified Laterality: bilateral Qualified Code(s): I82.413 - Acute embolism and thrombosis of femoral vein, bilateral (11) Alkalosis, metabolic: Status: Acute Additional A&P Information 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 Currently on heated high flow 45 L, 80% FiO2, oxygen saturations are greater than 90, when speaking, oxygen saturations do drop into the low 80s White blood cell count 14.4, neutrophilic, afebrile overnight Given her evidence of bilateral lower extremity DVT, failed anticoagulation on Xarelto, cardiac echo normal EF and normal right ventricular size and function, recent CTA did show radiographic evidence of right heart strain recent, given earlier worsening of respiratory status.given findings, high clinical suspicion for new pulmonary emboli and/or micropulmonary emboli, with hypercoagulable state of COVID-19, nonetheless is on therapeutic Lovenox No clinical signs of active bacterial infection -1.2L Started tapering off steroids reduced dexamethasone to 3 mg she has spent 3 weeks on 6 mg of Decadron, will need maintenance therapy of steroids to avoid adrenal crisis Discontinue diuretics due to alkalosis(my goal was to keep her in negative yulissa nce with ARDS however due to alkalosis I would discontinue diuretics for now) Continue multivitamins Status post remdesivir regimen Had a lengthy discussion with the family that we are not able to use ivermectin at this point, it was also discussed with medical at the committee and Dr. Porter spoke with the family as well Patient does not want to use chest physiotherapy however I have encouraged her to reconsider it I have changed her Mucomyst to as needed TPN rate increased to 50 mL/h, A1c 5.7, monitor blood sugars, consult dietary Currently on full liquid diet Cool ice cream pops, for soothing of tongue lesions She is happy with the progress and is reluctant to go back on BiPAP however I di d clarify that she is agreeable to go back on BiPAP if her respiratory status worsens because her respiratory rate stays between 25-29 there is always a risk of muscle fatigue and worsening of hypoxia She wishes to stay DNR/DNI(she might opt for comfort care if her symptoms worsen, sister her DPOA is respecting her wishes, son Yinka who was involved in family meetings , kept him updated, he has been very emotional and has been struggling to accept guarded prognosis, of note, Ms. Villalobos lost her few weeks ago to COVID-[address] Toure was taking care of him. Pulmonary team has been consulted Aphthous ulcers, try oral Decadron swish and swallow Anxiety, increase alprazolam 0.5 twice daily TPN decreased to 30 cc an hour, plan on weaning over the next few days on full liquid today patient wants to try milk products especially Glucerna Try cool ice cream pops She does not like the taste of Ensure Monitor blood sugars, monitor liver function, monitor for bloodstream infection DVT: Bilateral lower extremity Developed bilateral extremity DVTs on Xarelto currently on therapeutic Lovenox Considering involvement of common femoral veins I do have concerns regarding traveling of clot to iliac and then inferior vena cava CTA on 06/07/2020 did not show any pulmonary emboli but did show increasing right heart rate EKG showing diffuse T wave inversions Cardiac echocardiogram showed normal left ventricular size, systolic function, upper normal wall thickness, no regional wall motion abnormalities, ejection fraction 70%, diastolic dysfunction grade 1,, normal right ventricle size and function, left atrium mildly increased left atrial size Continue therapeutic Lovenox T wave inversion consistent with right heart strain however no PE detected on CTA troponin without significant delta, no active chest pain, however given worsening respiratory status, highly suspicious of pulmonary emboli, possible micropulmonary emboli Contraction alkalosis -2.8 L, hold diuretics for now Currently on clears, TPN DNR/DNI Respiratory therapist updated Plan for today, continue to encourage oral intake, wean oxygen as tolerated, plan on weaning TPN in the next 24 hours if her oral intake continues to improve Attestations Medical Necessity Statement*: Patient requires hospitalization for acute respiratory failure secondary COVID-19 Coding Level of Care Code Acute Plant Reliability Engineer for [facility] Diagnoses COVID-19 determined by clinical diagnostic criteria U07.1 Hypoxia R09.02 Pneumonia J18.9 Pneumonia due to COVID-19 virus U07.1; J12.82 Diarrhea R19.7 Sinus tachycardia R00.0 On total parenteral nutrition (TPN) Z78.9 T wave inversion in EKG R94.31 BiPAP (biphasic positive airway pressure) dependence Z99.89 DVT (deep venous thrombosis) I82.413 DVT location: lower extremity Affected thrombotic vein of extremity: femoral Chronicity: unspecified Laterality: bilateral Alkalosis, metabolic E87.3
[2021-06-17 16:57] LABS: Glucose Point of Care 141 mg/dL (70-110)
[2021-06-17] MEDS: nystatin cream 30 gm 1 APPLIC TOPICAL (18:23)
--- NOTE | 2021-06-17 19:21 | PC.NURSE ---
Shift Note Frequent safety and comfort rounds continue. Orders and/or nursing care completed as indicated. Patient monitored for response to intervention and treatment(s). Education provided includes nystatin cream for buttocks. Patient and/or guest relations representative verb understanding]. Will continue to monitor.
[2021-06-17 21:39] LABS: Glucose Point of Care 142 mg/dL (70-110)
[2021-06-18] VITALS (12 sets, daily range): BP systolic 116–129; BP diastolic 70–80; PULSE 89–117; RESP 18–34; TEMP 36.5–36.8; O2SAT 89–97
[2021-06-18 04:59] LABS: Basophils % 0.2 %; Eosinophils # 0.1 10^3/uL (0.0-0.8); Eosinophils % 0.7 %; Hematocrit 36.2 % (37.0-47.0); Hemoglobin 11.3 g/dL (11.5-15.3); Lymphocytes # 2.2 10^3/uL (0.8-4.8); Lymphocytes % 13.3 %; Mean Corpuscular HGB Conc 31.2 g/dL (30.0-36.0); Mean Corpuscular Hemoglobin 30.1 pg (28.0-34.0); Mean Corpuscular Volume 96.3 fl (81-99); Mean Platelet Volume 9.1 fL (7.4-10.4); Monocytes % 6.4 %; Neutrophils # 12.45 10^3/uL (1.8-7.7); Neutrophils % 76.7 %; Nucleated Red Blood Cells % 0 %; Platelet Count 382 10^3/cmm (130-400); Red Blood Count 3.76 10^6/uL (4.1-5.3); Red Cell Distribution Width 14.8 % (12.1-15.1); White Blood Count 16.2 10^3/uL (4.0-10.0)
[2021-06-18 05:20] LABS: Alanine Aminotransferase 97 U/L (0-33); Albumin Level 3.1 g/dL (3.5-5.2); Alkaline Phosphatase 84 IU/L (35-105); Anion Gap 6.9 (5-19); Aspartate Amino Transferase 44 U/L (0-32); Blood Urea Nitrogen 20 mg/dL (8-23); Calcium 8.9 mg/dL (8.5-10.5); Carbon Dioxide 38 mmol/L (22-29); Chloride 98 mmol/L (98-107); Globulin 3.2 g/dL (1.3-4.6); Glucose 111 mg/dL (65-115); Magnesium 2.3 mg/dL (1.7-2.3); Osmolality Calculated 291 mOsm/kg (285-295); Phosphorus 3.2 mg/dL (2.5-4.5); Potassium 3.9 mmol/L (3.5-5.1); Sodium 139 mmol/L (136-145); Total Bilirubin 0.3 mg/dL (0.15-1.2); Total Protein 6.3 g/dL (6.6-8.7)
--- NOTE | 2021-06-18 06:02 | PC.NURSE ---
Shift Note Frequent safety and comfort rounds continue. Orders and/or nursing care completed as indicated. Patient monitored for response to intervention and treatments. Education provided includes catheter care and oxygen safety. Patient and/or mechanical service representative verbalized understanding of all teaching.
[2021-06-18 06:37] LABS: Glucose Point of Care 113 mg/dL (70-110)
--- NOTE | 2021-06-18 08:34 | PC.CHAP ---
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 improvement analyst visit [] Patient/Family/Request visit [] Outpatient visit [] Follow-up visit [] Physician referral [] Code/Alert [x] Routine visit [] Staff referral [] Actively dying [] Patient sleeping [] Family support [] [] Out of room [] Palliative care [] [] Receiving care in room [] Pre-surgical visit [] Trauma [] Long length of stay [] ICU visit [] Other: Relational/Emotional Strength [] Patient feels connected with others/family/visitors/staff [] Distress [] Loneliness/isolation [] Abandonment Spirituality of Patient [x] Person of Caro [] Attends Bahai of their Caro [] Believes in Prayer [] Reads Bible or Sabianism materials [] There are Spiritual issues to be addressed Casing Cooker Interventions [x] Prayer [x] Active listening [x] Non-anxious presence [x] Spiritual/emotional support [] Crisis/trauma care [] Spiritual counseling [] Bereavement support [] Provided bereavement packet [] Provided Bible/devotional materials [] Provided toy/stuffed animal, coloring book to patient or family member [] Provided Communion [] Anointing/[place] [] Salvation [x] Completed spiritual assessment [] Other: Impact on Illness or Injury [] Angry [] Fearful [] Anxious [] Often cries [] Exhaustion [] Unable to work [] Unable to attend methodist [] Unable to walk/stand [] Unable to read [] Unable to drive [] Unable to eat/drink [] Unable to sleep [] Unable to be with family [] Patient intubated [] Other: Summary visited with patient.. didnt sleep well, so will to nap during the day... delivered small doll Time spent with patient 10 min
[2021-06-18] MEDS: potassium chloride ER 20 mEq Tablet 40 MEQ PO (09:21)
[2021-06-18] MEDS: cholecalciferol (vitamin D3) 5,000 unit Tablet 5000 UNIT PO (09:22)
[2021-06-18] MEDS: zinc gluconate 50 mg Tablet 100 MG PO (09:22)
[2021-06-18] MEDS: CLONazepam 0.5 mg Tablet PO (09:22)
[2021-06-18] MEDS: FUROsemide 10 mg/mL SDV 4mL 40 MG IVP (09:23)
[2021-06-18] MEDS: nystatin 100,000 unit/mL UDC 5 mL 100000 UNIT PO ×2 (09:23→13:17)
--- NOTE | 2021-06-18 11:05 | PC.NUTR ---
TPN follow up: TPN being weaned, currently at 15 mls/h. Diet advanced to GI soft diet for lunch today. If unable to consume, recommend increasing TPN rate to 50 mls/h again, to provide 1,056 kcals and 60g PRO. Recommend increasing chocolate glucerna to QID, as nurse states Pt uses for meds as well. See full RD assessment for further details.
--- NOTE | 2021-06-18 11:08 | PM.PN ---
Subjective Subjective: Interval history: Patient was seen this morning, she tells me that her appetite has improved, her TPN has been decreased to 15cc an hour, continue slow wean Vitals/I&O/Wt Last Vital Signs Temp 97.7 F 06/18/21 08:00 Pulse 102 H 06/18/21 08:45 Resp 20 H 06/18/21 08:45 BP 129/70 06/18/21 08:00 Pulse Ox 91 06/18/21 08:45 06/17/21 06/18/21 06/18/21 22:59 06:59 14:59 Intake Total 241.333 / 1256.333 200 / 1456.333 Output Total 500 / 500 700 / 1200 Balance -258.667 / 756.333 -500 / 256.333 Weight last 48 hrs Weight 79.968 kg Physical Exam Const: COMMON NORMALS: no acute distress and patient oriented x3 GENERAL APPEARANCE: ill appearing and frail appearing Resp: COMMON NORMALS: normal respiratory effort, No retractions, No use of accessory muscles and clear to auscultation bilaterally AUSCULTATION: clear to auscultation bilaterally Cardio: COMMON NORMALS: regular rate, regular rhythm, S1 normal heart sound present and S2 normal heart sound present RATE: regular rate RHYTHM: regular rhythm HEART SOUNDS: S1 normal heart sound present and S2 normal heart sound present GI: COMMON NORMALS: Normal to inspection, nondistended, normoactive bowel sounds present, Soft to palpation and non-tender PALPATION: Yes Soft to palpation Extremity: COMMON NORMALS: no pedal edema Neuro: COMMON NORMALS: patient oriented x3 Psych: COMMON NORMALS: mental status grossly normal Urinary Catheter Management^: [place]: Cath Placed During This Visit: yes Reason for Continuing Indwelling Catheter: Acute Urinary Retention or Obstruction Urinary Catheter Date of Insertion: 06/02/21 Data : 06/18/21 03:32 06/18/21 03:32 A&P Assessment and plan (1) COVID-19 determined by clinical diagnostic criteria: Status: Acute (2) Hypoxia: Status: Acute (3) Pneumonia: Status: Acute (4) Pneumonia due to COVID-19 virus: Status: Acute (5) Diarrhea: Status: Acute (6) Sinus tachycardia: Status: Acute (7) On total parenteral nutrition (TPN): Status: Acute (8) T wave inversion in EKG: Status: Acute (9) BiPAP (biphasic positive airway pressure) dependence: Status: Acute (10) DVT (deep venous thrombosis): Status: Acute Qualifiers: DVT location: lower extremity Affected thrombotic vein of extremity: femoral Chronicity: unspecified Laterality: bilateral Qualified Code(s): I82.413 - Acute embolism and thrombosis of femoral vein, bilateral (11) Alkalosis, metabolic: Status: Acute Additional A&P Information 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 Currently on heated high flow 45 L, 80% FiO2, oxygen saturations are greater than 90, when speaking, oxygen saturations do drop into the low 80s White blood cell count 16.2, neutrophilic, afebrile overnight Given her evidence of bilateral lower extremity DVT, failed anticoagulation on Xarelto, cardiac echo normal EF and normal right ventricular size and function, recent CTA did show radiographic evidence of right heart strain recent, given earlier worsening of respiratory status.given findings, high clinical suspicion for new pulmonary emboli and/or micropulmonary emboli, with hypercoagulable state of COVID-19, nonetheless is on therapeutic Lovenox No clinical signs of active bacterial infection - 2 L, will give her a dose of Lasix Started tapering off steroids reduced dexamethasone to 3 mg she has spent 3 weeks on 6 mg of Decadron, will need maintenance therapy of steroids to avoid adrenal crisis Discontinue diuretics due to alkalosis(my goal was to keep her in negative balance with ARDS however due to alkalosis I would discontinue diuretics for now) Continue multivitamins Status post remdesivir regimen Had a lengthy discussion with the family that we are not able to use ivermectin at this point, it was also discussed with medical at the committee and Dr. Porter spoke with the family as well Patient does not want to use chest physiotherapy however I have encouraged her to reconsider it I have changed her Mucomyst to as needed TPN rate i decreased to 15 mL/h, A1c 5.7, monitor blood sugars, consult dietary Transition to GI soft Cool ice cream pops, for soothing of tongue lesions She is happy with the progress and is reluctant to go back on BiPAP however I did clarify that she is agreeable to go back on BiPAP if her respiratory status worsens because her respiratory rate stays between 25-29 there is always a risk of muscle fatigue and worsening of hypoxia She wishes to stay DNR/DNI(she might opt for comfort care if her symptoms worsen, sister her DPOA is respecting her wishes, son Yinka who was involved in family meetings , kept him updated, he has been very emotional and has been struggling to accept guarded prognosis, of note, Ms. Villalobos lost her few weeks ago to COVID-[address] Toure was taking care of him. Pulmonary team has been consulted Aphthous ulcers, try oral Decadron swish and swallow Anxiety, increase alprazolam 0.5 twice daily TPN decreased to 30 cc an hour, plan on weaning over the next few days on full liquid today patient wants to try milk products especially Glucerna Try cool ice cream pops She does not like the taste of Ensure Monitor blood sugars, monitor liver function, monitor for bloodstream infection DVT: Bilateral lower extremity Developed bilateral extremity DVTs on Xarelto currently on therapeutic Lovenox Considering involvement of common femoral veins I do have concerns regarding traveling of clot to iliac and then inferior vena cava CTA on 06/07/2020 did not show any pulmonary emboli but did show increasing right heart rate EKG showing diffuse T wave inversions Cardiac echocardiogram showed normal left ventricular size, systolic function, upper normal wall thickness, no regional wall motion abnormalities, ejection fraction 70%, diastolic dysfunction grade 1,, normal right ventricle size and function, left atrium mildly increased left atrial size Continue therapeutic Lovenox T wave inversion consistent with right heart strain however no PE detected on CTA troponin without significant delta, no active chest pain, however given worsening respiratory status, highly suspicious of pulmonary emboli, possible micropulmonary emboli Contraction alkalosis -2 L, 1 dose of Lasix today Currently on GI soft diet, TPN DNR/DNI Respiratory therapist updated Plan for today, continue to encourage oral intake, wean oxygen as tolerated, plan on weaning TPN in the next 24 hours if her oral intake continues to improve Attestations Medical Necessity Statement*: Patient requires hospitalization for acute respiratory distress syndrome secondary COVID-19 Coding Level of Care Code Acute 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
[2021-06-18 12:16] LABS: Glucose Point of Care 117 mg/dL (70-110)
[2021-06-18] MEDS: enoxaparin 80 mg/0.8 mL Syringe SUBCUT ×2 (13:17→23:59)
[2021-06-18] MEDS: docusate sodium 100 mg Capsule PO (13:17)
[2021-06-18 16:48] LABS: Glucose Point of Care 125 mg/dL (70-110)
[2021-06-18] MEDS: dexamethasone 4 mg/mL INJ 3 MG IVP (18:49)
[2021-06-18] MEDS: AA-Dex 5%-20% w/Lytes 1,000 ML with multivitamin inj 10 ML 15 ML IV (19:11)
[2021-06-19] VITALS (15 sets, daily range): BP systolic 112–125; BP diastolic 67–81; PULSE 83–124; RESP 16–42; TEMP 36.3–37; O2SAT 84–99
[2021-06-19 04:44] LABS: Basophils # 0.1 10^3/uL (0.0-0.1); Basophils % 0.4 %; Eosinophils % 0.2 %; Hematocrit 39.9 % (37.0-47.0); Hemoglobin 12.2 g/dL (11.5-15.3); Lymphocytes # 2.1 10^3/uL (0.8-4.8); Lymphocytes % 11.2 %; Mean Corpuscular HGB Conc 30.6 g/dL (30.0-36.0); Mean Corpuscular Volume 98.3 fl (81-99); Monocytes # 0.8 10^3/uL (0.2-0.9); Monocytes % 4.3 %; Neutrophils # 15.14 10^3/uL (1.8-7.7); Nucleated Red Blood Cells % 0.1 %; Platelet Count 388 10^3/cmm (130-400); Red Blood Count 4.06 10^6/uL (4.1-5.3); Red Cell Distribution Width 14.9 % (12.1-15.1); White Blood Count 18.5 10^3/uL (4.0-10.0)
[2021-06-19 05:10] LABS: Alanine Aminotransferase 119 U/L (0-33); Alkaline Phosphatase 85 IU/L (35-105); Anion Gap 11.7 (5-19); Aspartate Amino Transferase 45 U/L (0-32); Blood Urea Nitrogen 23 mg/dL (8-23); Calcium 9.1 mg/dL (8.5-10.5); Carbon Dioxide 35 mmol/L (22-29); Chloride 96 mmol/L (98-107); Globulin 3.4 g/dL (1.3-4.6); Glucose 108 mg/dL (65-115); Magnesium 2.4 mg/dL (1.7-2.3); Osmolality Calculated 290 mOsm/kg (285-295); Phosphorus 3.8 mg/dL (2.5-4.5); Potassium 4.7 mmol/L (3.5-5.1); Sodium 138 mmol/L (136-145); Total Bilirubin 0.3 mg/dL (0.15-1.2); Total Protein 6.4 g/dL (6.6-8.7)
[2021-06-19 05:29] LABS: Glucose Point of Care 139 mg/dL (70-110)
[2021-06-19 06:58] LABS: Glucose Point of Care 105 mg/dL (70-110)
--- NOTE | 2021-06-19 08:22 | XR_ITS ---
WS: [id number] Exam: XR chest 1V portable [id number] Date/Time of Exam: 06/19/2021 8:30 AM Reason For Exam: elevated wbc Comparison 06/12/2021. Diffuse bilateral interstitial infiltrates are noted throughout both lungs. There is little change si nce prior study. Cardiomediastinal structures appear normal. A right-sided PICC line ends in the lowe r one third of the SVC. No pneumothorax or pleural effusion. Regional bony elements are intact. Monit oring leads superimpose the chest. XR/XR chest 1V portable [id number] IMPRESSION: 1. Diffuse bilateral interstitial infiltrates showing little change since prior study.
[2021-06-19] MEDS: dexamethasone 4 mg Tablet 2 MG PO (09:26)
[2021-06-19] MEDS: cholecalciferol (vitamin D3) 5,000 unit Tablet 5000 UNIT PO (09:26)
[2021-06-19] MEDS: zinc gluconate 50 mg Tablet 100 MG PO (09:26)
[2021-06-19] MEDS: nystatin 100,000 unit/mL UDC 5 mL 100000 UNIT PO ×3 (09:27→21:13)
[2021-06-19] MEDS: ascorbic acid 500 mg Tablet 1000 MG PO ×2 (09:30→20:52)
--- NOTE | 2021-06-19 09:49 | PC.CHAP ---
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 reeling operator visit [] Patient/Family/Request visit [] Outpatient visit [] Follow-up visit [] Physician referral [] Code/Alert [x] Routine visit [] Staff referral [] Actively dying [] Patient sleeping [] Family support [] [] Out of room [] Palliative care [] [] Receiving care in room [] Pre-surgical visit [] Trauma [] Long length of stay [] ICU visit [] Other: Relational/Emotional Strength [x] Patient feels connected with others/family/visitors/staff [] Distress [] Loneliness/isolation [] Abandonment Spirituality of Patient [x] Person of Caro [] Attends Protestant of their Caro [x] Believes in Prayer [] Reads Bible or Taoist materials [] There are Spiritual issues to be addressed Rod Drawer Interventions [x] Prayer [x] Active listening [x] Non-anxious presence [x] Spiritual/emotional support [] Crisis/trauma care [] Spiritual counseling [] Bereavement support [] Provided bereavement packet [] Provided Bible/devotional materials [] Provided toy/stuffed animal, coloring book to patient or family member [] Provided Communion [] Anointing/[place] [] Salvation [x] Completed spiritual assessment [] Other: Impact on Illness or Injury [] Angry [] Fearful [] Anxious [] Often cries [] Exhaustion [] Unable to work [] Unable to attend synagogue [] Unable to walk/stand [] Unable to read [] Unable to drive [] Unable to eat/drink [] Unable to sleep [] Unable to be with family [] Patient intubated [] Other: Summary Chaplain Bunch met with the Pt today. She has been keeping in contact with those who are recovering from Covid. The pt is a fighter and still working on her recovery. Time spent with patient 5m
[2021-06-19] MEDS: cefepime 1,000 MG in sodium chloride 0.9% (plus) 100 ML 200 MG IV ×2 (10:33→21:53)
[2021-06-19] MEDS: vancomycin 1,000 MG in sodium chloride 0.9% 250 ML 250 MG IV ×2 (10:35→22:30)
[2021-06-19 10:47] LABS: Procalcitonin 0.12 ng/mL (0-0.5)
[2021-06-19 11:20] LABS: Erythrocyte Sedimentation Rate 64 mm/hr (0-15)
[2021-06-19 12:21] LABS: Glucose Point of Care 153 mg/dL (70-110)
--- NOTE | 2021-06-19 12:44 | P.PN_ITS ---
Subjective Subjective: Interval history: Patient was seen this morning, she tells me that she is doing better, her appetite is a bit improved, continues to have oral lesions, steroids are minimally helping now Vitals/I&O/Wt Last Vital Signs Temp 97.9 F 06/19/21 12:27 Pulse 101 H 06/19/21 12:27 Resp 34 H 06/19/21 12:27 BP 125/79 06/19/21 12:27 Pulse Ox 90 06/19/21 12:27 06/18/21 06/19/21 06/19/21 22:59 06:59 14:59 Intake Total 763.667 / 1123.667 120 / 1243.667 100 / 100 Output Total 100 / 1080 600 / 1680 Balance 663.667 / 43.667 -480 / -436.333 100 / 100 Weight last 48 hrs Weight 79.968 kg Physical Exam Const: COMMON NORMALS: no acute distress and patient oriented x3 GENERAL APPEARANCE: ill appearing and frail appearing HENMT: OTHER: Tongue, multiple vesicular lesions, erosive lesions, some bullous lesions Resp: COMMON NORMALS: normal respiratory effort, No retractions, No use of accessory muscles and clear to auscultation bilaterally AUSCULTATION: clear to auscultation bilaterally Cardio: COMMON NORMALS: regular rate, regular rhythm, S1 normal heart sound present and S2 normal heart sound present RATE: regular rate RHYTHM: regular rhythm HEART SOUNDS: S1 normal heart sound present and S2 normal heart sound present GI: COMMON NORMALS: Normal to inspection, nondistended, normoactive bowel sounds present, Soft to palpation and non-tender PALPATION: Yes Soft to palpation Extremity: COMMON NORMALS: no pedal edema Neuro: COMMON NORMALS: patient oriented x3 Psych: COMMON NORMALS: mental status grossly normal Urinary Catheter Management^: [place]: Cath Placed During This Visit: yes Reason for Continuing Indwelling Catheter: Acute Urinary Retention or Obstruction Urinary Catheter Date of Insertion: 06/02/21 Data : 06/19/21 04:26 06/19/21 04:26 Micro: Microbiology 06/19/21 09:53 Blood Culture - Preliminary Blood SPECIMEN COLLECTED 06/19/21 09:45 Blood Culture - Preliminary Blood SPECIMEN COLLECTED A&P Assessment and plan (1) COVID-19 determined by clinical diagnostic criteria: Status: Acute (2) Hypoxia: Status: Acute (3) Pneumonia: Status: Acute (4) Pneumonia due to COVID-19 virus: Status: Acute (5) Diarrhea: Status: Acute (6) Sinus tachycardia: Status: Acute (7) On total parenteral nutrition (TPN): Status: Acute (8) T wave inversion in EKG: Status: Acute (9) BiPAP (biphasic positive airway pressure) dependence: Status: Acute (10) DVT (deep venous thrombosis): Status: Acute Qualifiers: DVT location: lower extremity Affected thrombotic vein of extremity: fe moral Chronicity: unspecified Laterality: bilateral Qualified Code(s): I82.413 - Acute embolism and thrombosis of femoral vein, bilateral (11) Alkalosis, metabolic: Status: Acute Additional A&P Information 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 Currently on heated high flow 45 L, 75% FiO2, oxygen saturations are greater than 90, when speaking, oxygen saturations do drop into the low 80s White blood cell count up to 18.5, afebrile overnight Given her evidence of bilateral lower extremity DVT, failed anticoagulation on Xarelto, cardiac echo normal EF and normal right ventricular size and function, recent CTA did show radiographic evidence of right heart strain recent, given earlier worsening of respiratory status.given findings, high clinical suspicion for new pulmonary emboli and/or micropulmonary emboli, with hypercoagulable st ate of COVID-19, nonetheless is on therapeutic Lovenox No clinical signs of active bacterial infection - 2 L, will give her a dose of Lasix Started tapering off steroids reduced dexamethasone to 3 mg she has spent 3 weeks on 6 mg of Decadron, will need maintenance therapy of steroids to avoid adrenal crisis Discontinue diuretics due to alkalosis(my goal was to keep her in negative balance with ARDS however due to alkalosis I would discontinue diuretics for now) Continue multivitamins Status post remdesivir regimen Had a lengthy discussion with the family that we are not able to use ivermectin at this point, it was also discussed with medical at the committee and Dr. Porter spoke with the family as well Patient does not want to use chest physiotherapy however I have encouraged her to reconsider it I have changed her Mucomyst to as needed TPN rate i decreased to 15 mL/h, A1c 5.7, monitor blood sugars, consult dietary Continue GI soft diet Cool ice cream pops, for soothing of tongue lesions She is happy with the progress and is reluctant to go back on BiPAP however I did clarify that she is agreeable to go back on BiPAP if her respiratory status worsens because her respiratory rate stays between 25-29 there is always a risk of muscle fatigue and worsening of hypoxia She wishes to stay DNR/DNI(she might opt for comfort care if her symptoms worsen, sister her DPOA is respecting her wishes, son Yinka who was involved in family meetings , kept him updated, he has been very emotional and has been struggling to accept guarded prognosis, of note, Ms. Villalobos lost her few weeks ago to COVID-[address] Toure was taking care of him. Pulmonary team has been consulted Leukocytosis, 18.5, order pro-Chris, CRP, repeat blood cultures, urine cultures, sputum cultures, fungal studies, chest x-ray, start on broad-spectrum antibiotic therapy vancomycin and cefepime Aphthous ulcers, oral Decadron helped for the first 2 days however continues to have significant oral lesions, possible herpes oral lesions, will try acyclovir treatment Anxiety, increase alprazolam 0.5 twice daily TPN decreased to 15 cc an hour, plan on weaning over the next few days on full liquid today patient wants to try milk products especially Glucerna Try cool ice cream pops She does not like the taste of Ensure Monitor blood sugars, monitor liver function, monitor for bloodstream infection DVT: Bilateral lower extremity Developed bilateral extremity DVTs on Xarelto currently on therapeutic Lovenox Considering involvement of common femoral veins I do have concerns regarding traveling of clot to iliac and then inferior vena cava CTA on 06/07/2020 did not show any pulmonary emboli but did show increasing right heart rate EKG showing diffuse T wave inversions Cardiac echocardiogram showed normal left ventricular size, systolic function, upper normal wall thickness, no regional wall motion abnormalities, ejection fraction 70%, diastolic dysfunction grade 1,, normal right ventricle size and f unction, left atrium mildly increased left atrial size Continue therapeutic Lovenox T wave inversion consistent with right heart strain however no PE detected on CTA troponin without significant delta, no active chest pain, however given worsening respiratory status, highly suspicious of pulmonary emboli, possible micropulmonary emboli Contraction alkalosis -2 L, 1 dose of Lasix today Currently on GI soft diet, TPN DNR/DNI Respiratory therapist updated Plan for today, continue to encourage oral intake, wean oxygen as tolerated, start IV antibiotic therapy, start acyclovir, continue to clinically monitor Attestations Medical Necessity Statement*: Patient requires hospitalization due to acute respiratory failure sec to COVID-19, with persistent high oxygen needs, persistent leukocytosis Coding Level of Care Code Acute 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
[2021-06-19] MEDS: enoxaparin 80 mg/0.8 mL Syringe SUBCUT (13:50)
[2021-06-19] MEDS: acyclovir 400 mg Tablet PO ×2 (16:51→21:54)
--- NOTE | 2021-06-19 17:51 | PC.RESP ---
RT Shift Note Frequent safety and respiratory rounds continue. Orders completed as indicated. Patient monitored pre and post treatments throughout shift. Patient tolerated treatments appropriately. Condition did not change. Patient and/or chain sales representative educated on respiratory treatment and medications. Patient and/or chain sales representative verbalized understanding. Will continue to monitor patient progress.
[2021-06-19] MEDS: nystatin cream 30 gm 1 APPLIC TOPICAL (18:37)
[2021-06-19 19:38] LABS: Glucose Point of Care 154 mg/dL (70-110)
--- NOTE | 2021-06-19 19:42 | PC.NURSE ---
i reported low o2 84 to nurse
--- NOTE | 2021-06-19 20:11 | PC.NURSE ---
Shift Note Frequent safety and comfort rounds continue. Orders and/or nursing care completed as indicated. Patient monitored for response to intervention and treatment(s). Education provided includes new meds actions, dosing and timing. Patient and/or equal opportunity representative verbalizes understanding. Will continue to monitor.
[2021-06-19] MEDS: CLONazepam 0.5 mg Tablet PO (20:51)
[2021-06-19] MEDS: AA-Dex 5%-20% w/Lytes 1,000 ML with multivitamin inj 10 ML 15 ML IV (20:52)
[2021-06-19] MEDS: saline nasal spray 44mL Btl 1 SPRAY NASAL (21:52)
--- NOTE | 2021-06-19 23:55 | PC.NURSE ---
i reported low temp 97.4 and high pulse 112 to nurse
[2021-06-20] VITALS (15 sets, daily range): BP systolic 103–129; BP diastolic 61–75; PULSE 65–122; RESP 16–27; TEMP 36.4–36.8; O2SAT 93–100
[2021-06-20] MEDS: enoxaparin 80 mg/0.8 mL Syringe SUBCUT ×2 (01:16→12:53)
[2021-06-20 05:02] LABS: Basophils % 0.2 %; Eosinophils # 0.2 10^3/uL (0.0-0.8); Hematocrit 35.1 % (37.0-47.0); Hemoglobin 10.5 g/dL (11.5-15.3); Lymphocytes # 2.4 10^3/uL (0.8-4.8); Lymphocytes % 14.5 %; Mean Corpuscular HGB Conc 29.9 g/dL (30.0-36.0); Mean Corpuscular Hemoglobin 29.2 pg (28.0-34.0); Mean Corpuscular Volume 97.8 fl (81-99); Mean Platelet Volume 9.1 fL (7.4-10.4); Monocytes % 6.3 %; Neutrophils # 12.36 10^3/uL (1.8-7.7); Neutrophils % 76.3 %; Nucleated Red Blood Cells % 0 %; Platelet Count 359 10^3/cmm (130-400); Red Blood Count 3.59 10^6/uL (4.1-5.3); Red Cell Distribution Width 15.3 % (12.1-15.1); White Blood Count 16.2 10^3/uL (4.0-10.0)
[2021-06-20 05:11] LABS: Alanine Aminotransferase 108 U/L (0-33); Albumin Level 2.9 g/dL (3.5-5.2); Alkaline Phosphatase 77 IU/L (35-105); Anion Gap 7.3 (5-19); Aspartate Amino Transferase 39 U/L (0-32); Blood Urea Nitrogen 22 mg/dL (8-23); C Reactive Protein 0.9 mg/L (0.0-4.9); Calcium 8.6 mg/dL (8.5-10.5); Carbon Dioxide 36 mmol/L (22-29); Chloride 100 mmol/L (98-107); Globulin 2.9 g/dL (1.3-4.6); Glucose 98 mg/dL (65-115); Magnesium 2.4 mg/dL (1.7-2.3); Osmolality Calculated 291 mOsm/kg (285-295); Phosphorus 4.2 mg/dL (2.5-4.5); Potassium 4.3 mmol/L (3.5-5.1); Sodium 139 mmol/L (136-145); Total Bilirubin 0.2 mg/dL (0.15-1.2); Total Protein 5.8 g/dL (6.6-8.7)
[2021-06-20 05:19] LABS: NT Pro B Type Natriuretic Pept 116 pg/mL (0-125); Procalcitonin 0.14 ng/mL (0-0.5)
[2021-06-20 06:28] LABS: Glucose Point of Care 101 mg/dL (70-110)
[2021-06-20] MEDS: levalbuterol 0.63 mg/3 mL Neb INHALATION (09:00)
[2021-06-20] MEDS: ascorbic acid 500 mg Tablet 1000 MG PO ×2 (09:24→18:36)
[2021-06-20] MEDS: zinc gluconate 50 mg Tablet 100 MG PO (09:24)
[2021-06-20] MEDS: cholecalciferol (vitamin D3) 5,000 unit Tablet 5000 UNIT PO (09:24)
[2021-06-20] MEDS: dexamethasone 4 mg Tablet 2 MG PO (09:25)
[2021-06-20] MEDS: acyclovir 400 mg Tablet PO ×3 (09:26→21:01)
[2021-06-20] MEDS: nystatin 100,000 unit/mL UDC 5 mL 100000 UNIT PO ×4 (09:28→21:01)
[2021-06-20 10:15] LABS: Vancomycin Trough 13.2 ug/mL (10-15)
[2021-06-20] MEDS: cefepime 1,000 MG in sodium chloride 0.9% (plus) 100 ML 200 MG IV ×2 (10:50→20:58)
[2021-06-20] MEDS: vancomycin 1,000 MG in sodium chloride 0.9% 250 ML 250 MG IV ×2 (10:51→22:00)
--- NOTE | 2021-06-20 11:30 | PM.PN ---
Subjective Subjective: Interval history: Patient was seen this morning, she tells me that her oral lesions have improved, but she has nosebleeds associated with her high flow oxygen, she tells me that her appetite has improved, she is eating more, would like to try more Vitals/I&O/Wt Last Vital Signs Temp 97.6 F 06/20/21 04:00 Pulse 107 H 06/20/21 09:04 Resp 22 H 06/20/21 09:00 BP 123/74 06/20/21 04:00 Pulse Ox 94 06/20/21 09:00 06/19/21 06/20/21 06/20/21 22:59 06:59 14:59 Intake Total 745.25 / 1815.25 470 / 2285.25 Output Total 450 / 450 450 / 900 Balance 295.25 / 1365.25 20 / 1385.25 Physical Exam Const: COMMON NORMALS: no acute distress and patient oriented x3 GENERAL APPEARANCE: ill appearing and frail appearing HENMT: OTHER: Tongue, multiple vesicular lesions, erosive lesions, some bullous lesions Nasal septum, dried blood Resp: COMMON NORMALS: normal respiratory effort, No retractions, No use of accessory muscles and clear to auscultation bilaterally AUSCULTATION: clear to auscultation bilaterally Cardio: COMMON NORMALS: regular rate, regular rhythm, S1 normal heart sound present and S2 normal heart sound present RATE: regular rate RHYTHM: regular rhythm HEART SOUNDS: S1 normal heart sound present and S2 normal heart sound present GI: COMMON NORMALS: Normal to inspection, nondistended, normoactive bowel sounds present, Soft to palpation and non-tender PALPATION: Yes Soft to palpation Extremity: COMMON NORMALS: no pedal edema Neuro: COMMON NORMALS: patient oriented x3 Psych: COMMON NORMALS: mental status grossly normal Urinary Catheter Management^: P[place]ra: Cath Placed During This Visit: yes Reason for Continuing Indwelling Catheter: Acute Urinary Retention or Obstruction Urinary Catheter Date of Insertion: 06/02/21 Data : 06/20/21 04:22 06/20/21 04:22 Micro: Microbiology 06/19/21 09:53 Blood Culture - Preliminary Blood NEGATIVE TO DATE 06/19/21 09:45 Blood Culture - Preliminary Blood NEGATIVE TO DATE A&P Assessment and plan (1) COVID-19 determined by clinical diagnostic criteria: Status: Acute (2) Hypoxia: Status: Acute (3) Pneumonia: Status: Acute (4) Pneumonia due to COVID-19 virus: Status: Acute (5) Diarrhea: Status: Acute (6) Sinus tachycardia: Status: Acute (7) On total parenteral nutrition (TPN): Status: Acute (8) T wave inversion in EKG: Status: Acute (9) BiPAP (biphasic positive airway pressure) dependence: Status: Acute (10) DVT (deep venous thrombosis): Status: Acute Qualifiers: DVT location: lower extremity Affected thrombotic vein of extremity: femoral Chronicity: unspecified Laterality: bilateral Qualified Code(s): I82.413 - Acute embolism and thrombosis of femoral vein, bilateral (11) Alkalosis, metabolic: Status: Acute Additional A&P Information 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 Currently on heated high flow 45 L, 75% FiO2, oxygen saturations are greater than 90, when speaking, oxygen saturations do drop into the low 80s White blood cell count up to 16.2, afebrile overnight Given her evidence of bilateral lower extremity DVT, failed anticoagulation on Xarelto, cardiac echo normal EF and normal right ventricular size and function, recent CTA did show radiographic evidence of right heart strain recent, given earlier worsening of respiratory status.given findings, high clinical suspicion for new pulmonary emboli and/or micropulmonary emboli, with hypercoagulable state of COVID-19, nonetheless is on therapeutic Lovenox No clinical signs of active bacterial infection - 2 L, will give her a dose of Lasix Started tapering off steroids reduced dexamethasone to 3 mg she has spent 3 weeks on 6 mg of Decadron, will need maintenance therapy of steroids to avoid adrenal crisis Discontinue diuretics due to alkalosis(my goal was to keep her in negative balance with ARDS however due to alkalosis I would discontinue diuretics for now) Continue multivitamins Status post remdesivir regimen Had a lengthy discussion with the family that we are not able to use ivermectin at this point, it was also discussed with medical at the committee and Dr. Porter spoke with the family as well Patient does not want to use chest physiotherapy however I have encouraged her to reconsider it I have changed her Mucomyst to as needed Stop TPN, A1c 5.7, monitor blood sugars, consult dietary Continue GI soft diet Cool ice cream pops, for soothing of tongue lesions She is happy with the progress and is reluctant to go back on BiPAP however I did clarify that she is agreeable to go back on BiPAP if her respiratory status worsens because her respiratory rate stays between 25-29 there is always a risk of muscle fatigue and worsening of hypoxia She wishes to stay DNR/DNI(she might opt for comfort care if her symptoms worsen, sister her DPOA is respecting her wishes, son Yinka who was involved in family meetings , kept him updated, he has been very emotional and has been struggling to accept guarded prognosis, of note, Ms. Villalobos lost her few weeks ago to COVID-[address] Toure was taking care of him. Pulmonary team has been consulted Leukocytosis, 16.2, repeat blood cultures, urine cultures, sputum cultures, fungal studies, on broad-spectrum antibiotic therapy vancomycin and cefepime Aphthous ulcers, oral Decadron helped for the first 2 days however continues to have significant oral lesions, possible herpes oral lesions, will try acyclovir treatment Anxiety, increase alprazolam 0.5 twice daily TPN stop for now on full liquid today patient wants to try milk products especially Glucerna Try cool ice cream pops She does not like the taste of Ensure Monitor blood sugars, monitor liver function, monitor for bloodstream infection DVT: Bilateral lower extremity Developed bilateral extremity DVTs on Xarelto currently on therapeutic Lovenox Considering involvement of common femoral veins I do have concerns regarding traveling of clot to iliac and then inferior vena cava CTA on 06/07/2020 did not show any pulmonary emboli but did show increasing right heart rate EKG showing diffuse T wave inversions Cardiac echocardiogram showed normal left ventricular size, systolic function, upper normal wall thickness, no regional wall motion abnormalities, ejection fraction 70%, diastolic dysfunction grade 1,, normal right ventricle size and function, left atrium mildly increased left atrial size Continue therapeutic Lovenox T wave inversion consistent with right heart strain however no PE detected on CTA troponin without significant delta, no active chest pain, however given worsening respiratory status, highly suspicious of pulmonary emboli, possible micropulmonary emboli Contraction alkalosis -1 L, hold Lasix for today Currently on GI soft diet, DNR/DNI Respiratory therapist updated Plan for today, continue to encourage oral intake, wean oxygen as tolerated, continue IV antibiotics, continue acyclovir, clinically monitor Attestations Medical Necessity Statement*: Patient requires hospitalization for acute respiratory failure secondary COVID-19 Coding Level of Care Code Acute Data Services Developer for [facility] Diagnoses COVID-19 determined by clinical diagnostic criteria U07.1 Hypoxia R09.02 Pneumonia J18.9 Pneumonia due to COVID-19 virus U07.1; J12.82 Diarrhea R19.7 Sinus tachycardia R00.0 On total parenteral nutrition (TPN) Z78.9 T wave inversion in EKG R94.31 BiPAP (biphasic positive airway pressure) dependence Z99.89 DVT (deep venous thrombosis) I82.413 DVT location: lower extremity Affected thrombotic vein of extremity: femoral Chronicity: unspecified Laterality: bilateral Alkalosis, metabolic E87.3
[2021-06-20 12:10] LABS: Glucose Point of Care 112 mg/dL (70-110)
[2021-06-20] MEDS: nystatin cream 30 gm 1 APPLIC TOPICAL ×2 (12:53→18:38)
[2021-06-20 16:21] LABS: Cytomegalovirus Antibody (IGG) >10.00 U/mL; Cytomegalovirus Antibody (IGM) <30.00 AU/mL
--- NOTE | 2021-06-20 18:59 | PC.NURSE ---
Shift Note Frequent safety and comfort rounds continue. Orders and/or nursing care completed as indicated. Patient monitored for response to intervention and treatment(s). Education provided includes[vancomycin]. Patient and/or tax representative verb understanding].appetite is improving.tpn off earlier in shift Will continue to monitor.
[2021-06-20 19:49] LABS: Aspergillus AG,EIA,Serum NOT DETECTED; Aspergillus Galactomannan Inde <0.50
[2021-06-21] VITALS (18 sets, daily range): BP systolic 111–129; BP diastolic 66–82; PULSE 80–110; RESP 18–37; TEMP 36.6–36.8; O2SAT 87–95
[2021-06-21] MEDS: enoxaparin 80 mg/0.8 mL Syringe SUBCUT ×3 (00:14→23:33)
[2021-06-21 05:04] LABS: Basophils # 0.1 10^3/uL (0.0-0.1); Basophils % 0.4 %; Eosinophils # 0.2 10^3/uL (0.0-0.8); Eosinophils % 1.7 %; Hematocrit 34.5 % (37.0-47.0); Hemoglobin 10.3 g/dL (11.5-15.3); Lymphocytes # 1.6 10^3/uL (0.8-4.8); Lymphocytes % 13.5 %; Mean Corpuscular HGB Conc 29.9 g/dL (30.0-36.0); Mean Corpuscular Hemoglobin 29.7 pg (28.0-34.0); Mean Corpuscular Volume 99.4 fl (81-99); Monocytes # 0.8 10^3/uL (0.2-0.9); Monocytes % 6.3 %; Neutrophils # 9.13 10^3/uL (1.8-7.7); Neutrophils % 75.8 %; Nucleated Red Blood Cells % 0 %; Platelet Count 326 10^3/cmm (130-400); Red Blood Count 3.47 10^6/uL (4.1-5.3); Red Cell Distribution Width 15.5 % (12.1-15.1); White Blood Count 12.1 10^3/uL (4.0-10.0)
[2021-06-21 05:35] LABS: NT Pro B Type Natriuretic Pept 236 pg/mL (0-125); Procalcitonin 0.09 ng/mL (0-0.5)
[2021-06-21 05:46] LABS: Alanine Aminotransferase 94 U/L (0-33); Albumin Level 2.9 g/dL (3.5-5.2); Alkaline Phosphatase 79 IU/L (35-105); Anion Gap 9.3 (5-19); Aspartate Amino Transferase 39 U/L (0-32); Blood Urea Nitrogen 17 mg/dL (8-23); C Reactive Protein 1.4 mg/L (0.0-4.9); Calcium 8.5 mg/dL (8.5-10.5); Carbon Dioxide 34 mmol/L (22-29); Chloride 99 mmol/L (98-107); Globulin 2.9 g/dL (1.3-4.6); Glucose 91 mg/dL (65-115); Magnesium 2.1 mg/dL (1.7-2.3); Osmolality Calculated 287 mOsm/kg (285-295); Phosphorus 2.3 mg/dL (2.5-4.5); Potassium 4.3 mmol/L (3.5-5.1); Sodium 138 mmol/L (136-145); Total Bilirubin 0.3 mg/dL (0.15-1.2); Total Protein 5.8 g/dL (6.6-8.7)
[2021-06-21] MEDS: levalbuterol 0.63 mg/3 mL Neb INHALATION ×2 (08:38→21:45)
[2021-06-21] MEDS: FUROsemide 10 mg/mL SDV 4mL 40 MG IVP (09:45)
[2021-06-21] MEDS: cholecalciferol (vitamin D3) 5,000 unit Tablet 5000 UNIT PO (09:46)
[2021-06-21] MEDS: ascorbic acid 500 mg Tablet 1000 MG PO ×2 (09:46→18:50)
[2021-06-21] MEDS: zinc gluconate 50 mg Tablet 100 MG PO (09:46)
[2021-06-21] MEDS: dexamethasone 4 mg Tablet 2 MG PO (09:47)
[2021-06-21] MEDS: nystatin 100,000 unit/mL UDC 5 mL 100000 UNIT PO ×4 (09:47→20:53)
[2021-06-21] MEDS: nystatin cream 30 gm 1 APPLIC TOPICAL ×2 (09:52→18:54)
[2021-06-21] MEDS: acyclovir 400 mg Tablet PO ×3 (09:52→20:53)
[2021-06-21] MEDS: vancomycin 1,000 MG in sodium chloride 0.9% 250 ML 250 MG IV ×2 (11:09→21:41)
[2021-06-21] MEDS: cefepime 1,000 MG in sodium chloride 0.9% (plus) 100 ML 200 MG IV ×2 (11:09→20:54)
[2021-06-21] MEDS: saline nasal spray 44mL Btl 1 SPRAY NASAL (11:10)
[2021-06-21 12:36] LABS: Glucose Point of Care 126 mg/dL (70-110)
--- NOTE | 2021-06-21 13:41 | PC.CHAP ---
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 asphalt tile floor layer visit [] Patient/Family/Request visit [] Outpatient visit [xx] Follow-up visit [] Physician referral [] Code/Alert [xx] Routine visit [] Staff referral [] Actively dying [] Patient sleeping [] Family support [] [] Out of room [] Palliative care [] [] Receiving care in room [] Pre-surgical visit [] Trauma [xx] Long length of stay [] ICU visit [] Other: Relational/Emotional Strength [xx] Patient feels connected with others/family/visitors/staff [] Distress [] Loneliness/isolation [] Abandonment Spirituality of Patient [x] Person of Caro [] Attends Congregation of their Caro [xx] Believes in Prayer [xx] Reads Bible or Judaism materials [] There are Spiritual issues to be addressed [employer] Interventions [xx] Prayer [xx] Active listening [xx] Non-anxious presence [] Spiritual/emotional support [] Crisis/trauma care [] Spiritual counseling [] Bereavement support [] Provided bereavement packet [] Provided Bible/devotional materials [] Provided toy/stuffed animal, coloring book to patient or family member [] Provided Communion [] Anointing/[place] [] Salvation [xx] Completed spiritual assessment [] Other: Impact on Illness or Injury [] Angry [] Fearful [] Anxious [] Often cries [] Exhaustion [xx] Unable to work [] Unable to attend zoroastrianism [] Unable to walk/stand [] Unable to read [] Unable to drive [] Unable to eat/drink [] Unable to sleep [] Unable to be with family [] Patient intubated [] Other: Summary Patient praising God for bringing her through Covid-19 and she is out of quarantine. Patient stated she feels so much better today. She has a lot to be thankful for and plans to write her life story and testimony to share with family and others. She believes it will be several more days before she can go home - when her oxygen levels begin staying high. Time spent with patient 10 minutes
--- NOTE | 2021-06-21 14:13 | PC.NUTR ---
Nutrition follow up: Pt now wants to drink milk per nurse and dietary staff report--will remove no milk from dietary information. Also tired of Glucerna per report--will decrease to once a day and try sending Boost Breeze wild lu flavor. Recommend to encourage po intake and provide preferences as appropriate. See full RD assessment for further details.
[2021-06-21] MEDS: fluconazole 100 mg Tablet 200 MG PO (15:54)
[2021-06-21] MEDS: lactobacillus 1 Tablet 1 TAB PO (15:54)
--- NOTE | 2021-06-21 16:08 | PC.OT ---
Occupational therapy treatment per patient request as she is experiencing diarrhea.
--- NOTE | 2021-06-21 16:42 | P.PN_ITS ---
Subjective Subjective: Interval history: Patient was seen this morning, she is complaining of diarrhea, no fevers, chills, her O2 requirements are decreasing, her appetite is improving, her tongue lesions are improving Vitals/I&O/Wt Last Vital Signs Temp 97.8 F 06/21/21 13:48 Pulse 105 H 06/21/21 15:34 Resp 24 H 06/21/21 15:34 BP 119/67 06/21/21 13:48 Pulse Ox 94 06/21/21 15:34 06/21/21 06/21/21 06/21/21 06:59 14:59 22:59 Intake Total 350 / 1540 822 / 822 Output Total 450 / 1600 1000 / 1000 Balance -100 / -60 -178 / -178 Physical Exam Const: COMMON NORMALS: no acute distress and patient oriented x3 Resp: COMMON NORMALS: normal respiratory effort, No retractions, No use of accessory muscles and clear to auscultation bilaterally AUSCULTATION: clear to auscultation bilaterally Cardio: COMMON NORMALS: regular rate, regular rhythm, S1 normal heart sound present and S2 normal heart sound present RATE: regular rate RHYTHM: regular rhythm HEART SOUNDS: S1 normal heart sound present and S2 normal heart sound present GI: COMMON NORMALS: Normal to inspection, nondistended, normoactive bowel sounds present, Soft to palpation and non-tender PALPATION: Yes Soft to palpation Extremity: COMMON NORMALS: no pedal edema Neuro: COMMON NORMALS: patient oriented x3 Psych: COMMON NORMALS: mental status grossly normal Urinary Catheter Management^: [place]: Cath Placed During This Visit: yes Reason for Continuing Indwelling Catheter: Accurate Measurement of Urinary Output in Critically Ill Patients Urinary Catheter Date of Insertion: 06/02/21 Data : 06/21/21 04:28 06/21/21 04:28 Micro: Microbiology 06/21/21 11:50 Stool Lactoferrin - Final Stool Enteric Pathogens (PCR) - Final C.difficile Toxin B Gene (PCR) - Final Occult Blood (FIT) - Final 06/18/21 18:50 Urine Culture - Preliminary Urine Catheterized Yeast 06/20/21 09:50 MRSA Culture - Final Nose A&P Assessment and plan (1) COVID-19 determined by clinical diagnostic criteria: Status: Acute (2) Hypoxia: Status: Acute (3) Pneumonia: Status: Acute (4) Pneumonia due to COVID-19 virus: Status: Acute (5) Diarrhea: Status: Acute (6) Sinus tachycardia: Status: Acute (7) On total parenteral nutrition (TPN): Status: Acute (8) T wave inversion in EKG: Status: Acute (9) BiPAP (biphasic positive airway pressure) dependence: Status: Acute (10) DVT (deep venous thrombosis): Status: Acute Qualifiers: DVT location: lower extremity Affected thrombotic vein of extremity: femoral Chronicity: unspecified Laterality: bilateral Qualified Code(s): I82.413 - Acute embolism and thrombosis of femoral vein, bilateral (11) Alkalosis, metabolic: Status: Acute Additional A&P Information 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 Currently on heated high flow 45 L, 60% FiO2, White blood cell count down to 12.1, afebrile overnight Given her evidence of bilateral lower extremity DVT, failed anticoagulation on Xarelto, cardiac echo normal EF and normal right ventricular size and function, recent CTA did show radiographic evidence of right heart strain recent, given earlier worsening of respiratory status.given findings, high clinical suspicion for new pulmonary emboli and/or micropulmonary emboli, with hypercoagulable state of COVID-19, nonetheless is on therapeutic Lovenox No clinical signs of active bacterial infection - 1.5 L Started tapering off steroids reduced dexamethasone to 2 mg mg she has spent 3 weeks on 6 mg of Decadron, will need maintenance therapy of steroids to avoid adrenal crisis Continue multivitamins Status post remdesivir regimen Had a lengthy discussion with the family that we are not able to use ivermectin at this point, it was also discussed with medical at the committee and Dr. Porter spoke with the family as well Patient does not want to use chest physiotherapy however I have encouraged her to reconsider it I have changed her Mucomyst to as needed Stop TPN, A1c 5.7, monitor blood sugars, consult dietary Continue GI soft diet Cool ice cream pops, for soothing of tongue lesions She is happy with the progress and is reluctant to go back on BiPAP however I did clarify that she is agreeable to go back on BiPAP if her respiratory status worsens because her respiratory rate stays between 25-29 there is always a risk of muscle fatigue and worsening of hypoxia She wishes to stay DNR/DNI(she might opt for comfort care if her symptoms worsen, sister her DPOA is respecting her wishes, son Yinka who was involved in family meetings , kept him updated, he has been very emotional and has been struggling to accept guarded prognosis, of note, Ms. Villalobos lost her few weeks ago to COVID-[address] Tuore was taking care of him. Pulmonary team has been consulted Leukocytosis, 12.1, repeat blood cultures, urine cultures, sputum cultures, fungal studies, on broad-spectrum antibiotic therapy vancomycin and cefepime Aphthous ulcers, oral Decadron helped for the first 2 days, now stopped however continues to have significant oral lesions, likely herpes lesions as they have responded well to acyclovir, continue acyclovir treatment Anxiety, increase alprazolam 0.5 twice daily Diarrhea, obtain C. difficile, start probiotics TPN discontinued Glucerna Try cool ice cream pops On Ensure Monitor blood sugars, monitor liver function, monitor for bloodstream infection DVT: Bilateral lower extremity Developed bilateral extremity DVTs on Xarelto currently on therapeutic Lovenox Considering involvement of common femoral veins I do have concerns regarding traveling of clot to iliac and then inferior vena cava CTA on 06/07/2020 did not show any pulmonary emboli but did show increasing right heart rate EKG showing diffuse T wave inversions Cardiac echocardiogram showed normal left ventricular size, systolic function, upper normal wall thickness, no regional wall motion abnormalities, ejection fraction 70%, diastolic dysfunction grade 1,, normal right ventricle size and function, left atrium mildly increased left atrial size Continue therapeutic Lovenox T wave inversion consistent with right heart strain however no PE detected on CTA troponin without significant delta, no active chest pain, however given worsening respiratory status, highly suspicious of pulmonary emboli, possible micropulmonary emboli Currently on GI soft diet, DNR/DNI Respiratory therapist updated Plan for today, obtain C. difficile, wean oxygen, continue IV antibiotics, continue acyclovir, encourage p.o. intake, 1 dose of Lasix Attestations Medical Necessity Statement*: Patient requires hospitalization for acute respiratory failure secondary COVID-19 Coding Level of Care Code Acute Composite Worker for [facility] Diagnoses COVID-19 determined by clinical diagnostic criteria U07.1 Hypoxia R09.02 Pneumonia J18.9 Pneumonia due to COVID-19 virus U07.1; J12.82 Diarrhea R19.7 Sinus tachycardia R00.0 On total parenteral nutrition (TPN) Z78.9 T wave inversion in EKG R94.31 BiPAP (biphasic positive airway pressure) dependence Z99.89 DVT (deep venous thrombosis) I82.413 DVT location: lower extremity Affected thrombotic vein of extremity: femoral Chronicity: unspecified Laterality: bilateral Alkalosis, metabolic E87.3
[2021-06-21 17:35] LABS: Glucose Point of Care 155 mg/dL (70-110)
[2021-06-22] VITALS (13 sets, daily range): BP systolic 107–129; BP diastolic 63–79; PULSE 85–113; RESP 20–27; TEMP 36.3–36.8; O2SAT 91–98
[2021-06-22 04:36] LABS: Basophils % 0.2 %; Eosinophils # 0.2 10^3/uL (0.0-0.8); Eosinophils % 1.3 %; Hematocrit 35.3 % (37.0-47.0); Hemoglobin 10.7 g/dL (11.5-15.3); Lymphocytes # 1.9 10^3/uL (0.8-4.8); Lymphocytes % 14.9 %; Mean Corpuscular HGB Conc 30.3 g/dL (30.0-36.0); Mean Corpuscular Hemoglobin 30.1 pg (28.0-34.0); Mean Corpuscular Volume 99.2 fl (81-99); Mean Platelet Volume 8.8 fL (7.4-10.4); Monocytes # 0.7 10^3/uL (0.2-0.9); Monocytes % 5.6 %; Neutrophils # 9.59 10^3/uL (1.8-7.7); Neutrophils % 76.2 %; Nucleated Red Blood Cells % 0 %; Platelet Count 297 10^3/cmm (130-400); Red Blood Count 3.56 10^6/uL (4.1-5.3); Red Cell Distribution Width 15.6 % (12.1-15.1); White Blood Count 12.6 10^3/uL (4.0-10.0)
[2021-06-22 05:19] LABS: Alanine Aminotransferase 75 U/L (0-33); Albumin Level 3.1 g/dL (3.5-5.2); Alkaline Phosphatase 72 IU/L (35-105); Anion Gap 8.7 (5-19); Aspartate Amino Transferase 24 U/L (0-32); Blood Urea Nitrogen 14 mg/dL (8-23); C Reactive Protein 1.4 mg/L (0.0-4.9); Calcium 9.1 mg/dL (8.5-10.5); Carbon Dioxide 37 mmol/L (22-29); Chloride 97 mmol/L (98-107); Glucose 98 mg/dL (65-115); Magnesium 1.9 mg/dL (1.7-2.3); Osmolality Calculated 288 mOsm/kg (285-295); Phosphorus 2.9 mg/dL (2.5-4.5); Potassium 3.7 mmol/L (3.5-5.1); Sodium 139 mmol/L (136-145); Total Bilirubin 0.2 mg/dL (0.15-1.2); Total Protein 6.1 g/dL (6.6-8.7)
--- NOTE | 2021-06-22 07:54 | PC.NURSE ---
Report received from Abad ECHEVERRIA. Patient is resting in bed watching TV. A & O. No C/O of pain or other needs at this time
[2021-06-22] MEDS: ascorbic acid 500 mg Tablet 1000 MG PO ×2 (08:59→17:26)
[2021-06-22] MEDS: dexamethasone 4 mg Tablet 2 MG PO (08:59)
[2021-06-22] MEDS: zinc gluconate 50 mg Tablet 100 MG PO (08:59)
[2021-06-22] MEDS: nystatin 100,000 unit/mL UDC 5 mL 100000 UNIT PO ×4 (08:59→22:50)
[2021-06-22] MEDS: cholecalciferol (vitamin D3) 5,000 unit Tablet 5000 UNIT PO (08:59)
[2021-06-22] MEDS: acyclovir 400 mg Tablet PO ×3 (08:59→22:05)
[2021-06-22] MEDS: fluconazole 100 mg Tablet 200 MG PO (08:59)
[2021-06-22] MEDS: saline nasal spray 44mL Btl 1 SPRAY NASAL (09:01)
[2021-06-22] MEDS: nystatin cream 30 gm 1 APPLIC TOPICAL ×2 (09:01→17:27)
[2021-06-22] MEDS: lactobacillus 1 Tablet 1 TAB PO ×2 (09:09→17:26)
[2021-06-22] MEDS: cefepime 1,000 MG in sodium chloride 0.9% (plus) 100 ML 200 MG IV ×2 (09:10→21:36)
[2021-06-22 10:04] LABS: NT Pro B Type Natriuretic Pept 194 pg/mL (0-125); Procalcitonin 0.11 ng/mL (0-0.5)
[2021-06-22] MEDS: vancomycin 1,000 MG in sodium chloride 0.9% 250 ML 250 MG IV ×2 (10:46→22:04)
[2021-06-22] MEDS: enoxaparin 80 mg/0.8 mL Syringe SUBCUT ×2 (12:57→22:51)
--- NOTE | 2021-06-22 15:17 | PM.PN ---
Subjective Subjective: Interval history: Patient is in good spirits this morning, she is on 45 L, 65% FiO2, she is feeling better, her tongue lesions have improved, no nausea, no vomiting, her appetite still needs improvement, but overall she feels better Vitals/I&O/Wt Last Vital Signs Temp 98.0 F 06/22/21 13:16 Pulse 106 H 06/22/21 13:16 Resp 20 H 06/22/21 13:16 BP 129/66 06/22/21 13:16 Pulse Ox 97 06/22/21 13:16 06/22/21 06/22/21 06/22/21 06:59 14:59 22:59 Intake Total 700 / 700 Output Total 450 / 2250 Balance -450 / -1192 700 / 700 Physical Exam Const: COMMON NORMALS: no acute distress and patient oriented x3 GENERAL APPEARANCE: frail appearing Resp: COMMON NORMALS: normal respiratory effort, No retractions, No use of accessory muscles and clear to auscultation bilaterally AUSCULTATION: clear to auscultation bilaterally Cardio: COMMON NORMALS: regular rate, regular rhythm, S1 normal heart sound present and S2 normal heart sound present RATE: regular rate RHYTHM: regular rhythm HEART SOUNDS: S1 normal heart sound present and S2 normal heart sound present GI: COMMON NORMALS: Normal to inspection, nondistended, normoactive bowel sounds present, Soft to palpation, non-tender and No hepatosplenomegaly present PALPATION: Yes Soft to palpation and Yes No hepatosplenomegaly present Extremity: COMMON NORMALS: no pedal edema NARRATIVE EXTREMITY EXAM: Right arm PICC line Neuro: COMMON NORMALS: patient oriented x3 Psych: COMMON NORMALS: mental status grossly normal Urinary Catheter Management^: [place]: Cath Placed During This Visit: yes Reason for Continuing Indwelling Catheter: Other Urinary Catheter Date of Insertion: 06/02/21 Data : 06/22/21 04:03 06/22/21 04:03 Micro: Microbiology 06/21/21 11:50 Stool Lactoferrin - Final Stool Enteric Pathogens (PCR) - Final Parasite Antigen Panel - Final C.difficile Toxin B Gene (PCR) - Final Occult Blood (FIT) - Final A&P Assessment and plan (1) COVID-19 determined by clinical diagnostic criteria: Status: Acute (2) Hypoxia: Status: Acute (3) Pneumonia: Status: Acute (4) Pneumonia due to COVID-19 virus: Status: Acute (5) Diarrhea: Status: Acute (6) Sinus tachycardia: Status: Acute (7) On total parenteral nutrition (TPN): Status: Acute (8) T wave inversion in EKG: Status: Acute (9) BiPAP (biphasic positive airway pressure) dependence: Status: Acute (10) DVT (deep venous thrombosis): Status: Acute Qualifiers: DVT location: lower extremity Affected thrombotic vein of extremity: femoral Chronicity: unspecified Laterality: bilateral Qualified Code(s): I82.413 - Acute embolism and thrombosis of femoral vein, bilateral (11) Alkalosis, metabolic: Status: Acute Additional A&P Information 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 Currently on heated high flow 45 L, 65% FiO2, White blood cell count down to 12.6, afebrile overnight Given her evidence of bilateral lower extremity DVT, failed anticoagulation on Xarelto, cardiac echo normal EF and normal right ventricular size and function, recent CTA did show radiographic evidence of right heart strain recent, given earlier worsening of respiratory status.given findings, high clinical suspicion for new pulmonary emboli and/or micropulmonary emboli, with hypercoagulable state of COVID-19, nonetheless is on therapeutic Lovenox No clinical signs of active bacterial infection - 1 L Started tapering off steroids reduced dexamethasone to 2 mg mg she has spent 3 weeks on 6 mg of Decadron, will need maintenance therapy of steroids to avoid adrenal crisis Continue multivitamins Status post remdesivir regimen Had a lengthy discussion with the family that we are not able to use ivermectin at this point, it was also discussed with medical at the committee and Dr. Porter spoke with the family as well Patient does not want to use chest physiotherapy however I have encouraged her to reconsider it I have changed her Mucomyst to as needed Stop TPN, A1c 5.7, monitor blood sugars, consult dietary Continue GI soft diet Cool ice cream pops, for soothing of tongue lesions She is happy with the progress and is reluctant to go back on BiPAP however I did clarify that she is agreeable to go back on BiPAP if her respiratory status worsens because her respiratory rate stays between 25-29 there is always a risk of muscle fatigue and worsening of hypoxia She wishes to stay DNR/DNI(she might opt for comfort care if her symptoms worsen, sister her DPOA is respecting her wishes, son Yinka who was involved in family meetings , kept him updated, he has been very emotional and has been struggling to accept guarded prognosis, of note, Ms. Villalobos lost her few weeks ago to COVID-[address] Toure was taking care of him. Pulmonary team has been consulted Leukocytosis, 12.6, repeat blood cultures, urine cultures, sputum cultures, fungal studies, on broad-spectrum antibiotic therapy vancomycin and cefepime, will de-escalate in the next 3 4 hours Urine cultures show yeast, start fluconazole Aphthous ulcers, oral Decadron helped for the first 2 days, now stopped however continues to have significant oral lesions, likely herpes lesions as they have responded well to acyclovir, continue acyclovir treatment Anxiety, increase alprazolam 0.5 twice daily Diarrhea, obtain C. difficile, start probiotics TPN discontinued Glucerna Try cool ice cream pops On Ensure Monitor blood sugars, monitor liver function, monitor for bloodstream infection DVT: Bilateral lower extremity Developed bilateral extremity DVTs on Xarelto currently on therapeutic Lovenox Considering involvement of common femoral veins I do have concerns regarding traveling of clot to iliac and then inferior vena cava CTA on 06/07/2020 did not show any pulmonary emboli but did show increasing right heart rate EKG showing diffuse T wave inversions Cardiac echocardiogram showed normal left ventricular size, systolic function, upper normal wall thickness, no regional wall motion abnormalities, ejection fraction 70%, diastolic dysfunction grade 1,, normal right ventricle size and function, left atrium mildly increased left atrial size Continue therapeutic Lovenox T wave inversion consistent with right heart strain however no PE detected on CTA troponin without significant delta, no active chest pain, however given worsening respiratory status, highly suspicious of pulmonary emboli, possible micropulmonary emboli Currently on GI soft diet, DNR/DNI Respiratory therapist updated Plan for today, continue oxygen therapy, continue antibiotics, had fluconazole, de-escalate antibiotic therapy the next 1 to 4 hours Attestations Medical Necessity Statement*: Patient requires hospitalization for acute respiratory failure secondary COVID-19 Coding Level of Care Code 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
--- NOTE | 2021-06-22 19:28 | PC.NURSE ---
Shift Note Frequent safety and comfort rounds continue. Orders and/or nursing care completed as indicated. Patient monitored for response to intervention and treatment(s). Education provided includes vancomycin and other medication education, the importance of working with PT, and encouraging meals. Patient and/or telephone claims representative verbalize understanding. Will continue to monitor.
[2021-06-23] VITALS (16 sets, daily range): BP systolic 116–142; BP diastolic 68–82; PULSE 78–100; RESP 16–37; TEMP 36.5–36.8; O2SAT 85–97
[2021-06-23 04:31] LABS: Basophils % 0.1 %; Eosinophils % 0.2 %; Hematocrit 34.3 % (37.0-47.0); Hemoglobin 10.4 g/dL (11.5-15.3); Lymphocytes # 1.5 10^3/uL (0.8-4.8); Lymphocytes % 11.1 %; Mean Corpuscular HGB Conc 30.3 g/dL (30.0-36.0); Mean Corpuscular Hemoglobin 29.8 pg (28.0-34.0); Mean Corpuscular Volume 98.3 fl (81-99); Monocytes # 0.6 10^3/uL (0.2-0.9); Monocytes % 4.3 %; Neutrophils # 11.29 10^3/uL (1.8-7.7); Neutrophils % 82.7 %; Nucleated Red Blood Cells % 0 %; Platelet Count 308 10^3/cmm (130-400); Red Blood Count 3.49 10^6/uL (4.1-5.3); Red Cell Distribution Width 15.6 % (12.1-15.1); White Blood Count 13.6 10^3/uL (4.0-10.0)
[2021-06-23 05:04] LABS: Alanine Aminotransferase 77 U/L (0-33); Albumin Level 3.1 g/dL (3.5-5.2); Alkaline Phosphatase 72 IU/L (35-105); Anion Gap 8.1 (5-19); Aspartate Amino Transferase 34 U/L (0-32); Blood Urea Nitrogen 13 mg/dL (8-23); Calcium 9.1 mg/dL (8.5-10.5); Carbon Dioxide 37 mmol/L (22-29); Chloride 98 mmol/L (98-107); Globulin 3.2 g/dL (1.3-4.6); Glomerular Filtration Rate 357.6 mL/min (90-130); Glucose 97 mg/dL (65-115); Magnesium 1.9 mg/dL (1.7-2.3); Osmolality Calculated 288 mOsm/kg (285-295); Phosphorus 2.6 mg/dL (2.5-4.5); Potassium 4.1 mmol/L (3.5-5.1); Sodium 139 mmol/L (136-145); Total Bilirubin 0.3 mg/dL (0.15-1.2); Total Protein 6.3 g/dL (6.6-8.7)
[2021-06-23] MEDS: levalbuterol 0.63 mg/3 mL Neb INHALATION (08:24)
[2021-06-23] MEDS: cholecalciferol (vitamin D3) 5,000 unit Tablet 5000 UNIT PO (09:40)
[2021-06-23] MEDS: zinc gluconate 50 mg Tablet 100 MG PO (09:41)
[2021-06-23] MEDS: fluconazole 100 mg Tablet 200 MG PO (09:41)
[2021-06-23] MEDS: dexamethasone 4 mg Tablet 2 MG PO (09:41)
[2021-06-23] MEDS: ascorbic acid 500 mg Tablet 1000 MG PO ×2 (09:41→17:44)
[2021-06-23] MEDS: acyclovir 400 mg Tablet PO ×2 (09:41→21:00)
[2021-06-23] MEDS: lactobacillus 1 Tablet 1 TAB PO ×2 (09:41→17:44)
[2021-06-23] MEDS: nystatin 100,000 unit/mL UDC 5 mL 100000 UNIT PO ×4 (09:42→20:57)
[2021-06-23] MEDS: nystatin cream 30 gm 1 APPLIC TOPICAL ×2 (09:43→17:46)
[2021-06-23 10:47] LABS: Vancomycin Trough 15.2 ug/mL (10-15)
--- NOTE | 2021-06-23 11:37 | PM.PN ---
Subjective Subjective: Interval history: Patient was seen this morning, she had a good night overall, her diarrhea has improved, she has had 1 soft but liquidy bowel movement yesterday, no abdominal pain, no nausea, vomiting, no fevers, chills, she cannot sit up to the side of bed, but cannot get in the chair Vitals/I&O/Wt Last Vital Signs Temp 97.8 F 06/23/21 08:00 Pulse 99 06/23/21 08:33 Resp 22 H 06/23/21 08:26 BP 127/75 06/23/21 08:00 Pulse Ox 92 06/23/21 08:26 06/22/21 06/23/21 06/23/21 22:59 06:59 14:59 Intake Total 340 / 1040 250 / 1290 Output Total 750 / 750 Balance -410 / 290 250 / 540 Physical Exam Const: COMMON NORMALS: no acute distress and patient oriented x3 GENERAL APPEARANCE: frail appearing Resp: COMMON NORMALS: normal respiratory effort, No retractions, No use of accessory muscles and clear to auscultation bilaterally AUSCULTATION: clear to auscultation bilaterally Cardio: COMMON NORMALS: regular rate, regular rhythm, S1 normal heart sound present and S2 normal heart sound present RATE: regular rate RHYTHM: regular rhythm HEART SOUNDS: S1 normal heart sound present and S2 normal heart sound present GI: COMMON NORMALS: Normal to inspection, nondistended, normoactive bowel sounds present, Soft to palpation and non-tender PALPATION: Yes Soft to palpation Extremity: COMMON NORMALS: no pedal edema Neuro: COMMON NORMALS: patient oriented x3 Psych: COMMON NORMALS: mental status grossly normal Urinary Catheter Management^: [place]: Cath Placed During This Visit: yes Reason for Continuing Indwelling Catheter: Accurate Measurement of Urinary Output in Critically Ill Patients Urinary Catheter Date of Insertion: 06/02/21 Data : 06/23/21 03:46 06/23/21 03:46 Micro: Microbiology 06/21/21 11:50 Stool Lactoferrin - Final Stool Enteric Pathogens (PCR) - Final Parasite Antigen Panel - Final C.difficile Toxin B Gene (PCR) - Final Occult Blood (FIT) - Final A&P Assessment and plan (1) COVID-19 determined by clinical diagnostic criteria: Status: Acute (2) Hypoxia: Status: Acute (3) Pneumonia: Status: Acute (4) Pneumonia due to COVID-19 virus: Status: Acute (5) Diarrhea: Status: Acute (6) Sinus tachycardia: Status: Acute (7) On total parenteral nutrition (TPN): Status: Acute (8) T wave inversion in EKG: Status: Acute (9) BiPAP (biphasic positive airway pressure) dependence: Status: Acute (10) DVT (deep venous thrombosis): Status: Acute Qualifiers: DVT location: lower extremity Affected thrombotic vein of extremity: femoral Chronicity: unspecified Laterality: bilateral Qualified Code(s): I82.413 - Acute embolism and thrombosis of femoral vein, bilateral (11) Alkalosis, metabolic: Status: Acute Additional A&P Information 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 Currently on heated high flow 40 L, 60% FiO2, White blood cell count down to 13.6, afebrile overnight Given her evidence of bilateral lower extremity DVT, failed anticoagulation on Xarelto, cardiac echo normal EF and normal right ventricular size and function, recent CTA did show radiographic evidence of right heart strain recent, given earlier worsening of respiratory status.given findings, high clinical suspicion for new pulmonary emboli and/or micropulmonary emboli, with hypercoagulable state of COVID-19, nonetheless is on therapeutic Lovenox No clinical signs of active bacterial infection - 1 L Started tapering off steroids reduced dexamethasone to 2 mg mg she has spent 3 weeks on 6 mg of Decadron, will need maintenance therapy of steroids to avoid adrenal crisis Continue multivitamins Status post remdesivir regimen Had a lengthy discussion with the family that we are not able to use ivermectin at this point, it was also discussed with medical at the committee and Dr. Porter spoke with the family as well Patient does not want to use chest physiotherapy however I have encouraged her to reconsider it I have changed her Mucomyst to as needed Stop TPN, A1c 5.7, monitor blood sugars, consult dietary Continue GI soft diet Cool ice cream pops, for soothing of tongue lesions She is happy with the progress and is reluctant to go back on BiPAP however I did clarify that she is agreeable to go back on BiPAP if her respiratory status worsens because her respiratory rate stays between 25-29 there is always a risk of muscle fatigue and worsening of hypoxia She wishes to stay DNR/DNI(she might opt for comfort care if her symptoms worsen, sister her DPOA is respecting her wishes, son Yinka who was involved in family meetings , kept him updated, he has been very emotional and has been struggling to accept guarded prognosis, of note, Ms. Villalobos lost her few weeks ago to COVID-[address] Toure was taking care of him. Pulmonary team has been consulted Leukocytosis, 13.6, repeat blood cultures, urine cultures, sputum cultures, have been unremarkable fungal studies pending, has been on on broad-spectrum antibiotic therapy vancomycin and cefepime for over 72 hours, will stop antibiotics today Urine cultures show yeast, continue fluconazole Aphthous ulcers, oral Decadron helped for the first 2 days, now stopped however continues to have significant oral lesions, likely herpes lesions as they have responded well to acyclovir, continue acyclovir treatment Anxiety, increase alprazolam 0.5 twice daily Diarrhea, C. difficile negative, start probiotics TPN discontinued Glucerna Try cool ice cream pops On Ensure Monitor blood sugars, monitor liver function, monitor for bloodstream infection DVT: Bilateral lower extremity Developed bilateral extremity DVTs on Xarelto currently on therapeutic Lovenox Considering involvement of common femoral veins I do have concerns regarding traveling of clot to iliac and then inferior vena cava CTA on 06/07/2020 did not show any pulmonary emboli but did show increasing right heart rate EKG showing diffuse T wave inversions Cardiac echocardiogram showed normal left ventricular size, systolic function, upper normal wall thickness, no regional wall motion abnormalities, ejection fraction 70%, diastolic dysfunction grade 1,, normal right ventricle size and function, left atrium mildly increased left atrial size Continue therapeutic Lovenox T wave inversion consistent with right heart strain however no PE detected on CTA troponin without significant delta, no active chest pain, however given worsening respiratory status, highly suspicious of pulmonary emboli, possible micropulmonary emboli Currently on GI soft diet, DNR/DNI Respiratory therapist updated Plan for today, continue oxygen therapy, stop antibiotics, PT OT, 1 dose of Lasix today Attestations Medical Necessity Statement*: Patient requires hospitalization for acute respiratory failure secondary COVID-19 Coding Level of Care Code Acute Benefits Consulting Analyst for [facility] Diagnoses COVID-19 determined by clinical diagnostic criteria U07.1 Hypoxia R09.02 Pneumonia J18.9 Pneumonia due to COVID-19 virus U07.1; J12.82 Diarrhea R19.7 Sinus tachycardia R00.0 On total parenteral nutrition (TPN) Z78.9 T wave inversion in EKG R94.31 BiPAP (biphasic positive airway pressure) dependence Z99.89 DVT (deep venous thrombosis) I82.413 DVT location: lower extremity Affected thrombotic vein of extremity: femoral Chronicity: unspecified Laterality: bilateral Alkalosis, metabolic E87.3
[2021-06-23] MEDS: enoxaparin 80 mg/0.8 mL Syringe SUBCUT (13:00)
[2021-06-24] VITALS (15 sets, daily range): BP systolic 115–134; BP diastolic 68–89; PULSE 71–101; RESP 17–38; TEMP 36.5–36.7; O2SAT 85–97
[2021-06-24] MEDS: enoxaparin 80 mg/0.8 mL Syringe SUBCUT ×2 (00:33→12:08)
[2021-06-24 04:31] LABS: Basophils % 0.1 %; Eosinophils % 0.2 %; Hematocrit 33.9 % (37.0-47.0); Hemoglobin 10.3 g/dL (11.5-15.3); Lymphocytes # 1.6 10^3/uL (0.8-4.8); Mean Corpuscular HGB Conc 30.4 g/dL (30.0-36.0); Mean Corpuscular Hemoglobin 29.7 pg (28.0-34.0); Mean Corpuscular Volume 97.7 fl (81-99); Mean Platelet Volume 9.2 fL (7.4-10.4); Monocytes # 0.6 10^3/uL (0.2-0.9); Monocytes % 4.8 %; Neutrophils # 9.86 10^3/uL (1.8-7.7); Neutrophils % 80.8 %; Nucleated Red Blood Cells % 0 %; Platelet Count 301 10^3/cmm (130-400); Red Blood Count 3.47 10^6/uL (4.1-5.3); Red Cell Distribution Width 15.9 % (12.1-15.1); White Blood Count 12.2 10^3/uL (4.0-10.0)
--- NOTE | 2021-06-24 06:58 | PC.NURSE ---
Shift Note Frequent safety and comfort rounds continue. Orders and/or nursing care completed as indicated. Patient monitored for response to intervention and treatment(s). Education provided includes importance of q 2 hour turns. Patient verbalized understanding but needs reinforcement. Will continue to monitor.
[2021-06-24 07:12] LABS: Alanine Aminotransferase 80 U/L (0-33); Albumin Level 3.1 g/dL (3.5-5.2); Alkaline Phosphatase 67 IU/L (35-105); Anion Gap 6.3 (5-19); Aspartate Amino Transferase 32 U/L (0-32); Blood Urea Nitrogen 14 mg/dL (8-23); Calcium 9.1 mg/dL (8.5-10.5); Carbon Dioxide 39 mmol/L (22-29); Chloride 99 mmol/L (98-107); Globulin 2.8 g/dL (1.3-4.6); Glomerular Filtration Rate 357.6 mL/min (90-130); Glucose 92 mg/dL (65-115); Magnesium 2.1 mg/dL (1.7-2.3); Osmolality Calculated 290 mOsm/kg (285-295); Phosphorus 2.9 mg/dL (2.5-4.5); Potassium 4.3 mmol/L (3.5-5.1); Sodium 140 mmol/L (136-145); Total Bilirubin 0.2 mg/dL (0.15-1.2); Total Protein 5.9 g/dL (6.6-8.7)
--- NOTE | 2021-06-24 08:29 | PC.CHAP ---
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 trade show specialist visit [] Patient/Family/Request visit [] Outpatient visit [] Follow-up visit [] Physician referral [] Code/Alert [x] Routine visit [] Staff referral [] Actively dying [] Patient sleeping [] Family support [] [] Out of room [] Palliative care [] [] Receiving care in room [] Pre-surgical visit [] Trauma [] Long length of stay [] ICU visit [] Other: Relational/Emotional Strength [] Patient feels connected with others/family/visitors/staff [] Distress [] Loneliness/isolation [] Abandonment Spirituality of Patient [x] Person of Caro [] Attends Amish of their Caro [] Believes in Prayer [] Reads Bible or Congregation materials [] There are Spiritual issues to be addressed Director Of Surgery Interventions [x] Prayer [x] Active listening [x] Non-anxious presence [x] Spiritual/emotional support [] Crisis/trauma care [] Spiritual counseling [] Bereavement support [] Provided bereavement packet [] Provided Bible/devotional materials [] Provided toy/stuffed animal, coloring book to patient or family member [] Provided Communion [] Anointing/[place] [] Salvation [x] Completed spiritual assessment [] Other: Impact on Illness or Injury [] Angry [] Fearful [] Anxious [] Often cries [] Exhaustion [] Unable to work [] Unable to attend denominational [] Unable to walk/stand [] Unable to read [] Unable to drive [] Unable to eat/drink [] Unable to sleep [] Unable to be with family [] Patient intubated [] Other: Summary visit this patient daily... over the 37 days we have shared I see an improvement... we pray for strength, healing and she is fighting hard to recover Time spent with patient 10 min
[2021-06-24] MEDS: nystatin 100,000 unit/mL UDC 5 mL 100000 UNIT PO ×4 (08:43→19:39)
[2021-06-24] MEDS: dexamethasone 4 mg Tablet 2 MG PO (08:44)
[2021-06-24] MEDS: ascorbic acid 500 mg Tablet 1000 MG PO ×2 (08:44→18:01)
[2021-06-24] MEDS: zinc gluconate 50 mg Tablet 100 MG PO (08:44)
[2021-06-24] MEDS: acyclovir 400 mg Tablet PO ×3 (08:45→19:39)
[2021-06-24] MEDS: lactobacillus 1 Tablet 1 TAB PO ×2 (08:45→18:00)
[2021-06-24] MEDS: cholecalciferol (vitamin D3) 5,000 unit Tablet 5000 UNIT PO (08:46)
[2021-06-24] MEDS: fluconazole 100 mg Tablet 200 MG PO (08:46)
[2021-06-24] MEDS: nystatin cream 30 gm 1 APPLIC TOPICAL ×2 (08:47→19:39)
[2021-06-24] MEDS: levalbuterol 0.63 mg/3 mL Neb INHALATION ×2 (10:28→14:50)
[2021-06-24] MEDS: CLONazepam 0.5 mg Tablet PO (19:56)
--- NOTE | 2021-06-24 20:51 | PM.PN ---
Subjective Subjective: Interval history: Currently on 40% high flow Still feels dyspneic Had visitors today Medications: Reviewed: Yes Vitals/I&O/Wt Last Vital Signs Temp 98 F 06/24/21 19:15 Pulse 71 06/24/21 20:08 Resp 20 H 06/24/21 20:08 BP 125/71 06/24/21 19:15 Pulse Ox 95 06/24/21 20:08 06/24/21 06/24/21 06/24/21 06:59 14:59 22:59 Intake Total 100 / 100 150 / 150 236 / 386 Output Total 1000 / 1000 500 / 500 Balance -900 / -900 -350 / -350 236 / -114 Physical Exam Const: COMMON NORMALS: no acute distress and patient oriented x3 GENERAL APPEARANCE: cooperative ORIENTATION/CONSCIOUSNESS: Yes awake Chest: COMMONS NORMALS: normal inspection of the chest Resp: OTHER: On high flow oxygen Cardio: COMMON NORMALS: regular rate and regular rhythm RATE: regular rate RHYTHM: regular rhythm GI: COMMON NORMALS: Soft to palpation and non-tender PALPATION: Yes Soft to palpation Neuro: COMMON NORMALS: patient oriented x3 and CN's II-XII intact bilaterally Psych: COMMON NORMALS: mental status grossly normal and Normal thought process present THOUGHT PROCESS: Normal thought process present Urinary Catheter Management^: [place]: Cath Placed During This Visit: yes Reason for Continuing Indwelling Catheter: Other Urinary Catheter Date of Insertion: 06/02/21 Data : 06/24/21 03:40 06/24/21 06:44 Micro: Microbiology 06/19/21 09:53 Blood Culture - Final Blood NO GROWTH AFTER 5 DAYS 06/19/21 09:45 Blood Culture - Final Blood NO GROWTH AFTER 5 DAYS 06/18/21 18:50 Urine Culture - Final Urine Catheterized Yeast A&P Assessment and plan (1) Acute respiratory distress syndrome (ARDS) due to 2019 novel coronavirus: Status: Acute (2) DVT (deep venous thrombosis): Status: Acute Qualifiers: DVT location: lower extremity Affected thrombotic vein of extremity: femoral Chronicity: unspecified Laterality: bilateral Qualified Code(s): I82.413 - Acute embolism and thrombosis of femoral vein, bilateral (3) Sinus tachycardia: Status: Acute (4) Diarrhea: Status: Acute (5) Hypoxia: Status: Acute Additional A&P Information #ARDS #COVID 19 Pneumonia #hypoxemia --continue decadron --taper O2 --continue guaifenesin --PRN levalbuterol --zinc, vitamin D, C --Status post remdesivir regimen #DVT --Lovenox #malnutrition -TPN was discontinued --advance diet per nutrition recs currently on GI soft diet #anxiety #abnormal Urine culture #yeast --continue fluconazole #apthous ulcer --continue acyclovir #weakness --PT/OT Attestations Medical Necessity Statement*: Vandana Villalobos's hospital stay will require greater than 2 midnights for respiratory failure Coding Level of Care Code 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
[2021-06-25] VITALS (14 sets, daily range): BP systolic 102–140; BP diastolic 66–82; PULSE 82–112; RESP 17–26; TEMP 36.6–36.8; O2SAT 90–97
[2021-06-25] MEDS: enoxaparin 80 mg/0.8 mL Syringe SUBCUT ×3 (01:26→20:48)
[2021-06-25 03:52] LABS: Basophils % 0.2 %; Eosinophils # 0.1 10^3/uL (0.0-0.8); Eosinophils % 0.6 %; Hematocrit 34.3 % (37.0-47.0); Hemoglobin 10.5 g/dL (11.5-15.3); Lymphocytes # 1.9 10^3/uL (0.8-4.8); Lymphocytes % 16.9 %; Mean Corpuscular HGB Conc 30.6 g/dL (30.0-36.0); Mean Corpuscular Hemoglobin 30.6 pg (28.0-34.0); Mean Platelet Volume 8.9 fL (7.4-10.4); Monocytes # 0.7 10^3/uL (0.2-0.9); Neutrophils # 8.51 10^3/uL (1.8-7.7); Neutrophils % 75.6 %; Nucleated Red Blood Cells % 0 %; Platelet Count 273 10^3/cmm (130-400); Red Blood Count 3.43 10^6/uL (4.1-5.3); Red Cell Distribution Width 16.4 % (12.1-15.1); White Blood Count 11.3 10^3/uL (4.0-10.0)
[2021-06-25 04:17] LABS: Alanine Aminotransferase 73 U/L (0-33); Alkaline Phosphatase 65 IU/L (35-105); Anion Gap 6.5 (5-19); Aspartate Amino Transferase 27 U/L (0-32); Blood Urea Nitrogen 17 mg/dL (8-23); Calcium 8.9 mg/dL (8.5-10.5); Carbon Dioxide 38 mmol/L (22-29); Chloride 101 mmol/L (98-107); Globulin 2.7 g/dL (1.3-4.6); Glucose 90 mg/dL (65-115); Magnesium 2.2 mg/dL (1.7-2.3); Osmolality Calculated 293 mOsm/kg (285-295); Phosphorus 3.3 mg/dL (2.5-4.5); Potassium 4.5 mmol/L (3.5-5.1); Sodium 141 mmol/L (136-145); Total Bilirubin 0.2 mg/dL (0.15-1.2); Total Protein 5.7 g/dL (6.6-8.7)
--- NOTE | 2021-06-25 04:49 | PC.NURSE ---
Shift Note Frequent safety and comfort rounds continue. Orders and/or nursing care completed as indicated. Patient monitored for response to intervention and treatment(s). Education provided includes oxygen safety and Lovenox. Patient and/or employee relations representative verbalized understanding. Will continue to monitor.
[2021-06-25] MEDS: nystatin 100,000 unit/mL UDC 5 mL 100000 UNIT PO ×4 (07:29→19:47)
[2021-06-25] MEDS: dexamethasone 4 mg Tablet 2 MG PO (07:30)
[2021-06-25] MEDS: zinc gluconate 50 mg Tablet 100 MG PO (07:30)
[2021-06-25] MEDS: fluconazole 100 mg Tablet 200 MG PO (07:30)
[2021-06-25] MEDS: docusate sodium 100 mg Capsule PO (07:30)
[2021-06-25] MEDS: cholecalciferol (vitamin D3) 5,000 unit Tablet 5000 UNIT PO (07:30)
[2021-06-25] MEDS: ascorbic acid 500 mg Tablet 1000 MG PO ×2 (07:30→17:01)
[2021-06-25] MEDS: lactobacillus 1 Tablet 1 TAB PO ×2 (07:31→17:00)
[2021-06-25] MEDS: nystatin cream 30 gm 1 APPLIC TOPICAL ×2 (07:32→17:10)
[2021-06-25] MEDS: acyclovir 400 mg Tablet PO ×3 (07:37→19:46)
--- NOTE | 2021-06-25 08:29 | PC.CHAP ---
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 sales agent business services visit [] Patient/Family/Request visit [] Outpatient visit [] Follow-up visit [] Physician referral [] Code/Alert [x] Routine visit [] Staff referral [] Actively dying [] Patient sleeping [] Family support [] [] Out of room [] Palliative care [] [] Receiving care in room [] Pre-surgical visit [] Trauma [] Long length of stay [] ICU visit [] Other: Relational/Emotional Strength [] Patient feels connected with others/family/visitors/staff [] Distress [] Loneliness/isolation [] Abandonment Spirituality of Patient [x] Person of Caro [] Attends Zoroastrian of their Caro [] Believes in Prayer [] Reads Bible or Bahai materials [] There are Spiritual issues to be addressed Live Study Manager Interventions [x] Prayer [x] Active listening [x] Non-anxious presence [x] Spiritual/emotional support [] Crisis/trauma care [] Spiritual counseling [] Bereavement support [] Provided bereavement packet [] Provided Bible/devotional materials [] Provided toy/stuffed animal, coloring book to patient or family member [] Provided Communion [] Anointing/[place] [] Salvation [x] Completed spiritual assessment [] Other: Impact on Illness or Injury [] Angry [] Fearful [] Anxious [] Often cries [] Exhaustion [] Unable to work [] Unable to attend zoroastrianism [] Unable to walk/stand [] Unable to read [] Unable to drive [] Unable to eat/drink [] Unable to sleep [] Unable to be with family [] Patient intubated [] Other: Summary patient feeling stronger... eating... had hair brushed ... praying for healing Time spent with patient
--- NOTE | 2021-06-25 11:12 | PM.PN ---
Subjective Subjective: Interval history: 65-year-old female with history of positive COVID-19 test on May 10 admitted May 18, 2021 for worsening shortness of breath. She has had a complicated hospitalization requiring BiPAP and high flow. Currently on high flow. Currently on flow rate 40 L/min FiO2 60. Noted to be slightly tachycardic this morning. In good spirits. Tolerating medications. Participating in therapy. Vitals/I&O/Wt Last Vital Signs Temp 98.3 F 06/25/21 08:00 Pulse 112 H 06/25/21 09:10 Resp 20 H 06/25/21 09:10 BP 125/75 06/25/21 08:00 Pulse Ox 94 06/25/21 09:10 06/24/21 06/25/21 06/25/21 22:59 06:59 14:59 Intake Total 236 / 386 150 / 536 630 / 630 Output Total 600 / 1100 Balance 236 / -114 -450 / -564 630 / 630 Physical Exam Const: COMMON NORMALS: no acute distress and patient oriented x3 Resp: EFFORT & INSPECTION: Yes able to speak in complete sentences and Yes symmetric chest movement Cardio: RATE: tachycardic Extremity: COMMON NORMALS: normal to inspection and full ROM Neuro: COMMON NORMALS: patient oriented x3 and CN's II-XII intact bilaterally Urinary Catheter Management^: Piedra: Cath Placed During This Visit: yes Reason for Continuing Indwelling Catheter: Other Urinary Catheter Date of Insertion: 06/02/21 Data : 06/25/21 03:18 06/25/21 03:18 Micro: Microbiology 06/19/21 09:53 Blood Culture - Final Blood NO GROWTH AFTER 5 DAYS 06/19/21 09:45 Blood Culture - Final Blood NO GROWTH AFTER 5 DAYS 06/18/21 18:50 Urine Culture - Final Urine Catheterized Yeast A&P Assessment and plan (1) Acute respiratory distress syndrome (ARDS) due to 2019 novel coronavirus: Status: Acute (2) DVT (deep venous thrombosis): Status: Acute Qualifiers: DVT location: lower extremity Affected thrombotic vein of extremity: femoral Chronicity: unspecified Laterality: bilateral Qualified Code(s): I82.413 - Acute embolism and thrombosis of femoral vein, bilateral (3) T wave inversion in EKG: Status: Acute (4) Pneumonia: Status: Acute (5) Hypoxia: Status: Acute Additional A&P Information #ARDS #COVID 19 Pneumonia #hypoxemia --continue decadron --taper O2 --continue guaifenesin --PRN levalbuterol --zinc, vitamin D, C --Status post remdesivir regimen #DVT --Lovenox #malnutrition -TPN was discontinued --advance diet per nutrition recs currently on GI soft diet #anxiety #abnormal Urine culture #yeast --continue fluconazole #apthous ulcer --continue acyclovir #weakness --PT/OT Attestations Medical Necessity Statement*: Vandana Anai Villalobos's hospital stay will require greater than 2 midnights for ARDS Coding Level of Care Code 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
--- NOTE | 2021-06-25 20:28 | PC.NURSE ---
Patient asked for assistance doing PT bed exercises that she was taught. Patient asked for bed zarate. Patient stated, my shen has been leaking for a couple of days. This nurse has not witnessed any urine leakage from shen. Patient did not go in bed zarate. Will continue to monitor.
--- NOTE | 2021-06-25 20:44 | PC.NURSE ---
Catheter care/kodak care completed on patient. Patient refused total bed bath.
[2021-06-26] VITALS (15 sets, daily range): BP systolic 115–131; BP diastolic 71–86; PULSE 86–113; RESP 17–30; TEMP 36.4–37.1; O2SAT 90–97
--- NOTE | 2021-06-26 06:10 | PC.NURSE ---
Shift Note Frequent safety and comfort rounds continue. Orders and/or nursing care completed as indicated. Patient monitored for response to intervention and treatment(s). Education provided includes oxygen safety and CAUTI. Patient and/or union representative verbalized understanding. Will continue to monitor.
[2021-06-26] MEDS: nystatin 100,000 unit/mL UDC 5 mL 100000 UNIT PO ×4 (08:31→20:28)
[2021-06-26] MEDS: ascorbic acid 500 mg Tablet 1000 MG PO (08:31)
[2021-06-26] MEDS: lactobacillus 1 Tablet 1 TAB PO ×2 (08:31→18:50)
[2021-06-26] MEDS: dexamethasone 4 mg Tablet 2 MG PO (08:32)
[2021-06-26] MEDS: fluconazole 100 mg Tablet 200 MG PO (08:32)
[2021-06-26] MEDS: cholecalciferol (vitamin D3) 5,000 unit Tablet 5000 UNIT PO (08:32)
[2021-06-26] MEDS: zinc gluconate 50 mg Tablet 100 MG PO (08:32)
[2021-06-26] MEDS: acyclovir 400 mg Tablet PO ×3 (08:33→20:28)
--- NOTE | 2021-06-26 08:35 | PC.CHAP ---
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 goat farmer visit [] Patient/Family/Request visit [] Outpatient visit [] Follow-up visit [] Physician referral [] Code/Alert [x] Routine visit [] Staff referral [] Actively dying [] Patient sleeping [] Family support [] [] Out of room [] Palliative care [] [] Receiving care in room [] Pre-surgical visit [] Trauma [] Long length of stay [] ICU visit [] Other: Relational/Emotional Strength [] Patient feels connected with others/family/visitors/staff [] Distress [] Loneliness/isolation [] Abandonment Spirituality of Patient [] Person of Caro [] Attends Quaker of their Caro [] Believes in Prayer [] Reads Bible or Sabianist materials [] There are Spiritual issues to be addressed Welding Pantograph Machine Operator Interventions [x] Prayer [x] Active listening [x] Non-anxious presence [x] Spiritual/emotional support [] Crisis/trauma care [] Spiritual counseling [] Bereavement support [] Provided bereavement packet [] Provided Bible/devotional materials [] Provided toy/stuffed animal, coloring book to patient or family member [] Provided Communion [] Anointing/[place] [] Salvation [x] Completed spiritual assessment [] Other: Impact on Illness or Injury [] Angry [] Fearful [] Anxious [] Often cries [] Exhaustion [] Unable to work [] Unable to attend amish [] Unable to walk/stand [] Unable to read [] Unable to drive [] Unable to eat/drink [] Unable to sleep [] Unable to be with family [] Patient intubated [] Other: Summary noticing improvement... eating solid foods .. starting exercising... Time spent with patient
[2021-06-26] MEDS: nystatin cream 30 gm 1 APPLIC TOPICAL ×2 (08:41→20:08)
[2021-06-26] MEDS: enoxaparin 80 mg/0.8 mL Syringe SUBCUT ×2 (13:28→20:28)
--- NOTE | 2021-06-26 18:55 | P.PN_ITS ---
Subjective Subjective: Interval history: 65-year-old female with history of positive COVID-19 test on May 10 admitted May 18, 2021 for worsening shortness of breath. She has had a complicated hospitalization requiring BiPAP and high flow. Currently on high flow w rate 30 L/min FiO2 48. seen with family at bedside O2 tapered today reports feeling anxious with therapy and whenever she gets up Medications: Reviewed: Yes Vitals/I&O/Wt Last Vital Signs Temp 97.6 F 06/26/21 16:00 Pulse 112 H 06/26/21 16:02 Resp 24 H 06/26/21 16:02 BP 131/79 06/26/21 16:00 Pulse Ox 95 06/26/21 16:02 06/26/21 06/26/21 06/26/21 06:59 14:59 22:59 Intake Total 582 / 582 Output Total 350 / 800 Balance -350 / 660 582 / 582 Physical Exam Const: COMMON NORMALS: no acute distress and patient oriented x3 GENERAL APPEARANCE: frail appearing Resp: COMMON NORMALS: clear to auscultation bilaterally EFFORT & INSPECTION: Yes symmetric chest movement AUSCULTATION: clear to auscultation bilaterally Cardio: COMMON NORMALS: regular rhythm RATE: tachycardic RHYTHM: regular rhythm GI: COMMON NORMALS: Normal to inspection, nondistended, normoactive bowel sounds present and Soft to palpation PALPATION: Yes Soft to palpation Neuro: COMMON NORMALS: patient oriented x3 and moves all extremities Urinary Catheter Management^: Piedra: Cath Placed During This Visit: yes Reason for Continuing Indwelling Catheter: Accurate Measurement of Urinary Output in Critically Ill Patients Urinary Catheter Date of Insertion: 06/02/21 Data : 06/25/21 03:18 06/25/21 03:18 Other Labs: Venous duplex IMPRESSION: 1. Bilateral lower extremity deep vein thrombosis. A&P Assessment and plan (1) Acute respiratory distress syndrome (ARDS) due to 2019 novel coronavirus: Status: Acute (2) Acute respiratory failure with hypoxia: Status: Acute (3) Alkalosis, metabolic: Status: Acute (4) DVT (deep venous thrombosis): Status: Acute Qualifiers: DVT location: lower extremity Affected thrombotic vein of extremity: femoral Chronicity: unspecified Laterality: bilateral Qualified Code(s): I82.413 - Acute embolism and thrombosis of femoral vein, bilateral (5) Sinus tachycardia: Status: Acute (6) Anxiety: Status: Acute Additional A&P Information #ARDS #COVID 19 Pneumonia #hypoxemia --continue decadron --taper O2 --continue guaifenesin --PRN levalbuterol --zinc, vitamin D, C --Status post remdesivir regimen #DVT --bilateral on 06/07 US --Lovenox #malnutrition -TPN was discontinued --advance diet per nutrition recs --currently on GI soft diet #anxiety --currently on Klonopin 0.5mg po bid, will consider to increase or change #abnormal Urine culture #yeast --continue fluconazole #apthous ulcer --continue acyclovir #weakness --PT/OT Attestations Medical Necessity Statement*: Vandana Anai Villalobos's hospital stay will require greater than 2 midnights for hypoxemia Coding Level of Care Code 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
--- NOTE | 2021-06-26 20:00 | PC.NURSE ---
Shift Note Frequent safety and comfort rounds continue. Orders and/or nursing care completed as indicated. Patient monitored for response to intervention and treatment(s). Education provided includes Piedra catheter removal per doctor order and monitor if pt able to urinate on her own.. Patient and/or loan representative verbalizes understanding. Will continue to monitor.
[2021-06-26] MEDS: levalbuterol 0.63 mg/3 mL Neb INHALATION (21:25)
[2021-06-27] VITALS (16 sets, daily range): BP systolic 115–127; BP diastolic 67–80; PULSE 78–106; RESP 20–26; TEMP 36.5–37.2; O2SAT 92–98
--- NOTE | 2021-06-27 04:32 | PC.NURSE ---
Shift Note Frequent safety and comfort rounds continue. Orders and/or nursing care completed as indicated. Patient monitored for response to intervention and treatment(s). Education provided includes Lovenox and nystatin. Patient and/or client account representative verbalized understanding. Will continue to monitor.
[2021-06-27] MEDS: lactobacillus 1 Tablet 1 TAB PO ×2 (08:46→18:40)
[2021-06-27] MEDS: zinc gluconate 50 mg Tablet 100 MG PO (08:47)
[2021-06-27] MEDS: fluconazole 100 mg Tablet 200 MG PO (08:47)
[2021-06-27] MEDS: dexamethasone 4 mg Tablet 2 MG PO (08:47)
[2021-06-27] MEDS: enoxaparin 80 mg/0.8 mL Syringe SUBCUT ×2 (08:48→20:19)
[2021-06-27] MEDS: cholecalciferol (vitamin D3) 5,000 unit Tablet 5000 UNIT PO (08:48)
[2021-06-27] MEDS: nystatin cream 30 gm 1 APPLIC TOPICAL ×2 (08:49→18:45)
[2021-06-27] MEDS: nystatin 100,000 unit/mL UDC 5 mL 100000 UNIT PO ×4 (08:49→20:19)
[2021-06-27] MEDS: acyclovir 400 mg Tablet PO ×3 (10:56→20:20)
--- NOTE | 2021-06-27 14:40 | P.PN_ITS ---
Subjective Subjective: Interval history: 65-year-old female with history of positive COVID-19 test on May 10 admitted May 18, 2021 for worsening shortness of breath. She has had a complicated hospitalization requiring BiPAP and high flow. Patient was on HFNC. No new clinical events overnight Medications: Reviewed: Yes Vitals/I&O/Wt Last Vital Signs Temp 98.9 F 06/27/21 08:00 Pulse 98 06/27/21 12:00 Resp 22 H 06/27/21 10:46 BP 127/80 06/27/21 14:35 Pulse Ox 95 06/27/21 14:35 06/26/21 06/27/21 06/27/21 22:59 06:59 14:59 Intake Total 360 / 942 200 / 1142 360 / 360 Output Total 450 / 450 500 / 950 400 / 400 Balance -90 / 492 -300 / 192 -40 / -40 Physical Exam Const: COMMON NORMALS: no acute distress and patient oriented x3 GENERAL APPEARANCE: cooperative, ill appearing and frail appearing ORIENTATION/CONSCIOUSNESS: Yes awake, Yes oriented to person, Yes oriented to place and Yes oriented to time HENMT: COMMON NORMALS: normocephalic and atraumatic HEAD & SCALP: normocephalic and atraumatic Chest: COMMONS NORMALS: normal inspection of the chest Resp: COMMON NORMALS: normal respiratory effort, No retractions, No use of accessory muscles and clear to auscultation bilaterally EFFORT & INSPECTION: Yes symmetric chest movement AUSCULTATION: clear to auscultation bilaterally, crackles and diminished lung sounds diffuse OTHER: On high flow oxygen Cardio: COMMON NORMALS: regular rate, regular rhythm, S1 normal heart sound present, S2 normal heart sound present, No gallops present (Cardio), No murmurs present (Cardio), No rub (Cardio) and Peripheral pulses 2+ throughout RATE: regular rate and tachycardic RHYTHM: regular rhythm HEART SOUNDS: S1 normal heart sound present and S2 normal heart sound present PERIPHERAL PULSES: Peripheral pulses 2+ throughout GI: COMMON NORMALS: Normal to inspection, nondistended, normoactive bowel sounds present, Soft to palpation, non-tender, No hepatosplenomegaly present and no masses AUSCULTATION: Yes normoactive bowel sounds PALPATION: Yes Soft to palpation and Yes No hepatosplenomegaly present RECTAL EXAM: deferred : COMMON NORMALS: Yes no CVA tenderness BLADDER/KIDNEY EXAM: Yes no CVA tenderness Back/Pelvis: COMMON NORMALS: no CVA tenderness Extremity: COMMON NORMALS: normal to inspection, no clubbing, cyanosis or edema and no pedal edema Neuro: COMMON NORMALS: patient oriented x3, CN's II-XII intact bilaterally and moves all extremities SENSORIUM/ORIENTATION: Yes oriented to person, Yes oriented to place and Yes oriented to time Psych: COMMON NORMALS: mental status grossly normal and Normal thought process present THOUGHT PROCESS: Normal thought process present Urinary Catheter Management^: Piedra: Cath Placed During This Visit: yes, but has since been removed by the nurse Reason for Continuing Indwelling Catheter: Accurate Measurement of Urinary Output in Critically Ill Patients Urinary Catheter Date of Insertion: 06/02/21 Date Urinary Catheter Removed: 06/26/21 Time Urinary Catheter Discontinued: 19:34 Data : 06/25/21 03:18 06/25/21 03:18 A&P Assessment and plan (1) Acute respiratory distress syndrome (ARDS) due to 2019 novel coronavirus: Status: Acute (2) Acute respiratory failure with hypoxia: Status: Acute (3) Alkalosis, metabolic: Status: Acute (4) DVT (deep venous thrombosis): Status: Acute Qualifiers: DVT location: lower extremity Affected thrombotic vein of extremity: femoral Chronicity: unspecified Laterality: bilateral Qualified Code(s): I82.413 - Acute embolism and thrombosis of femoral vein, bilateral (5) Sinus tachycardia: Status: Acute (6) Anxiety: Status: Acute Additional A&P Information #ARDS #COVID 19 Pneumonia #hypoxemia --continue decadron --taper O2 --continue guaifenesin --PRN levalbuterol --zinc, vitamin D, C --Status post remdesivir regimen --No change to management #DVT --bilateral on 06/07 --Lovenox --can consider changing to PO #malnutrition -TPN was discontinued --advance diet per nutrition recs --currently on GI soft diet #anxiety --currently on Klonopin 0.5mg po bid, will consider to increase or change #abnormal Urine culture #yeast --continue fluconazole #apthous ulcer --continue acyclovir #weakness --PT/OT Attestations Medical Necessity Statement*: Will require further hospitalization for management of covid19 related respiratory failure Time Spent in Patient Care: Greater than 35 minutes (>than 50% of time spent in counselling and/or direct pt care on unit) . 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
[2021-06-28] VITALS (11 sets, daily range): BP systolic 107–115; BP diastolic 68–77; PULSE 71–118; RESP 18–30; TEMP 36.7–37.1; O2SAT 90–99
[2021-06-28] MEDS: CLONazepam 0.5 mg Tablet PO (08:58)
[2021-06-28] MEDS: lactobacillus 1 Tablet 1 TAB PO ×2 (09:56→17:12)
[2021-06-28] MEDS: fluconazole 100 mg Tablet 200 MG PO (09:56)
[2021-06-28] MEDS: acyclovir 400 mg Tablet PO ×2 (09:56→14:46)
[2021-06-28] MEDS: nystatin 100,000 unit/mL UDC 5 mL 100000 UNIT PO ×4 (09:57→20:45)
[2021-06-28] MEDS: dexamethasone 4 mg Tablet 2 MG PO (09:57)
[2021-06-28] MEDS: enoxaparin 80 mg/0.8 mL Syringe SUBCUT (09:57)
--- NOTE | 2021-06-28 14:45 | PC.CHAP ---
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 director dental services visit [] Patient/Family/Request visit [] Outpatient visit [XX] Follow-up visit [] Physician referral [] Code/Alert [XX] Routine visit [] Staff referral [] Actively dying [] Patient sleeping [] Family support [] [] Out of room [] Palliative care [] [] Receiving care in room [] Pre-surgical visit [] Trauma [XX] Long length of stay [] ICU visit [] Other: Relational/Emotional Strength [xx] Patient feels connected with others/family/visitors/staff [] Distress [] Loneliness/isolation [] Abandonment Spirituality of Patient [xx] Person of Caro [] Attends Sabianist of their Caro [xx] Believes in Prayer [xx] Reads Bible or Mormon materials [] There are Spiritual issues to be addressed Fiber Design Engineer Interventions [xx] Prayer [xx] Active listening [xx] Non-anxious presence [] Spiritual/emotional support [] Crisis/trauma care [] Spiritual counseling [] Bereavement support [] Provided bereavement packet [xx] Provided Bible/devotional materials [] Provided toy/stuffed animal, coloring book to patient or family member [] Provided Communion [] Anointing/[place] [] Salvation [xx] Completed spiritual assessment [] Other: Impact on Illness or Injury [] Angry [] Fearful [] Anxious [] Often cries [] Exhaustion [] Unable to work [xx] Unable to attend pentecostalism [xx] Unable to walk/stand [] Unable to read [] Unable to drive [] Unable to eat/drink [] Unable to sleep [] Unable to be with family [] Patient intubated [] Other: Summary Patient improving much after covid. She can now talk and laugh and she wants to do so. She is very concerned about a friend who just had multiple life-altering surgeries and the impact on the friend and her family. Patient has started learning to walk again after 40+ days in bed. Time spent with patient 17 minutes
[2021-06-28] MEDS: nystatin cream 30 gm 1 APPLIC TOPICAL (17:13)
--- NOTE | 2021-06-28 17:19 | PM.PN ---
Subjective Subjective: Interval history: 65-year-old female with history of positive COVID-19 test on May 10 admitted May 18, 2021 for worsening shortness of breath. She has had a complicated hospitalization requiring BiPAP and high flow. patient was weaned down to 3 L of O2 via nasal cannula. She stated she felt much better. No fever chills overnight. No nausea vomiting. Continues to improve. Medications: Reviewed: Yes Vitals/I&O/Wt Last Vital Signs Temp 98.7 F 06/28/21 15:06 Pulse 97 06/28/21 16:24 Resp 20 H 06/28/21 16:24 BP 107/75 06/28/21 15:06 Pulse Ox 93 06/28/21 16:24 06/28/21 06/28/21 06/28/21 06:59 14:59 22:59 Intake Total 100 / 1846 Output Total 400 / 1100 Balance -300 / 746 Physical Exam Const: COMMON NORMALS: no acute distress and patient oriented x3 GENERAL APPEARANCE: cooperative, ill appearing and frail appearing ORIENTATION/CONSCIOUSNESS: Yes awake, Yes oriented to person, Yes oriented to place and Yes oriented to time HENMT: COMMON NORMALS: normocephalic and atraumatic HEAD & SCALP: normocephalic and atraumatic Chest: COMMONS NORMALS: normal inspection of the chest Resp: COMMON NORMALS: normal respiratory effort, No retractions, No use of accessory muscles and clear to auscultation bilaterally EFFORT & INSPECTION: Yes symmetric chest movement AUSCULTATION: clear to auscultation bilaterally, crackles and diminished lung sounds diffuse OTHER: on 3 L Cardio: COMMON NORMALS: regular rate, regular rhythm, S1 normal heart sound present, S2 normal heart sound present, No gallops present (Cardio), No murmurs present (Cardio) and No rub (Cardio) RATE: regular rate and tachycardic RHYTHM: regular rhythm HEART SOUNDS: S1 normal heart sound present and S2 normal heart sound present GI: COMMON NORMALS: Normal to inspection, nondistended, normoactive bowel sounds present, Soft to palpation, non-tender, No hepatosplenomegaly present and no masses AUSCULTATION: Yes normoactive bowel sounds PALPATION: Yes Soft to palpation and Yes No hepatosplenomegaly present RECTAL EXAM: deferred : COMMON NORMALS: Yes no CVA tenderness BLADDER/KIDNEY EXAM: Yes no CVA tenderness Back/Pelvis: COMMON NORMALS: no CVA tenderness Extremity: COMMON NORMALS: normal to inspection, no clubbing, cyanosis or edema and no pedal edema Neuro: COMMON NORMALS: patient oriented x3, CN's II-XII intact bilaterally and moves all extremities SENSORIUM/ORIENTATION: Yes oriented to person, Yes oriented to place and Yes oriented to time Psych: COMMON NORMALS: mental status grossly normal and Normal thought process present THOUGHT PROCESS: Normal thought process present Urinary Catheter Management^: Piedra: Cath Placed During This Visit: yes, but has since been removed by the nurse Reason for Continuing Indwelling Catheter: Accurate Measurement of Urinary Output in Critically Ill Patients Urinary Catheter Date of Insertion: 06/02/21 Date Urinary Catheter Removed: 06/26/21 Time Urinary Catheter Discontinued: 19:34 Data : 06/25/21 03:18 06/25/21 03:18 A&P Assessment and plan (1) Acute respiratory distress syndrome (ARDS) due to 2019 novel coronavirus: Status: Acute (2) Acute respiratory failure with hypoxia: Status: Acute (3) Alkalosis, metabolic: Status: Acute (4) DVT (deep venous thrombosis): Status: Acute Qualifiers: DVT location: lower extremity Affected thrombotic vein of extremity: femoral Chronicity: unspecified Laterality: bilateral Qualified Code(s): I82.413 - Acute embolism and thrombosis of femoral vein, bilateral (5) Sinus tachycardia: Status: Acute (6) Anxiety: Status: Acute Additional A&P Information #ARDS #COVID 19 Pneumonia #hypoxemia --continue decadron -Will wean off - stop today --taper O2 -currently on 3 L --continue guaifenesin --PRN levalbuterol --zinc, vitamin D, C --Status post remdesivir regimen #DVT --bilateral on 06/07 --d/c Lovenox --eliquis 5 mg PO BID started #malnutrition -TPN was discontinued --advance diet per nutrition recs --currently on GI soft diet --tolerated po intake #anxiety --currently on Klonopin 0.5mg po bid, will consider to increase or change #abnormal Urine culture #yeast --Discontinue fluconazole #apthous ulcer --resolved --discontinue acyclovir #weakness --PT/OT Attestations Medical Necessity Statement*: Patient require further hospitalization forCOVID-19 pneumonia requiring oxygen and placement arrangement Time Spent in Patient Care: Greater than 35 minutes (>than 50% of time spent in counselling and/or direct pt care on unit). Coding Level of Care Code Acute Arabic Translator for [facility] Fwd Diagnoses Acute respiratory distress syndrome (ARDS) due to 2019 novel coronavirus U07.1; J80 Acute respiratory failure with hypoxia J96.01 Alkalosis, metabolic E87.3 DVT (deep venous thrombosis) I82.413 DVT location: lower extremity Affected thrombotic vein of extremity: femoral Chronicity: unspecified Laterality: bilateral Sinus tachycardia R00.0 Anxiety F41.9
--- NOTE | 2021-06-28 17:47 | PC.RESP ---
RT Shift Note Frequent safety and respiratory rounds continue. Orders completed as indicated. Patient monitored pre and post treatments throughout shift. Patient tolerated treatments appropriately. Condition improved. Patient and/or data entry representative educated on respiratory treatment and medications. Patient and/or data entry representative verbalized understanding. Titrated patient to 4lpm via nasal cannula. Will continue to monitor patient progress.
[2021-06-28] MEDS: apixaban 5 mg Tablet PO (20:45)
--- NOTE | 2021-06-28 20:50 | PC.NURSE ---
Received report from JACKI Iglesias. Patient resting in bed with eyes closed, opens spontaneously with verbal cue. Patient reports feeling much better. Patient currently on 4L high flow NC. Denies pain or further needs. No distress observed. Will continue to monitor.
[2021-06-29] VITALS (12 sets, daily range): BP systolic 97–145; BP diastolic 62–83; PULSE 82–108; RESP 20–29; TEMP 36.6–36.9; O2SAT 90–96
[2021-06-29 06:11] LABS: Basophils % 0.1 %; Eosinophils # 0.1 10^3/uL (0.0-0.8); Eosinophils % 1.3 %; Hematocrit 37.4 % (37.0-47.0); Hemoglobin 11.3 g/dL (11.5-15.3); Lymphocytes # 1.5 10^3/uL (0.8-4.8); Lymphocytes % 13.6 %; Mean Corpuscular HGB Conc 30.2 g/dL (30.0-36.0); Mean Corpuscular Hemoglobin 30.1 pg (28.0-34.0); Mean Corpuscular Volume 99.5 fl (81-99); Mean Platelet Volume 8.8 fL (7.4-10.4); Monocytes # 0.6 10^3/uL (0.2-0.9); Monocytes % 5.1 %; Neutrophils # 8.66 10^3/uL (1.8-7.7); Neutrophils % 79.4 %; Nucleated Red Blood Cells % 0 %; Platelet Count 205 10^3/cmm (130-400); Red Blood Count 3.76 10^6/uL (4.1-5.3); Red Cell Distribution Width 16.6 % (12.1-15.1); White Blood Count 10.9 10^3/uL (4.0-10.0)
--- NOTE | 2021-06-29 07:11 | PC.NURSE ---
Shift Note Frequent safety and comfort rounds continue. Orders and/or nursing care completed as indicated. Patient monitored for response to intervention and treatment(s). Education provided includes Eliquis. Patient verbalized complete understanding. Patient slept well last night. Patient tolerated 4L NC throughout the night. Patient does have decrease in SpO2 with exertion but recovers within a timely manner. Patient denies pain. No distress observed. Will continue to monitor.
[2021-06-29 08:17] LABS: Alanine Aminotransferase 81 U/L (0-33); Albumin Level 3.1 g/dL (3.5-5.2); Alkaline Phosphatase 65 IU/L (35-105); Aspartate Amino Transferase 33 U/L (0-32); Blood Urea Nitrogen 13 mg/dL (8-23); Calcium 9.1 mg/dL (8.5-10.5); Carbon Dioxide 34 mmol/L (22-29); Chloride 98 mmol/L (98-107); Globulin 2.8 g/dL (1.3-4.6); Glucose 76 mg/dL (65-115); Osmolality Calculated 287 mOsm/kg (285-295); Sodium 139 mmol/L (136-145); Total Bilirubin 0.2 mg/dL (0.15-1.2); Total Protein 5.9 g/dL (6.6-8.7)
[2021-06-29] MEDS: lactobacillus 1 Tablet 1 TAB PO ×2 (09:34→17:49)
[2021-06-29] MEDS: apixaban 5 mg Tablet PO ×2 (09:34→19:48)
[2021-06-29] MEDS: nystatin 100,000 unit/mL UDC 5 mL 100000 UNIT PO (09:36)
[2021-06-29 11:39] LABS: Procalcitonin 0.16 ng/mL (0-0.5)
--- NOTE | 2021-06-29 12:56 | P.PN_ITS ---
Subjective Subjective: Interval history: 65-year-old female with history of positive COVID-19 test on May 10 admitted May 18, 2021 for worsening shortness of breath. She has had a complicated hospitalization requiring BiPAP and high flow. patient was weaned down to 3-4 L of O2 via nasal cannula. She stated she felt much better. No fever chills overnight. No nausea vomiting. Continues to improve. No new clinical events overnight. Medications: Reviewed: Yes Vitals/I&O/Wt Last Vital Signs Temp 98.1 F 06/29/21 09:38 Pulse 106 H 06/29/21 10:03 Resp 22 H 06/29/21 10:03 BP 97/71 06/29/21 09:35 Pulse Ox 92 06/29/21 10:03 06/28/21 06/29/21 06/29/21 22:59 06:59 14:59 Intake Total 360 / 360 Output Total 325 / 325 200 / 200 Balance -325 / -325 160 / 160 Physical Exam Const: COMMON NORMALS: no acute distress and patient oriented x3 GENERAL APPEARANCE: cooperative, ill appearing and frail appearing ORIENTATION/CONSCIOUSNESS: Yes awake, Yes oriented to person, Yes oriented to place and Yes oriented to time HENMT: COMMON NORMALS: normocephalic and atraumatic HEAD & SCALP: normocephalic and atraumatic Chest: COMMONS NORMALS: normal inspection of the chest Resp: COMMON NORMALS: normal respiratory effort, No retractions, No use of accessory muscles and clear to auscultation bilaterally EFFORT & INSPECTION: Yes symmetric chest movement AUSCULTATION: clear to auscultation bilaterally, crackles and diminished lung sounds diffuse OTHER: on 4 L Cardio: COMMON NORMALS: regular rate, regular rhythm, S1 normal heart sound present, S2 normal heart sound present, No gallops present (Cardio), No murmurs present (Cardio) and No rub (Cardio) RATE: regular rate and tachycardic RHYTHM: regular rhythm HEART SOUNDS: S1 normal heart sound present and S2 normal heart sound present GI: COMMON NORMALS: Normal to inspection, nondistended, normoactive bowel sounds present, Soft to palpation, non-tender, No hepatosplenomegaly present and no masses AUSCULTATION: Yes normoactive bowel sounds PALPATION: Yes Soft to palpation and Yes No hepatosplenomegaly present RECTAL EXAM: deferred : COMMON NORMALS: Yes no CVA tenderness BLADDER/KIDNEY EXAM: Yes no CVA tenderness Back/Pelvis: COMMON NORMALS: no CVA tenderness Extremity: COMMON NORMALS: normal to inspection, no clubbing, cyanosis or edema and no pedal edema Neuro: COMMON NORMALS: patient oriented x3, CN's II-XII intact bilaterally and moves all extremities SENSORIUM/ORIENTATION: Yes oriented to person, Yes oriented to place and Yes oriented to time Psych: COMMON NORMALS: mental status grossly normal and Normal thought process present THOUGHT PROCESS: Normal thought process present Urinary Catheter Management^: P[place]ra: Cath Placed During This Visit: yes, but has since been removed by the nurse Reason for Continuing Indwelling Catheter: Accurate Measurement of Urinary Output in Critically Ill Patients Urinary Catheter Date of Insertion: 06/02/21 Date Urinary Catheter Removed: 06/26/21 Time Urinary Catheter Discontinued: 19:34 Data : 06/29/21 05:54 06/29/21 05:54 A&P Assessment and plan (1) Acute respiratory distress syndrome (ARDS) due to 2019 novel coronavirus: Status: Acute (2) Acute respiratory failure with hypoxia: Status: Acute (3) Alkalosis, metabolic: Status: Acute (4) DVT (deep venous thrombosis): Status: Acute Qualifiers: DVT location: lower extremity Affected thrombotic vein of extremity: femoral Chronicity: unspecified Laterality: bilateral Qualified Code(s): I82.413 - Acute embolism and thrombosis of femoral vein, bilateral (5) Sinus tachycardia: Status: Acute (6) Anxiety: Status: Acute Additional A&P Information #ARDS #COVID 19 Pneumonia #hypoxemia --continue decadron -Will wean off - Discontinued --taper O2 -currently on 3-4 L --continue guaifenesin --PRN levalbuterol --zinc, vitamin D, C --Status post remdesivir regimen #DVT --bilateral on 06/07 US --d/c Lovenox --eliquis 5 mg PO BID started #malnutrition --TPN was discontinued --advance diet per nutrition recs --currently on GI soft diet --tolerated po intake #anxiety --currently on Klonopin 0.5mg po bid, will consider to increase or change #abnormal Urine culture #yeast --Discontinue fluconazole #apthous ulcer --resolved --discontinue acyclovir #weakness --PT/OT Awaiting placement arrangement Attestations Medical Necessity Statement*: Require further hospitalization for management of COVID-19 and arranging placement Time Spent in Patient Care: Greater than 35 minutes (>than 50% of time spe nt in counselling and/or direct pt care on unit) . Coding Level of Care Code Acute Workforce Development Specialist for g Fwd Diagnoses Acute respiratory distress syndrome (ARDS) due to 2019 novel coronavirus U07.1; J80 Acute respiratory failure with hypoxia J96.01 Alkalosis, metabolic E87.3 DVT (deep venous thrombosis) I82.413 DVT location: lower extremity Affected thrombotic vein of extremity: femoral Chronicity: unspecified Laterality: bilateral Sinus tachycardia R00.0 Anxiety F41.9
[2021-06-29 16:01] LABS: HSV 1 DNA DETECTED; HSV 2 DNA NOT DETECTED; HSV Source SERUM
--- NOTE | 2021-06-29 20:17 | PC.NURSE ---
Shift Note Frequent safety and comfort rounds continue. Orders and/or nursing care completed as indicated. Patient monitored for response to intervention and treatment(s). Education provided includes oral hygiene twice a day, sitting up in bedside commode. Patient and/or cordage sales representative stated she will brush her teeth before bedtime and she is not ready to get up in the bedside commode per PT eval yesterday. Will continue to monitor.
[2021-06-30] VITALS (13 sets, daily range): BP systolic 112–132; BP diastolic 73–82; PULSE 86–117; RESP 17–35; TEMP 36.5–37.3; O2SAT 86–96
--- NOTE | 2021-06-30 06:36 | PC.NURSE ---
Shift Note Frequent safety and comfort rounds continue. Orders and/or nursing care completed as indicated. Patient monitored for response to intervention and treatment(s). Education provided includes oxygen safety and Eliquis. Patient and/or warehouse representative verbalized understanding. Will continue to monitor.
[2021-06-30] MEDS: apixaban 5 mg Tablet PO ×2 (09:30→19:31)
[2021-06-30] MEDS: lactobacillus 1 Tablet 1 TAB PO ×2 (09:30→18:31)
--- NOTE | 2021-06-30 11:17 | PC.RESP ---
RT Shift Note Frequent safety and respiratory rounds continue. Orders completed as indicated. Patient monitored pre and post treatments throughout shift. Patient did tolerate treatments appropriately. Condition did not change. Patient and/or tour sales representative educated on respiratory treatment and medications. Patient and/or tour sales representative verbalized understanding. Will continue to monitor patient progress.
--- NOTE | 2021-06-30 16:34 | P.PN_ITS ---
Subjective Subjective: Interval history: 65-year-old female with history of positive COVID-19 test on May 10 admitted May 18, 2021 for worsening shortness of breath. She has had a complicated hospitalization requiring BiPAP and high flow. patient was weaned down to 3-4 L of O2 via nasal cannula. She stated she felt much better. No fever chills overnight. No nausea vomiting. Continues to improve. 06/30 No new clinical events overnight.Patient continues to feel anxious. no fever, chills, nausea or vomiting. Medications: Reviewed: Yes Vitals/I&O/Wt Last Vital Signs Temp 98.2 F 06/30/21 19:17 Pulse 102 H 06/30/21 21:06 Resp 18 06/30/21 21:06 BP 132/82 06/30/21 19:17 Pulse Ox 96 06/30/21 21:06 06/30/21 06/30/21 06/30/21 06:59 14:59 22:59 Intake Total 300 / 1380 360 / 360 Output Total 125 / 775 Balance 175 / 605 360 / 360 Physical Exam Const: COMMON NORMALS: no acute distress and patient oriented x3 GENERAL APPEARANCE: cooperative, ill appearing and frail appearing ORIENTATION/CONSCIOUSNESS: Yes awake, Yes oriented to person, Yes oriented to place and Yes oriented to time HENMT: COMMON NORMALS: normocephalic and atraumatic HEAD & SCALP: normocephalic and atraumatic Chest: COMMONS NORMALS: normal inspection of the chest Resp: COMMON NORMALS: normal respiratory effort, No retractions, No use of accessory muscles and clear to auscultation bilaterally EFFORT & INSPECTION: Yes symmetric chest movement AUSCULTATION: clear to auscultation bilaterally, crackles and diminished lung sounds diffuse OTHER: on 4 L Cardio: COMMON NORMALS: No gallops present (Cardio) RATE: tachycardic GI: COMMON NORMALS: Normal to inspection, nondistended, normoactive bowel sounds present Extremity: COMMON NORMALS: normal to inspection, no clubbing, cyanosis or edema and no pedal edema Neuro: COMMON NORMALS: patient oriented x3, CN's II-XII intact bilaterally and moves all extremities SENSORIUM/ORIENTATION: Yes oriented to person, Yes oriented to place and Yes oriented to time Psych: COMMON NORMALS: mental status grossly normal Urinary Catheter Management^: [place]: Cath Placed During This Visit: yes, but has since been removed by the nurse Reason for Continuing Indwelling Catheter: Accurate Measurement of Urinary Output in Critically Ill Patients Urinary Catheter Date of Insertion: 06/02/21 Date Urinary Catheter Removed: 06/26/21 Time Urinary Catheter Discontinued: 19:34 Data : 06/29/21 05:54 06/29/21 05:54 A&P Assessment and plan (1) Acute respiratory distress syndrome (ARDS) due to 2019 novel coronavirus: Status: Acute (2) Acute respiratory failure with hypoxia: Status: Acute (3) Alkalosis, metabolic: Status: Acute (4) DVT (deep venous thrombosis): Status: Acute Qualifiers: DVT location: lower extremity Affected thrombotic vein of extremity: femoral Chronicity: unspecified Laterality: bilateral Qualified Code(s): I 82.413 - Acute embolism and thrombosis of femoral vein, bilateral (5) Sinus tachycardia: Status: Acute (6) Anxiety: Status: Acute Additional A&P Information #ARDS #COVID 19 Pneumonia #hypoxemia --continue decadron -Will wean off - Discontinued --taper O2 -currently on 3-4 L --continue guaifenesin --PRN levalbuterol --zinc, vitamin D, C --Status post remdesivir regimen --No change to management #DVT --bilateral on 06/07 --d/c Lovenox --Eliquis 5 mg PO BID #malnutrition --TPN was discontinued --advance diet per nutrition recs --currently on GI soft diet --tolerating po intake #anxiety --currently on Klonopin 0.5mg po bid #abnormal Urine culture #yeast --Monitor off fluconazole #apthous ulcer --resolved #weakness --PT/OT Awaiting placement arrangement Attestations Medical Necessity Statement*: Continue hospitalization for placement arrangement. Time Spent in Patient Care: Greater than 35 minutes (>than 50% of time spe nt in counselling and/or direct pt care on unit) . Coding Level of Care Code Acute Batch Mixing Truck Driver for Kathrin Carreon Diagnoses Acute respiratory distress syndrome (ARDS) due to 2019 novel coronavirus U07.1; J80 Acute respiratory failure with hypoxia J96.01 Alkalosis, metabolic E87.3 DVT (deep venous thrombosis) I82.413 DVT location: lower extremity Affected thrombotic vein of extremity: femoral Chronicity: unspecified Laterality: bilateral Sinus tachycardia R00.0 Anxiety F41.9
--- NOTE | 2021-06-30 17:48 | PC.RESP ---
RT Shift Note Frequent safety and respiratory rounds continue. Orders completed as indicated. Patient monitored pre and post treatments throughout shift. Patient did tolerate treatments appropriately. Condition did not change. Patient and/or traveling sales representative educated on respiratory treatment and medications. Patient and/or traveling sales representative verbalized understanding. Will continue to monitor patient progress.
[2021-06-30] MEDS: CLONazepam 0.5 mg Tablet PO (18:31)
[2021-06-30] MEDS: docusate sodium 100 mg Capsule PO (18:31)
[2021-06-30] MEDS: nystatin cream 30 gm 1 APPLIC TOPICAL (18:32)
--- NOTE | 2021-06-30 19:53 | PC.NURSE ---
Shift Note Frequent safety and comfort rounds continue. Orders and/or nursing care completed as indicated. Patient monitored for response to intervention and treatment(s). Education provided includes breathing exercises, turning and coughing and klonopin. Patient and/or sales and merchandising representative verbalizes understanding. Will continue to monitor.
[2021-07-01] VITALS (10 sets, daily range): BP systolic 88–119; BP diastolic 50–78; PULSE 89–119; RESP 22–35; TEMP 36.4–36.9; O2SAT 88–97
--- NOTE | 2021-07-01 04:04 | PC.NURSE ---
Patient refusing to be turned at this time.
--- NOTE | 2021-07-01 04:11 | PC.NURSE ---
Shift Note Frequent safety and comfort rounds continue. Orders and/or nursing care completed as indicated. Patient monitored for response to intervention and treatment(s). Will continue to monitor.
[2021-07-01 05:21] LABS: Basophils % 0.2 %; Eosinophils # 0.3 10^3/uL (0.0-0.8); Eosinophils % 2.2 %; Hematocrit 37.9 % (37.0-47.0); Hemoglobin 11.8 g/dL (11.5-15.3); Lymphocytes # 1.9 10^3/uL (0.8-4.8); Mean Corpuscular HGB Conc 31.1 g/dL (30.0-36.0); Mean Corpuscular Hemoglobin 30.7 pg (28.0-34.0); Mean Corpuscular Volume 98.7 fl (81-99); Mean Platelet Volume 8.8 fL (7.4-10.4); Monocytes # 0.8 10^3/uL (0.2-0.9); Monocytes % 6.5 %; Neutrophils # 9.48 10^3/uL (1.8-7.7); Neutrophils % 75.5 %; Nucleated Red Blood Cells % 0 %; Platelet Count 243 10^3/cmm (130-400); Red Blood Count 3.84 10^6/uL (4.1-5.3); Red Cell Distribution Width 16.5 % (12.1-15.1); White Blood Count 12.5 10^3/uL (4.0-10.0)
[2021-07-01 05:42] LABS: Blood Urea Nitrogen 9 mg/dL (8-23); Calcium 9.3 mg/dL (8.5-10.5); Carbon Dioxide 34 mmol/L (22-29); Chloride 97 mmol/L (98-107); Glucose 107 mg/dL (65-115); Osmolality Calculated 285 mOsm/kg (285-295); Sodium 138 mmol/L (136-145)
--- NOTE | 2021-07-01 08:16 | PC.CHAP ---
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 note keeper visit [] Patient/Family/Request visit [] Outpatient visit [] Follow-up visit [] Physician referral [] Code/Alert [x] Routine visit [] Staff referral [] Actively dying [] Patient sleeping [] Family support [] [] Out of room [] Palliative care [] [] Receiving care in room [] Pre-surgical visit [] Trauma [] Long length of stay [] ICU visit [] Other: Relational/Emotional Strength [] Patient feels connected with others/family/visitors/staff [] Distress [] Loneliness/isolation [] Abandonment Spirituality of Patient [x] Person of Caro [x] Attends Druze of their Caro [] Believes in Prayer [] Reads Bible or Rastafarian materials [] There are Spiritual issues to be addressed [employer] Interventions [x] Prayer [x] Active listening [x] Non-anxious presence [x] Spiritual/emotional support [] Crisis/trauma care [] Spiritual counseling [] Bereavement support [] Provided bereavement packet [] Provided Bible/devotional materials [] Provided toy/stuffed animal, coloring book to patient or family member [] Provided Communion [] Anointing/[place] [] Salvation [x] Completed spiritual assessment [] Other: Impact on Illness or Injury [] Angry [] Fearful [] Anxious [] Often cries [] Exhaustion [] Unable to work [] Unable to attend buddhism [] Unable to walk/stand [] Unable to read [] Unable to drive [] Unable to eat/drink [] Unable to sleep [] Unable to be with family [] Patient intubated [] Other: Summary eating... setting up... on oxygen... getting stronger... being relocated for rehab sometime this week..... Time spent with patient 20 min
[2021-07-01] MEDS: lactobacillus 1 Tablet 1 TAB PO ×2 (08:46→17:42)
[2021-07-01] MEDS: famotidine 20 mg Tablet PO ×2 (08:46→17:42)
[2021-07-01] MEDS: CLONazepam 0.5 mg Tablet PO ×2 (08:47→17:42)
[2021-07-01] MEDS: multivitamin therapeutic Tablet 1 TAB PO (08:47)
[2021-07-01] MEDS: apixaban 5 mg Tablet PO ×2 (08:47→19:32)
[2021-07-01 09:24] LABS: Iron 38 ug/dL (37-145); Percent Saturation 19.8 % (20-50); Total Iron Binding Capacity 191 mcg/dl; Unsaturated Iron Binding 153 ug/dL (112-347)
[2021-07-01 09:31] LABS: Thyroid Stimulating Hormone 1.25 uIU/mL (0.27-4.20)
--- NOTE | 2021-07-01 15:17 | P.PN_ITS ---
Subjective Subjective: Interval history: Hospital course, labs appreciated. Examination and comfortably in bed. On 2 L nasal cannula saturating 91 today 2%. On review patient has been having mild tachycardia with heart rate going up to 119. Denies any nausea, vomiting, headache, dizziness. States she is feeling better. Still not able to get out of bed to go up to chair. We discussed the need for patient to continue doing I-S and Acapella along with sitting in chair for as long as possible. Patient states he usually waits for physical therapy to come in and get her to the chair. We discussed that patient would do well with sitting on the side of the bed with legs in the air as well. Patient verbalizes understanding and states he will continue to do that. Medications: Reviewed: Yes Vitals/I&O/Wt Last Vital Signs Temp 97.6 F 07/01/21 12:00 Pulse 119 H 07/01/21 12:00 Resp 22 H 07/01/21 12:00 BP 118/78 07/01/21 12:00 Pulse Ox 88 L 07/01/21 12:00 07/01/21 07/01/21 07/01/21 06:59 14:59 22:59 Intake Total 200 / 560 100 / 100 Output Total 275 / 275 525 / 525 Balance -75 / 285 -425 / -425 Physical Exam Narrative: EXAM NARRATIVE: General: No acute distress, AO x3, frail, weak HEENT: PERRLA, pupils bilaterally equal and reactive Chest: Bilateral bronchial breath sounds, bilateral occasional rhonchi present all over the lung reyes, equal good air entry bilaterally CVS: S1-S2 regular, no murmurs, no tachycardia, no gallops, no rubs Abdomen: Soft, nontender, no organomegaly, bowel sounds present Neuro: No focal deficits, no facial deformity, AO x3, power 5/5 in all limbs Urinary Catheter Management^: [place]ra: Cath Placed During This Visit: yes, but has since been removed by the nurse Reason for Continuing Indwelling Catheter: Accurate Measurement of Urinary Ou tput in Critically Ill Patients Urinary Catheter Date of Insertion: 06/02/21 Date Urinary Catheter Removed: 06/26/21 Time Urinary Catheter Discontinued: 19:34 Data : 07/01/21 04:45 07/01/21 04:45 A&P Assessment and plan (1) ARDS survivor: Status: Acute (2) Acute respiratory distress syndrome (ARDS) due to 2019 novel coronavirus: Status: Acute (3) Alkalosis, metabolic: Status: Acute (4) DVT (deep venous thrombosis): Status: Acute Qualifiers: DVT location: lower extremity Affected thrombotic vein of extremity: femoral Chronicity: unspecified Laterality: bilateral Qualified Code(s): I82.413 - Acute embolism and thrombosis of femoral vein, bilateral (5) Sinus tachycardia: Status: Acute (6) Anxiety: Status: Acute (7) Physical deconditioning: Status: Acute Additional A&P Information #ARDS: Resolved #COVID 19 Pneumonia Post treatment for COVID-19 with prolonged course of dexamethasone and remdesivir. Currently tapered down to 3 to 4 L of oxygen supplementation. Advair, Spiriva with albuterol as needed. Continue with Eliquis 5 mg twice daily. Start on metoprolol 25 mg twice daily. #DVT: As seen on lower limb Dopplers. --bilateral on 06/07 --Eliquis 5 mg PO BID #Malnutrition: Continue with GI soft diet. Anxiety Currently on Klonopin 0.5mg po bid Xanax as needed. Severe physical deconditioning: PT/OT evaluation and treatment to be continued. #abnormal Urine culture #yeast --Monitor off fluconazole DNR/DNI. Famotidine for PUD prophylaxis. GI soft diet. Eliquis will help with DVT prophylaxis as well. Discharge planning: Awaiting placement to SNF because of prolonged hospitalization and severe physical deconditioning. Attestations Medical Necessity Statement*: Requires further hospitalization for management of severe physical deconditioning secondary to prolonged hospitalization for ARDS secondary COVID-19 pneumonia, DVT while safe discharge planning is sought. Time Spent in Patient Care: Greater than 35 minutes (>than 50% of time spent in counselling and/or direct pt care on unit) . Coding Level of Care Code Acute Pharmacy Benefit Manager for [facility] Fwd Diagnoses ARDS survivor Z87.09 Acute respiratory distress syndrome (ARDS) due to 2019 novel coronavirus U07.1; J80 Alkalosis, metabolic E87.3 DVT (deep venous thrombosis) I82.413 DVT location: lower extremity Affected thrombotic vein of extremity: femoral Chronicity: unspecified Laterality: bilateral Sinus tachycardia R00.0 Anxiety F41.9 Physical deconditioning R53.81
[2021-07-01] MEDS: metoprolol tartrate 25 mg Tablet PO ×2 (16:12→19:32)
--- NOTE | 2021-07-01 16:27 | PC.RESP ---
RT Shift Note Frequent safety and respiratory rounds continue. Orders completed as indicated. Patient monitored pre and post treatments throughout shift. Patient did tolerate treatments appropriately. Condition improved. Patient and/or computer help desk representative educated on respiratory treatment and medications. Patient and/or computer help desk representative verbalized understanding. Will continue to monitor patient progress.
--- NOTE | 2021-07-01 18:06 | PC.NURSE ---
Shift Note Frequent safety and comfort rounds continue. Orders and/or nursing care completed as indicated. Patient monitored for response to intervention and treatment(s). Education provided includes[new medicine: metoprolol for elevated HR]. Patient and/or videotape sales representative [states understanding.]. Will continue to monitor O2 saturation, activity tolerance .
[2021-07-02] VITALS (13 sets, daily range): BP systolic 103–120; BP diastolic 68–72; PULSE 92–124; RESP 17–34; TEMP 36.6–37; O2SAT 90–97
[2021-07-02 04:53] LABS: Basophils % 0.3 %; Eosinophils # 0.3 10^3/uL (0.0-0.8); Eosinophils % 2.5 %; Hematocrit 37.3 % (37.0-47.0); Hemoglobin 11.2 g/dL (11.5-15.3); Lymphocytes # 1.7 10^3/uL (0.8-4.8); Lymphocytes % 13.9 %; Mean Corpuscular Hemoglobin 29.9 pg (28.0-34.0); Mean Corpuscular Volume 99.5 fl (81-99); Mean Platelet Volume 8.7 fL (7.4-10.4); Monocytes # 0.7 10^3/uL (0.2-0.9); Monocytes % 5.4 %; Neutrophils # 9.25 10^3/uL (1.8-7.7); Neutrophils % 77.5 %; Nucleated Red Blood Cells % 0 %; Platelet Count 226 10^3/cmm (130-400); Red Blood Count 3.75 10^6/uL (4.1-5.3); Red Cell Distribution Width 16.2 % (12.1-15.1); White Blood Count 11.9 10^3/uL (4.0-10.0)
[2021-07-02 05:12] LABS: Alanine Aminotransferase 95 U/L (0-33); Albumin Level 2.9 g/dL (3.5-5.2); Alkaline Phosphatase 69 IU/L (35-105); Aspartate Amino Transferase 25 U/L (0-32); Blood Urea Nitrogen 11 mg/dL (8-23); Calcium 9.3 mg/dL (8.5-10.5); Carbon Dioxide 36 mmol/L (22-29); Chloride 97 mmol/L (98-107); Globulin 2.8 g/dL (1.3-4.6); Glucose 96 mg/dL (65-115); Osmolality Calculated 285 mOsm/kg (285-295); Sodium 138 mmol/L (136-145); Total Bilirubin 0.3 mg/dL (0.15-1.2); Total Protein 5.7 g/dL (6.6-8.7)
[2021-07-02] MEDS: CLONazepam 0.5 mg Tablet PO (08:36)
[2021-07-02] MEDS: metoprolol tartrate 25 mg Tablet PO ×2 (08:36→22:19)
[2021-07-02] MEDS: famotidine 20 mg Tablet PO ×2 (08:36→17:47)
[2021-07-02] MEDS: multivitamin therapeutic Tablet 1 TAB PO (08:36)
[2021-07-02] MEDS: apixaban 5 mg Tablet PO ×2 (08:36→22:19)
[2021-07-02] MEDS: lactobacillus 1 Tablet 1 TAB PO ×2 (08:36→17:48)
--- NOTE | 2021-07-02 09:56 | PC.SOCIAL ---
IMM Update: pg 2 of IMM updated and reviewed w/ patient. Copy provided.
--- NOTE | 2021-07-02 13:12 | P.PN_ITS ---
Subjective Subjective: Interval history: No acute events overnight. Patient is lying comfortably in bed on examination. On 3 L nasal cannula saturating 95%. Denies any new complaint. Denies any nausea, vomiting, headache. Complaining of feeling little sleepy today after taking her Klonopin. Medications: Reviewed: Yes Vitals/I&O/Wt Last Vital Signs Temp 98.2 F 07/02/21 08:00 Pulse 114 H 07/02/21 11:30 Resp 17 07/02/21 11:30 BP 103/69 07/02/21 08:00 Pulse Ox 93 07/02/21 11:30 07/01/21 07/02/21 07/02/21 22:59 06:59 14:59 Intake Total 120 / 220 Output Total 150 / 675 325 / 1000 50 / 50 Balance -150 / -575 -205 / -780 -50 / -50 Physical Exam Narrative: EXAM NARRATIVE: General: No acute distress, AO x3, frail, weak HEENT: PERRLA, pupils bilaterally equal and reactive Chest: Bilateral bronchial breath sounds, bilateral occasional rhonchi present all over the lung reyes, equal good air entry bilaterally CVS: S1-S2 regular, no murmurs, no tachycardia, no gallops, no rubs Abdomen: Soft, nontender, no organomegaly, bowel sounds present Neuro: No focal deficits, no facial deformity, AO x3, power 5/5 in all limbs Urinary Catheter Management^: [place]ra: Cath Placed During This Visit: yes, but has since been removed by the nurse Reason for Continuing Indwelling Catheter: Accurate Measurement of Urinary Output in Critically Ill Patients Urinary Catheter Date of Insertion: 06/02/21 Date Urinary Catheter Removed: 06/26/21 Time Urinary Catheter Discontinued: 19:34 Data : 07/02/21 04:20 07/02/21 04:20 A&P Assessment and plan (1) ARDS survivor: Status: Acute (2) Acute respiratory distress syndrome (ARDS) due to 2019 novel coronavirus: Status: Inactive (3) Alkalosis, metabolic: Status: Acute (4) DVT (deep venous thrombosis): Status: Acute Qualifiers: DVT location: lower extremity Affected thrombotic vein of extremity: femoral Chronicity: unspecified Laterality: bilateral Qualified Code(s): I82.413 - Acute embolism and thrombosis of femoral vein, bilateral (5) Sinus tachycardia: Status: Acute (6) Anxiety: Status: Acute (7) Physical deconditioning: Status: Acute Additional A&P Information #ARDS: Resolved #COVID 19 Pneumonia Post treatment for COVID-19 with prolonged course of dexamethasone and remd esivir. Currently tapered down to 3 to 4 L of oxygen supplementation via regular nasal cannula. Advair, Spiriva with albuterol as needed. Continue with Eliquis 5 mg twice daily. Continue with metoprolol 25 mg twice daily. DVT: As seen on lower limb Dopplers. --bilateral on 06/07 --Eliquis 5 mg PO BID #Malnutrition: Continue with GI soft diet. Tachycardia: Sinus. Most likely secondary to severe. Physical deconditioning. Continue with oral metoprolol as above. We will continue to monitor. Anxiety: Start patient on Wellbutrin. Stop Klonopin. Xanax 0.25 every 8 as needed. Severe physical deconditioning: PT/OT evaluation and treatment to be continued. Abnormal Urine culture: Urine culture earlier in this admission growing yeast. Has finished a course of fluconazole. For now monitor off fluconazole DNR/DNI. Famotidine for PUD prophylaxis. GI soft diet. Eliquis will help with DVT prophylaxis as well. Discharge planning: Awaiting placement to SNF because of prolonged hospitaliz ation and severe physical deconditioning. Attestations Medical Necessity Statement*: Further hospitalization for management of severe physical deconditioning due to prolonged hospitalization from COVID-19 pne umonia, ARDS survivor while safe discharge planning is sought Time Spent in Patient Care: Greater than 35 minutes (>than 50% of time spent in counselling and/or direct pt care on unit) . Coding Level of Care Code Acute Pediatric Rn for [facility] Diagnoses ARDS survivor Z87.09 Acute respiratory distress syndrome (ARDS) due to 2019 novel coronavirus U07.1; J80 Alkalosis, metabolic E87.3 DVT (deep venous thrombosis) I82.413 DVT location: lower extremity Affected thrombotic vein of extremity: femoral Chronicity: unspecified Laterality: bilateral Sinus tachycardia R00.0 Anxiety F41.9 Physical deconditioning R53.81
--- NOTE | 2021-07-02 18:38 | PC.NURSE ---
Shift Note Frequent safety and comfort rounds continue. Orders and/or nursing care completed as indicated. Patient monitored for response to intervention and treatment(s). Education provided includes[change of medication from klonipein to xanax.]. Patient and/or indirect sales representative [states understanding]. Will continue to monitor.
--- NOTE | 2021-07-02 20:01 | PC.NURSE ---
Received report from JACKI Rodriguez. Patient resting in bed watching tv. Patient reports she is going to be discharged to SNF 07/03 for rehabilitation. Discussed deep breathing exercises with patient. Patient demonstrated and verbalized complete understanding. Patient denies pain or needs at this time. No distress osberved. Will continue to monitor.
[2021-07-03 03:56] VITALS: BP 106/63; PULSE 98; RESP 23; TEMP 36.8; O2SAT 96
[2021-07-03 06:00] VITALS: PULSE 96
[2021-07-03 08:00] VITALS: BP 105/64; PULSE 119; RESP 29; O2SAT 93
[2021-07-03] MEDS: buPROPion XL (24 HR) 150 mg Tablet 75 MG PO (08:59)
[2021-07-03] MEDS: metoprolol tartrate 25 mg Tablet PO (08:59)
[2021-07-03] MEDS: apixaban 5 mg Tablet PO (08:59)
[2021-07-03] MEDS: multivitamin therapeutic Tablet 1 TAB PO (08:59)
[2021-07-03] MEDS: famotidine 20 mg Tablet PO (09:02)
[2021-07-03] MEDS: lactobacillus 1 Tablet 1 TAB PO (09:08)
[2021-07-03 09:18] VITALS: PULSE 120; RESP 20; O2SAT 92
--- NOTE | 2021-07-03 09:18 | PC.CHAP ---
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 school bus monitor visit [] Patient/Family/Request visit [] Outpatient visit [] Follow-up visit [] Physician referral [] Code/Alert [x] Routine visit [] Staff referral [] Actively dying [] Patient sleeping [] Family support [] [] Out of room [] Palliative care [] [] Receiving care in room [] Pre-surgical visit [] Trauma [] Long length of stay [] ICU visit [] Other: Relational/Emotional Strength [] Patient feels connected with others/family/visitors/staff [] Distress [] Loneliness/isolation [] Abandonment Spirituality of Patient [x] Person of Caro [x] Attends [employer] of their Caro [] Believes in Prayer [] Reads Bible or Catholic materials [] There are Spiritual issues to be addressed Cafe Assistant Interventions [x] Prayer [x] Active listening [x] Non-anxious presence [x] Spiritual/emotional support [] Crisis/trauma care [] Spiritual counseling [] Bereavement support [] Provided bereavement packet [] Provided Bible/devotional materials [] Provided toy/stuffed animal, coloring book to patient or family member [] Provided Communion [] Anointing/Baker [] Salvation [x] Completed spiritual assessment [] Other: Impact on Illness or Injury [] Angry [] Fearful [] Anxious [] Often cries [] Exhaustion [] Unable to work [] Unable to attend faith [] Unable to walk/stand [] Unable to read [] Unable to drive [] Unable to eat/drink [] Unable to sleep [] Unable to be with family [] Patient intubated [] Other: Summary patient has work hard to make it.... 46 days and she is going to physical therapy facility.. we celebrate her survival and her caro Time spent with patient 20 min
--- NOTE | 2021-07-03 11:29 | PM.DCS ---
Discharge Providers Date of Admission: 05/18/21 17:56 Date of Discharge: July 03, 2021 Attending Provider at Admission: Cheo Post MD Attending Provider at Discharge: Kris Hobson MD Primary Care Provider: RASTA Cutler Diagnoses at Discharge Discharge Diagnosis (1) ARDS survivor: Status: Acute (2) Acute respiratory distress syndrome (ARDS) due to 2019 novel coronavirus: Status: Inactive (3) Alkalosis, metabolic: Status: Acute (4) DVT (deep venous thrombosis): Status: Acute Qualifiers: DVT location: lower extremity Affected thrombotic vein of extremity: femoral Chronicity: unspecified Laterality: bilateral Qualified Code(s): I82.413 - Acute embolism and thrombosis of femoral vein, bilateral (5) Sinus tachycardia: Status: Acute (6) Anxiety: Status: Acute (7) Physical deconditioning: Status: Acute Reason for Visit Reason for Visit: LAST DAY QUARANTINE:SOB, FATIGUE, WEAK Hospital Course Hospital Course Vandana Villalobos is a 65 year old female with past medical history of endometriosis, diverticulosis who was admitted to the hospital more than 7 weeks ago with symptoms of COVID-19. Initially patient tested positive on May 10. She has been to the hospital and was started on treatment with protocol for remdesivir, dexamethasone and empiric antibiotics to cover for bacterial pneumonia. Her hospitalization was complicated and prolonged due to her requiring high oxygen supplementation for a long time now putting as high as BiPAP and heated high flow. During hospitalization patient was also found to have acute lower limb DVT for which she was started on full dose anticoagulation. Her hospital stay was further complicated by her developing fungal UTI severe physical deconditioning and malnutrition for which intermittently she was on TPN as well and was transitioned over to GI soft diet once she was able to tolerate she also had bouts of anxiety for which she has been on and off on Precedex but recently has been transitioned over to oral patient has developed severe physical deconditioning because of prolonged hospitalization and has been followed up by physical therapy who advised patient to be transitioned over to SNF for further rehabilitation. Patient verbalized understanding. After multiple goals of care discussion patient's CODE STATUS was changed to DNR/DNI. His hospitalization. Eventually patient's oxygen requirement slightly trending down and currently she has been saturating well on 3 L nasal cannula. Patient continues to work well with bed exercises and physical therapy. Patient has occasional episodes of tachycardia for which she has been started on metoprolol. She is being discharged in hemodynamically stable condition. Advised to take inhalation treatment with Advair and Spiriva daily. Advised to continue using Eliquis which is a blood thinner for at least next 6 months given new DVT.. Advised to continue working with incentive spirometry and flutter valve while at home. Advised to follow-up with his primary care provider and his cycle touring guide within the next 4 to 7 days. Can take his COVID-19 vaccination in 3 months. Advised to continue following social distancing and isolation protocol for next 10 days. Advised to come back to the ER if fever of more than 101 Fahrenheit, more difficulty breathing than usual or requiring higher oxygen supplementation. Physical Exam Narrative: EXAM NARRATIVE: General: No acute distress, AO x3, frail, weak HEENT: PERRLA, pupils bilaterally equal and reactive Chest: Bilateral bronchial breath sounds, bilateral occasional rhonchi present all over the lung reyes, equal good air entry bilaterally CVS: S1-S2 regular, no murmurs, no tachycardia, no gallops, no rubs Abdomen: Soft, nontender, no organomegaly, bowel sounds present Neuro: No focal deficits, no facial deformity, AO x3, power 5/5 in all limbs Urinary Catheter Management^: [place]: Cath Placed During This Visit: yes, but has since been removed by the nurse Reason for Continuing Indwelling Catheter: Accurate Measurement of Urinary Output in Critically Ill Patients Urinary Catheter Date of Insertion: 06/02/21 Date Urinary Catheter Removed: 06/26/21 Time Urinary Catheter Discontinued: 19:34 Discharge Data Data Completed and Pending: Completed Studies During Hospitalization Category Date Time Status CT angio chest PE protcl [id number] Stat Cat Scan 05/18/21 16:[address] angio chest PE protcl [id number] Stat Cat Scan 06/07/21 07:26 Completed XR chest 1V melinda ble [id number] AM LABS Exams 06/12/21 04:00 Completed XR chest 1V melinda ble [id number] Routine Exams 05/28/21 09:06 Completed XR chest 1V melinda ble [id number] Routine Exams 05/31/21 06:00 Completed XR chest 1V melinda ble [id number] Routine Exams 06/19/21 08:22 Completed XR chest 1V melinda ble [id number] Stat Exams 05/18/21 14:29 Completed XR chest 1V melinda ble [id number] Stat Exams 06/02/21 12:41 Completed XR chest 1V melinda ble [id number] Stat Exams 06/06/21 11:02 Completed XR chest 1V melinda ble [id number] Stat Exams 06/07/21 11:34 [place] [id number] Urgent Ultrasound 06/07/21 12:10 Completed CV. echo complete * [id number] Routine Ultrasound 06/12/21 06:00 Completed Pending at discharge Category Date Time Status Fungal Culture no t HR/SK/BL Stat Lab 06/14/21 11:25 Uncollected Sputum Culture Ro utine Lab 05/28/21 09:43 Uncollected Sputum Culture an d Gram Stain Stat Lab 06/19/21 08:22 Uncollected Addt'l Data from Hospital Stay: Laboratory Results WBC 11.9 10^3/uL (4.0 -10.0) H 07/02/21 04:20 RBC 3.75 10^6/uL (4.1 -5.3) L 07/02/21 04:20 Hgb 11.2 g/dL (11.5-1 5.3) L 07/02/21 04:20 Hct 37.3 % (37.0-47.0 ) 07/02/21 04:20 MCV 99.5 fl (81-99) H 07/02/21 04:20 MCH 29.9 pg (28.0-34. 0) 07/02/21 04:20 MCHC 30.0 g/dL (30.0-3 6.0) 07/02/21 04:20 RDW 16.2 % (12.1-15.1 ) H 07/02/21 04:20 Plt Count 226 10^3/cmm (130 -400) 07/02/21 04:20 MPV 8.7 fL (7.4-10.4) 07/02/21 04:20 Neut % (Auto) 77.5 % 07/02/21 04:20 Lymph % (Auto) 13.9 % 07/02/21 04:20 [place] % (Auto) 5.4 % 07/02/21 04:20 Eos % (Auto) 2.5 % 07/02/21 04:20 Baso % (Auto) 0.3 % 07/02/21 04:20 Neut # (Auto) 9.25 10^3/uL (1.8 -7.7) H 07/02/21 04:20 Lymph # (Auto) 1.7 10^3/uL (0.8- 4.8) 07/02/21 04:20 [place] # (Auto) 0.7 10^3/uL (0.2- 0.9) 07/02/21 04:20 Eos # (Auto) 0.3 10^3/uL (0.0- 0.8) 07/02/21 04:20 Baso # (Auto) 0.0 10^3/uL (0.0- 0.1) 07/02/21 04:20 Nucleated RBC % (a uto) 0 % 07/02/21 04:20 Total Counted 100 (0-100) 05/26/21 05:45 Atypical Lymphs % 0.0 % (0-5) 05/26/21 05:45 Absolute Neutrophi ls 12.3 10^3/cmm (1. 4-6.5) H 05/26/21 05:45 Segmented Neutroph ils 81 % 05/26/21 05:45 Abs Segm Neuts (Ma n) 12.2 10/cmm (1.6- 7.1) H 05/26/21 05:45 Band Neutrophils 1.0 % 05/26/21 05:45 Abs Band Neuts (Ma n) 0.2 10^3/cmm (0.0 -1.2) 05/26/21 05:45 Absolute Lymphocyt es 1.5 10^3/cmm (1.2 -3.4) 05/26/21 05:45 Lymphocytes (Manua l) 10 % 05/26/21 05:45 Monocytes (Manual) 4.0 % 05/26/21 05:45 Absolute Monocytes 0.6 10^3/cmm (0.1 -0.6) 05/26/21 05:45 Eosinophils (Manua l) 1 % 05/26/21 05:45 Absolute Eosinophi ls 0.1 10^3/cmm (0.0 -0.7) 05/26/21 05:45 Basophils (Manual) 0.0 % 05/26/21 05:45 Absolute Basophils 0.0 10^3/cmm (0.0 -0.2) 05/26/21 05:45 Metamyelocytes 2.0 % 05/26/21 05:45 Myelocytes 1.0 % 05/26/21 05:45 Nucleated RBCs # 0.0 /100WBC 07/02/21 04:20 Smudge Cells 2+ H 05/26/21 05:45 Platelet Estimate Normal (Normal) 05/26/21 05:45 ESR 64 mm/hr (0-15) H 06/19/21 09:45 D-Dimer >= 20.00 ug/mIFEU (0-0.59) H 06/06/21 12:43 Specimen Type Arterial 06/07/21 12:00 Sample Site Radial, left 06/07/21 12:00 ABG pH 7.36 (7.35-7.45) 06/07/21 12:00 ABG pCO2 57.4 mmHg (35-45) H 06/07/21 12:00 ABG pO2 67.8 mmHg (80.0-1 00.0) L 06/07/21 12:00 ABG HCO3 32.6 mmol/L (22-2 6) H 06/07/21 12:00 ABG O2 Saturation 93.6 06/07/21 12:00 ABG Base Excess 5.7 mmol/L (-2.0- 2.0) H 06/07/21 12:00 Glen Test Pos 06/07/21 12:00 A-a O2 Gradient 75.4 mmHg (5-10) H 06/07/21 12:00 Hematocrit 38.7 % (37-47) 06/07/21 12:00 Hgb O2 Saturation 92.5 % (95-100) L 06/07/21 12:00 Carboxyhemoglobin 0.9 %THgb (0.4-20 .1) 06/07/21 12:00 Methemoglobin 0.3 % (0.4-1.5) L 06/07/21 12:00 Total Hemoglobin 12.6 g/dL (12-16) 06/07/21 12:00 Sodium 137.0 mmol/L (131 -143) 06/07/21 12:00 Potassium 4.0 mmol/L (3.5-5 .0) 06/07/21 12:00 Glucose 119.0 mg/dL (70-1 15) H 06/07/21 12:00 Ionized Calcium 1.3 mmol/L (1.1-1 .4) 06/07/21 12:00 O2 Delivery Device Bipap 06/07/21 12:00 O2 Liters/Min 40.0 % 06/02/21 10:16 FiO2 100.0 % 06/07/21 12:00 Residence Life Coordinator ID glc 06/07/21 12:00 Sodium 138 mmol/L (136-1 45) 07/02/21 04:20 Potassium 4.0 mmol/L (3.5-5 .1) 07/02/21 04:20 Chloride 97 mmol/L (98-107 ) L 07/02/21 04:20 Carbon Dioxide 36 mmol/L (22-29) H 07/02/21 04:20 Anion Gap 9.0 (5-19) 07/02/21 04:20 BUN 11 mg/dL (8-23) 07/02/21 04:20 Creatinine 0.3 mg/dL (0.5-0. 9) L 07/02/21 04:20 GFR Calculation 224.0 mL/min (90- 130) H 07/02/21 04:20 Glucose 96 mg/dL (65-115) 07/02/21 04:20 POC Glucose 155 mg/dL (70-110 ) H 06/21/21 17:12 Estimat Average Gl ucose 117 06/13/21 04:40 Hemoglobin A1c 5.7 % (4.0-6.0) 06/13/21 04:40 Calculated Osmolal ity 285 mOsm/kg (285- 295) 07/02/21 04:20 Calcium 9.3 mg/dL (8.5-10 .5) 07/02/21 04:20 Phosphorus 3.3 mg/dL (2.5-4. 5) 06/25/21 03:18 Magnesium 2.2 mg/dL (1.7-2. 3) 06/25/21 03:18 Iron 38 ug/dL (37-145) 07/01/21 04:45 TIBC 191 mcg/dl 07/01/21 04:45 % Saturation 19.8 % (20-50) L 07/01/21 04:45 Unsat Iron Binding 153 ug/dL (112-34 7) 07/01/21 04:45 Ferritin 1388 ng/mL (15-15 0) H 06/02/21 04:52 Total Bilirubin 0.3 mg/dL (0.15-1 .2) 07/02/21 04:20 AST 25 U/L (0-32) 07/02/21 04:20 ALT 95 U/L (0-33) H 07/02/21 04:20 Alkaline Phosphata se 69 IU/L (35-105) 07/02/21 04:20 Lactate Dehydrogen ase 402 U/L (135-214) H 06/13/21 04:40 Troponin T Gen 5 n g/L 33 ng/L (0-10) H 06/10/21 13:54 Troponin T Baselin e 24 ng/L (0-10) H 06/11/21 14:17 Troponin T 120 Min [facility] 23.16 ng/L (0-10) H 06/11/21 16:16 Delta Troponin T -0.84 ABS# (0-10) L 06/11/21 16:16 Troponin T Hi Sens 6Hr 19.37 ng/L (0-10) H 06/11/21 20:25 Troponin T Hi Sens 6Hr Delta -4.63 ng/L (0-12) L 06/11/21 20:25 C-Reactive Protein 1.4 mg/L (0.0-4.9 ) 06/22/21 04:03 NT-Pro-B Natriuret Pep 194 pg/mL (0-125) H 06/22/21 04:03 Total Protein 5.7 g/dL (6.6-8.7 ) L 07/02/21 04:20 Albumin 2.9 g/dL (3.5-5.2 ) L 07/02/21 04:20 Globulin 2.8 g/dL (1.3-4.6 ) 07/02/21 04:20 Triglycerides 190 mg/dL (0-150) H 06/11/21 05:30 Procalcitonin 0.16 ng/mL (0-0.5 ) 06/29/21 05:54 TSH 1.25 uIU/mL (0.27 -4.20) 07/01/21 04:45 Urine Color Yellow (Yellow) 05/18/21 15:41 Urine Appearance Clear (CLEAR) 05/18/21 15:41 Urine pH 5 (5-7) 05/18/21 15:41 Ur Specific Gravit y 1.020 (1.005-1.0 30) 05/18/21 15:41 Urine Protein Trace (Negative) 05/18/21 15:41 Urine Glucose (UA) Norm (Normal) 05/18/21 15:41 Urine Ketones 1+ (Negative) H 05/18/21 15:41 Urine Blood 2+ (Negative) H 05/18/21 15:41 Urine Nitrate Negative (Negati ve) 05/18/21 15:41 Urine Bilirubin 1+ (Negative) H 05/18/21 15:41 Urine Urobilinogen 1 mg/dL (Negative ) H 05/18/21 15:41 Ur Leukocyte Darlene ase Negative (Negati ve) 05/18/21 15:41 Urine RBC 0-4 /hpf (0-2) H 05/18/21 15:41 Urine WBC 5-10 /hpf (0-5) H 05/18/21 15:41 Ur Squamous Epith Cells 5-10 /hpf (0-5) H 05/18/21 15:41 Amorphous Sediment 1+ /hpf 05/18/21 15:41 Urine Bacteria 1+ /hpf (NONE) H 05/18/21 15:41 Coarse Granular Ca sts 15-25 /lpf H 05/18/21 15:41 Vancomycin Trough 15.2 ug/mL (10-15 ) H 06/23/21 09:15 CMV IgG Ab >10.00 U/mL H 06/19/21 09:45 CMV IgM Ab <30.00 AU/mL 06/19/21 09:45 Herpes Simplex Alanis rce Serum 06/19/21 09:45 A. galactomannan A g EIA Not detected 06/16/21 04:50 A. galactomannan A g Idx <0.50 06/16/21 04:50 HSV 1 DNA Detected A 06/19/21 09:45 HSV 2 DNA Not detected 06/19/21 09:45 [facility] Test Referenc e See comment 06/24/21 08:00 Impressions Chest CTA 06/07/21 07:26 IMPRESSION: 1. No pulmonary embolism. 2. Progressive bilateral groundglass consolidations throughout both lungs. 3. New RIGHT heart strain and dilated pulmonary artery since 05/18/2021. Venous Duplex 06/07/21 12:10 IMPRESSION: 1. Bilateral lower extremity deep vein thrombosis. ADDENDUM: 06/07/21 [id number] THIS REPORT CONTAINS FINDINGS THAT MAY BE CRITICAL TO PATIENT CARE. The findings were verbally communicated via telephone conference with CHEO POST at 6:24 PM CDT on 06/07/2021. The findings were acknowledged and understood. Chest X-Ray 06/19/21 08:22 IMPRESSION: 1. Diffuse bilateral interstitial infiltrates showing little change since prior study. Microbiology 06/19/21 09:53 Blood Blood Culture - Final NO GROWTH AFTER 5 DAYS 06/19/21 09:45 Blood Blood Culture - Final NO GROWTH AFTER 5 DAYS 06/18/21 18:50 Urine Catheterized Urine Culture - Final Yeast 06/21/21 11:50 Stool Stool Lactoferrin - Final 06/21/21 11:50 Stool Enteric Pathogens (PCR) - Final 06/21/21 11:50 Stool Parasite Antigen Panel - Final 06/21/21 11:50 Stool C.difficile Toxin B Gene (PCR) - Final 06/21/21 11:50 Stool Occult Blood (FIT) - Final 06/20/21 09:50 Nose MRSA Culture - Final 06/03/21 09:39 Stool Routine Collection Enteric Pathogens (PCR) - Final 06/03/21 09:39 Stool Routine Collection Parasite Antigen Panel - Final 06/03/21 09:39 Stool Routine Collection C.difficile Toxin B Gene (PCR) - Final 05/28/21 11:07 Blood Blood Culture - Final Coagulase negativ staphylococc 05/28/21 11:10 Blood Blood Culture - Final NO GROWTH AFTER 5 DAYS 05/30/21 09:05 Urine,Clean Catch Legionella Urinary Antigen - Final 05/30/21 09:05 Urine,Clean Catch Bacterial Antigens - Final Vitals: Last Vital Signs Temp 98.3 F 07/03/21 03:56 Pulse 120 H 07/03/21 09:18 Resp 20 H 07/03/21 09:18 BP 105/64 07/03/21 08:00 Pulse Ox 92 07/03/21 09:18 Discharge Plan Discharge Patient Disposition: Xfer SNF Condition: Stable Prescriptions: New Advair Diskus 250-50 mcg/dose Blister With Device 1 puff inhalation BID.RESPIRATORY 30 Days Qty: 60 RF: 0 alprazolam 0.5 mg Tablet 0.25 mg PO Q8H PRN (Reason: Anxiety) Qty: 10 RF: 0 famotidine 20 mg Tablet 20 mg PO BID 10 Days Qty: 20 RF: 0 docusate sodium 100 mg Capsule 100 mg PO BID 10 Days Qty: 20 RF: 0 bupropion HCl 150 mg Tablet Extended Release 24 Hr 75 mg PO DAILY 30 Days Qty: 30 RF: 0 metoprolol tartrate 25 mg Tablet 25 mg PO BID@0900,2100 50 Days Qty: 120 RF: 0 Thera 400 mcg Tablet 1 tab PO DAILY 30 Days Qty: 30 RF: 0 Eliquis 5 mg Tablet 5 mg PO BID@0900,2100 30 Days Qty: 60 RF: 0 Spiriva Respimat 2.5 mcg/actuation mist 2 inh inhalation DAILY 30 Days Qty: 4 RF: 0 Discontinued Xarelto 20 mg tablet 20 mg PO DAILY RF: 0 Discharge Orders: Discharge Order (Routine); Ordered 07/03/21 Ordered By: Kris Hobson Referrals: ColetterFranklin MD [Physician] - 2 weeks Trinity Gomez FNP [Primary Care Provider] - 1-3 days Discharge Diet: GI Soft Discharge Activity: Resume usual activity Patient Instructions: Opioid Safety Activity Restrictions/Additional Instructions: Advised to take inhalation treatment with Advair and Spiriva daily. Advised to continue using Eliquis which is a blood thinner for at least neck 6 months Advised to continue working with incentive spirometry and flutter valve while at home. Advised to follow-up with his primary care provider and his cycle touring guide within the next 4 to 7 days. Can take his COVID-19 vaccination in 3 months. Advised to continue following social distancing and isolation protocol for next 10 days. Advised to come back to the ER if fever of more than 101 Fahrenheit, more difficulty breathing than usual or requiring higher oxygen supplementation. Discharge Attestations Time Spent in Discharge Care*: greater than 30 min Specific Discharge Activities: educating patient, educating and/or supporting family/caregiver, discussing with pcp/other providers, discussing with window caser/social workers/dc planners, documenting/other paperwork and evaluating patient/reviewing data Status at Discharge: Cognitive status at discharge: cognitively intact, Behavioral status at discharge: cooperative, Functional status at discharge: other assisted ambulation Overall status at discharge: patient has a new baseline Quality Metrics Clinical Quality Measures During this hospital stay, did patient experience: None Coding Level of Care Code Acute [facility] note Diagnoses ARDS survivor Z87.09 Acute respiratory distress syndrome (ARDS) due to 2019 novel coronavirus U07.1; J80 Alkalosis, metabolic E87.3 DVT (deep venous thrombosis) I82.413 DVT location: lower extremity Affected thrombotic vein of extremity: femoral Chronicity: unspecified Laterality: bilateral Sinus tachycardia R00.0 Anxiety F41.9 Physical deconditioning R53.81
--- NOTE | 2021-07-03 17:37 | PC.NURSE ---
Discharge Note Patient discharged to [facility]] via [stretcher] accompanied by [transport staff.]. Discharge instructions reviewed with patient and/or membership sales representative. Mobile pharmacy medications and/or prescriptions provided. Belongings/home medications returned.
--- NOTE | 2021-07-04 13:27 | PC.SOCIAL ---
spoke with patients nurse at [facility], the nursing staff will make patients follow up appointments. patient is doing well, they have no concerns with discharge instructions or medications.
== END 2021-07-03 17:36 | disposition skilled nursing facility (03) | DRG 177 ==
LOC: ER 15:57 → MEDSURG 17:37 → MS 2A 05-22 14:49 → CSU 06-11 14:16
PROVIDERS: Family Medicine; Hospitalist; Internal Medicine; Admitting Provider Internal Medicine; Emergency Provider Family Medicine; PCP Registered Nurse; Visit Provider Student in an Organized Health Care Education/Training Program
DX: U07.1 COVID-19 (principal); J80 Acute respiratory distress syndrome; J12.82 Pneumonia due to coronavirus disease 2019; E46 Unspecified protein-calorie malnutrition; I82.413 Acute embolism and thrombosis of femoral vein, bilateral; E87.3 Alkalosis; B37.49 Other urogenital candidiasis; E86.0 Dehydration; R19.7 Diarrhea, unspecified; R00.0 Tachycardia, unspecified; I51.9 Heart disease, unspecified; F41.9 Anxiety disorder, unspecified; L89.819 Pressure ulcer of head, unspecified stage; R94.31 Abnormal electrocardiogram [ECG] [EKG]; K12.0 Recurrent oral aphthae; R53.81 Other malaise; Z87.891 Personal history of nicotine dependence; Z86.718 Personal history of other venous thrombosis and embolism; Z79.01 Long term (current) use of anticoagulants; Z66 Do not resuscitate; Z68.28 Body mass index [BMI] 28.0-28.9, adult; Z99.89 Dependence on other enabling machines and devices; Z87.19 Personal history of other diseases of the digestive system; Z87.42 Personal history of other diseases of the female genital tract
CPT/HCPCS: 36415; 36416; 36569; 36600; 51702; 71045; 71275; 80048; 80051; 80053; 80202; 81001; 82274; 82330; 82728; 82805; 82962; 83036; 83540; 83550; 83615; 83630; 83735; 83880; 84100; 84145; 84443; 84478; 84484; 85007; 85025; 85378; 85651; 86140; 86403; 87040; 87086; 87106; 87205; 87305; 87449; 87493; 87506; 87530; 87641; 92526; 92610; 93005; 93306; 93970; 94640; 94660; 96365; 96372; 97110; 97162; 97167; 97530; 97535; 99285; J0456; J0692; J0696; J1100; J1650; J1815; J1885; J1940; J1956; J2060; J2270; J2543; J3370; J3411; J3490; J3535; J7030; J7050; J7608; J7614; J7626; J8499; J8540; Q9967